=== PATIENT | male | born 1945 | race Hispanic/Latino ===

== ENCOUNTER 2017-01-15 21:43 | Emergency (ER) | payer MEDICARE ==
[2017-01-15 21:49] VITALS: BP 143/85; PULSE 82; RESP 18; TEMP 98.3; O2SAT 99
--- NOTE | 2017-01-15 23:20 | ED PDOC ---
HPI: General Adult Time Seen by Provider: 01/15/17 22:11 Chief Complaint (Nursing): Cough, Cold, Congestion Chief Complaint (Provider): Lightheadedness History Per: Patient History/Exam Limitations: no limitations Onset/Duration Of Symptoms: Hrs Additional History Per: Family () Additional Complaint(s): Sharath is a 71 y/o male who was recently discharged from the hospital on Friday after being admitted for bronchitis, and also had a colonoscopy and had a sample taken for biopsy. He is currently awaiting the results of the biopsy. Today, patient reports he was sitting and felt light headed. He has had similar episodes in the past but said this time the symptoms lasted longer, prompting his visit. His thinks it may have been caused by anxiety about his pending test results. He denies headache, chest pain, shortness of breath, or weakness, but admits to a return of green sputum after 4 days of no coughing. Patient states he had dinner but skipped lunch today. PMD: Deondre Kovacs Past Medical History Reviewed: Historical Data, Nursing Documentation, Vital Signs Vital Signs: Last Vital Signs Temp 98.3 F 01/15/17 21:45 Pulse 82 01/15/17 21:45 Resp 18 01/15/17 21:45 BP 143/85 01/15/17 21:45 Pulse Ox 99 01/16/17 01:24 - Medical History PMH: Anemia, Bronchitis, Gastritis, HTN, Pneumonia, Chronic Kidney Disease - Surgical History Surgical History: Endoscopy (Colonscopy and biopsy of mass) - Family History Family History: States: Unknown Family Hx - Home Medications Home Medications: Ambulatory Orders Medication Instructions Recorded Zolpidem [Ambien] 5 mg PO HS 12/31/16 Ferrous Bis-Glycinate Chelate 1 gm MC DAILY #20 powder 01/10/17 [Ferrous Bisglycinate Chelate] Fludrocortisone [Florinef Acetate] 0.1 mg PO DAILY #20 tab 01/10/17 Albuterol HFA [Ventolin HFA 90 2 puff IH [id number] #1 puff 01/16/17 mcg/actuation (8 g)] - Allergies Allergies/Adverse Reactions: Allergies Allergy/AdvReac Type Severity Reaction Status Date / Time No Known Allergies Allergy Verified 12/31/16 13:39 Review of Systems ROS Statement: Except As Marked, All Systems Reviewed And Found Negative Constitutional: Negative for: Weakness Cardiovascular: Negative for: Chest Pain Respiratory: Positive for: Cough, Sputum (green). Negative for: Shortness of Breath Neurological: Positive for: Other (lightheadedness). Negative for: Weakness, Headache Physical Exam - Reviewed Nursing Documentation Reviewed: Yes Vital Signs Reviewed: Yes - Physical Exam Appears: Positive for: Non-toxic, No Acute Distress Head Exam: Positive for: ATRAUMATIC, NORMAL INSPECTION, NORMOCEPHALIC Skin: Positive for: Normal Color, Warm, Dry Eye Exam: Positive for: Normal appearance, EOMI, PERRL. Negative for: Nystagmus ENT: Positive for: Normal ENT Inspection Neck: Positive for: Normal, Painless ROM, Supple Cardiovascular/Chest: Positive for: Regular Rate, Rhythm. Negative for: Murmur Respiratory: Positive for: Crackles (right basilar - similar to previous exam). Negative for: Respiratory Distress Gastrointestinal/Abdominal: Positive for: Normal Exam, Bowel Sounds, Soft. Negative for: Tenderness Back: Positive for: Normal Inspection Extremity: Positive for: Normal ROM. Negative for: Pedal Edema, Deformity Neurologic/Psych: Positive for: Alert, Oriented. Negative for: Motor/Sensory Deficits - Laboratory Results Result Diagrams: 01/16/17 00:09 01/16/17 00:09 - ECG O2 Sat by Pulse Oximetry: 99 (RA) Pulse Ox Interpretation: Normal Medical Decision Making Medical Decision Making: Time: 22:32 Initial Impression: Lightheadedness Initial Plan: --EKG --CMP --CBC --PTT --Prothrombin Time --Chest x-ray --Blood Glucose --Ortho BP --Urinalysis Scribe Attestation: Documented by Butch Bradley, acting as a scribe for Kati Laurent MD Provider Scribe Attestation: All medical record entries made by the Scribe were at my direction and personally dictated by me. I have reviewed the chart and agree that the record accurately reflects my personal performance of the history, physical exam, medical decision making, and the department course for this patient. I have also personally directed, reviewed, and agree with the discharge instructions and disposition. Disposition - Clinical Impression Clinical Impression: Dizziness, Cough - Disposition Referrals: Rob Kovacs MD [Family Provider] - Disposition: Transfer of Care Disposition Time: 00:00 Condition: STABLE Prescriptions: Albuterol HFA [Ventolin HFA 90 mcg/actuation (8 g)] 2 puff IH [id number] #1 puff Instructions: Dizziness (ED), Acute Cough (ED) Forms: [employer] ([place]) Patient Signed Over To: Remy Boggs Handoff Comments: Pending labs.
[2017-01-16 00:13] LABS: BASO # 0.1 K/uL (0.0-0.2); BASO % 0.9 % (0.0-2.0); EOS # 0.3 K/uL (0.0-0.7); EOS % 4.7 % (0.0-4.0); HEMATOCRIT 33.1 % (35.0-51.0); LYMPH # 1.1 K/uL (1.0-4.3); LYMPH % 18.2 % (20.0-40.0); MEAN CELL VOLUME 79.2 fl (80.0-94.0); MEAN CORPUSCULAR HEMOGLOBIN 24.3 pg (27.0-31.0); MEAN CORPUSCULAR HGB CONC 30.7 g/dL (33.0-37.0); MEAN PLATELET VOLUME 8.6 fl (7.2-11.7); MONO # 0.6 K/uL (0.0-0.8); MONO % 10.6 % (0.0-10.0); NEUT # 3.9 K/uL (1.8-7.0); NEUT % 65.6 % (50.0-75.0); NRBC % 0.1 % (0.0-0.0); RED CELL DISTRIBUTION WIDTH 28.9 % (11.5-14.5); WHITE BLOOD COUNT 5.9 K/uL (4.8-10.8)
[2017-01-16 00:23] LABS: CALCIUM 8.5 mg/dL (8.4-10.2); POTASSIUM 3.8 MMOL/L (3.6-5.0); TOTAL PROTEIN 5.4 G/DL (6.3-8.2)
[2017-01-16 00:24] LABS: ALB/GLOB RATIO 1.7 (1.0-2.1)
[2017-01-16] MEDS: Sodium Chloride 0.9% 1,000 ML IV STA (00:25)
--- NOTE | 2017-01-16 01:21 | ED PDOC ---
- Laboratory Results Result Diagrams: 01/16/17 00:09 01/16/17 00:09 - ECG O2 Sat by Pulse Oximetry: 99 (RA) Pulse Ox Interpretation: Normal Medical Decision Making Medical Decision Makin Signed out to me by Dr. Laurent pending bloodwork and reassessment 115AM Pt. feeling better, states symptoms have resolved. Was able to get up and walk without reproduction of symptoms. States he may have been anxious about results of colonoscopy. Will give ventolin for cough. Told to f/u w/ Dr. Kovacs tomorrow. Disposition - Clinical Impression Clinical Impression: Dizziness, Cough - POA Present On Arrival: None - Disposition Referrals: Rob Kovacs MD [Family Provider] - Disposition: Routine/Home Disposition Time: 01:15 Condition: STABLE Prescriptions: Albuterol HFA [Ventolin HFA 90 mcg/actuation (8 g)] 2 puff IH [id number] #1 puff Instructions: Dizziness (ED), Acute Cough (ED) Forms: [employer] ([place]z)
--- NOTE | 2017-01-16 11:15 | RAD ---
HISTORY: Lightheadedness COMPARISON: 01/06/2017 FINDINGS: LUNGS: No active pulmonary disease. PLEURA: No significant pleural effusion identified, no pneumothorax apparent. CARDIOVASCULAR: Cardiomegaly. No evidence of acute, significant cardiovascular disease. OSSEOUS STRUCTURES: No significant abnormalities. VISUALIZED UPPER ABDOMEN: Normal. OTHER FINDINGS: None. IMPRESSION: No active disease. No significant interval change compared to the prior examination(s). Concordant results with the preliminary interpretation rendered by the emergency department physician procedure.
--- NOTE | 2017-01-17 18:04 | CARD ---
APPROVED REPORT EKG Measurement Heart [id number] <Conclusion> Normal sinus rhythm Left axis deviation Moderate voltage criteria for LVH, may be normal variant Cannot rule out Septal infarct, age undetermined Abnormal ECG
== END 2017-01-16 02:03 | disposition home or self-care (01) ==
LOC: H.ER 21:43
DX: R05 Cough (principal); R42 Dizziness and giddiness
CPT/HCPCS: 71010; 80053; 82948; 85025; 85610; 85730; 93005; 96360; 99284; J7040

== ENCOUNTER 2017-02-25 08:07 | Inpatient (IN) | payer MEDICARE ==
[2017-02-25 08:26] VITALS: BMI 25.9
[2017-02-25] MEDS ORDERED: Lactated Ringer's 1,000 ML IV ONE ×3 (10:19→12:33)
[2017-02-25] MEDS ORDERED: Propofol 10 mg/ml Inj (20 ML) ONE (10:22)
[2017-02-25] MEDS ORDERED: Succinylcholine 200 mg/10 ml Inj IV ONE (10:23)
[2017-02-25] MEDS ORDERED: Rocuronium 10 mg/ml (5 ml) ONE ×2 (10:23→11:55)
[2017-02-25] MEDS ORDERED: ePHEDrine 50 mg/ml Inj ONE ×2 (10:23→12:12)
[2017-02-25] MEDS ORDERED: Midazolam 2 MG/2 ML VIAL ONE ×2 (10:23→13:49)
--- NOTE | 2017-02-25 10:52 | CP.SDSHP ---
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 - Previous Medical/Surgical History Cardiac: Hypertension, ASHD/CAD, Hx of CHF Pulmonary: Emphysema/COPD, Other (pneumothorax) Endocrine/Metabolic: Renal Disease (CKD) Misc: Anemia Previous Surgical History: cholecystectomy, prostate surgery, left lung resection for bleb - Allergies Allergies: Allergies No Known Allergies Allergy (Verified 02/25/17 08:25) - Physical Exam Vital Signs: Vital Signs 02/25/17 02/25/17 02/25/17 08:39 08:42 08:54 Temperature 97.6 F Pulse Rate 78 78 Respiratory 20 Rate Blood Pressure 178/100 H 154/94 H O2 Sat by Pulse 100 Oximetry Mental Status: Alert & Oriented x3 Neuro: WNL Heart: WNL Lungs: WNL GI: Other (well healed lower midline scar) - Impression Impression: Ascending colon mass Pt. Evaluated Today:Candidate for Anesthesia & Procedure: Yes - Date & Time Date: 02/25/17 Time: 10:56 Short Stay Discharge - Short Stay Discharge Admitting Diagnosis/Reason for Visit: C18.1 Disposition: HOME/ ROUTINE Referrals: Rob Kovacs MD [Primary Care Provider] -
[2017-02-25] MEDS ORDERED: metroNIDAZOLE 500mg/100ml NS IVPB ONE (11:08)
[2017-02-25] MEDS ORDERED: Chlorhexidine Gluconate 1 APPL/PKT TP ONE (11:30)
[2017-02-25] MEDS ORDERED: Neostigmine Methylsulfate 3mg/3ml Syringe IV ONE (12:01)
[2017-02-25] MEDS ORDERED: Cellulose Hemostat 2X3 Sheet TP ONE (12:54)
--- NOTE | 2017-02-25 13:37 | PCM.SURG1 ---
Surgeon's Initial Post Op Note - Surgeon's Notes Surgeon: Dr. Kapoor Prenatal Genetic Counselor: Dr. Lundy, Dr. Chen PGY-3, Dr. Spicer PGY-1 Type of Anesthesia: General Endo Anesthesia Administered By: Dr. Pérez Pre-Operative Diagnosis: Ascending colon mass Operative Findings: Ascending colon mass Post-Operative Diagnosis: Ascending colon mass Operation Performed: Laparoscopic hand assisted lysis of adhesions, open right hemicolectomy, Mejía insertion Specimen/Specimens Removed: Right colon Estimated Blood Loss: EBL {In ML}: 1,000 Blood Products Given: PRBC (1 unit) Drains Used: No Drains Post-Op Condition: Poor Date of Surgery/Procedure: 02/25/17 Time of Surgery/Procedure: 13:37
[2017-02-25] MEDS ORDERED: Albuterol HFA 90 mcg/actuation (8 g) IH SCH (13:45)
[2017-02-25] MEDS ORDERED: Lactated Ringer's 1,000 ML IV SCH ×3 (13:45→20:00)
[2017-02-25] MEDS ORDERED: Midazolam 2 MG/2 ML VIAL IVP PRN (13:50)
--- NOTE | 2017-02-25 16:27 | CP.PCM.CON ---
History of Present Illness - History of Present Illness History of Present Illness: 71 y/o male with pmx of orthostatic hypotension taking florinef, previosuly dx with iron deficiency anemia undergoes right hemicolectomy with intra-op blood loss. Patient in ICu for post op monitoring. Patient deneis any abdominal pain, deneis any chest pain. deniesa ny dizziness. Review of Systems - Constitutional Constitutional: Fatigue, Lethargy. absent: Anorexia, Fever - Cardiovascular Cardiovascular: absent: Chest Pain, Edema, Irregular Heart Rhythm, Orthopnea, Palpitations - Respiratory Respiratory: absent: Dyspnea, Hemoptysis, Dyspnea on Exertion, Wheezing, Snoring - Gastrointestinal Gastrointestinal: Abdominal Pain. absent: Cramping, Loose Stools, Temesmus - Genitourinary Genitourinary: Other (mcdaniels post op) Past Patient History - Past Medical History & Family History Past Medical History?: Yes - Past Social History Smoking Status: Never Smoked - CARDIAC Hx Cardiac Disorders: Yes (HTN) Hx Hypertension: Yes - PULMONARY Hx Respiratory Disorders: No Hx Bronchitis: Yes Hx Pneumonia: Yes - NEUROLOGICAL Hx Neurological Disorder: No - HEENT Hx HEENT Problems: No - RENAL Hx Chronic Kidney Disease: Yes Other/Comment: Hx chronic renal insufficiency. Hx CKD. Hx Renal Cyst - ENDOCRINE/METABOLIC Hx Endocrine Disorders: No - HEMATOLOGICAL/ONCOLOGICAL Hx Blood Disorders: Yes Hx Anemia: Yes Hx Blood Transfusions: Yes - INTEGUMENTARY Hx Dermatological Problems: No - MUSCULOSKELETAL/RHEUMATOLOGICAL Hx Musculoskeletal Disorders: No Hx Falls: Yes - GASTROINTESTINAL Hx Gastrointestinal Disorders: Yes Hx Gastritis: Yes Other/Comment: Hx Colonic Mass. Hx GI bleed - GENITOURINARY/GYNECOLOGICAL Hx Genitourinary Disorders: No Hx Prostate Problems: Yes - PSYCHIATRIC Hx Psychophysiologic Disorder: No Hx Substance Use: No - SURGICAL HISTORY Hx Surgeries: Yes Other/Comment: Prostatectomy - ANESTHESIA Hx Anesthesia: Yes Hx Anesthesia Reactions: No Hx Malignant Hyperthermia: No Has any member of the family had a problem w/ anesthesia?: No Meds Allergies/Adverse Reactions: Allergies Allergy/AdvReac Type Severity Reaction Status Date / Time No Known Allergies Allergy Verified 02/25/17 08:25 - Medications Medications: Current Medications Albuterol (Ventolin Hfa 90 Mcg/Actuation (8 G)) 2 puff IH RQ6 LUCIEN Fludrocortisone Acetate (Florinef) 0.1 mg PO DAILY [facility] Hydrochlorothiazide (Microzide) 12.5 mg PO DAILY [facility] Hydromorphone HCl (Dilaudid) 2 mg IVP Q4 PRN PRN Reason: Pain, moderate (4-7) Stop: 02/26/17 17:00 Hydromorphone HCl (Dilaudid) 0.5 mg IVP Q15MIN PRN PRN Reason: Pain, moderate (4-7) Last Admin: 02/25/17 14:48 Dose: 0.5 mg Cefazolin Sodium/Dextrose (Ancef Iv 1 Gm Duplex) 1 gm in 50 mls @ 50 mls/hr IVPB Q12 LUCIEN PRN Reason: Protocol Stop: 02/26/17 09:59 Metronidazole (Flagyl 500mg/100ml Ns) 100 mls @ 100 mls/hr IVPB Q8 LUCIEN PRN Reason: Protocol Stop: 02/26/17 09:59 Lactated Ringer's (Lactated Ringer's) 1,000 mls @ 75 mls/hr IV .[id number] [facility] Hydrocortisone Sodium Succinate 100 mg/ Sodium Chloride 100 mls @ 100 mls/hr IV ONCE ONE Stop: 02/25/17 17:59 Midazolam HCl (Versed Inj) 2 mg IVP ONCE PRN PRN Reason: Agitation/Restlessness Last Admin: 02/25/17 13:50 Dose: 2 mg Multivitamins/Minerals (Therapeutic-M Tab) 1 tab PO DAILY [facility] Ondansetron HCl (Zofran Inj) 4 mg IVP Q4 PRN PRN Reason: Nausea/Vomiting Zolpidem Tartrate (Ambien) 5 mg PO HS PRN PRN Reason: Insomnia Physical Exam - Constitutional Appears: Non-toxic - Head Exam Head Exam: ATRAUMATIC, NORMAL INSPECTION, NORMOCEPHALIC - Eye Exam Eye Exam: EOMI - ENT Exam ENT Exam: Mucous Membranes Moist - Cardiovascular Exam Cardiovascular Exam: REGULAR RHYTHM, +S1, +S2, +S4 - GI/Abdominal Exam GI & Abdominal Exam: Diminished Bowel Sounds, Soft. absent: Pulsatile Mass, Rebound, Rigid - Extremities Exam Extremities exam: Positive for: normal inspection. Negative for: joint swelling Results - Vital Signs Recent Vital Signs: Last Vital Signs Temp 98.7 F 02/25/17 15:55 Pulse 97 H 02/25/17 15:55 Resp 18 02/25/17 15:55 BP 132/88 02/25/17 15:55 Pulse Ox 98 02/25/17 15:55 - Labs Labs: Laboratory Results - last 24 hr 02/25/17 09:45 Blood Type O POSITIVE Antibody Screen Positive Antibody Identification Anti Fya Crossmatch See Detail BBK History Checked Patient has bt Assessment & Plan - Assessment and Plan (Free Text) Plan: 71 y/o male with outpatient treatment for orthostatic hypotension taking florinef admitted to [facility] for right hemicolectomy -Post Op: monitor bp, tele, fevers, urien output -h/o orthostatin hypotension: given NPO status give 100 mg of hydrocortisone -intra-op blood loss: as per surgeon hemostasis obtained before closing: montior serial cbc -monitor urine output keep >0.5 ml/kg/hr -Chronic systolic heart failure (EF 45%): gently hydration avoid fluiv overloaded state, monitor I/I -check lactic, cortisol, electrolytes and cbc -Patient remains hemodynamically stable; however at risk of hypotension 2nd underlyig disorder d/w nursing cc time 35 minutes - Date & Time Date: 02/25/17 Time: 16:32
[2017-02-25] MEDS ORDERED: Hydrocortisone- 100 MG in Sodium Chloride 0.9% 100 ML IV ONE (17:00)
[2017-02-25] MEDS: Lactated Ringer's 1,000 ML IV SCH (18:01)
[2017-02-25] MEDS: metroNIDAZOLE 500mg/100ml NS 100 ML IVPB SCH (18:02)
[2017-02-25 19:00] LABS: BASO # 0.1 K/uL (0.0-0.2); BASO % 0.2 % (0.0-2.0); HEMOGLOBIN 14.9 g/dL (12.0-18.0); LYMPH # 0.4 K/uL (1.0-4.3); LYMPH % 1.2 % (20.0-40.0); MEAN CELL VOLUME 84.7 fl (80.0-94.0); MEAN CORPUSCULAR HEMOGLOBIN 26.8 pg (27.0-31.0); MEAN CORPUSCULAR HGB CONC 31.6 g/dL (33.0-37.0); MEAN PLATELET VOLUME 8.9 fl (7.2-11.7); MONO # 2.1 K/uL (0.0-0.8); MONO % 6.4 % (0.0-10.0); NEUT # 29.6 K/uL (1.8-7.0); NEUT % 92.2 % (50.0-75.0); NRBC % 0.2 % (0.0-0.0); PLATELET COUNT 150 K/uL (130-400); RBC 5.57 Mil/uL (4.40-5.90); RED CELL DISTRIBUTION WIDTH 18.7 % (11.5-14.5)
[2017-02-25 19:04] LABS: WHITE BLOOD COUNT 32.2 K/uL (4.8-10.8)
[2017-02-25 19:53] LABS: ALB/GLOB RATIO 1.9 (1.0-2.1); ALBUMIN 3.3 g/dL (3.5-5.0); ALT/SGPT 44 U/L (21-72); AST/SGOT 26 U/L (17-59); B-TYPE NATRIURETIC PEPTIDE 1730 pg/ml (0-900); BLOOD UREA NITROGEN 21 mg/dl (9-20); GFR AFRICAN-AMERICAN 43; GFR NON-AFRICAN AMERICAN 35; MAGNESIUM 1.5 MG/DL (1.6-2.3)
--- NOTE | 2017-02-25 20:00 | CP.PCM.CON ---
<Genna Lee - Last Filed: 02/26/17 00:50> History of Present Illness - History of Present Illness History of Present Illness: Medicine Consult for : Inpatient care 71 yr old M POD # 0 s/p laparoscopic right hemicolectomy for ascending colon mass (moderately differentiated adenocarcinoma). PMHx includes HTN, CAD, CHF, Emphysema/COPD, CKD, TALYA and orthostatic hypotension. Patient has no concerns or complaints at this time, pain is controlled. at bedside reports surgery team discussed intraoperative blood loss had occurred and patient was administered 2 units of blood. PMD: Dr. Kovacs Specialists: Dr. Miller-cardiology PMHx: HTN, CAD, CHF, Emphysema/COPD, CKD, TALYA and orthostatic hypotension SurgHx: left lung resection of for bleb FMHx: father had DM, brother was diagnosed with colon cancer at approximately age 45 yrs old, mother healthy SocHx: denies smoking, drinking or Etoh Medications: Hydrochlorothiazide 12.5mg x 15 days, Ferrous sulfate 325mg PO BID , Zolpidem 5mg PO QHS Allergies: NKDA Review of Systems - Review of Systems All systems: reviewed and no additional remarkable complaints except (for what is mentioned in the HPI) - Constitutional Constitutional: Snoring. absent: Chills, Fever, Headache - EENT Eyes: absent: Blurred Vision Ears: absent: Ear Discharge, Tinnitus Nose/Mouth/Throat: absent: Nasal Congestion, Dysphagia - Cardiovascular Cardiovascular: absent: Chest Pain at Rest, Diaphoresis - Respiratory Respiratory: absent: Cough, Hemoptysis - Gastrointestinal Gastrointestinal: absent: Vomiting - Genitourinary Genitourinary: Other (mcdaniels ) - Musculoskeletal Musculoskeletal: absent: Joint Swelling, Myalgias, Numbness - Integumentary Integumentary: absent: Bleeding Lesions, Change in Hair - Neurological Neurological: absent: Numbness, Focal Weakness, Headaches - Endocrine Endocrine: Fatigue. absent: Palpitations - Hematologic/Lymphatic Hematologic: absent: Lymphadenopathy Past Patient History - Past Medical History & Family History Past Medical History?: Yes - Past Social History Smoking Status: Never Smoked - CARDIAC Hx Cardiac Disorders: Yes (HTN) Hx Congestive Heart Failure: Yes Hx Hypertension: Yes - PULMONARY Hx Respiratory Disorders: No Hx Bronchitis: Yes Hx Chronic Obstructive Pulmonary Disease (COPD): Yes - NEUROLOGICAL Hx Neurological Disorder: No - HEENT Hx HEENT Problems: No - RENAL Hx Chronic Kidney Disease: Yes Other/Comment: Hx chronic renal insufficiency. Hx CKD. Hx Renal Cyst - ENDOCRINE/METABOLIC Hx Endocrine Disorders: No - HEMATOLOGICAL/ONCOLOGICAL Hx Blood Disorders: Yes Hx Anemia: Yes Hx Blood Transfusions: Yes - INTEGUMENTARY Hx Dermatological Problems: No - MUSCULOSKELETAL/RHEUMATOLOGICAL Hx Falls: No - GASTROINTESTINAL Hx Gastrointestinal Disorders: Yes Hx Gastritis: Yes Other/Comment: Hx Colonic Mass. Hx GI bleed - GENITOURINARY/GYNECOLOGICAL Hx Genitourinary Disorders: No Hx Prostate Problems: Yes - PSYCHIATRIC Hx Substance Use: No - SURGICAL HISTORY Hx Surgeries: Yes Hx Cholecystectomy: Yes Other/Comment: Prostatectomy - ANESTHESIA Hx Anesthesia: Yes Hx Anesthesia Reactions: No Hx Malignant Hyperthermia: No Has any member of the family had a problem w/ anesthesia?: No Meds Allergies/Adverse Reactions: Allergies Allergy/AdvReac Type Severity Reaction Status Date / Time No Known Allergies Allergy Verified 02/25/17 08:25 - Medications Medications: Current Medications Albuterol (Ventolin Hfa 90 Mcg/Actuation (8 G)) 2 puff IH RQ6 [facility] Hydrochlorothiazide (Microzide) 12.5 mg PO DAILY [facility] Hydromorphone HCl (Dilaudid) 2 mg IVP Q4 PRN PRN Reason: Pain, moderate (4-7) Stop: 02/26/17 17:00 Hydromorphone HCl (Dilaudid) 0.5 mg IVP Q15MIN PRN PRN Reason: Pain, moderate (4-7) Last Admin: 02/25/17 14:48 Dose: 0.5 mg Cefazolin Sodium/Dextrose (Ancef Iv 1 Gm Duplex) 1 gm in 50 mls @ 50 mls/hr IVPB Q12 [facility] PRN Reason: Protocol Stop: 02/26/17 09:59 Metronidazole (Flagyl 500mg/100ml Ns) 100 mls @ 100 mls/hr IVPB Q8 [facility] PRN Reason: Protocol Stop: 02/26/17 09:59 Last Admin: 02/25/17 18:02 Dose: 100 mls/hr Lactated Ringer's (Lactated Ringer's) 1,000 mls @ 125 mls/hr IV .Q8H [facility] Last Admin: 02/25/17 18:01 Dose: 125 mls/hr Midazolam HCl (Versed Inj) 2 mg IVP ONCE PRN PRN Reason: Agitation/Restlessness Last Admin: 02/25/17 13:50 Dose: 2 mg Multivitamins/Minerals (Therapeutic-M Tab) 1 tab PO DAILY [facility] Ondansetron HCl (Zofran Inj) 4 mg IVP Q4 PRN PRN Reason: Nausea/Vomiting Pantoprazole Sodium (Protonix Inj) 40 mg IVP DAILY [facility] Zolpidem Tartrate (Ambien) 5 mg PO HS PRN PRN Reason: Insomnia Physical Exam - Constitutional Appears: No Acute Distress - Head Exam Head Exam: ATRAUMATIC, NORMOCEPHALIC - Eye Exam Eye Exam: EOMI, PERRL - ENT Exam ENT Exam: Mucous Membranes Moist - Neck Exam Neck exam: Positive for: Full Rom - Respiratory Exam Respiratory Exam: Clear to Auscultation Bilateral, NORMAL BREATHING PATTERN - Cardiovascular Exam Cardiovascular Exam: REGULAR RHYTHM, +S1, +S2 - GI/Abdominal Exam GI & Abdominal Exam: Hypoactive Bowel Sounds, Soft, Tenderness (diffuse, moderate). absent: Firm - Extremities Exam Extremities exam: Positive for: full ROM, normal inspection, pedal pulses present. Negative for: pedal edema, tenderness - Neurological Exam Neurological exam: Alert, CN II-XII Intact, Oriented x3 - Psychiatric Exam Psychiatric exam: Normal Affect, Normal Mood - Skin Skin Exam: Dry, Intact, Normal Color Results - Vital Signs Recent Vital Signs: Last Vital Signs Temp 97.5 F L 02/25/17 16:00 Pulse 93 H 02/25/17 18:00 Resp 20 02/25/17 18:00 BP 150/91 H 02/25/17 18:00 Pulse Ox 96 02/25/17 18:00 - Labs Result Diagrams: 02/25/17 18:30 02/25/17 18:30 Labs: Laboratory Results - last 24 hr 02/25/17 02/25/17 02/25/17 09:45 17:43 18:30 WBC RBC Hgb Hct MCV MCH MCHC RDW Plt Count MPV Neut % (Auto) Lymph % (Auto) Amador % (Auto) Eos % (Auto) Baso % (Auto) Neut # Lymph # Amador # Eos # Baso # Sodium Potassium Chloride Carbon Dioxide Anion Gap BUN Creatinine Est GFR ( Amer) Est GFR (Non-Af Amer) POC Glucose (mg/dL) 140 H Random Glucose Lactic Acid 2.2 H Calcium Phosphorus Magnesium Total Bilirubin AST ALT Alkaline Phosphatase NT-Pro-B Natriuret Pep Total Protein Albumin Globulin Albumin/Globulin Ratio TSH 3rd Generation Blood Type O POSITIVE Antibody Screen Positive Antibody Identification Anti Fya Crossmatch See Detail BBK History Checked Patient has bt 02/25/17 02/25/17 18:30 18:30 WBC 32.2 H D RBC 5.57 Hgb 14.9 Hct 47.2 MCV 84.7 MCH 26.8 L MCHC 31.6 L RDW 18.7 H Plt Count 150 MPV 8.9 Neut % (Auto) 92.2 H Lymph % (Auto) 1.2 L Amador % (Auto) 6.4 Eos % (Auto) 0.0 Baso % (Auto) 0.2 Neut # 29.6 H Lymph # 0.4 L Amador # 2.1 H Eos # 0.0 Baso # 0.1 Sodium 139 Potassium 4.4 Chloride 106 Carbon Dioxide 22 Anion Gap 15 BUN 21 H Creatinine 1.9 H Est GFR ( Amer) 43 Est GFR (Non-Af Amer) 35 POC Glucose (mg/dL) Random Glucose 143 H Lactic Acid Calcium 8.0 L Phosphorus 6.0 H Magnesium 1.5 L Total Bilirubin 0.9 AST 26 ALT 44 Alkaline Phosphatase 68 NT-Pro-B Natriuret Pep 1730 H Total Protein 5.0 L Albumin 3.3 L Globulin 1.8 L Albumin/Globulin Ratio 1.9 TSH 3rd Generation 1.44 Blood Type Antibody Screen Antibody Identification Crossmatch BBK History Checked Assessment & Plan - Assessment and Plan (Free Text) Assessment: 71 yr old M POD # 0 s/p laparoscopic right hemicolectomy for ascending colon mass (moderately differentiated adenocarcinoma). PMHx includes HTN, CAD, CHF, Emphysema/COPD, CKD, TALYA and orthostatic hypotension. Patient has no concerns or complaints at this time, pain is controlled. at bedside reports surgery team discussed intraoperative blood loss had occurred and patient was administered 2 units of blood. 1. s/p Right hemicolectomy for ascending colon mass -stable s/p intraoperative blood loss of approximately 1L and transfusion of 2 units leuckocyte reduced RBC's -moderately differentiated adenocarcinoma -WBC 32.2 with left shift, IV antibiotics: Cefazolin, Metronidazole -Pain management, Zofran PRN nausea -NPO, IV fluids, pantoprazole 40mg IVP QD -monitor intake and output -admitted to ICU for monitoring -H/H stable at 14.9/47.2 2. HTN -controlled -home meds held for now (last Rx filled stated: HCTZ 12.5 mg PO QD x 15 days) 3. Orthostatic hypotension -resolved -patient was not taking Florinef past date of 01/30/17 (was only give 20 tabs at discharge on 01/10/17) -discontinue Florinef 4. Borderline left ventricular function -stable, controlled -Echo 01/01/17: mildly impaired systolic function with LVEF of 45% -patients' hurl shaker is Dr. Miller 5. Emphysema/COPD -chronic, controlled -continue home med Ventolin HFA 90mcg 2 puffs INH Q6 PRN for cough/SOB 6. DVT prophylaxis -SCD's - Date & Time Date: 02/25/17 Time: 18:15 <Santo Damon - Last Filed: 02/26/17 07:07> Meds - Medications Medications: Current Medications Albuterol (Ventolin Hfa 90 Mcg/Actuation (8 G)) 2 puff IH RQ6 PRN PRN Reason: Shortness of Breath Hydrochlorothiazide (Microzide) 12.5 mg PO DAILY [facility] Hydromorphone HCl (Dilaudid) 2 mg IVP Q4 PRN PRN Reason: Pain, moderate (4-7) Stop: 02/26/17 17:00 Last Admin: 02/26/17 00:14 Dose: 2 mg Hydromorphone HCl (Dilaudid) 0.5 mg IVP Q15MIN PRN PRN Reason: Pain, moderate (4-7) Last Admin: 02/25/17 14:48 Dose: 0.5 mg Cefazolin Sodium/Dextrose (Ancef Iv 1 Gm Duplex) 1 gm in 50 mls @ 50 mls/hr IVPB Q12 [facility] PRN Reason: Protocol Stop: 02/26/17 09:59 Last Admin: 02/25/17 21:45 Dose: 50 mls/hr Metronidazole (Flagyl 500mg/100ml Ns) 100 mls @ 100 mls/hr IVPB Q8 [facility] PRN Reason: Protocol Stop: 02/26/17 09:59 Last Admin: 02/26/17 00:15 Dose: 100 mls/hr Lactated Ringer's (Lactated Ringer's) 1,000 mls @ 125 mls/hr IV .Q8H [facility] Last Admin: 02/25/17 18:01 Dose: 125 mls/hr Lactated Ringer's (Lactated Ringer's) 1,000 mls @ 75 mls/hr IV .[id number] [facility] Last Admin: 02/25/17 20:00 Dose: 75 mls/hr Lactated Ringer's (Lactated Ringer's 500ml) 500 mls @ 500 mls/hr IV .Q1H [facility] Last Admin: 02/26/17 06:02 Dose: 500 mls/hr Midazolam HCl (Versed Inj) 2 mg IVP ONCE PRN PRN Reason: Agitation/Restlessness Last Admin: 02/25/17 13:50 Dose: 2 mg Multivitamins/Minerals (Therapeutic-M Tab) 1 tab PO DAILY [facility] Ondansetron HCl (Zofran Inj) 4 mg IVP Q4 PRN PRN Reason: Nausea/Vomiting Pantoprazole Sodium (Protonix Inj) 40 mg IVP DAILY [facility] Zolpidem Tartrate (Ambien) 5 mg PO HS PRN PRN Reason: Insomnia Results - Vital Signs Recent Vital Signs: Last Vital Signs Temp 99 F 02/26/17 04:00 Pulse 89 02/26/17 06:00 Resp 19 02/26/17 06:00 BP 108/69 02/26/17 06:00 Pulse Ox 98 02/26/17 06:00 - Labs Result Diagrams: 02/26/17 04:25 02/26/17 04:25 Labs: Laboratory Results - last 24 hr 02/25/17 02/25/17 02/25/17 09:45 17:43 18:30 WBC RBC Hgb Hct MCV MCH MCHC RDW Plt Count MPV Neut % (Auto) Lymph % (Auto) Amador % (Auto) Eos % (Auto) Baso % (Auto) Neut # Lymph # Amador # Eos # Baso # Neutrophils % (Manual) Band Neutrophils % Lymphocytes % (Manual) Reactive Lymphs % Monocytes % (Manual) Toxic Granulation Platelet Estimate Hypochromasia (manual) Microcytosis (manual) Sodium Potassium Chloride Carbon Dioxide Anion Gap BUN Creatinine Est GFR ( Amer) Est GFR (Non-Af Amer) POC Glucose (mg/dL) 140 H Random Glucose Lactic Acid 2.2 H Calcium Phosphorus Magnesium Total Bilirubin AST ALT Alkaline Phosphatase Troponin I NT-Pro-B Natriuret Pep Total Protein Albumin Globulin Albumin/Globulin Ratio TSH 3rd Generation Blood Type O POSITIVE Antibody Screen Positive Antibody Identification Anti Fya Crossmatch See Detail BBK History Checked Patient has bt 02/25/17 02/25/17 02/25/17 18:30 18:30 21:14 WBC 32.2 H D RBC 5.57 Hgb 14.9 Hct 47.2 MCV 84.7 MCH 26.8 L MCHC 31.6 L RDW 18.7 H Plt Count 150 MPV 8.9 Neut % (Auto) 92.2 H Lymph % (Auto) 1.2 L Amador % (Auto) 6.4 Eos % (Auto) 0.0 Baso % (Auto) 0.2 Neut # 29.6 H Lymph # 0.4 L Amador # 2.1 H Eos # 0.0 Baso # 0.1 Neutrophils % (Manual) 85 H Band Neutrophils % 3 H Lymphocytes % (Manual) 4 L Reactive Lymphs % 1 H Monocytes % (Manual) 7 Toxic Granulation Present Platelet Estimate Normal Hypochromasia (manual) Slight Microcytosis (manual) Slight Sodium 139 Potassium 4.4 Chloride 106 Carbon Dioxide 22 Anion Gap 15 BUN 21 H Creatinine 1.9 H Est GFR ( Amer) 43 Est GFR (Non-Af Amer) 35 POC Glucose (mg/dL) 155 H Random Glucose 143 H Lactic Acid Calcium 8.0 L Phosphorus 6.0 H Magnesium 1.5 L Total Bilirubin 0.9 AST 26 ALT 44 Alkaline Phosphatase 68 Troponin I < 0.0600 NT-Pro-B Natriuret Pep 1730 H Total Protein 5.0 L Albumin 3.3 L Globulin 1.8 L Albumin/Globulin Ratio 1.9 TSH 3rd Generation 1.44 Blood Type Antibody Screen Antibody Identification Crossmatch BBK History Checked 02/26/17 02/26/17 02/26/17 04:25 04:25 05:13 WBC 27.8 H RBC 5.29 Hgb 14.1 Hct 44.6 MCV 84.5 MCH 26.6 L MCHC 31.5 L RDW 19.3 H Plt Count 166 MPV 8.7 Neut % (Auto) 87.2 H Lymph % (Auto) 3.6 L Amador % (Auto) 9.1 Eos % (Auto) 0.0 Baso % (Auto) 0.1 Neut # 24.3 H Lymph # 1.0 Amador # 2.5 H Eos # 0.0 Baso # 0.0 Neutrophils % (Manual) Band Neutrophils % Lymphocytes % (Manual) Reactive Lymphs % Monocytes % (Manual) Toxic Granulation Platelet Estimate Hypochromasia (manual) Microcytosis (manual) Sodium 138 Potassium 5.1 H Chloride 107 Carbon Dioxide 24 Anion Gap 12 BUN 28 H Creatinine 2.6 H Est GFR ( Amer) 30 Est GFR (Non-Af Amer) 25 POC Glucose (mg/dL) 172 H Random Glucose 182 H Lactic Acid Calcium 7.9 L Phosphorus Magnesium Total Bilirubin AST ALT Alkaline Phosphatase Troponin I NT-Pro-B Natriuret Pep Total Protein Albumin Globulin Albumin/Globulin Ratio TSH 3rd Generation Blood Type Antibody Screen Antibody Identification Crossmatch BBK History Checked Attending/Attestation - Attestation I have personally seen and examined this patient.: Yes I have fully participated in the care of the patient.: Yes I have reviewed all pertinent clinical information: Yes
[2017-02-25 20:14] LABS: BANDS 3 % (0-2); HYPOCHROMIC SLIGHT; LYMPHOCYTE 4 % (20-50); MICROCYTOSIS SLIGHT; MONOCYTE 7 % (0-10); NEUTROPHIL 85 % (42-75); PLATELET ESTIMATE NORMAL (NORMAL); REACTIVE LYMPHOCYTES 1 % (0-0); TOTAL CELLS COUNTED 100; TOXIC GRANULATION PRESENT
[2017-02-25] MEDS ORDERED: Albuterol HFA 90 mcg/actuation (8 g) IH PRN (21:44)
[2017-02-25] MEDS: ceFAZolin IV 1 gm in Dextrose 1 GM/50 ML BAG IVPB SCH (21:45)
[2017-02-26] MEDS: metroNIDAZOLE 500mg/100ml NS 100 ML IVPB SCH ×2 (00:15→08:43)
[2017-02-26] MEDS: Lactated Ringer's 1,000 ML IV SCH ×2 (01:06→21:50)
[2017-02-26 05:25] LABS: BASO % 0.1 % (0.0-2.0); HEMOGLOBIN 14.1 g/dL (12.0-18.0); LYMPH % 3.6 % (20.0-40.0); MEAN CELL VOLUME 84.5 fl (80.0-94.0); MEAN CORPUSCULAR HEMOGLOBIN 26.6 pg (27.0-31.0); MEAN CORPUSCULAR HGB CONC 31.5 g/dL (33.0-37.0); MEAN PLATELET VOLUME 8.7 fl (7.2-11.7); MONO # 2.5 K/uL (0.0-0.8); MONO % 9.1 % (0.0-10.0); NEUT # 24.3 K/uL (1.8-7.0); NEUT % 87.2 % (50.0-75.0); NRBC % 0.1 % (0.0-0.0); RBC 5.29 Mil/uL (4.40-5.90); RED CELL DISTRIBUTION WIDTH 19.3 % (11.5-14.5); WHITE BLOOD COUNT 27.8 K/uL (4.8-10.8)
[2017-02-26 05:28] LABS: CALCIUM 7.9 mg/dL (8.4-10.2)
[2017-02-26] MEDS ORDERED: Lactated Ringer's 500 ML IV SCH (06:00)
--- NOTE | 2017-02-26 07:27 | CP.CCUPN ---
CCU Subjective - Physician Review Events Since Last Encounter (Free Text): 02/26/17 12:48 The patient was Seen/interviewed and examined by me at the bedside during ICU round, Medical records reviewed and Management issues were discussed and formulated with the house staff. Events reviewed 71 Years old Male with no significant PMHx HTN, CAD, CHF, Emphysema/COPD, CKD, TALYA and left lung resection for bleb POD #1 S/p Laparoscopic hand assisted lysis of adhesions, open right hemicolectomy Awake, comfortable, NAD Pt AAO x3. Alert, follows some commands Denies any chest pain, SOB or Palpitations Pain controlled Afebrile, NSR on the monitor Last 24H I&O 4650/850 CCU Objective - Vital Signs / Intake & Output Vital Signs (Last 4 hours): Vital Signs Temp Pulse Resp BP Pulse Ox 02/26/17 06:00 89 19 108/69 98 02/26/17 04:00 99 F 103 H 16 107/69 97 Intake and Output (Last 8hrs): Intake & Output 02/25/17 02/26/17 02/26/17 22:59 06:59 14:59 Intake Total 500 700 Output Total 550 150 Balance -50 550 Intake: IV 450 600 Intake, Piggyback 50 100 Output: Urine 550 150 Urethral (Mejía) 400 150 - Medications Active Medications: Active Medications Generic Name Dose Route Start Last Admin Trade Name Freq PRN Reason Stop Dose Admin Albuterol 2 puff 02/25/17 21:44 Ventolin Hfa 90 Mcg/Actuation (8 G) IH RQ6 PRN Shortness of Breath Hydrochlorothiazide 12.5 mg 02/26/17 09:00 Microzide PO DAILY LUCIEN Hydromorphone HCl 2 mg 02/25/17 14:02 02/26/17 07:15 Dilaudid IVP 02/26/17 17:00 2 mg Q4 PRN Administration Pain, moderate (4-7) Hydromorphone HCl 0.5 mg 02/25/17 14:23 02/25/17 14:48 Dilaudid IVP 0.5 mg Q15MIN PRN Administration Pain, moderate (4-7) Cefazolin Sodium/Dextrose 1 gm in 50 mls @ 50 mls/hr 02/25/17 21:00 02/25/17 21:45 Ancef Iv 1 Gm Duplex IVPB 02/26/17 09:59 50 mls/hr Q12 LUCIEN Administration Protocol Metronidazole 100 mls @ 100 mls/hr 02/25/17 17:00 02/26/17 00:15 Flagyl 500mg/100ml Ns IVPB 02/26/17 09:59 100 mls/hr Q8 LUCIEN Administration Protocol Lactated Ringer's 1,000 mls @ 125 mls/hr 02/25/17 17:48 02/25/17 18:01 Lactated Ringer's IV 125 mls/hr .Q8H LUCIEN Administration Lactated Ringer's 1,000 mls @ 75 mls/hr 02/25/17 20:00 02/25/17 20:00 Lactated Ringer's IV 75 mls/hr .[id number] LUCIEN Administration Lactated Ringer's 500 mls @ 500 mls/hr 02/26/17 06:00 02/26/17 06:02 Lactated Ringer's 500ml IV 500 mls/hr .Q1H LUCIEN Administration Midazolam HCl 2 mg 02/25/17 13:50 02/25/17 13:50 Versed Inj IVP 2 mg ONCE PRN Administration Agitation/Restlessness Multivitamins/Minerals 1 tab 02/26/17 09:00 Therapeutic-M Tab PO DAILY LUCIEN Ondansetron HCl 4 mg 02/25/17 13:38 Zofran Inj IVP Q4 PRN Nausea/Vomiting Pantoprazole Sodium 40 mg 02/26/17 09:00 Protonix Inj IVP DAILY LUCIEN Zolpidem Tartrate 5 mg 02/25/17 13:41 Ambien PO HS PRN Insomnia - Patient Studies Lab Studies: Lab Studies 02/26/17 02/26/17 02/26/17 Range/Units 05:13 04:25 04:25 WBC 27.8 H (4.8-10.8) K/uL RBC 5.29 (4.40-5.90) Mil/uL Hgb 14.1 (12.0-18.0) g/dL Hct 44.6 (35.0-51.0) % MCV 84.5 (80.0-94.0) fl MCH 26.6 L (27.0-31.0) pg MCHC 31.5 L (33.0-37.0) g/dL RDW 19.3 H (11.5-14.5) % Plt Count 166 (130-400) K/uL MPV 8.7 (7.2-11.7) fl Neut % (Auto) 87.2 H (50.0-75.0) % Lymph % (Auto) 3.6 L (20.0-40.0) % [place] % (Auto) 9.1 (0.0-10.0) % Eos % (Auto) 0.0 (0.0-4.0) % Baso % (Auto) 0.1 (0.0-2.0) % Neut # 24.3 H (1.8-7.0) K/uL Lymph # 1.0 (1.0-4.3) K/uL [place] # 2.5 H (0.0-0.8) K/uL Eos # 0.0 (0.0-0.7) K/uL Baso # 0.0 (0.0-0.2) K/uL Neutrophils % (Manual) (42-75) % Band Neutrophils % (0-2) % Lymphocytes % (Manual) (20-50) % Reactive Lymphs % (0-0) % Monocytes % (Manual) (0-10) % Toxic Granulation Platelet Estimate (NORMAL) Hypochromasia (manual) Microcytosis (manual) Sodium 138 (132-148) mmol/l Potassium 5.1 H (3.6-5.0) MMOL/L Chloride 107 (98-107) mmol/L Carbon Dioxide 24 (22-30) mmol/L Anion Gap 12 (10-20) BUN 28 H (9-20) mg/dl Creatinine 2.6 H (0.8-1.5) mg/dl Est GFR ( Amer) 30 Est GFR (Non-Af Amer) 25 POC Glucose (mg/dL) 172 H (65-110) mg/dL Random Glucose 182 H (75-110) mg/dL Lactic Acid (0.7-2.1) MMOL/L Calcium 7.9 L (8.4-10.2) mg/dL Phosphorus (2.5-4.5) mg/dl Magnesium (1.6-2.3) MG/DL Total Bilirubin (0.2-1.3) mg/dl AST (17-59) U/L ALT (21-72) U/L Alkaline Phosphatase (38-126) U/L Troponin I (0.00-0.120) ng/mL NT-Pro-B Natriuret Pep (0-900) pg/ml Total Protein (6.3-8.2) G/DL Albumin (3.5-5.0) g/dL Globulin (2.2-3.9) gm/dL Albumin/Globulin Ratio (1.0-2.1) TSH 3rd Generation (0.46-4.68) mIU/ML Blood Type Antibody Screen Antibody Identification Crossmatch BBK History Checked 02/25/17 02/25/17 02/25/17 Range/Units 21:14 18:30 18:30 WBC 32.2 H D (4.8-10.8) K/uL RBC 5.57 (4.40-5.90) Mil/uL Hgb 14.9 (12.0-18.0) g/dL Hct 47.2 (35.0-51.0) % MCV 84.7 (80.0-94.0) fl MCH 26.8 L (27.0-31.0) pg MCHC 31.6 L (33.0-37.0) g/dL RDW 18.7 H (11.5-14.5) % Plt Count 150 (130-400) K/uL MPV 8.9 (7.2-11.7) fl Neut % (Auto) 92.2 H (50.0-75.0) % Lymph % (Auto) 1.2 L (20.0-40.0) % [place] % (Auto) 6.4 (0.0-10.0) % Eos % (Auto) 0.0 (0.0-4.0) % Baso % (Auto) 0.2 (0.0-2.0) % Neut # 29.6 H (1.8-7.0) K/uL Lymph # 0.4 L (1.0-4.3) K/uL [place] # 2.1 H (0.0-0.8) K/uL Eos # 0.0 (0.0-0.7) K/uL Baso # 0.1 (0.0-0.2) K/uL Neutrophils % (Manual) 85 H (42-75) % Band Neutrophils % 3 H (0-2) % Lymphocytes % (Manual) 4 L (20-50) % Reactive Lymphs % 1 H (0-0) % Monocytes % (Manual) 7 (0-10) % Toxic Granulation Present Platelet Estimate Normal (NORMAL) Hypochromasia (manual) Slight Microcytosis (manual) Slight Sodium 139 (132-148) mmol/l Potassium 4.4 (3.6-5.0) MMOL/L Chloride 106 (98-107) mmol/L Carbon Dioxide 22 (22-30) mmol/L Anion Gap 15 (10-20) BUN 21 H (9-20) mg/dl Creatinine 1.9 H (0.8-1.5) mg/dl Est GFR ( Amer) 43 Est GFR (Non-Af Amer) 35 POC Glucose (mg/dL) 155 H (65-110) mg/dL Random Glucose 143 H (75-110) mg/dL Lactic Acid (0.7-2.1) MMOL/L Calcium 8.0 L (8.4-10.2) mg/dL Phosphorus 6.0 H (2.5-4.5) mg/dl Magnesium 1.5 L (1.6-2.3) MG/DL Total Bilirubin 0.9 (0.2-1.3) mg/dl AST 26 (17-59) U/L ALT 44 (21-72) U/L Alkaline Phosphatase 68 (38-126) U/L Troponin I < 0.0600 (0.00-0.120) ng/mL NT-Pro-B Natriuret Pep 1730 H (0-900) pg/ml Total Protein 5.0 L (6.3-8.2) G/DL Albumin 3.3 L (3.5-5.0) g/dL Globulin 1.8 L (2.2-3.9) gm/dL Albumin/Globulin Ratio 1.9 (1.0-2.1) TSH 3rd Generation 1.44 (0.46-4.68) mIU/ML Blood Type Antibody Screen Antibody Identification Crossmatch BBK History Checked 02/25/17 02/25/17 02/25/17 Range/Units 18:30 17:43 09:45 WBC (4.8-10.8) K/uL RBC (4.40-5.90) Mil/uL Hgb (12.0-18.0) g/dL Hct (35.0-51.0) % MCV (80.0-94.0) fl MCH (27.0-31.0) pg MCHC (33.0-37.0) g/dL RDW (11.5-14.5) % Plt Count (130-400) K/uL MPV (7.2-11.7) fl Neut % (Auto) (50.0-75.0) % Lymph % (Auto) (20.0-40.0) % [place] % (Auto) (0.0-10.0) % Eos % (Auto) (0.0-4.0) % Baso % (Auto) (0.0-2.0) % Neut # (1.8-7.0) K/uL Lymph # (1.0-4.3) K/uL [place] # (0.0-0.8) K/uL Eos # (0.0-0.7) K/uL Baso # (0.0-0.2) K/uL Neutrophils % (Manual) (42-75) % Band Neutrophils % (0-2) % Lymphocytes % (Manual) (20-50) % Reactive Lymphs % (0-0) % Monocytes % (Manual) (0-10) % Toxic Granulation Platelet Estimate (NORMAL) Hypochromasia (manual) Microcytosis (manual) Sodium (132-148) mmol/l Potassium (3.6-5.0) MMOL/L Chloride (98-107) mmol/L Carbon Dioxide (22-30) mmol/L Anion Gap (10-20) BUN (9-20) mg/dl Creatinine (0.8-1.5) mg/dl Est GFR ( Amer) Est GFR (Non-Af Amer) POC Glucose (mg/dL) 140 H (65-110) mg/dL Random Glucose (75-110) mg/dL Lactic Acid 2.2 H (0.7-2.1) MMOL/L Calcium (8.4-10.2) mg/dL Phosphorus (2.5-4.5) mg/dl Magnesium (1.6-2.3) MG/DL Total Bilirubin (0.2-1.3) mg/dl AST (17-59) U/L ALT (21-72) U/L Alkaline Phosphatase (38-126) U/L Troponin I (0.00-0.120) ng/mL NT-Pro-B Natriuret Pep (0-900) pg/ml Total Protein (6.3-8.2) G/DL Albumin (3.5-5.0) g/dL Globulin (2.2-3.9) gm/dL Albumin/Globulin Ratio (1.0-2.1) TSH 3rd Generation (0.46-4.68) mIU/ML Blood Type O POSITIVE Antibody Screen Positive Antibody Identification Anti Fya Crossmatch See Detail BBK History Checked Patient has bt Laboratory Results - last 24 hr 02/25/17 02/25/17 02/25/17 09:45 17:43 18:30 WBC RBC Hgb Hct MCV MCH MCHC RDW Plt Count MPV Neut % (Auto) Lymph % (Auto) [place] % (Auto) Eos % (Auto) Baso % (Auto) Neut # Lymph # [place] # Eos # Baso # Neutrophils % (Manual) Band Neutrophils % Lymphocytes % (Manual) Reactive Lymphs % Monocytes % (Manual) Toxic Granulation Platelet Estimate Hypochromasia (manual) Microcytosis (manual) Sodium Potassium Chloride Carbon Dioxide Anion Gap BUN Creatinine Est GFR ( Amer) Est GFR (Non-Af Amer) POC Glucose (mg/dL) 140 H Random Glucose Lactic Acid 2.2 H Calcium Phosphorus Magnesium Total Bilirubin AST ALT Alkaline Phosphatase Troponin I NT-Pro-B Natriuret Pep Total Protein Albumin Globulin Albumin/Globulin Ratio TSH 3rd Generation Blood Type O POSITIVE Antibody Screen Positive Antibody Identification Anti Fya Crossmatch See Detail BBK History Checked Patient has bt 02/25/17 02/25/17 02/25/17 18:30 18:30 21:14 WBC 32.2 H D RBC 5.57 Hgb 14.9 Hct 47.2 MCV 84.7 MCH 26.8 L MCHC 31.6 L RDW 18.7 H Plt Count 150 MPV 8.9 Neut % (Auto) 92.2 H Lymph % (Auto) 1.2 L [place] % (Auto) 6.4 Eos % (Auto) 0.0 Baso % (Auto) 0.2 Neut # 29.6 H Lymph # 0.4 L [place] # 2.1 H Eos # 0.0 Baso # 0.1 Neutrophils % (Manual) 85 H Band Neutrophils % 3 H Lymphocytes % (Manual) 4 L Reactive Lymphs % 1 H Monocytes % (Manual) 7 Toxic Granulation Present Platelet Estimate Normal Hypochromasia (manual) Slight Microcytosis (manual) Slight Sodium 139 Potassium 4.4 Chloride 106 Carbon Dioxide 22 Anion Gap 15 BUN 21 H Creatinine 1.9 H Est GFR ( Amer) 43 Est GFR (Non-Af Amer) 35 POC Glucose (mg/dL) 155 H Random Glucose 143 H Lactic Acid Calcium 8.0 L Phosphorus 6.0 H Magnesium 1.5 L Total Bilirubin 0.9 AST 26 ALT 44 Alkaline Phosphatase 68 Troponin I < 0.0600 NT-Pro-B Natriuret Pep 1730 H Total Protein 5.0 L Albumin 3.3 L Globulin 1.8 L Albumin/Globulin Ratio 1.9 TSH 3rd Generation 1.44 Blood Type Antibody Screen Antibody Identification Crossmatch BBK History Checked 02/26/17 02/26/17 02/26/17 04:25 04:25 05:13 WBC 27.8 H RBC 5.29 Hgb 14.1 Hct 44.6 MCV 84.5 MCH 26.6 L MCHC 31.5 L RDW 19.3 H Plt Count 166 MPV 8.7 Neut % (Auto) 87.2 H Lymph % (Auto) 3.6 L [place] % (Auto) 9.1 Eos % (Auto) 0.0 Baso % (Auto) 0.1 Neut # 24.3 H Lymph # 1.0 [place] # 2.5 H Eos # 0.0 Baso # 0.0 Neutrophils % (Manual) Band Neutrophils % Lymphocytes % (Manual) Reactive Lymphs % Monocytes % (Manual) Toxic Granulation Platelet Estimate Hypochromasia (manual) Microcytosis (manual) Sodium 138 Potassium 5.1 H Chloride 107 Carbon Dioxide 24 Anion Gap 12 BUN 28 H Creatinine 2.6 H Est GFR ( Amer) 30 Est GFR (Non-Af Amer) 25 POC Glucose (mg/dL) 172 H Random Glucose 182 H Lactic Acid Calcium 7.9 L Phosphorus Magnesium Total Bilirubin AST ALT Alkaline Phosphatase Troponin I NT-Pro-B Natriuret Pep Total Protein Albumin Globulin Albumin/Globulin Ratio TSH 3rd Generation Blood Type Antibody Screen Antibody Identification Crossmatch BBK History Checked Fingerstick Blood Sugar Results: 172 Review of Systems - Cardiovascular Cardiovascular: absent: Chest Pain, Chest Pain at Rest, Chest Pain with Activity , Claudication, Diaphoresis - Respiratory Respiratory: absent: Cough, Dyspnea, Hemoptysis, Dyspnea on Exertion, Wheezing - Gastrointestinal Gastrointestinal: Abdominal Pain. absent: Nausea, Vomiting Critical Care Progress Note - Extremities/Vascular Does the Patient have a Central Venous Catheter?: No Does the Patient need a Central Venous Catheter?: No Does the Patient have a Mejía Catheter?: Yes Does the Patient need a Mejía Catheter?: Yes - Nutrition Nutrition: Nutrition Category Date Time Status NPO Diet [DIET] Diets 02/25/17 Dinner Active Assessment/Plan (1) Status post right hemicolectomy Current Visit: Yes Status: Acute (2) COPD (chronic obstructive pulmonary disease) with emphysema Current Visit: Yes Status: Acute (3) Chronic systolic heart failure Current Visit: Yes Status: Acute (4) CAD (coronary artery disease) Current Visit: Yes Status: Acute (5) CKD (chronic kidney disease) Current Visit: No Status: Chronic Priority: High (6) HTN (hypertension) Current Visit: Yes Status: Acute (7) Anemia Current Visit: No Status: Acute - Assessment and Plan (Free Text) Assessment: Continue with SICU for hemodynamic monitoring Monitor Respiratory status IV Hydration with LR @ 100 ml/hr Perioperative Antibiotics as per surgery Stress dose IV steroids Pain control with Dilauded IV Q4H PRN Clear liquid diet, Advance as tolerate Bowel regimen OOB to chair PT/OT Monitor urine output Mejía to be removed tomorrow Restart outpatient meds BD nebs Q 6H PRN PRN Ondansetron Wound care Incentive spirometry GI/DVT PPX with SCDs, Start SQ Heparin if okay with surgery.
--- NOTE | 2017-02-26 08:23 | CARD ---
APPROVED REPORT EKG Measurement Heart [id number] [place] [id number] [id number] <Conclusion> Sinus tachycardia Possible Left atrial enlargement Left axis deviation Left ventricular hypertrophy Cannot rule out Septal infarct, age undetermined ST & T wave abnormality, consider lateral ischemia Abnormal ECG
--- NOTE | 2017-02-26 08:23 | CP.PCM.PN ---
<Barbara Chen - Last Filed: 02/26/17 08:36> Subjective - Date & Time of Evaluation Date of Evaluation: 02/26/17 Time of Evaluation: 07:00 - Subjective Subjective: GENERAL SURGERY PROGRESS NOTE FOR DR. IRELAND Patient seen and examined at bedside in the ICU. He is doing well after surgery but states that he feels "loopy" after the pain medication. He denies nausea or vomiting. He has not passed flatus or had a BM after surgery. He is using the IS. Overnight, he had decreased urine output so he was bolused 500cc. After bolus, urine output increased Objective - Vital Signs/Intake and Output Vital Signs (last 24 hours): Temp Pulse Resp BP Pulse Ox 99 F 89 19 108/69 98 02/26/17 04:00 02/26/17 06:00 02/26/17 06:00 02/26/17 06:00 02/26/17 06:00 Intake and Output: 02/26/17 02/26/17 06:59 18:59 Intake Total 1050 Output Total 150 Balance 900 - Medications Medications: Current Medications Albuterol (Ventolin Hfa 90 Mcg/Actuation (8 G)) 2 puff IH RQ6 PRN PRN Reason: Shortness of Breath Hydrochlorothiazide (Microzide) 12.5 mg PO DAILY LUCIEN Hydromorphone HCl (Dilaudid) 2 mg IVP Q4 PRN PRN Reason: Pain, moderate (4-7) Stop: 02/26/17 17:00 Last Admin: 02/26/17 07:15 Dose: 2 mg Hydromorphone HCl (Dilaudid) 0.5 mg IVP Q15MIN PRN PRN Reason: Pain, moderate (4-7) Last Admin: 02/25/17 14:48 Dose: 0.5 mg Cefazolin Sodium/Dextrose (Ancef Iv 1 Gm Duplex) 1 gm in 50 mls @ 50 mls/hr IVPB Q12 LUCIEN PRN Reason: Protocol Stop: 02/26/17 09:59 Last Admin: 02/25/17 21:45 Dose: 50 mls/hr Metronidazole (Flagyl 500mg/100ml Ns) 100 mls @ 100 mls/hr IVPB Q8 LUCIEN PRN Reason: Protocol Stop: 02/26/17 09:59 Last Admin: 02/26/17 00:15 Dose: 100 mls/hr Lactated Ringer's (Lactated Ringer's) 1,000 mls @ 125 mls/hr IV .Q8H [facility] Last Admin: 02/25/17 18:01 Dose: 125 mls/hr Lactated Ringer's (Lactated Ringer's) 1,000 mls @ 75 mls/hr IV .[id number] [facility] Last Admin: 02/25/17 20:00 Dose: 75 mls/hr Lactated Ringer's (Lactated Ringer's 500ml) 500 mls @ 500 mls/hr IV .Q1H [facility] Last Admin: 02/26/17 06:02 Dose: 500 mls/hr Midazolam HCl (Versed Inj) 2 mg IVP ONCE PRN PRN Reason: Agitation/Restlessness Last Admin: 02/25/17 13:50 Dose: 2 mg Multivitamins/Minerals (Therapeutic-M Tab) 1 tab PO DAILY [facility] Ondansetron HCl (Zofran Inj) 4 mg IVP Q4 PRN PRN Reason: Nausea/Vomiting Pantoprazole Sodium (Protonix Inj) 40 mg IVP DAILY [facility] Zolpidem Tartrate (Ambien) 5 mg PO HS PRN PRN Reason: Insomnia - Labs Labs: 02/26/17 04:25 02/26/17 04:25 - Constitutional Appears: Well, Non-toxic, No Acute Distress - Head Exam Head Exam: ATRAUMATIC, NORMAL INSPECTION - Eye Exam Eye Exam: EOMI, Normal appearance - Respiratory Exam Respiratory Exam: NORMAL BREATHING PATTERN. absent: Respiratory Distress - Cardiovascular Exam Cardiovascular Exam: +S1, +S2 - GI/Abdominal Exam GI & Abdominal Exam: Soft, Tenderness (mild tenderness around incision site). absent: Distended, Firm, Guarding, Rigid, Rebound Additional comments: midline dressing dry and intact. small amount dried blood on dressing. - Neurological Exam Neurological Exam: Alert, Awake, Oriented x3 - Psychiatric Exam Psychiatric exam: Normal Affect, Normal Mood - Skin Skin Exam: Dry, Normal Color, Warm Assessment and Plan - Assessment and Plan (Free Text) Assessment: 71yo M with PMHx of HTN, CKD, gastritis, mild CHF (EF 45%) with ascending colon mass s/p open right hemicolectomy POD#1 - Afebrile, mild tachycardia overnight - WBC 27.8 - Hgb 14.1 after PRBC yesterday intraop - Cr increased to 2.6 from 1.9 yesterday - Urine output was low overnight. Bolused 500cc early this AM - Will keep Mejía for now to monitor urine output - Will hold dvt prophylaxis today, continue SCDs - Dilaudid dose decreased - Continue NPO - Will monitor for return of bowel function - Encouraged OOB to chair, ambulation, and IS use - Discussed plan with Dr. Antwon Chen PGY-3 <Vaughn Ramon - Last Filed: 02/26/17 13:30> Subjective - Subjective Subjective: Patient was seen and examined at the bedside. Agree with resident's note above. Objective - Vital Signs/Intake and Output Vital Signs (last 24 hours): Temp Pulse Resp BP Pulse Ox 99.2 F 95 H 33 H 164/95 H 95 02/26/17 12:00 02/26/17 12:00 02/26/17 12:00 02/26/17 12:00 02/26/17 12:00 Intake and Output: 02/26/17 02/26/17 06:59 18:59 Intake Total 1050 Output Total 150 Balance 900 - Medications Medications: Current Medications Albuterol (Ventolin Hfa 90 Mcg/Actuation (8 G)) 2 puff IH RQ6 PRN PRN Reason: Shortness of Breath Hydrochlorothiazide (Microzide) 12.5 mg PO DAILY [facility] Last Admin: 02/26/17 08:45 Dose: Not Given Hydromorphone HCl (Dilaudid) 1 mg IVP Q4 PRN PRN Reason: Pain, severe (8-10) Stop: 02/26/17 17:00 Last Admin: 02/26/17 12:10 Dose: 1 mg Hydromorphone HCl (Dilaudid) 0.5 mg IVP Q4 PRN PRN Reason: Pain, moderate (4-7) Lactated Ringer's (Lactated Ringer's 500ml) 500 mls @ 500 mls/hr IV .Q1H [facility] Last Admin: 02/26/17 06:02 Dose: 500 mls/hr Lactated Ringer's (Lactated Ringer's) 1,000 mls @ 115 mls/hr IV .[id number] [facility] Midazolam HCl (Versed Inj) 2 mg IVP ONCE PRN PRN Reason: Agitation/Restlessness Last Admin: 02/25/17 13:50 Dose: 2 mg Multivitamins/Minerals (Therapeutic-M Tab) 1 tab PO DAILY [facility] Last Admin: 02/26/17 08:45 Dose: Not Given Ondansetron HCl (Zofran Inj) 4 mg IVP Q4 PRN PRN Reason: Nausea/Vomiting Pantoprazole Sodium (Protonix Inj) 40 mg IVP DAILY [facility] Last Admin: 02/26/17 08:44 Dose: 40 mg Zolpidem Tartrate (Ambien) 5 mg PO HS PRN PRN Reason: Insomnia - Labs Labs: 02/26/17 04:25 02/26/17 04:25 Assessment and Plan - Assessment and Plan (Free Text) Plan: - Start clear liquid diet - IV fluids - pain control - Insentive spirometry - Continue care as per ICU and Cardiology - DVT ppx - Repeat labs in am
[2017-02-26] MEDS ORDERED: Lactated Ringer's 1,000 ML IV SCH ×2 (08:27→08:32)
[2017-02-26] MEDS: ceFAZolin IV 1 gm in Dextrose 1 GM/50 ML BAG IVPB SCH (08:44)
[2017-02-26] MEDS: Multivitamin With Minerals Tab PO SCH (08:45)
--- NOTE | 2017-02-26 08:58 | CP.PCM.PN ---
<Daina Thomas - Last Filed: 02/26/17 14:10> Subjective - Date & Time of Evaluation Date of Evaluation: 02/26/17 Time of Evaluation: 07:30 - Subjective Subjective: 71 YO M seen at bedside with Dr. Guerrero. Patient slept well overnight. Has some pain when he moves around, which has been explained to him is normal after surgery. He has been requested to ask for meds when he needs them. Denies chest pain, SOB, N/V/D, Objective - Vital Signs/Intake and Output Vital Signs (last 24 hours): Temp Pulse Resp BP Pulse Ox 98.8 F 94 H 25 H 122/73 95 02/26/17 08:00 02/26/17 08:00 02/26/17 08:00 02/26/17 08:00 02/26/17 08:00 Intake and Output: 02/26/17 02/26/17 06:59 18:59 Intake Total 1050 Output Total 150 Balance 900 - Medications Medications: Current Medications Albuterol (Ventolin Hfa 90 Mcg/Actuation (8 G)) 2 puff IH RQ6 PRN PRN Reason: Shortness of Breath Hydrochlorothiazide (Microzide) 12.5 mg PO DAILY [facility] Last Admin: 02/26/17 08:45 Dose: Not Given Hydromorphone HCl (Dilaudid) 1 mg IVP Q4 PRN PRN Reason: Pain, severe (8-10) Stop: 02/26/17 17:00 Hydromorphone HCl (Dilaudid) 0.5 mg IVP Q4 PRN PRN Reason: Pain, moderate (4-7) Cefazolin Sodium/Dextrose (Ancef Iv 1 Gm Duplex) 1 gm in 50 mls @ 50 mls/hr IVPB Q12 [facility] PRN Reason: Protocol Stop: 02/26/17 09:59 Last Admin: 02/26/17 08:44 Dose: 50 mls/hr Metronidazole (Flagyl 500mg/100ml Ns) 100 mls @ 100 mls/hr IVPB Q8 [facility] PRN Reason: Protocol Stop: 02/26/17 09:59 Last Admin: 02/26/17 08:43 Dose: 100 mls/hr Lactated Ringer's (Lactated Ringer's 500ml) 500 mls @ 500 mls/hr IV .Q1H [facility] Last Admin: 02/26/17 06:02 Dose: 500 mls/hr Lactated Ringer's (Lactated Ringer's) 1,000 mls @ 115 mls/hr IV .Q8H42M [facility] Midazolam HCl (Versed Inj) 2 mg IVP ONCE PRN PRN Reason: Agitation/Restlessness Last Admin: 02/25/17 13:50 Dose: 2 mg Multivitamins/Minerals (Therapeutic-M Tab) 1 tab PO DAILY [facility] Last Admin: 02/26/17 08:45 Dose: Not Given Ondansetron HCl (Zofran Inj) 4 mg IVP Q4 PRN PRN Reason: Nausea/Vomiting Pantoprazole Sodium (Protonix Inj) 40 mg IVP DAILY [facility] Last Admin: 02/26/17 08:44 Dose: 40 mg Zolpidem Tartrate (Ambien) 5 mg PO HS PRN PRN Reason: Insomnia - Labs Labs: 02/26/17 04:25 02/26/17 04:25 - Constitutional Appears: No Acute Distress - Head Exam Head Exam: NORMAL INSPECTION - Respiratory Exam Respiratory Exam: Clear to Ausculation Bilateral, NORMAL BREATHING PATTERN. absent: Rhonchi, Wheezes - Cardiovascular Exam Cardiovascular Exam: REGULAR RHYTHM, +S1, +S2 - GI/Abdominal Exam GI & Abdominal Exam: Soft, Normal Bowel Sounds. absent: Tenderness - Extremities Exam Extremities Exam: Normal Inspection. absent: Calf Tenderness - Neurological Exam Neurological Exam: Alert, Awake, Oriented x3 - Skin Skin Exam: Normal Color, Warm Assessment and Plan - Assessment and Plan (Free Text) Assessment: 71 yr old M POD # 1 s/p laparoscopic right hemicolectomy for ascending colon mass (moderately differentiated adenocarcinoma). PMHx includes HTN, CAD, CHF, Emphysema/COPD, CKD, TLAYA and orthostatic hypotension. Patient has no concerns or complaints at this time, pain is controlled. at bedside reports surgery team discussed intraoperative blood loss had occurred and patient was administered 2 units of blood. 1. s/p Right hemicolectomy for ascending colon mass -stable s/p intraoperative blood loss of approximately 1L and transfusion of 2 units leuckocyte reduced RBC's -moderately differentiated adenocarcinoma -WBC 32.2 with left shift, IV antibiotics: Cefazolin, Metronidazole -Pain management, Zofran PRN nausea -NPO, IV fluids, pantoprazole 40mg IVP QD -monitor intake and output -admitted to ICU for monitoring -H/H stable at 14.1/44.6 2. HTN -controlled -home meds held for now (last Rx filled stated: HCTZ 12.5 mg PO QD x 15 days) 3. Orthostatic hypotension -resolved -patient was not taking Florinef past date of 01/30/17 (was only give 20 tabs at discharge on 01/10/17) -discontinue Florinef 4. Borderline left ventricular function -stable, controlled -Echo 01/01/17: mildly impaired systolic function with LVEF of 45% -patients' bookie is Dr. Miller 5. Emphysema/COPD -chronic, controlled -continue home med Ventolin HFA 90mcg 2 puffs INH Q6 PRN for cough/SOB 6. DVT prophylaxis -SCD's - As per surgery hold DVT prophylaxis untill tomorrow <Rob Kovacs - Last Filed: 02/27/17 06:52> Objective - Vital Signs/Intake and Output Vital Signs (last 24 hours): Temp Pulse Resp BP Pulse Ox 98.5 F 103 H 22 134/86 98 02/27/17 04:00 02/27/17 06:23 02/27/17 06:23 02/27/17 06:23 02/27/17 06:23 Intake and Output: 02/26/17 02/27/17 18:59 06:59 Intake Total 1700 Output Total 300 450 Balance -300 1250 - Medications Medications: Current Medications Albuterol (Ventolin Hfa 90 Mcg/Actuation (8 G)) 2 puff IH RQ6 PRN PRN Reason: Shortness of Breath Hydrochlorothiazide (Microzide) 12.5 mg PO DAILY [facility] Last Admin: 02/26/17 08:45 Dose: Not Given Hydromorphone HCl (Dilaudid) 0.5 mg IVP Q4 PRN PRN Reason: Pain, moderate (4-7) Last Admin: 02/27/17 03:50 Dose: 0.5 mg Lactated Ringer's (Lactated Ringer's 500ml) 500 mls @ 500 mls/hr IV .Q1H [facility] Last Admin: 02/26/17 06:02 Dose: 500 mls/hr Lactated Ringer's (Lactated Ringer's) 1,000 mls @ 125 mls/hr IV .Q8H [facility] Last Admin: 02/27/17 06:44 Dose: 125 mls/hr Midazolam HCl (Versed Inj) 2 mg IVP ONCE PRN PRN Reason: Agitation/Restlessness Last Admin: 02/25/17 13:50 Dose: 2 mg Multivitamins/Minerals (Therapeutic-M Tab) 1 tab PO DAILY [facility] Last Admin: 02/26/17 08:45 Dose: Not Given Ondansetron HCl (Zofran Inj) 4 mg IVP Q4 PRN PRN Reason: Nausea/Vomiting Pantoprazole Sodium (Protonix Inj) 40 mg IVP DAILY [facility] Last Admin: 02/26/17 08:44 Dose: 40 mg Zolpidem Tartrate (Ambien) 5 mg PO HS PRN PRN Reason: Insomnia Last Admin: 02/26/17 21:50 Dose: 5 mg - Labs Labs: 02/27/17 04:40 02/27/17 04:40 Attending/Attestation - Attestation I have personally seen and examined this patient.: Yes I have fully participated in the care of the patient.: Yes I have reviewed all pertinent clinical information, including history, physical exam and plan: Yes
--- NOTE | 2017-02-26 10:04 | CP.PCM.CON ---
History of Present Illness - History of Present Illness History of Present Illness: This 71-year-old man , a hypertensive for a long time was treated for congestive cardiomyopathy for couple of years and needed to come off beta blockers and nikole inhibitors in late December when he developed orthostatic hypotension and was hospitalized with a syncopal episode. The patient subsequently needed saline infusion along with a mineralocorticoid to resolve orthostatic hypotension. He was found to have a malignancy in the ascending colon and was scheduled to undergo right hemicolectomy when the surgery was canceled because of a systolic blood pressure exceeding 200 mmHg. The patient subsequently has taken 12.5 mg of hydrochlorothiazide for almost 10 days before coming for this surgery. The patient was reevaluated prior to this surgery and was found to have a normal blood pressure before proceeding with the planned surgery. His echocardiogram in the month of January showed borderline left ventricular systolic function and the patient did not demonstrate any overt congestive cardiac failure. The patient has a history of COPD and a chronic cough. The patient is now examined in the intensive care unit postoperatively. He is alert awake and coherent. He has no nasogastric tube. ingredient handler shows sinus rhythm at 92 bpm and regular and a blood pressure of 126/74 mmHg. His jugular venous pressure was not elevated and there was no edema or his lower extremities. With an oxygen supplement a nasal cannula his pulse oximetry was 97 %. The apex was vaguely felt in the fifth space the. The first and second heart sounds were normal. There was a brief apical systolic murmur. There was no gallop rhythm and there were no rales. Abdomen was soft intestinal sounds were well heard. There was no distention guarding or rigidity. His electrocardiogram showed sinus rhythm with a pattern of left ventricular hypertrophy and Q waves in V2 suggestive off an old septal wall myocardial infarction, a pattern seen on multiple electrocardiograms taken within last year. His lab data was noted. The patient shows a mild degree of azotemia probably related to hypotension due to blood loss intraoperatively. His urine output now is quite good. (He has a Mejía catheter in place.) Impression: Status post right hemicolectomy in a patient with known hypertension. The patient that these entities hemodynamically stable and has a good urine output. I have discussed his case with the surgeon. Past Patient History - Past Medical History & Family History Past Medical History?: Yes - Past Social History Smoking Status: Never Smoked - CARDIAC Hx Cardiac Disorders: Yes (HTN) Hx Congestive Heart Failure: Yes Hx Hypertension: Yes - PULMONARY Hx Respiratory Disorders: No Hx Bronchitis: Yes Hx Chronic Obstructive Pulmonary Disease (COPD): Yes - NEUROLOGICAL Hx Neurological Disorder: No - HEENT Hx HEENT Problems: No - RENAL Hx Chronic Kidney Disease: Yes Other/Comment: Hx chronic renal insufficiency. Hx CKD. Hx Renal Cyst - ENDOCRINE/METABOLIC Hx Endocrine Disorders: No - HEMATOLOGICAL/ONCOLOGICAL Hx Blood Disorders: Yes Hx Anemia: Yes Hx Blood Transfusions: Yes - INTEGUMENTARY Hx Dermatological Problems: No - MUSCULOSKELETAL/RHEUMATOLOGICAL Hx Falls: No - GASTROINTESTINAL Hx Gastrointestinal Disorders: Yes Hx Gastritis: Yes Other/Comment: Hx Colonic Mass. Hx GI bleed - GENITOURINARY/GYNECOLOGICAL Hx Genitourinary Disorders: No Hx Prostate Problems: Yes - PSYCHIATRIC Hx Substance Use: No - SURGICAL HISTORY Hx Surgeries: Yes Hx Cholecystectomy: Yes Other/Comment: Prostatectomy - ANESTHESIA Hx Anesthesia: Yes Hx Anesthesia Reactions: No Hx Malignant Hyperthermia: No Has any member of the family had a problem w/ anesthesia?: No Meds Allergies/Adverse Reactions: Allergies Allergy/AdvReac Type Severity Reaction Status Date / Time No Known Allergies Allergy Verified 02/25/17 08:25 - Medications Medications: Current Medications Albuterol (Ventolin Hfa 90 Mcg/Actuation (8 G)) 2 puff IH RQ6 PRN PRN Reason: Shortness of Breath Hydrochlorothiazide (Microzide) 12.5 mg PO DAILY [facility] Last Admin: 02/26/17 08:45 Dose: Not Given Hydromorphone HCl (Dilaudid) 1 mg IVP Q4 PRN PRN Reason: Pain, severe (8-10) Stop: 02/26/17 17:00 Hydromorphone HCl (Dilaudid) 0.5 mg IVP Q4 PRN PRN Reason: Pain, moderate (4-7) Cefazolin Sodium/Dextrose (Ancef Iv 1 Gm Duplex) 1 gm in 50 mls @ 50 mls/hr IVPB Q12 [facility] PRN Reason: Protocol Stop: 02/26/17 09:59 Last Admin: 02/26/17 08:44 Dose: 50 mls/hr Metronidazole (Flagyl 500mg/100ml Ns) 100 mls @ 100 mls/hr IVPB Q8 [facility] PRN Reason: Protocol Stop: 02/26/17 09:59 Last Admin: 02/26/17 08:43 Dose: 100 mls/hr Lactated Ringer's (Lactated Ringer's 500ml) 500 mls @ 500 mls/hr IV .Q1H [facility] Last Admin: 02/26/17 06:02 Dose: 500 mls/hr Lactated Ringer's (Lactated Ringer's) 1,000 mls @ 115 mls/hr IV .Q8H42M [facility] Midazolam HCl (Versed Inj) 2 mg IVP ONCE PRN PRN Reason: Agitation/Restlessness Last Admin: 02/25/17 13:50 Dose: 2 mg Multivitamins/Minerals (Therapeutic-M Tab) 1 tab PO DAILY [facility] Last Admin: 02/26/17 08:45 Dose: Not Given Ondansetron HCl (Zofran Inj) 4 mg IVP Q4 PRN PRN Reason: Nausea/Vomiting Pantoprazole Sodium (Protonix Inj) 40 mg IVP DAILY [facility] Last Admin: 02/26/17 08:44 Dose: 40 mg Zolpidem Tartrate (Ambien) 5 mg PO HS PRN PRN Reason: Insomnia Results - Vital Signs Recent Vital Signs: Last Vital Signs Temp 98.8 F 02/26/17 08:00 Pulse 94 H 02/26/17 08:00 Resp 25 H 02/26/17 08:00 BP 122/73 02/26/17 08:00 Pulse Ox 95 02/26/17 08:00 - Labs Result Diagrams: 02/26/17 04:25 02/26/17 04:25 Labs: Laboratory Results - last 24 hr 02/25/17 02/25/17 02/25/17 09:45 17:43 18:30 WBC RBC Hgb Hct MCV MCH MCHC RDW Plt Count MPV Neut % (Auto) Lymph % (Auto) [place] % (Auto) Eos % (Auto) Baso % (Auto) Neut # Lymph # [place] # Eos # Baso # Neutrophils % (Manual) Band Neutrophils % Lymphocytes % (Manual) Reactive Lymphs % Monocytes % (Manual) Toxic Granulation Platelet Estimate Hypochromasia (manual) Microcytosis (manual) Sodium Potassium Chloride Carbon Dioxide Anion Gap BUN Creatinine Est GFR ( Amer) Est GFR (Non-Af Amer) POC Glucose (mg/dL) 140 H Random Glucose Lactic Acid 2.2 H Calcium Phosphorus Magnesium Total Bilirubin AST ALT Alkaline Phosphatase Troponin I NT-Pro-B Natriuret Pep Total Protein Albumin Globulin Albumin/Globulin Ratio TSH 3rd Generation Blood Type O POSITIVE Antibody Screen Positive Antibody Identification Anti Fya Crossmatch See Detail BBK History Checked Patient has bt 02/25/17 02/25/17 02/25/17 18:30 18:30 21:14 WBC 32.2 H D RBC 5.57 Hgb 14.9 Hct 47.2 MCV 84.7 MCH 26.8 L MCHC 31.6 L RDW 18.7 H Plt Count 150 MPV 8.9 Neut % (Auto) 92.2 H Lymph % (Auto) 1.2 L [place] % (Auto) 6.4 Eos % (Auto) 0.0 Baso % (Auto) 0.2 Neut # 29.6 H Lymph # 0.4 L [place] # 2.1 H Eos # 0.0 Baso # 0.1 Neutrophils % (Manual) 85 H Band Neutrophils % 3 H Lymphocytes % (Manual) 4 L Reactive Lymphs % 1 H Monocytes % (Manual) 7 Toxic Granulation Present Platelet Estimate Normal Hypochromasia (manual) Slight Microcytosis (manual) Slight Sodium 139 Potassium 4.4 Chloride 106 Carbon Dioxide 22 Anion Gap 15 BUN 21 H Creatinine 1.9 H Est GFR ( Amer) 43 Est GFR (Non-Af Amer) 35 POC Glucose (mg/dL) 155 H Random Glucose 143 H Lactic Acid Calcium 8.0 L Phosphorus 6.0 H Magnesium 1.5 L Total Bilirubin 0.9 AST 26 ALT 44 Alkaline Phosphatase 68 Troponin I < 0.0600 NT-Pro-B Natriuret Pep 1730 H Total Protein 5.0 L Albumin 3.3 L Globulin 1.8 L Albumin/Globulin Ratio 1.9 TSH 3rd Generation 1.44 Blood Type Antibody Screen Antibody Identification Crossmatch BBK History Checked 02/26/17 02/26/17 02/26/17 04:25 04:25 05:13 WBC 27.8 H RBC 5.29 Hgb 14.1 Hct 44.6 MCV 84.5 MCH 26.6 L MCHC 31.5 L RDW 19.3 H Plt Count 166 MPV 8.7 Neut % (Auto) 87.2 H Lymph % (Auto) 3.6 L [place] % (Auto) 9.1 Eos % (Auto) 0.0 Baso % (Auto) 0.1 Neut # 24.3 H Lymph # 1.0 [place] # 2.5 H Eos # 0.0 Baso # 0.0 Neutrophils % (Manual) Band Neutrophils % Lymphocytes % (Manual) Reactive Lymphs % Monocytes % (Manual) Toxic Granulation Platelet Estimate Hypochromasia (manual) Microcytosis (manual) Sodium 138 Potassium 5.1 H Chloride 107 Carbon Dioxide 24 Anion Gap 12 BUN 28 H Creatinine 2.6 H Est GFR ( Amer) 30 Est GFR (Non-Af Amer) 25 POC Glucose (mg/dL) 172 H Random Glucose 182 H Lactic Acid Calcium 7.9 L Phosphorus Magnesium Total Bilirubin AST ALT Alkaline Phosphatase Troponin I NT-Pro-B Natriuret Pep Total Protein Albumin Globulin Albumin/Globulin Ratio TSH 3rd Generation Blood Type Antibody Screen Antibody Identification Crossmatch BBK History Checked
[2017-02-26] MEDS ORDERED: HYDROmorphone 0.5 mg/0.5 ml ISec IVP STA (23:27)
[2017-02-27 05:49] LABS: BASO % 0.2 % (0.0-2.0); LYMPH % 4.5 % (20.0-40.0); MEAN CELL VOLUME 84.2 fl (80.0-94.0); MEAN CORPUSCULAR HEMOGLOBIN 26.9 pg (27.0-31.0); MEAN PLATELET VOLUME 8.7 fl (7.2-11.7); MONO # 1.8 K/uL (0.0-0.8); MONO % 8.4 % (0.0-10.0); NEUT # 18.9 K/uL (1.8-7.0); NEUT % 86.9 % (50.0-75.0); RBC 4.82 Mil/uL (4.40-5.90); RED CELL DISTRIBUTION WIDTH 19.7 % (11.5-14.5); WHITE BLOOD COUNT 21.7 K/uL (4.8-10.8)
[2017-02-27 06:08] LABS: CALCIUM 8.1 mg/dL (8.4-10.2)
[2017-02-27] MEDS: Lactated Ringer's 1,000 ML IV SCH (06:44)
--- NOTE | 2017-02-27 09:51 | CP.PCM.PN ---
Subjective - Date & Time of Evaluation Date of Evaluation: 02/27/17 Time of Evaluation: 08:50 - Subjective Subjective: Had moderate surgical pain last night with some relief with delaudid Tolerated oral liquids ( has not passed flatus) Afebrile Mild tachycardia at 100- 104 BPM, sinus BP 134/74 mm Hg No sign of vol over load Excellent urine out put ( Mejía catheter in place) Abd nondistended Intestinal sounds sluggish but present Leucocytosis resolving Creatinin 2.2 mg and GFR has improved Sat OOB and stood up yesterday Stable from cardiac point of view BMP will be monitored Objective - Vital Signs/Intake and Output Vital Signs (last 24 hours): Temp Pulse Resp BP Pulse Ox 98.6 F 112 H 22 164/100 H 92 L 02/27/17 08:00 02/27/17 08:00 02/27/17 08:00 02/27/17 08:00 02/27/17 08:00 Intake and Output: 02/27/17 02/27/17 06:59 18:59 Intake Total 1700 Output Total 450 Balance 1250 - Medications Medications: Current Medications Albuterol (Ventolin Hfa 90 Mcg/Actuation (8 G)) 2 puff IH RQ6 PRN PRN Reason: Shortness of Breath Enoxaparin Sodium (Lovenox) 40 mg SC DAILY [facility] PRN Reason: Protocol Hydrochlorothiazide (Microzide) 12.5 mg PO DAILY [facility] Last Admin: 02/26/17 08:45 Dose: Not Given Hydromorphone HCl (Dilaudid) 0.5 mg IVP Q4 PRN PRN Reason: Pain, moderate (4-7) Last Admin: 02/27/17 03:50 Dose: 0.5 mg Lactated Ringer's (Lactated Ringer's 500ml) 500 mls @ 500 mls/hr IV .Q1H [facility] Last Admin: 02/26/17 06:02 Dose: 500 mls/hr Lactated Ringer's (Lactated Ringer's) 1,000 mls @ 125 mls/hr IV .Q8H [facility] Last Admin: 02/27/17 06:44 Dose: 125 mls/hr Midazolam HCl (Versed Inj) 2 mg IVP ONCE PRN PRN Reason: Agitation/Restlessness Last Admin: 02/25/17 13:50 Dose: 2 mg Multivitamins/Minerals (Therapeutic-M Tab) 1 tab PO DAILY [facility] Last Admin: 02/26/17 08:45 Dose: Not Given Ondansetron HCl (Zofran Inj) 4 mg IVP Q4 PRN PRN Reason: Nausea/Vomiting Pantoprazole Sodium (Protonix Inj) 40 mg IVP DAILY [facility] Last Admin: 02/26/17 08:44 Dose: 40 mg Zolpidem Tartrate (Ambien) 5 mg PO HS PRN PRN Reason: Insomnia Last Admin: 02/26/17 21:50 Dose: 5 mg - Labs Labs: 02/27/17 04:40 02/27/17 04:40
[2017-02-27] MEDS: Multivitamin With Minerals Tab PO SCH (10:04)
[2017-02-27] MEDS: Enoxaparin 30 mg Syringe SC SCH (10:32)
--- NOTE | 2017-02-27 12:40 | CP.PCM.PN ---
<Bib Baxter - Last Filed: 02/27/17 12:41> Subjective - Date & Time of Evaluation Date of Evaluation: 02/27/17 Time of Evaluation: 07:00 - Subjective Subjective: General Surgery Progress Note for Dr. Kapoor This 71M was seen and examined this AM at bedside. He reports pain control regiment is better. He reports he is getting out of bed. Denies any significant abdominal pain. Denies chest pain nausea vomiting or diarrhea. Objective - Vital Signs/Intake and Output Vital Signs (last 24 hours): Temp Pulse Resp BP Pulse Ox 98.9 F 110 H 25 H 122/93 H 95 02/27/17 12:00 02/27/17 12:00 02/27/17 12:00 02/27/17 12:00 02/27/17 12:00 Intake and Output: 02/27/17 02/27/17 06:59 18:59 Intake Total 1700 Output Total 450 Balance 1250 - Medications Medications: Current Medications Albuterol (Ventolin Hfa 90 Mcg/Actuation (8 G)) 2 puff IH RQ6 PRN PRN Reason: Shortness of Breath Enoxaparin Sodium (Lovenox) 30 mg SC DAILY [facility] PRN Reason: Protocol Last Admin: 02/27/17 10:32 Dose: 30 mg Hydrochlorothiazide (Microzide) 12.5 mg PO DAILY [facility] Last Admin: 02/27/17 10:03 Dose: 12.5 mg Hydromorphone HCl (Dilaudid) 0.5 mg IVP Q4 PRN PRN Reason: Pain, moderate (4-7) Last Admin: 02/27/17 03:50 Dose: 0.5 mg Lactated Ringer's (Lactated Ringer's 500ml) 500 mls @ 500 mls/hr IV .Q1H [facility] Last Admin: 02/26/17 06:02 Dose: 500 mls/hr Lactated Ringer's (Lactated Ringer's) 1,000 mls @ 125 mls/hr IV .Q8H [facility] Last Admin: 02/27/17 06:44 Dose: 125 mls/hr Midazolam HCl (Versed Inj) 2 mg IVP ONCE PRN PRN Reason: Agitation/Restlessness Last Admin: 02/25/17 13:50 Dose: 2 mg Multivitamins/Minerals (Therapeutic-M Tab) 1 tab PO DAILY [facility] Last Admin: 02/27/17 10:04 Dose: 1 tab Ondansetron HCl (Zofran Inj) 4 mg IVP Q4 PRN PRN Reason: Nausea/Vomiting Pantoprazole Sodium (Protonix Inj) 40 mg IVP DAILY [facility] Last Admin: 02/27/17 09:50 Dose: 40 mg Zolpidem Tartrate (Ambien) 5 mg PO HS PRN PRN Reason: Insomnia Last Admin: 02/26/17 21:50 Dose: 5 mg - Labs Labs: 02/27/17 04:40 02/27/17 04:40 - Constitutional Appears: Non-toxic - Head Exam Head Exam: ATRAUMATIC, NORMOCEPHALIC - Eye Exam Eye Exam: EOMI, Normal appearance - ENT Exam ENT Exam: Mucous Membranes Moist - Respiratory Exam Respiratory Exam: NORMAL BREATHING PATTERN - Cardiovascular Exam Cardiovascular Exam: +S1, +S2 - GI/Abdominal Exam GI & Abdominal Exam: Soft. absent: Guarding, Rigid, Tenderness Additional comments: Dressing in place with sanginous strikethrough - Neurological Exam Neurological Exam: Alert, Awake - Psychiatric Exam Psychiatric exam: Normal Affect, Normal Mood - Skin Skin Exam: Dry, Intact Assessment and Plan - Assessment and Plan (Free Text) Assessment: 71yo M with PMHx of HTN, CKD, gastritis, mild CHF (EF 45%) with ascending colon mass s/p open right hemicolectomy POD#2 - Afebrile, persistent mild tachycardia - WBC trending down 27.8 -->21.7 today - Cr 1.9 --> 2.6 -->2.2 will continue to trend - Urine output.4 mg/kg/hr will continue to follow urine output - Will keep Mejía for now to monitor urine output - Continue SCDs - Clear liquid diet - Will monitor for return of bowel function - Encouraged OOB to chair, ambulation, and IS use - Discussed plan with Dr. Antwon Baxter PGY2 <Vaughn Ramon - Last Filed: 02/27/17 13:59> Subjective - Date & Time of Evaluation Time of Evaluation: 13:30 - Subjective Subjective: Patient was seen and examined at the bedside. Agree with resident's note above. Objective - Vital Signs/Intake and Output Vital Signs (last 24 hours): Temp Pulse Resp BP Pulse Ox 98.9 F 110 H 25 H 122/93 H 95 02/27/17 12:00 02/27/17 12:00 02/27/17 12:00 02/27/17 12:00 02/27/17 12:00 Intake and Output: 02/27/17 02/27/17 06:59 18:59 Intake Total 1700 Output Total 450 Balance 1250 - Medications Medications: Current Medications Albuterol (Ventolin Hfa 90 Mcg/Actuation (8 G)) 2 puff IH RQ6 PRN PRN Reason: Shortness of Breath Enoxaparin Sodium (Lovenox) 30 mg SC DAILY [facility] PRN Reason: Protocol Last Admin: 02/27/17 10:32 Dose: 30 mg Hydrochlorothiazide (Microzide) 12.5 mg PO DAILY [facility] Last Admin: 02/27/17 10:03 Dose: 12.5 mg Hydromorphone HCl (Dilaudid) 0.5 mg IVP Q4 PRN PRN Reason: Pain, moderate (4-7) Last Admin: 02/27/17 13:52 Dose: 0.5 mg Lactated Ringer's (Lactated Ringer's 500ml) 500 mls @ 500 mls/hr IV .Q1H [facility] Last Admin: 02/26/17 06:02 Dose: 500 mls/hr Lactated Ringer's (Lactated Ringer's) 1,000 mls @ 125 mls/hr IV .Q8H [facility] Last Admin: 02/27/17 06:44 Dose: 125 mls/hr Midazolam HCl (Versed Inj) 2 mg IVP ONCE PRN PRN Reason: Agitation/Restlessness Last Admin: 02/25/17 13:50 Dose: 2 mg Multivitamins/Minerals (Therapeutic-M Tab) 1 tab PO DAILY [facility] Last Admin: 02/27/17 10:04 Dose: 1 tab Ondansetron HCl (Zofran Inj) 4 mg IVP Q4 PRN PRN Reason: Nausea/Vomiting Pantoprazole Sodium (Protonix Inj) 40 mg IVP DAILY [facility] Last Admin: 02/27/17 09:50 Dose: 40 mg Zolpidem Tartrate (Ambien) 5 mg PO HS PRN PRN Reason: Insomnia Last Admin: 02/26/17 21:50 Dose: 5 mg - Labs Labs: 02/27/17 04:40 02/27/17 04:40
--- NOTE | 2017-02-27 12:52 | CP.PCM.PN ---
Subjective - Date & Time of Evaluation Date of Evaluation: 02/27/17 Time of Evaluation: 12:49 - Subjective Subjective: Patient awake alert (+)flatus, denies any nause or vomitting, no acute events overnight Objective - Vital Signs/Intake and Output Vital Signs (last 24 hours): Temp Pulse Resp BP Pulse Ox 98.9 F 110 H 25 H 122/93 H 95 02/27/17 12:00 02/27/17 12:00 02/27/17 12:00 02/27/17 12:00 02/27/17 12:00 Intake and Output: 02/27/17 02/27/17 06:59 18:59 Intake Total 1700 Output Total 450 Balance 1250 - Medications Medications: Current Medications Albuterol (Ventolin Hfa 90 Mcg/Actuation (8 G)) 2 puff IH RQ6 PRN PRN Reason: Shortness of Breath Enoxaparin Sodium (Lovenox) 30 mg SC DAILY [facility] PRN Reason: Protocol Last Admin: 02/27/17 10:32 Dose: 30 mg Hydrochlorothiazide (Microzide) 12.5 mg PO DAILY [facility] Last Admin: 02/27/17 10:03 Dose: 12.5 mg Hydromorphone HCl (Dilaudid) 0.5 mg IVP Q4 PRN PRN Reason: Pain, moderate (4-7) Last Admin: 02/27/17 03:50 Dose: 0.5 mg Lactated Ringer's (Lactated Ringer's 500ml) 500 mls @ 500 mls/hr IV .Q1H [facility] Last Admin: 02/26/17 06:02 Dose: 500 mls/hr Lactated Ringer's (Lactated Ringer's) 1,000 mls @ 125 mls/hr IV .Q8H [facility] Last Admin: 02/27/17 06:44 Dose: 125 mls/hr Midazolam HCl (Versed Inj) 2 mg IVP ONCE PRN PRN Reason: Agitation/Restlessness Last Admin: 02/25/17 13:50 Dose: 2 mg Multivitamins/Minerals (Therapeutic-M Tab) 1 tab PO DAILY [facility] Last Admin: 02/27/17 10:04 Dose: 1 tab Ondansetron HCl (Zofran Inj) 4 mg IVP Q4 PRN PRN Reason: Nausea/Vomiting Pantoprazole Sodium (Protonix Inj) 40 mg IVP DAILY [facility] Last Admin: 02/27/17 09:50 Dose: 40 mg Zolpidem Tartrate (Ambien) 5 mg PO HS PRN PRN Reason: Insomnia Last Admin: 02/26/17 21:50 Dose: 5 mg - Labs Labs: 02/27/17 04:40 02/27/17 04:40 - Constitutional Appears: Well - Eye Exam Eye Exam: Normal appearance. absent: Conjunctival injection - Respiratory Exam Respiratory Exam: Clear to Ausculation Bilateral, NORMAL BREATHING PATTERN - Cardiovascular Exam Cardiovascular Exam: Diastolic murmur, REGULAR RHYTHM, +S1, +S2 - GI/Abdominal Exam GI & Abdominal Exam: Normal Bowel Sounds - Neurological Exam Neurological Exam: Alert, Awake, Oriented x3 Assessment and Plan - Assessment and Plan (Free Text) Plan: 71 y/o male with outpatient treatment for orthostatic hypotension taking florinef admitted to [place] for right hemicolectomy -Post Op: monitor bp, tele, fevers, urien output -h/o orthostatin hypotension: given NPO status give 100 mg of hydrocortisone -intra-op blood loss: as per surgeon hemostasis obtained before closing: montior serial cbc -CKD stage II: monitor urine output keep >0.5 ml/kg/hr -Chronic systolic heart failure (EF 45%): gently hydration avoid fluiv overloaded state, monitor I/I -Patient remains hemodynamically stable. d/w nursing reqeust surgery to determine advance diet as tolerated. -surgery to determine when to start chemical DVT ppx
--- NOTE | 2017-02-27 18:21 | CP.PCM.PN ---
<Daina Thomas - Last Filed: 02/27/17 18:35> Subjective - Date & Time of Evaluation Date of Evaluation: 02/27/17 Time of Evaluation: 07:45 - Subjective Subjective: 71 YO M seen at bedside with Dr. Guerrero. Patient appears slightly anxious this morning. He didnt sleep well overnight is complaining of pain, however has not recieved any pain meds this morning, patient has been advised to request pain meds when needed. He was also noted not wearing his nasal canula. Has been advised to keep the nasal canula in place. Will Start DVT prophylaxis today as requested by surgical team - Denies chest pain, Nausea vomiting. Objective - Vital Signs/Intake and Output Vital Signs (last 24 hours): Temp Pulse Resp BP Pulse Ox 98.9 F 112 H 20 149/90 96 02/27/17 16:00 02/27/17 16:00 02/27/17 16:00 02/27/17 16:00 02/27/17 16:00 Intake and Output: 02/27/17 02/27/17 06:59 18:59 Intake Total 1700 Output Total 450 Balance 1250 - Medications Medications: Current Medications Albuterol (Ventolin Hfa 90 Mcg/Actuation (8 G)) 2 puff IH RQ6 PRN PRN Reason: Shortness of Breath Enoxaparin Sodium (Lovenox) 30 mg SC DAILY [facility] PRN Reason: Protocol Last Admin: 02/27/17 10:32 Dose: 30 mg Hydrochlorothiazide (Microzide) 12.5 mg PO DAILY [facility] Last Admin: 02/27/17 10:03 Dose: 12.5 mg Hydromorphone HCl (Dilaudid) 0.5 mg IVP Q4 PRN PRN Reason: Pain, moderate (4-7) Last Admin: 02/27/17 13:52 Dose: 0.5 mg Lactated Ringer's (Lactated Ringer's 500ml) 500 mls @ 500 mls/hr IV .Q1H [facility] Last Admin: 02/26/17 06:02 Dose: 500 mls/hr Lactated Ringer's (Lactated Ringer's) 1,000 mls @ 125 mls/hr IV .Q8H [facility] Last Admin: 02/27/17 06:44 Dose: 125 mls/hr Labetalol HCl (Trandate) 5 mg IVP Q6H PRN PRN Reason: Systolic Blood Pressure Midazolam HCl (Versed Inj) 2 mg IVP ONCE PRN PRN Reason: Agitation/Restlessness Last Admin: 02/25/17 13:50 Dose: 2 mg Multivitamins/Minerals (Therapeutic-M Tab) 1 tab PO DAILY [facility] Last Admin: 02/27/17 10:04 Dose: 1 tab Ondansetron HCl (Zofran Inj) 4 mg IVP Q4 PRN PRN Reason: Nausea/Vomiting Pantoprazole Sodium (Protonix Inj) 40 mg IVP DAILY [facility] Last Admin: 02/27/17 09:50 Dose: 40 mg Zolpidem Tartrate (Ambien) 5 mg PO HS PRN PRN Reason: Insomnia Last Admin: 02/26/17 21:50 Dose: 5 mg - Labs Labs: 02/27/17 04:40 02/27/17 04:40 - Constitutional Appears: No Acute Distress - Head Exam Head Exam: NORMAL INSPECTION - Respiratory Exam Respiratory Exam: Clear to Ausculation Bilateral, NORMAL BREATHING PATTERN. absent: Rhonchi, Wheezes - Cardiovascular Exam Cardiovascular Exam: REGULAR RHYTHM, +S1, +S2 - GI/Abdominal Exam GI & Abdominal Exam: Soft Additional comments: Dressing intact with sanginous strikethrough - Extremities Exam Extremities Exam: Normal Capillary Refill, Normal Inspection. absent: Calf Tenderness - Neurological Exam Neurological Exam: Alert, Awake, CN II-XII Intact, Oriented x3 - Skin Skin Exam: Normal Color, Warm Assessment and Plan - Assessment and Plan (Free Text) Assessment: 71 yr old M POD # 2 s/p laparoscopic right hemicolectomy for ascending colon mass (moderately differentiated adenocarcinoma). PMHx includes HTN, CAD, CHF, Emphysema/COPD, CKD, TALYA and orthostatic hypotension. Patient has no concerns or complaints at this time, pain is controlled. at bedside reports surgery team discussed intraoperative blood loss had occurred and patient was administered 2 units of blood. 1. s/p Right hemicolectomy for ascending colon mass -stable s/p intraoperative blood loss of approximately 1L and transfusion of 2 units leuckocyte reduced RBC's -moderately differentiated adenocarcinoma -WBC trending down, IV antibiotics: Cefazolin, Metronidazole -Pain management, Zofran PRN nausea -monitor intake and output -admitted to ICU for monitoring -H/H stable at 13/40.6 2. HTN -controlled -home meds held for now (last Rx filled stated: HCTZ 12.5 mg PO QD x 15 days) 3. Orthostatic hypotension -resolved -patient was not taking Florinef past date of 01/30/17 (was only give 20 tabs at discharge on 01/10/17) -discontinue Florinef 4. Borderline left ventricular function -stable, controlled -Echo 01/01/17: mildly impaired systolic function with LVEF of 45% -patients' privacy director is Dr. Miller 5. Emphysema/COPD -chronic, controlled - O2 nasal canula -continue home med Ventolin HFA 90mcg 2 puffs INH Q6 PRN for cough/SOB 6. DVT prophylaxis - Start Lovenox , DVE prophylaxis today <Rob Kovacs - Last Filed: 02/28/17 06:43> Objective - Vital Signs/Intake and Output Vital Signs (last 24 hours): Temp Pulse Resp BP Pulse Ox 98.3 F 98 H 27 H 153/91 H 93 L 02/28/17 04:00 02/28/17 04:00 02/28/17 04:00 02/28/17 04:00 02/28/17 04:00 Intake and Output: 02/27/17 02/28/17 18:59 06:59 Intake Total 1600 250 Output Total 600 1325 Balance 1000 -1075 - Medications Medications: Current Medications Albuterol (Ventolin Hfa 90 Mcg/Actuation (8 G)) 2 puff IH RQ6 PRN PRN Reason: Shortness of Breath Enoxaparin Sodium (Lovenox) 30 mg SC DAILY [facility] PRN Reason: Protocol Last Admin: 02/27/17 10:32 Dose: 30 mg Hydrochlorothiazide (Microzide) 12.5 mg PO DAILY [facility] Last Admin: 02/27/17 10:03 Dose: 12.5 mg Hydromorphone HCl (Dilaudid) 0.5 mg IVP Q4 PRN PRN Reason: Pain, moderate (4-7) Last Admin: 02/27/17 18:49 Dose: 0.5 mg Hydromorphone HCl (Dilaudid) 1 mg IM Q4 PRN PRN Reason: Pain, severe (8-10) Last Admin: 02/28/17 04:25 Dose: 1 mg Lactated Ringer's (Lactated Ringer's) 1,000 mls @ 75 mls/hr IV .[id number] [facility] Labetalol HCl (Trandate) 5 mg IVP Q6H PRN PRN Reason: Systolic Blood Pressure Last Admin: 02/28/17 03:18 Dose: 5 mg Midazolam HCl (Versed Inj) 2 mg IVP ONCE PRN PRN Reason: Agitation/Restlessness Last Admin: 02/25/17 13:50 Dose: 2 mg Multivitamins/Minerals (Therapeutic-M Tab) 1 tab PO DAILY [facility] Last Admin: 02/27/17 10:04 Dose: 1 tab Ondansetron HCl (Zofran Inj) 4 mg IVP Q4 PRN PRN Reason: Nausea/Vomiting Pantoprazole Sodium (Protonix Inj) 40 mg IVP DAILY [facility] Last Admin: 02/27/17 09:50 Dose: 40 mg Zolpidem Tartrate (Ambien) 5 mg PO HS PRN PRN Reason: Insomnia Last Admin: 02/26/17 21:50 Dose: 5 mg - Labs Labs: 02/28/17 04:40 02/28/17 04:40 Attending/Attestation - Attestation I have personally seen and examined this patient.: Yes I have fully participated in the care of the patient.: Yes I have reviewed all pertinent clinical information, including history, physical exam and plan: Yes
[2017-02-27] MEDS ORDERED: Lactated Ringer's 1,000 ML IV SCH (20:45)
[2017-02-27] MEDS: Labetalol 5mg/ml (4ml) IVP PRN (20:52)
[2017-02-28] MEDS ORDERED: Lactated Ringer's 1,000 ML IV SCH (03:18)
[2017-02-28] MEDS: Labetalol 5mg/ml (4ml) IVP PRN (03:18)
[2017-02-28 05:50] LABS: BASO % 0.2 % (0.0-2.0); EOS # 0.1 K/uL (0.0-0.7); EOS % 0.4 % (0.0-4.0); HEMOGLOBIN 11.1 g/dL (12.0-18.0); LYMPH % 7.3 % (20.0-40.0); MEAN CELL VOLUME 84.4 fl (80.0-94.0); MEAN CORPUSCULAR HEMOGLOBIN 27.2 pg (27.0-31.0); MEAN CORPUSCULAR HGB CONC 32.2 g/dL (33.0-37.0); MEAN PLATELET VOLUME 8.6 fl (7.2-11.7); MONO # 1.2 K/uL (0.0-0.8); MONO % 8.8 % (0.0-10.0); NEUT # 11.7 K/uL (1.8-7.0); NEUT % 83.3 % (50.0-75.0); RBC 4.09 Mil/uL (4.40-5.90); RED CELL DISTRIBUTION WIDTH 19.2 % (11.5-14.5)
[2017-02-28 06:15] LABS: CALCIUM 8.1 mg/dL (8.4-10.2)
--- NOTE | 2017-02-28 08:20 | CP.PCM.PN ---
Subjective - Date & Time of Evaluation Date of Evaluation: 02/28/17 Time of Evaluation: 07:00 - Subjective Subjective: GENERAL SURGERY PROGRESS NOTE FOR DR. IRELAND Patient seen and examined at bedside in the ICU. He is doing well. He denies having any abdominal pain. He denies nausea, vomiting. He is tolerating CLD. No flatus or BM since surgery. He states that he is ambulating. Overnight, he had some wheezing and was given Lasix. Objective - Vital Signs/Intake and Output Vital Signs (last 24 hours): Temp Pulse Resp BP Pulse Ox 98.3 F 92 H 15 118/73 90 L 02/28/17 04:00 02/28/17 06:00 02/28/17 06:00 02/28/17 06:00 02/28/17 06:00 Intake and Output: 02/28/17 02/28/17 06:59 18:59 Intake Total 250 Output Total 1325 Balance -1075 - Medications Medications: Current Medications Albuterol (Ventolin Hfa 90 Mcg/Actuation (8 G)) 2 puff IH RQ6 PRN PRN Reason: Shortness of Breath Enoxaparin Sodium (Lovenox) 30 mg SC DAILY [facility] PRN Reason: Protocol Last Admin: 02/27/17 10:32 Dose: 30 mg Hydrochlorothiazide (Microzide) 12.5 mg PO DAILY [facility] Last Admin: 02/27/17 10:03 Dose: 12.5 mg Hydromorphone HCl (Dilaudid) 0.5 mg IVP Q4 PRN PRN Reason: Pain, moderate (4-7) Last Admin: 02/27/17 18:49 Dose: 0.5 mg Hydromorphone HCl (Dilaudid) 1 mg IM Q4 PRN PRN Reason: Pain, severe (8-10) Last Admin: 02/28/17 04:25 Dose: 1 mg Lactated Ringer's (Lactated Ringer's) 1,000 mls @ 75 mls/hr IV .[id number] [facility] Labetalol HCl (Trandate) 5 mg IVP Q6H PRN PRN Reason: Systolic Blood Pressure Last Admin: 02/28/17 03:18 Dose: 5 mg Midazolam HCl (Versed Inj) 2 mg IVP ONCE PRN PRN Reason: Agitation/Restlessness Last Admin: 02/25/17 13:50 Dose: 2 mg Multivitamins/Minerals (Therapeutic-M Tab) 1 tab PO DAILY [facility] Last Admin: 02/27/17 10:04 Dose: 1 tab Ondansetron HCl (Zofran Inj) 4 mg IVP Q4 PRN PRN Reason: Nausea/Vomiting Pantoprazole Sodium (Protonix Inj) 40 mg IVP DAILY [facility] Last Admin: 02/27/17 09:50 Dose: 40 mg Zolpidem Tartrate (Ambien) 5 mg PO HS PRN PRN Reason: Insomnia Last Admin: 02/26/17 21:50 Dose: 5 mg - Labs Labs: 02/28/17 04:40 02/28/17 04:40 - Constitutional Appears: Non-toxic, No Acute Distress - Head Exam Head Exam: ATRAUMATIC, NORMAL INSPECTION - Eye Exam Eye Exam: EOMI, Normal appearance - Respiratory Exam Respiratory Exam: Wheezes, NORMAL BREATHING PATTERN. absent: Respiratory Distress - Cardiovascular Exam Cardiovascular Exam: +S1, +S2 - GI/Abdominal Exam GI & Abdominal Exam: Soft. absent: Distended, Firm, Guarding, Rigid, Tenderness , Rebound Additional comments: josy in place over midline incision - Exam Additional comments: Mejía in place - Neurological Exam Neurological Exam: Alert, Awake, Oriented x3 - Psychiatric Exam Psychiatric exam: Normal Affect, Normal Mood - Skin Skin Exam: Dry, Normal Color, Warm Assessment and Plan - Assessment and Plan (Free Text) Assessment: 71yo M with PMHx of HTN, CKD, gastritis, mild CHF (EF 45%) with ascending colon mass s/p open right hemicolectomy POD#3 - Afebrile, tachycardia resolved overnight - WBC trending down 21 -->14.0 today - Cr trending down to 1.7 today - Low urine output until after Lasix was given last night. Will continue to monitor with strict Is and Os - Nebulizer and Chest PT - Continue SCDs, Lovenox - Tolerating Clear liquid diet, will advance to full liquids - Will monitor for return of bowel function - Encouraged OOB to chair, ambulation, and IS use - May be transferred out of ICU to Tele - Discussed plan with Dr. Antwon Chen PGY-3
[2017-02-28] MEDS: Enoxaparin 30 mg Syringe SC SCH (09:35)
[2017-02-28] MEDS: Multivitamin With Minerals Tab PO SCH (09:36)
[2017-02-28] MEDS: Albuterol-Ipratrop 3 mg / 0.5 (3 ml) UD INH PRN ×3 (09:38→18:00)
--- NOTE | 2017-02-28 10:49 | CP.CCUPN ---
CCU Subjective - Physician Review Subjective (Free Text): 02/28/17 11:05 The patient was Seen/interviewed and examined by me at the bedside during ICU round, Medical records reviewed and Management issues were discussed and formulated with the house staff. Events reviewed 71 Years old Male with no significant PMHx HTN, CAD, CHF, Emphysema/COPD, CKD, TALYA and left lung resection for bleb POD #3 S/p Laparoscopic hand assisted lysis of adhesions, open right hemicolectomy Pt Alert, AAO x3. Mild SOB overnight, received IV Lasix, Fluids discontinued and feeling better today Awake, comfortable, NAD Denies any chest pain, SOB or Palpitations Pain controlled Tolerating PO diet Afebrile, NSR on the monitor Last 24H I&O 1850/1925 CCU Objective - Vital Signs / Intake & Output Vital Signs (Last 4 hours): Vital Signs Temp Pulse Resp BP Pulse Ox 02/28/17 09:38 96 H 02/28/17 08:00 99.0 F 88 21 144/89 92 L Intake and Output (Last 8hrs): Intake & Output 02/27/17 02/28/17 02/28/17 22:59 06:59 14:59 Intake Total 600 Output Total 350 1175 Balance 250 -1175 Intake: IV 500 Oral 100 Output: Urine 350 1175 Urethral (Mejía) 350 1175 - Physical Exam Head: Positive for: Atraumatic, Normocephalic Pupils: Positive for: PERRL Extroacular Muscles: Positive for: EOMI Conjunctiva: Positive for: Normal Ears: Positive for: Normal Mouth: Positive for: Moist Mucous Membranes Neck: Positive for: Normal Range of Motion, Trachea Midline. Negative for: Meningeal Signs, MIDLINE TENDERNESS, Paraspinal Tenderness, JVD, Lymphadenopathy , Bruit, Other Respiratory/Chest: Positive for: Clear to Auscultation, Good Air Exchange. Negative for: Respiratory Distress, Accessory Muscle Use Cardiovascular: Positive for: Regular Rate and Rhythm, Normal S1, S2, Peripheal Pulses Present. Negative for: Murmurs, Irregular Rhythm, Tachycardic, Bradycardic Abdomen: Positive for: Tenderness, Distention, Normal Bowel Sounds. Negative for: Peritoneal Signs, Rebound, Guarding Upper Extremity: Positive for: Normal Inspection, Normal ROM, Capillary Refill < 2s. Negative for: Cyanosis, Edema Lower Extremity: Positive for: Normal Inspection, CALF TENDERNESS, Capillary Refill < 2 s. Negative for: Edema Neurological: Positive for: GCS=15, CN II-XII Intact, Speech Normal, Motor Func Grossly Intact, Normal Sensory Function - Medications Active Medications: Active Medications Generic Name Dose Route Start Last Admin Trade Name Freq PRN Reason Stop Dose Admin Acetylcysteine 2 ml 02/28/17 20:00 Acetylcysteine 20% INH RBID [facility] Albuterol 2 puff 02/28/17 14:00 Ventolin Hfa 90 Mcg/Actuation (8 G) IH RQ6 [facility] Albuterol/Ipratropium 3 ml 02/28/17 08:44 02/28/17 09:38 Duoneb 3 Mg/0.5 Mg (3 Ml) Ud INH 3 ml RQ4 PRN Administration Shortness of Breath Enoxaparin Sodium 30 mg 02/27/17 09:45 02/28/17 09:35 Lovenox SC 30 mg DAILY [facility] Administration Protocol Hydrochlorothiazide 12.5 mg 02/26/17 09:00 02/28/17 09:36 Microzide PO 12.5 mg DAILY [facility] Administration Hydromorphone HCl 0.5 mg 02/26/17 08:28 02/27/17 18:49 Dilaudid IVP 0.5 mg Q4 PRN Administration Pain, moderate (4-7) Hydromorphone HCl 1 mg 02/27/17 18:31 02/28/17 09:42 Dilaudid IM 1 mg Q4 PRN Administration Pain, severe (8-10) Labetalol HCl 5 mg 02/27/17 17:27 02/28/17 03:18 Trandate IVP 5 mg Q6H PRN Administration Systolic Blood Pressure Multivitamins/Minerals 1 tab 02/26/17 09:00 02/28/17 09:36 Therapeutic-M Tab PO 1 tab DAILY [facility] Administration Ondansetron HCl 4 mg 02/25/17 13:38 Zofran Inj IVP Q4 PRN Nausea/Vomiting Pantoprazole Sodium 40 mg 02/26/17 09:00 02/28/17 09:36 Protonix Inj IVP 40 mg DAILY [facility] Administration Zolpidem Tartrate 5 mg 02/25/17 13:41 02/26/17 21:50 Ambien PO 5 mg HS PRN Administration Insomnia - Patient Studies Lab Studies: Lab Studies 02/28/17 02/28/17 02/28/17 Range/Units 05:51 04:40 04:40 WBC 14.0 H (4.8-10.8) K/uL RBC 4.09 L (4.40-5.90) Mil/uL Hgb 11.1 L (12.0-18.0) g/dL Hct 34.5 L (35.0-51.0) % MCV 84.4 (80.0-94.0) fl MCH 27.2 (27.0-31.0) pg MCHC 32.2 L (33.0-37.0) g/dL RDW 19.2 H (11.5-14.5) % Plt Count 99 L (130-400) K/uL MPV 8.6 (7.2-11.7) fl Neut % (Auto) 83.3 H (50.0-75.0) % Lymph % (Auto) 7.3 L (20.0-40.0) % [place] % (Auto) 8.8 (0.0-10.0) % Eos % (Auto) 0.4 (0.0-4.0) % Baso % (Auto) 0.2 (0.0-2.0) % Neut # 11.7 H (1.8-7.0) K/uL Lymph # 1.0 (1.0-4.3) K/uL [place] # 1.2 H (0.0-0.8) K/uL Eos # 0.1 (0.0-0.7) K/uL Baso # 0.0 (0.0-0.2) K/uL Sodium 136 (132-148) mmol/l Potassium 3.6 (3.6-5.0) MMOL/L Chloride 102 (98-107) mmol/L Carbon Dioxide 30 (22-30) mmol/L Anion Gap 8 L (10-20) BUN 32 H (9-20) mg/dl Creatinine 1.7 H (0.8-1.5) mg/dl Est GFR ( Amer) 49 Est GFR (Non-Af Amer) 40 POC Glucose (mg/dL) 107 (65-110) mg/dL Random Glucose 112 H (75-110) mg/dL Calcium 8.1 L (8.4-10.2) mg/dL 02/27/17 02/27/17 02/27/17 Range/Units 21:57 16:51 11:25 WBC (4.8-10.8) K/uL RBC (4.40-5.90) Mil/uL Hgb (12.0-18.0) g/dL Hct (35.0-51.0) % MCV (80.0-94.0) fl MCH (27.0-31.0) pg MCHC (33.0-37.0) g/dL RDW (11.5-14.5) % Plt Count (130-400) K/uL MPV (7.2-11.7) fl Neut % (Auto) (50.0-75.0) % Lymph % (Auto) (20.0-40.0) % [place] % (Auto) (0.0-10.0) % Eos % (Auto) (0.0-4.0) % Baso % (Auto) (0.0-2.0) % Neut # (1.8-7.0) K/uL Lymph # (1.0-4.3) K/uL [place] # (0.0-0.8) K/uL Eos # (0.0-0.7) K/uL Baso # (0.0-0.2) K/uL Sodium (132-148) mmol/l Potassium (3.6-5.0) MMOL/L Chloride (98-107) mmol/L Carbon Dioxide (22-30) mmol/L Anion Gap (10-20) BUN (9-20) mg/dl Creatinine (0.8-1.5) mg/dl Est GFR ( Amer) Est GFR (Non-Af Amer) POC Glucose (mg/dL) 107 114 H 160 H (65-110) mg/dL Random Glucose (75-110) mg/dL Calcium (8.4-10.2) mg/dL Laboratory Results - last 24 hr 02/27/17 02/27/17 02/27/17 11:25 16:51 21:57 WBC RBC Hgb Hct MCV MCH MCHC RDW Plt Count MPV Neut % (Auto) Lymph % (Auto) [place] % (Auto) Eos % (Auto) Baso % (Auto) Neut # Lymph # [place] # Eos # Baso # Sodium Potassium Chloride Carbon Dioxide Anion Gap BUN Creatinine Est GFR ( Amer) Est GFR (Non-Af Amer) POC Glucose (mg/dL) 160 H 114 H 107 Random Glucose Calcium 02/28/17 02/28/17 02/28/17 04:40 04:40 05:51 WBC 14.0 H RBC 4.09 L Hgb 11.1 L Hct 34.5 L MCV 84.4 MCH 27.2 MCHC 32.2 L RDW 19.2 H Plt Count 99 L MPV 8.6 Neut % (Auto) 83.3 H Lymph % (Auto) 7.3 L [place] % (Auto) 8.8 Eos % (Auto) 0.4 Baso % (Auto) 0.2 Neut # 11.7 H Lymph # 1.0 [place] # 1.2 H Eos # 0.1 Baso # 0.0 Sodium 136 Potassium 3.6 Chloride 102 Carbon Dioxide 30 Anion Gap 8 L BUN 32 H Creatinine 1.7 H Est GFR ( Amer) 49 Est GFR (Non-Af Amer) 40 POC Glucose (mg/dL) 107 Random Glucose 112 H Calcium 8.1 L Fingerstick Blood Sugar Results: 107 Critical Care Progress Note - Extremities/Vascular Does the Patient have a Central Venous Catheter?: No Does the Patient need a Central Venous Catheter?: No Does the Patient have a Mejía Catheter?: Yes Does the Patient need a Mejía Catheter?: No (will remove today) - Nutrition Nutrition: Nutrition Category Date Time Status Liquid Diet [DIET] Diets 02/26/17 Dinner Active Assessment/Plan (1) Status post right hemicolectomy Current Visit: Yes Status: Acute (2) COPD (chronic obstructive pulmonary disease) with emphysema Current Visit: Yes Status: Acute (3) Chronic systolic heart failure Current Visit: Yes Status: Acute (4) CAD (coronary artery disease) Current Visit: Yes Status: Acute (5) CKD (chronic kidney disease) Current Visit: No Status: Chronic Priority: High (6) HTN (hypertension) Current Visit: Yes Status: Acute (7) Anemia Current Visit: No Status: Acute - Assessment and Plan (Free Text) Assessment: POD #3 S/p Laparoscopic hand assisted lysis of adhesions, open right hemicolectomy Awake, comfortable, NAD Patient hemodynamically stable Clear liquid diet, Advance as tolerate Discontinue IV Hydration Restarted outpatient meds Perioperative Antibiotics as per surgery S/P stress dose IV steroids Pain control with Dilauded IV Q4H PRN BD nebs Q 6H PRN Ondansetron Bowel regimen OOB to chair PT/OT Mejía to be removed today Wound care Incentive spirometry GI/DVT PPX
[2017-02-28] MEDS ORDERED: Albuterol HFA 90 mcg/actuation (8 g) IH SCH (14:00)
--- NOTE | 2017-02-28 15:59 | CP.PCM.PN ---
<Daina Thomas - Last Filed: 02/28/17 16:16> Subjective - Date & Time of Evaluation Date of Evaluation: 02/28/17 Time of Evaluation: 07:45 - Subjective Subjective: Patient seen and examined at bedside. Appears to be doing much better then previous days . Pain is well controlled with medication. Patient is saturating well on nasal canula. Has been participating w/ PT. - Denies any chest pain, SOB, nausea or vomiting. Objective - Vital Signs/Intake and Output Vital Signs (last 24 hours): Temp Pulse Resp BP Pulse Ox 99.0 F 97 H 15 149/86 95 02/28/17 12:00 02/28/17 14:00 02/28/17 14:00 02/28/17 14:00 02/28/17 14:00 Intake and Output: 02/28/17 02/28/17 06:59 18:59 Intake Total 250 280 Output Total 1325 700 Balance -1075 -420 - Medications Medications: Current Medications Acetylcysteine (Acetylcysteine 20%) 2 ml INH RBID [facility] Albuterol (Ventolin Hfa 90 Mcg/Actuation (8 G)) 2 puff IH RQ6 [facility] Albuterol/Ipratropium (Duoneb 3 Mg/0.5 Mg (3 Ml) Ud) 3 ml INH RQ4 PRN PRN Reason: Shortness of Breath Last Admin: 02/28/17 14:09 Dose: 3 ml Enoxaparin Sodium (Lovenox) 30 mg SC DAILY [facility] PRN Reason: Protocol Last Admin: 02/28/17 09:35 Dose: 30 mg Hydrochlorothiazide (Microzide) 12.5 mg PO DAILY [facility] Last Admin: 02/28/17 09:36 Dose: 12.5 mg Hydromorphone HCl (Dilaudid) 0.5 mg IVP Q4 PRN PRN Reason: Pain, moderate (4-7) Last Admin: 02/27/17 18:49 Dose: 0.5 mg Hydromorphone HCl (Dilaudid) 1 mg IM Q4 PRN PRN Reason: Pain, severe (8-10) Last Admin: 02/28/17 09:42 Dose: 1 mg Multivitamins/Minerals (Therapeutic-M Tab) 1 tab PO DAILY [facility] Last Admin: 02/28/17 09:36 Dose: 1 tab Ondansetron HCl (Zofran Inj) 4 mg IVP Q4 PRN PRN Reason: Nausea/Vomiting Pantoprazole Sodium (Protonix Inj) 40 mg IVP DAILY [facility] Last Admin: 02/28/17 09:36 Dose: 40 mg Zolpidem Tartrate (Ambien) 5 mg PO HS PRN PRN Reason: Insomnia Last Admin: 02/26/17 21:50 Dose: 5 mg - Labs Labs: 02/28/17 04:40 02/28/17 04:40 - Constitutional Appears: No Acute Distress - Head Exam Head Exam: NORMAL INSPECTION - Respiratory Exam Respiratory Exam: Rhonchi, NORMAL BREATHING PATTERN - Cardiovascular Exam Cardiovascular Exam: REGULAR RHYTHM, +S1, +S2 - GI/Abdominal Exam GI & Abdominal Exam: Soft, Normal Bowel Sounds. absent: Tenderness - Extremities Exam Extremities Exam: absent: Calf Tenderness - Neurological Exam Neurological Exam: Alert, Awake, CN II-XII Intact, Oriented x3 Assessment and Plan - Assessment and Plan (Free Text) Assessment: 71 yr old M POD # 3 s/p laparoscopic right hemicolectomy for ascending colon mass (moderately differentiated adenocarcinoma). PMHx includes HTN, CAD, CHF, Emphysema/COPD, CKD, TALYA and orthostatic hypotension. Patient has no concerns or complaints at this time, pain is controlled. at bedside reports surgery team discussed intraoperative blood loss had occurred and patient was administered 2 units of blood. 1. s/p Right hemicolectomy for ascending colon mass -stable s/p intraoperative blood loss of approximately 1L and transfusion of 2 units leuckocyte reduced RBC's -moderately differentiated adenocarcinoma -WBC trending down, IV antibiotics: Cefazolin, Metronidazole -Pain management, Zofran PRN nausea -monitor intake and output -admitted to ICU for monitoring -H/H .5 2. HTN -controlled -home meds held for now (last Rx filled stated: HCTZ 12.5 mg PO QD x 15 days) 3. Orthostatic hypotension -resolved -patient was not taking Florinef past date of 01/30/17 (was only give 20 tabs at discharge on 01/10/17) -discontinue Florinef 4. Borderline left ventricular function -stable, controlled -Echo 01/01/17: mildly impaired systolic function with LVEF of 45% -patients' hospital cna is Dr. Miller 5. Emphysema/COPD -chronic, controlled - O2 nasal canula -continue home med Ventolin HFA 90mcg 2 puffs INH Q6 PRN for cough/SOB 6. DVT prophylaxis C/W Lovenox , DVE prophylaxis today <Santo Damon - Last Filed: 03/04/17 06:58> Objective - Vital Signs/Intake and Output Vital Signs (last 24 hours): Temp Pulse Resp BP Pulse Ox 98.7 F 85 20 142/82 99 03/03/17 23:36 03/03/17 23:36 03/03/17 23:36 03/03/17 23:36 03/03/17 23:36 - Medications Medications: Current Medications Acetaminophen (Tylenol 325mg Tab) 650 mg PO Q4 PRN PRN Reason: Fever >100.4 F Last Admin: 02/28/17 22:50 Dose: 650 mg Acetylcysteine (Acetylcysteine 20%) 2 ml INH RBID [facility] Last Admin: 03/03/17 17:44 Dose: 2 ml Albuterol/Ipratropium (Duoneb 3 Mg/0.5 Mg (3 Ml) Ud) 3 ml INH RQID [facility] Enoxaparin Sodium (Lovenox) 30 mg SC DAILY [facility] PRN Reason: Protocol Last Admin: 03/03/17 08:08 Dose: 30 mg Hydrochlorothiazide (Microzide) 12.5 mg PO DAILY [facility] Last Admin: 03/03/17 08:09 Dose: 12.5 mg Multivitamins/Minerals (Therapeutic-M Tab) 1 tab PO DAILY [facility] Last Admin: 03/03/17 08:09 Dose: 1 tab Ondansetron HCl (Zofran Inj) 4 mg IVP Q4 PRN PRN Reason: Nausea/Vomiting Oxycodone/Acetaminophen (Percocet 5/325 Mg Tab) 1 tab PO Q6 PRN PRN Reason: Pain, moderate (4-7) Stop: 03/06/17 10:32 Oxycodone/Acetaminophen (Percocet 5/325 Mg Tab) 2 tab PO Q6 PRN PRN Reason: Pain, severe (8-10) Stop: 03/06/17 10:32 Last Admin: 03/04/17 00:07 Dose: 2 tab Pantoprazole Sodium (Protonix Ec Tab) 40 mg PO DAILY [facility] Last Admin: 03/03/17 08:09 Dose: 40 mg Zolpidem Tartrate (Ambien) 5 mg PO HS PRN PRN Reason: Insomnia Last Admin: 03/02/17 23:37 Dose: 5 mg - Labs Labs: 03/04/17 05:20 03/04/17 05:20 Attending/Attestation - Attestation I have personally seen and examined this patient.: Yes I have fully participated in the care of the patient.: Yes I have reviewed all pertinent clinical information, including history, physical exam and plan: Yes
[2017-02-28] MEDS: guaiFENesin DM 200 mg-20 mg/10 ml UD PO PRN (17:45)
[2017-02-28] MEDS: Acetylcysteine 20% Inhal Soln (4ml) INH SCH (17:59)
[2017-02-28 18:57] LABS: BASO # 0.1 K/uL (0.0-0.2); BASO % 0.8 % (0.0-2.0); EOS % 0.1 % (0.0-4.0); HEMOGLOBIN 11.8 g/dL (12.0-18.0); LYMPH # 1.1 K/uL (1.0-4.3); LYMPH % 8.1 % (20.0-40.0); MEAN CELL VOLUME 83.7 fl (80.0-94.0); MEAN CORPUSCULAR HEMOGLOBIN 26.8 pg (27.0-31.0); MEAN PLATELET VOLUME 8.5 fl (7.2-11.7); MONO # 1.1 K/uL (0.0-0.8); RBC 4.4 Mil/uL (4.40-5.90); RED CELL DISTRIBUTION WIDTH 18.5 % (11.5-14.5); WHITE BLOOD COUNT 13.2 K/uL (4.8-10.8)
[2017-02-28 19:29] LABS: ALB/GLOB RATIO 1.4 (1.0-2.1); ALBUMIN 3.1 g/dL (3.5-5.0); CALCIUM 8.4 mg/dL (8.4-10.2); MAGNESIUM 1.9 MG/DL (1.6-2.3)
[2017-02-28 19:30] LABS: TROPONIN I 2.31 ng/mL (0.00-0.120)
[2017-02-28] MEDS ORDERED: Chlorhexidine Gluconate 1 APPL/PKT TP ONE (22:04)
[2017-02-28] MEDS ORDERED: Enoxaparin 100 mg Syringe SC SCH (23:30)
--- NOTE | 2017-02-28 23:40 | CP.PCM.PN ---
Subjective - Date & Time of Evaluation Date of Evaluation: 02/28/17 Time of Evaluation: 23:40 - Subjective Subjective: This patient chest pain earlier and EKG and troponin ordered. EKG: No change from EKG of 02/25/17 with Sinus Tachycardia of 110/min Left Ventricular Hypetrophy. left axis deviation Left ventricular strain in the lateral leads with Q wave in V2 Troponin: 2.31 No pain at present time. Case discussed with Dr Miller who advised on no new cardiac treatment at this time. Objective - Vital Signs/Intake and Output Vital Signs (last 24 hours): Temp Pulse Resp BP Pulse Ox 100.9 F H 108 H 17 164/94 H 95 02/28/17 22:50 02/28/17 20:00 02/28/17 21:29 02/28/17 20:00 02/28/17 20:00 Intake and Output: 02/28/17 03/01/17 18:59 06:59 Intake Total 280 Output Total 1250 Balance -970 - Medications Medications: Current Medications Acetaminophen (Tylenol 325mg Tab) 650 mg PO Q4 PRN PRN Reason: Fever >100.4 F Last Admin: 02/28/17 22:50 Dose: 650 mg Acetylcysteine (Acetylcysteine 20%) 2 ml INH RBID [facility] Last Admin: 02/28/17 17:59 Dose: 2 ml Albuterol/Ipratropium (Duoneb 3 Mg/0.5 Mg (3 Ml) Ud) 3 ml INH RQ4 PRN PRN Reason: Shortness of Breath Last Admin: 02/28/17 18:00 Dose: 3 ml Aspirin (Ecotrin) 81 mg PO DAILY [facility] Aspirin (Aspirin Chewable) 324 mg PO STAT STA Stop: 02/28/17 23:37 Clopidogrel Bisulfate (Plavix) 300 mg PO ONCE ONE Stop: 02/28/17 23:39 Enoxaparin Sodium (Lovenox) 30 mg SC DAILY [facility] PRN Reason: Protocol Last Admin: 02/28/17 09:35 Dose: 30 mg Enoxaparin Sodium (Lovenox) 100 mg SC Q12 [facility] PRN Reason: Protocol Guaifenesin/Dextromethorphan (Robitussin Dm) 10 ml PO Q6 PRN PRN Reason: Cough Stop: 03/02/17 23:59 Last Admin: 02/28/17 17:45 Dose: 10 ml Hydrochlorothiazide (Microzide) 12.5 mg PO DAILY [facility] Last Admin: 02/28/17 09:36 Dose: 12.5 mg Hydromorphone HCl (Dilaudid) 0.5 mg IVP Q4 PRN PRN Reason: Pain, moderate (4-7) Last Admin: 02/27/17 18:49 Dose: 0.5 mg Hydromorphone HCl (Dilaudid) 1 mg IM Q4 PRN PRN Reason: Pain, severe (8-10) Last Admin: 02/28/17 19:05 Dose: 1 mg Multivitamins/Minerals (Therapeutic-M Tab) 1 tab PO DAILY [facility] Last Admin: 02/28/17 09:36 Dose: 1 tab Ondansetron HCl (Zofran Inj) 4 mg IVP Q4 PRN PRN Reason: Nausea/Vomiting Pantoprazole Sodium (Protonix Inj) 40 mg IVP DAILY [facility] Last Admin: 02/28/17 09:36 Dose: 40 mg Zolpidem Tartrate (Ambien) 5 mg PO HS PRN PRN Reason: Insomnia Last Admin: 02/28/17 22:57 Dose: 5 mg - Labs Labs: 02/28/17 18:30 02/28/17 18:30
--- NOTE | 2017-03-01 07:07 | CP.PCM.PN ---
Subjective - Date & Time of Evaluation Date of Evaluation: 03/01/17 Time of Evaluation: 07:18 - Subjective Subjective: - Patient was seen and examined at bedside. - Patient had complained of chest pain overnight. EKG was done which was consistent with patients previous EKG. PMD was notified by overnight hospitalist. Pain had resolved. No futhur intervention was needed. - This morning patient denies any chest pain or difficulty breathing. States last nights chest pain most likely occured secondary to his anxiety. He has had increased anxiety since he was diagnosed with cancer. Pain is controlled with medication - Today denies chest pain, SOB, nausea or vomiting. - Spoke with cardiology: Patients chest pain most likely secondary anxiety, troponin increase most likely secondary to surgery - Will be transferred out of ICU today Objective - Vital Signs/Intake and Output Vital Signs (last 24 hours): Temp Pulse Resp BP Pulse Ox 97.5 F L 86 16 135/94 H 100 03/01/17 04:00 03/01/17 04:00 03/01/17 04:31 03/01/17 04:00 03/01/17 04:00 Intake and Output: 03/01/17 03/01/17 06:59 18:59 Intake Total 100 Output Total 1150 Balance -1050 - Medications Medications: Current Medications Acetaminophen (Tylenol 325mg Tab) 650 mg PO Q4 PRN PRN Reason: Fever >100.4 F Last Admin: 02/28/17 22:50 Dose: 650 mg Acetylcysteine (Acetylcysteine 20%) 2 ml INH RBID [facility] Last Admin: 02/28/17 17:59 Dose: 2 ml Albuterol/Ipratropium (Duoneb 3 Mg/0.5 Mg (3 Ml) Ud) 3 ml INH RQ4 PRN PRN Reason: Shortness of Breath Last Admin: 02/28/17 18:00 Dose: 3 ml Enoxaparin Sodium (Lovenox) 30 mg SC DAILY [facility] PRN Reason: Protocol Last Admin: 02/28/17 09:35 Dose: 30 mg Guaifenesin/Dextromethorphan (Robitussin Dm) 10 ml PO Q6 PRN PRN Reason: Cough Stop: 03/02/17 23:59 Last Admin: 02/28/17 17:45 Dose: 10 ml Hydrochlorothiazide (Microzide) 12.5 mg PO DAILY [facility] Last Admin: 02/28/17 09:36 Dose: 12.5 mg Hydromorphone HCl (Dilaudid) 0.5 mg IVP Q4 PRN PRN Reason: Pain, moderate (4-7) Last Admin: 02/27/17 18:49 Dose: 0.5 mg Hydromorphone HCl (Dilaudid) 1 mg IM Q4 PRN PRN Reason: Pain, severe (8-10) Last Admin: 02/28/17 19:05 Dose: 1 mg Multivitamins/Minerals (Therapeutic-M Tab) 1 tab PO DAILY [facility] Last Admin: 02/28/17 09:36 Dose: 1 tab Ondansetron HCl (Zofran Inj) 4 mg IVP Q4 PRN PRN Reason: Nausea/Vomiting Pantoprazole Sodium (Protonix Inj) 40 mg IVP DAILY [facility] Last Admin: 02/28/17 09:36 Dose: 40 mg Zolpidem Tartrate (Ambien) 5 mg PO HS PRN PRN Reason: Insomnia Last Admin: 02/28/17 22:57 Dose: 5 mg - Labs Labs: 02/28/17 18:30 02/28/17 18:30 - Constitutional Appears: No Acute Distress - Head Exam Head Exam: NORMAL INSPECTION - Respiratory Exam Respiratory Exam: Clear to Ausculation Bilateral, Rhonchi, NORMAL BREATHING PATTERN. absent: Wheezes - Cardiovascular Exam Cardiovascular Exam: REGULAR RHYTHM, +S1, +S2 - GI/Abdominal Exam GI & Abdominal Exam: Soft Additional comments: Dressing intact - Extremities Exam Extremities Exam: Normal Inspection. absent: Calf Tenderness - Neurological Exam Neurological Exam: Alert, Awake, CN II-XII Intact, Oriented x3 - Skin Skin Exam: Warm Assessment and Plan - Assessment and Plan (Free Text) Assessment: 71 yr old M POD # 5 s/p laparoscopic right hemicolectomy for ascending colon mass (moderately differentiated adenocarcinoma). PMHx includes HTN, CAD, CHF, Emphysema/COPD, CKD, TALYA and orthostatic hypotension. Patient has no concerns or complaints at this time, pain is controlled. Intraoperative blood loss had occurred and patient was administered 2 units of blood. 1. s/p Right hemicolectomy for ascending colon mass -stable s/p intraoperative blood loss of approximately 1L and transfusion of 2 units leuckocyte reduced RBC's -WBC trending down, IV antibiotics: Cefazolin, Metronidazole - Pain controlled with Dilauded, Zofran PRN nausea -H/H 11.9/36.5 - Transfer out of ICU to Med/Surg today 2. New onset of chest pain most likely secondary to Surgery - Most likely secondary to anxiety vs left ventricular strain. No pain this morning. - Overnight EKG consistent with baseline EKG - Asprin 325 given once overnight - Troponin x 2 positive overnight. (2.31 and 2.07). - Chest x ray shows small left pleural effusion this morning - Cardiology was consulted. - Awaiting third troponin 3. HTN -controlled -home meds held for now (last Rx filled stated: HCTZ 12.5 mg PO QD x 15 days) 4. Borderline left ventricular function -stable, controlled -Echo 01/01/17: impaired systolic function with LVEF of 45% - Chest x ray shows small left pleural effusion this morning - Lasix 20 mg IV x 1 given overnight -patients' field tech is Dr. Miller 5. Emphysema/COPD - On high flow oxygen -chronic, controlled - O2 nasal canula - Duo Neb Q4 6. DVT prophylaxis C/W Lovenox ,
[2017-03-01] MEDS: Acetylcysteine 20% Inhal Soln (4ml) INH SCH ×2 (07:39→19:50)
[2017-03-01] MEDS: Albuterol-Ipratrop 3 mg / 0.5 (3 ml) UD INH PRN ×2 (07:40→19:49)
--- NOTE | 2017-03-01 08:16 | CP.PCM.PN ---
<Christina Spicer - Last Filed: 03/01/17 08:18> Subjective - Date & Time of Evaluation Date of Evaluation: 03/01/17 Time of Evaluation: 06:45 - Subjective Subjective: General surgery progress note for Dr. Aniya Spicer, PGY-1 Pt S & E this AM. Per nursing- pt w/SOB yesterday late afternoon, started on Hi-flow O2. CXR neg, Labs drawn, positive trop of 2.3, now 2.07. Cardio informed, pt given ASA. Transfer order to tele cancelled. Mejía d/c'd yesterday AM. IVF d/c'd. Given Lasix, UOP 1450/24H. . Pt with fever, Tmax 100.9 overnight, given Tylenol with resolution. Pt reports continued SOB, does not feel that hi-flow is helping him. Is tolerating FLD, OOBTC. Denies N & V, F &C, chest pain, BM, flatus, ab pain. Objective - Vital Signs/Intake and Output Vital Signs (last 24 hours): Temp Pulse Resp BP Pulse Ox 97.5 F L 86 21 135/94 H 100 03/01/17 04:00 03/01/17 04:00 03/01/17 07:40 03/01/17 04:00 03/01/17 04:00 Intake and Output: 03/01/17 03/01/17 06:59 18:59 Intake Total 100 Output Total 1150 Balance -1050 - Medications Medications: Current Medications Acetaminophen (Tylenol 325mg Tab) 650 mg PO Q4 PRN PRN Reason: Fever >100.4 F Last Admin: 02/28/17 22:50 Dose: 650 mg Acetylcysteine (Acetylcysteine 20%) 2 ml INH RBID [facility] Last Admin: 03/01/17 07:39 Dose: 2 ml Albuterol/Ipratropium (Duoneb 3 Mg/0.5 Mg (3 Ml) Ud) 3 ml INH RQ4 PRN PRN Reason: Shortness of Breath Last Admin: 03/01/17 07:40 Dose: 3 ml Enoxaparin Sodium (Lovenox) 30 mg SC DAILY [facility] PRN Reason: Protocol Last Admin: 02/28/17 09:35 Dose: 30 mg Guaifenesin/Dextromethorphan (Robitussin Dm) 10 ml PO Q6 PRN PRN Reason: Cough Stop: 03/02/17 23:59 Last Admin: 02/28/17 17:45 Dose: 10 ml Hydrochlorothiazide (Microzide) 12.5 mg PO DAILY [facility] Last Admin: 02/28/17 09:36 Dose: 12.5 mg Hydromorphone HCl (Dilaudid) 0.5 mg IVP Q4 PRN PRN Reason: Pain, moderate (4-7) Last Admin: 02/27/17 18:49 Dose: 0.5 mg Hydromorphone HCl (Dilaudid) 1 mg IM Q4 PRN PRN Reason: Pain, severe (8-10) Last Admin: 02/28/17 19:05 Dose: 1 mg Multivitamins/Minerals (Therapeutic-M Tab) 1 tab PO DAILY [facility] Last Admin: 02/28/17 09:36 Dose: 1 tab Ondansetron HCl (Zofran Inj) 4 mg IVP Q4 PRN PRN Reason: Nausea/Vomiting Pantoprazole Sodium (Protonix Inj) 40 mg IVP DAILY [facility] Last Admin: 02/28/17 09:36 Dose: 40 mg Zolpidem Tartrate (Ambien) 5 mg PO HS PRN PRN Reason: Insomnia Last Admin: 02/28/17 22:57 Dose: 5 mg - Labs Labs: 02/28/17 18:30 02/28/17 18:30 - Constitutional Appears: Non-toxic, No Acute Distress - Head Exam Head Exam: ATRAUMATIC, NORMAL INSPECTION, NORMOCEPHALIC - Eye Exam Eye Exam: EOMI, Normal appearance - ENT Exam ENT Exam: Mucous Membranes Moist, Normal Exam - Neck Exam Neck Exam: Full ROM, Normal Inspection - Respiratory Exam Respiratory Exam: NORMAL BREATHING PATTERN. absent: Accessory Muscle Use, Chest Wall Tenderness, Respiratory Distress - Cardiovascular Exam Cardiovascular Exam: Tachycardia, +S1, +S2 - GI/Abdominal Exam GI & Abdominal Exam: Soft, Hypoactive Bowel Sounds. absent: Distended, Guarding , Rigid, Tenderness Additional comments: Midline incision with josy in place, no drainage or erythema noted - Extremities Exam Extremities Exam: Normal Inspection. absent: Pedal Edema - Neurological Exam Neurological Exam: Alert, Awake, CN II-XII Intact, Oriented x3 - Psychiatric Exam Psychiatric exam: Normal Affect, Normal Mood - Skin Skin Exam: Dry, Intact, Normal Color, Warm Assessment and Plan - Assessment and Plan (Free Text) Assessment: 71yo M with PMHx of HTN, CKD, gastritis, mild CHF (EF 45%) with ascending colon mass s/p open right hemicolectomy POD#4 with fever and SOB overnight Plan: Febrile overnight, Tmax 100.9 Positive trops - down trending FU CXR FU labs Cont strict I/Os Duonebs Chest PT SCDs Lovenox Cont FLD- Do not advance diet Monitor for bowel function OOBTC Ambulate Encourage IS use Further mgmt as per cardio/primary/ICU teams DW attending Dannielle, PGY-1 <Seferino Lundy - Last Filed: 03/01/17 10:08> Objective - Vital Signs/Intake and Output Vital Signs (last 24 hours): Temp Pulse Resp BP Pulse Ox 98.9 F 86 14 161/84 H 99 03/01/17 08:00 03/01/17 08:00 03/01/17 08:00 03/01/17 08:00 03/01/17 08:00 Intake and Output: 03/01/17 03/01/17 06:59 18:59 Intake Total 100 Output Total 1150 Balance -1050 - Medications Medications: Current Medications Acetaminophen (Tylenol 325mg Tab) 650 mg PO Q4 PRN PRN Reason: Fever >100.4 F Last Admin: 02/28/17 22:50 Dose: 650 mg Acetylcysteine (Acetylcysteine 20%) 2 ml INH RBID [facility] Last Admin: 03/01/17 07:39 Dose: 2 ml Albuterol/Ipratropium (Duoneb 3 Mg/0.5 Mg (3 Ml) Ud) 3 ml INH RQ4 PRN PRN Reason: Shortness of Breath Last Admin: 03/01/17 07:40 Dose: 3 ml Enoxaparin Sodium (Lovenox) 30 mg SC DAILY [facility] PRN Reason: Protocol Last Admin: 03/01/17 09:37 Dose: 30 mg Guaifenesin/Dextromethorphan (Robitussin Dm) 10 ml PO Q6 PRN PRN Reason: Cough Stop: 03/02/17 23:59 Last Admin: 02/28/17 17:45 Dose: 10 ml Hydrochlorothiazide (Microzide) 12.5 mg PO DAILY [facility] Last Admin: 03/01/17 09:37 Dose: 12.5 mg Hydromorphone HCl (Dilaudid) 0.5 mg IVP Q4 PRN PRN Reason: Pain, moderate (4-7) Last Admin: 03/01/17 09:44 Dose: 0.5 mg Hydromorphone HCl (Dilaudid) 1 mg IM Q4 PRN PRN Reason: Pain, severe (8-10) Last Admin: 02/28/17 19:05 Dose: 1 mg Multivitamins/Minerals (Therapeutic-M Tab) 1 tab PO DAILY [facility] Last Admin: 03/01/17 09:37 Dose: 1 tab Ondansetron HCl (Zofran Inj) 4 mg IVP Q4 PRN PRN Reason: Nausea/Vomiting Pantoprazole Sodium (Protonix Inj) 40 mg IVP DAILY [facility] Last Admin: 03/01/17 09:37 Dose: 40 mg Zolpidem Tartrate (Ambien) 5 mg PO HS PRN PRN Reason: Insomnia Last Admin: 02/28/17 22:57 Dose: 5 mg - Labs Labs: 02/28/17 18:30 03/01/17 07:48 Assessment and Plan - Assessment and Plan (Free Text) Plan: above, maintain diet, when stable ok to transfer from ICU
[2017-03-01 09:16] LABS: ALB/GLOB RATIO 1.3 (1.0-2.1); ALBUMIN 2.6 g/dL (3.5-5.0); CALCIUM 8.3 mg/dL (8.4-10.2)
--- NOTE | 2017-03-01 09:25 | CARD ---
APPROVED REPORT EKG Measurement Heart [id number] <Conclusion> Normal sinus rhythm Left axis deviation Voltage criteria for left ventricular hypertrophy Cannot rule out Septal infarct, age undetermined Abnormal ECG
[2017-03-01] MEDS: Multivitamin With Minerals Tab PO SCH (09:37)
[2017-03-01] MEDS: Enoxaparin 30 mg Syringe SC SCH (09:37)
--- NOTE | 2017-03-01 10:10 | CP.CCUPN ---
CCU Subjective - Physician Review Events Since Last Encounter (Free Text): 03/01/17 10:07 Alert and oriented, sitting on chair, no SOB, but a bit anxious, had chest pain this morning, EKG was done did not show any acute ischemic change, TNI has been slightly high, being followed by plant pathology teacher. BP has been stable . CCU Objective - Vital Signs / Intake & Output Vital Signs (Last 4 hours): Vital Signs Temp Pulse Resp BP Pulse Ox 03/01/17 08:00 98.9 F 86 14 161/84 H 99 03/01/17 07:40 21 Intake and Output (Last 8hrs): Intake & Output 02/28/17 03/01/17 03/01/17 22:59 06:59 14:59 Intake Total 100 Output Total 1100 600 Balance -1000 -600 Intake: Oral 100 Output: Urine 1100 600 Urethral (Mejía) 250 Urine, Voided 850 600 Other: # Voids Urine, Voided 0 - Physical Exam Narrative Physical Exam (Free Text): 03/01/17 10:09 P/E Neck: No JVD Lungs : Left basal crackles Abdomen: soft , non-tender Ext: no edema Heart: No gallop Head: Positive for: Atraumatic, Normocephalic Pupils: Positive for: PERRL Extroacular Muscles: Positive for: EOMI Conjunctiva: Positive for: Normal Ears: Positive for: Normal Mouth: Positive for: Moist Mucous Membranes Neck: Positive for: Normal Range of Motion, Trachea Midline. Negative for: Meningeal Signs, MIDLINE TENDERNESS, Paraspinal Tenderness, JVD, Lymphadenopathy , Bruit, Other Respiratory/Chest: Positive for: Clear to Auscultation, Good Air Exchange. Negative for: Respiratory Distress, Accessory Muscle Use Cardiovascular: Positive for: Regular Rate and Rhythm, Normal S1, S2, Peripheal Pulses Present. Negative for: Murmurs, Irregular Rhythm, Tachycardic, Bradycardic Abdomen: Positive for: Tenderness, Distention, Normal Bowel Sounds. Negative for: Peritoneal Signs, Rebound, Guarding Upper Extremity: Positive for: Normal Inspection, Normal ROM, Capillary Refill < 2s. Negative for: Cyanosis, Edema Lower Extremity: Positive for: Normal Inspection, CALF TENDERNESS, Capillary Refill < 2 s. Negative for: Edema Neurological: Positive for: GCS=15, CN II-XII Intact, Speech Normal, Motor Func Grossly Intact, Normal Sensory Function - Medications Active Medications: Active Medications Generic Name Dose Route Start Last Admin Trade Name Freq PRN Reason Stop Dose Admin Acetaminophen 650 mg 02/28/17 22:13 02/28/17 22:50 Tylenol 325mg Tab PO 650 mg Q4 PRN Administration Fever >100.4 F Acetylcysteine 2 ml 02/28/17 20:00 03/01/17 07:39 Acetylcysteine 20% INH 2 ml RBID [facility] Administration Albuterol/Ipratropium 3 ml 02/28/17 08:44 03/01/17 07:40 Duoneb 3 Mg/0.5 Mg (3 Ml) Ud INH 3 ml RQ4 PRN Administration Shortness of Breath Enoxaparin Sodium 30 mg 02/27/17 09:45 03/01/17 09:37 Lovenox SC 30 mg DAILY [facility] Administration Protocol Guaifenesin/Dextromethorphan 10 ml 02/28/17 16:57 02/28/17 17:45 Robitussin Dm PO 03/02/17 23:59 10 ml Q6 PRN Administration Cough Hydrochlorothiazide 12.5 mg 02/26/17 09:00 03/01/17 09:37 Microzide PO 12.5 mg DAILY [facility] Administration Hydromorphone HCl 0.5 mg 02/26/17 08:28 03/01/17 09:44 Dilaudid IVP 0.5 mg Q4 PRN Administration Pain, moderate (4-7) Hydromorphone HCl 1 mg 02/27/17 18:31 02/28/17 19:05 Dilaudid IM 1 mg Q4 PRN Administration Pain, severe (8-10) Multivitamins/Minerals 1 tab 02/26/17 09:00 03/01/17 09:37 Therapeutic-M Tab PO 1 tab DAILY [facility] Administration Ondansetron HCl 4 mg 02/25/17 13:38 Zofran Inj IVP Q4 PRN Nausea/Vomiting Pantoprazole Sodium 40 mg 02/26/17 09:00 03/01/17 09:37 Protonix Inj IVP 40 mg DAILY [facility] Administration Zolpidem Tartrate 5 mg 02/25/17 13:41 02/28/17 22:57 Ambien PO 5 mg HS PRN Administration Insomnia - Patient Studies Lab Studies: Lab Studies 03/01/17 03/01/17 02/28/17 Range/Units 07:48 05:30 21:00 WBC (4.8-10.8) K/uL RBC (4.40-5.90) Mil/uL Hgb (12.0-18.0) g/dL Hct (35.0-51.0) % MCV (80.0-94.0) fl MCH (27.0-31.0) pg MCHC (33.0-37.0) g/dL RDW (11.5-14.5) % Plt Count (130-400) K/uL MPV (7.2-11.7) fl Neut % (Auto) (50.0-75.0) % Lymph % (Auto) (20.0-40.0) % [place] % (Auto) (0.0-10.0) % Eos % (Auto) (0.0-4.0) % Baso % (Auto) (0.0-2.0) % Neut # (1.8-7.0) K/uL Lymph # (1.0-4.3) K/uL [place] # (0.0-0.8) K/uL Eos # (0.0-0.7) K/uL Baso # (0.0-0.2) K/uL Sodium 136 (132-148) mmol/l Potassium 4.5 (3.6-5.0) MMOL/L Chloride 102 (98-107) mmol/L Carbon Dioxide 28 (22-30) mmol/L Anion Gap 11 (10-20) BUN 35 H (9-20) mg/dl Creatinine 1.5 (0.8-1.5) mg/dl Est GFR ( Amer) 56 Est GFR (Non-Af Amer) 46 POC Glucose (mg/dL) 121 H (65-110) mg/dL Random Glucose 98 (75-110) mg/dL Calcium 8.3 L (8.4-10.2) mg/dL Phosphorus (2.5-4.5) mg/dl Magnesium (1.6-2.3) MG/DL Total Bilirubin 1.1 (0.2-1.3) mg/dl AST 46 (17-59) U/L ALT 22 (21-72) U/L Alkaline Phosphatase 43 (38-126) U/L Troponin I 2.0700 H* (0.00-0.120) ng/mL Total Protein 4.6 L (6.3-8.2) G/DL Albumin 2.6 L (3.5-5.0) g/dL Globulin 2.0 L (2.2-3.9) gm/dL Albumin/Globulin Ratio 1.3 (1.0-2.1) 02/28/17 02/28/17 02/28/17 Range/Units 18:30 18:30 15:48 WBC 13.2 H (4.8-10.8) K/uL RBC 4.40 (4.40-5.90) Mil/uL Hgb 11.8 L (12.0-18.0) g/dL Hct 36.9 (35.0-51.0) % MCV 83.7 (80.0-94.0) fl MCH 26.8 L (27.0-31.0) pg MCHC 32.0 L (33.0-37.0) g/dL RDW 18.5 H (11.5-14.5) % Plt Count 100 L (130-400) K/uL MPV 8.5 (7.2-11.7) fl Neut % (Auto) 83.0 H (50.0-75.0) % Lymph % (Auto) 8.1 L (20.0-40.0) % [place] % (Auto) 8.0 (0.0-10.0) % Eos % (Auto) 0.1 (0.0-4.0) % Baso % (Auto) 0.8 (0.0-2.0) % Neut # 11.0 H (1.8-7.0) K/uL Lymph # 1.1 (1.0-4.3) K/uL [place] # 1.1 H (0.0-0.8) K/uL Eos # 0.0 (0.0-0.7) K/uL Baso # 0.1 (0.0-0.2) K/uL Sodium 135 (132-148) mmol/l Potassium 3.6 (3.6-5.0) MMOL/L Chloride 100 (98-107) mmol/L Carbon Dioxide 30 (22-30) mmol/L Anion Gap 9 L (10-20) BUN 33 H (9-20) mg/dl Creatinine 1.5 (0.8-1.5) mg/dl Est GFR ( Amer) 56 Est GFR (Non-Af Amer) 46 POC Glucose (mg/dL) 122 H (65-110) mg/dL Random Glucose 121 H (75-110) mg/dL Calcium 8.4 (8.4-10.2) mg/dL Phosphorus 1.9 L (2.5-4.5) mg/dl Magnesium 1.9 (1.6-2.3) MG/DL Total Bilirubin 0.9 (0.2-1.3) mg/dl AST 25 (17-59) U/L ALT 30 (21-72) U/L Alkaline Phosphatase 45 (38-126) U/L Troponin I 2.3100 H* (0.00-0.120) ng/mL Total Protein 5.3 L (6.3-8.2) G/DL Albumin 3.1 L (3.5-5.0) g/dL Globulin 2.2 (2.2-3.9) gm/dL Albumin/Globulin Ratio 1.4 (1.0-2.1) 02/28/ Range/Units 11:22 WBC (4.8-10.8) K/uL RBC (4.40-5.90) Mil/uL Hgb (12.0-18.0) g/dL Hct (35.0-51.0) % MCV (80.0-94.0) fl MCH (27.0-31.0) pg MCHC (33.0-37.0) g/dL RDW (11.5-14.5) % Plt Count (130-400) K/uL MPV (7.2-11.7) fl Neut % (Auto) (50.0-75.0) % Lymph % (Auto) (20.0-40.0) % [place] % (Auto) (0.0-10.0) % Eos % (Auto) (0.0-4.0) % Baso % (Auto) (0.0-2.0) % Neut # (1.8-7.0) K/uL Lymph # (1.0-4.3) K/uL [place] # (0.0-0.8) K/uL Eos # (0.0-0.7) K/uL Baso # (0.0-0.2) K/uL Sodium (132-148) mmol/l Potassium (3.6-5.0) MMOL/L Chloride (98-107) mmol/L Carbon Dioxide (22-30) mmol/L Anion Gap (10-20) BUN (9-20) mg/dl Creatinine (0.8-1.5) mg/dl Est GFR ( Amer) Est GFR (Non-Af Amer) POC Glucose (mg/dL) 114 H (65-110) mg/dL Random Glucose (75-110) mg/dL Calcium (8.4-10.2) mg/dL Phosphorus (2.5-4.5) mg/dl Magnesium (1.6-2.3) MG/DL Total Bilirubin (0.2-1.3) mg/dl AST (17-59) U/L ALT (21-72) U/L Alkaline Phosphatase (38-126) U/L Troponin I (0.00-0.120) ng/mL Total Protein (6.3-8.2) G/DL Albumin (3.5-5.0) g/dL Globulin (2.2-3.9) gm/dL Albumin/Globulin Ratio (1.0-2.1) Laboratory Results - last 24 hr 02/28/17 02/28/17 02/28/17 11:22 15:48 18:30 WBC 13.2 H RBC 4.40 Hgb 11.8 L Hct 36.9 MCV 83.7 MCH 26.8 L MCHC 32.0 L RDW 18.5 H Plt Count 100 L MPV 8.5 Neut % (Auto) 83.0 H Lymph % (Auto) 8.1 L [place] % (Auto) 8.0 Eos % (Auto) 0.1 Baso % (Auto) 0.8 Neut # 11.0 H Lymph # 1.1 [place] # 1.1 H Eos # 0.0 Baso # 0.1 Sodium Potassium Chloride Carbon Dioxide Anion Gap BUN Creatinine Est GFR ( Amer) Est GFR (Non-Af Amer) POC Glucose (mg/dL) 114 H 122 H Random Glucose Calcium Phosphorus Magnesium Total Bilirubin AST ALT Alkaline Phosphatase Troponin I Total Protein Albumin Globulin Albumin/Globulin Ratio 02/28/17 02/28/17 03/01/17 18:30 21:00 05:30 WBC RBC Hgb Hct MCV MCH MCHC RDW Plt Count MPV Neut % (Auto) Lymph % (Auto) [place] % (Auto) Eos % (Auto) Baso % (Auto) Neut # Lymph # [place] # Eos # Baso # Sodium 135 Potassium 3.6 Chloride 100 Carbon Dioxide 30 Anion Gap 9 L BUN 33 H Creatinine 1.5 Est GFR ( Amer) 56 Est GFR (Non-Af Amer) 46 POC Glucose (mg/dL) 121 H Random Glucose 121 H Calcium 8.4 Phosphorus 1.9 L Magnesium 1.9 Total Bilirubin 0.9 AST 25 ALT 30 Alkaline Phosphatase 45 Troponin I 2.3100 H* 2.0700 H* Total Protein 5.3 L Albumin 3.1 L Globulin 2.2 Albumin/Globulin Ratio 1.4 03/01/17 07:48 WBC RBC Hgb Hct MCV MCH MCHC RDW Plt Count MPV Neut % (Auto) Lymph % (Auto) [place] % (Auto) Eos % (Auto) Baso % (Auto) Neut # Lymph # [place] # Eos # Baso # Sodium 136 Potassium 4.5 Chloride 102 Carbon Dioxide 28 Anion Gap 11 BUN 35 H Creatinine 1.5 Est GFR ( Amer) 56 Est GFR (Non-Af Amer) 46 POC Glucose (mg/dL) Random Glucose 98 Calcium 8.3 L Phosphorus Magnesium Total Bilirubin 1.1 AST 46 ALT 22 Alkaline Phosphatase 43 Troponin I Total Protein 4.6 L Albumin 2.6 L Globulin 2.0 L Albumin/Globulin Ratio 1.3 EKG/Cardiology Studies: Cardiology / EKG Studies 03/01/17 EKG [ELECTROCARDIOGRAM] Stat Comment: Mode Of Transportation: Reason For Exam: + troponin, chest pain at night Fingerstick Blood Sugar Results: 121 Critical Care Progress Note - Nutrition Nutrition: Nutrition Category Date Time Status Liquid Diet [DIET] Diets 02/26/17 Dinner Active Assessment/Plan - Assessment and Plan (Free Text) Assessment: Assessment: 03/01/17 1. s/p Right hemicolectomy for ascending colon mass -stable s/p intraoperative blood loss of approximately 1L and transfusion of 2 units leuckocyte reduced RBC's: Hb stable -moderately differentiated adenocarcinoma -WBC trending down, IV antibiotics: Cefazolin, Metronidazole - Pain controlled with Dilauded, Zofran PRN nausea 2. Chest pain - Had early this am, EKG did not show any acute ischemic changes - - Asprin 325 given once overnight - Troponin x 2 positive overnight. (2.31 and 2.07) - Cardiology was consulted. - Awaiting third troponin 3. HTN -controlled -home meds held for now (last Rx filled stated: HCTZ 12.5 mg PO QD x 15 days) 4. Orthostatic hypotension -resolved -patient was not taking Florinef past date of 01/30/17 (was only give 20 tabs at discharge on 01/10/17) -discontinue Florinef 5. Borderline left ventricular function -stable, controlled -Echo 01/01/17: impaired systolic function with LVEF of 45% - Lasix 20 mg IV x 1 given overnight -patients' plant pathology teacher is Dr. Miller 6. Emphysema/COPD -chronic, controlled - O2 nasal canula - Duo Neb Q4 7. DVT prophylaxis C/W Lovenox ,
[2017-03-01 10:22] LABS: HEMOGLOBIN 11.9 g/dL (12.0-18.0); MEAN CELL VOLUME 83.9 fl (80.0-94.0); MEAN CORPUSCULAR HEMOGLOBIN 27.4 pg (27.0-31.0); MEAN CORPUSCULAR HGB CONC 32.6 g/dL (33.0-37.0); RBC 4.35 Mil/uL (4.40-5.90); WHITE BLOOD COUNT 10.1 K/uL (4.8-10.8)
--- NOTE | 2017-03-01 11:16 | RAD ---
PROCEDURE: CHEST RADIOGRAPH, 1 VIEW HISTORY: SOB COMPARISON: 02/28/2017 FINDINGS: LUNGS: Linear scar/atelectasis at right base. No infiltrate. PLEURA: Probable small left pleural effusion. No right pleural effusion. No pneumothorax. CARDIOVASCULAR: Normal. OSSEOUS STRUCTURES: No significant abnormalities. VISUALIZED UPPER ABDOMEN: Normal. OTHER FINDINGS: None. IMPRESSION: Right basilar linear scar/ atelectasis and probable small left pleural effusion.
[2017-03-01] MEDS ORDERED: HYDROmorphone 0.5 mg/0.5 ml ISec IVP PRN (11:18)
--- NOTE | 2017-03-01 11:43 | CARD ---
APPROVED REPORT EKG Measurement Heart [id number] CT 140P37 [id number] <Conclusion> Sinus tachycardia Left axis deviation Voltage criteria for left ventricular hypertrophy Cannot rule out Septal infarct, age undetermined ST & T wave abnormality, consider lateral ischemia Abnormal ECG
[2017-03-01] MEDS ORDERED: Potassium Chloride 20 mEq/15 ml LIQ UD PO ONE (11:54)
--- NOTE | 2017-03-01 12:10 | RAD ---
PROCEDURE: CHEST RADIOGRAPH, 1 VIEW HISTORY: R/O fluid overload COMPARISON: 01/15/2017 FINDINGS: LUNGS: Platelike atelectasis at right base. Opacity at left base, ill-defined. Possible infiltrate. Followup advised. PLEURA: No pneumothorax or pleural fluid seen. CARDIOVASCULAR: No congestive change. OSSEOUS STRUCTURES: No significant abnormalities. VISUALIZED UPPER ABDOMEN: Normal. OTHER FINDINGS: None. IMPRESSION: Possible left basilar infiltrate. Right basilar platelike atelectasis.
--- NOTE | 2017-03-01 12:33 | CP.PCM.PN ---
Subjective - Date & Time of Evaluation Date of Evaluation: 03/01/17 Time of Evaluation: 11:00 - Subjective Subjective: pt seen for c/o chest pain he had last night described as dull aching claims it was anxiety EKG: no change from prior EKG's Troponin elevation most likely 2* to surgery Objective - Vital Signs/Intake and Output Vital Signs (last 24 hours): Temp Pulse Resp BP Pulse Ox 98.9 F 84 18 148/83 99 03/01/17 08:00 03/01/17 10:00 03/01/17 10:00 03/01/17 10:00 03/01/17 10:00 Intake and Output: 03/01/17 03/01/17 06:59 18:59 Intake Total 100 Output Total 1150 Balance -1050 - Medications Medications: Current Medications Acetaminophen (Tylenol 325mg Tab) 650 mg PO Q4 PRN PRN Reason: Fever >100.4 F Last Admin: 02/28/17 22:50 Dose: 650 mg Acetylcysteine (Acetylcysteine 20%) 2 ml INH RBID [facility] Last Admin: 03/01/17 07:39 Dose: 2 ml Albuterol/Ipratropium (Duoneb 3 Mg/0.5 Mg (3 Ml) Ud) 3 ml INH RQ4 PRN PRN Reason: Shortness of Breath Last Admin: 03/01/17 07:40 Dose: 3 ml Enoxaparin Sodium (Lovenox) 30 mg SC DAILY [facility] PRN Reason: Protocol Last Admin: 03/01/17 09:37 Dose: 30 mg Guaifenesin/Dextromethorphan (Robitussin Dm) 10 ml PO Q6 PRN PRN Reason: Cough Stop: 03/02/17 23:59 Last Admin: 02/28/17 17:45 Dose: 10 ml Hydrochlorothiazide (Microzide) 12.5 mg PO DAILY [facility] Last Admin: 03/01/17 09:37 Dose: 12.5 mg Hydromorphone HCl (Dilaudid) 0.5 mg IVP Q4 PRN PRN Reason: Pain, moderate (4-7) Last Admin: 03/01/17 09:44 Dose: 0.5 mg Hydromorphone HCl (Dilaudid) 1 mg IVP Q4 PRN PRN Reason: Pain, severe (8-10) Multivitamins/Minerals (Therapeutic-M Tab) 1 tab PO DAILY [facility] Last Admin: 03/01/17 09:37 Dose: 1 tab Ondansetron HCl (Zofran Inj) 4 mg IVP Q4 PRN PRN Reason: Nausea/Vomiting Pantoprazole Sodium (Protonix Inj) 40 mg IVP DAILY [facility] Last Admin: 03/01/17 09:37 Dose: 40 mg Zolpidem Tartrate (Ambien) 5 mg PO HS PRN PRN Reason: Insomnia Last Admin: 02/28/17 22:57 Dose: 5 mg - Labs Labs: 03/01/17 10:10 03/01/17 07:48
[2017-03-01] MEDS: guaiFENesin DM 200 mg-20 mg/10 ml UD PO PRN (23:25)
[2017-03-02] MEDS: Acetylcysteine 20% Inhal Soln (4ml) INH SCH ×2 (07:15→19:04)
[2017-03-02] MEDS: Albuterol-Ipratrop 3 mg / 0.5 (3 ml) UD INH PRN ×2 (07:16→19:04)
[2017-03-02 07:25] LABS: HEMOGLOBIN 11.6 g/dL (12.0-18.0); MEAN CELL VOLUME 84.8 fl (80.0-94.0); MEAN CORPUSCULAR HEMOGLOBIN 27.6 pg (27.0-31.0); MEAN CORPUSCULAR HGB CONC 32.6 g/dL (33.0-37.0); RBC 4.2 Mil/uL (4.40-5.90); RED CELL DISTRIBUTION WIDTH 17.6 % (11.5-14.5); WHITE BLOOD COUNT 7.3 K/uL (4.8-10.8)
[2017-03-02 07:42] LABS: ALB/GLOB RATIO 1.3 (1.0-2.1); ALBUMIN 2.8 g/dL (3.5-5.0); CALCIUM 8.3 mg/dL (8.4-10.2)
[2017-03-02] MEDS ORDERED: Potassium Chloride 20 mEq/15 ml LIQ UD PO ONE (08:26)
--- NOTE | 2017-03-02 08:31 | CP.PCM.PN ---
Subjective - Date & Time of Evaluation Date of Evaluation: 03/02/17 Time of Evaluation: 08:29 - Subjective Subjective: general Surgery Progress Note for Dr. Lundy This pt was seen and examined this AM at bedside. Pt reports that he is passing alot of gas this AM. He denies any abdominal pain or chest pain. He denies any SOB. He is requesting regular food this AM. Objective - Vital Signs/Intake and Output Vital Signs (last 24 hours): Temp Pulse Resp BP Pulse Ox 98 F 70 20 167/81 H 100 03/02/17 08:09 03/02/17 08:09 03/02/17 08:09 03/02/17 08:09 03/02/17 08:09 - Medications Medications: Current Medications Acetaminophen (Tylenol 325mg Tab) 650 mg PO Q4 PRN PRN Reason: Fever >100.4 F Last Admin: 02/28/17 22:50 Dose: 650 mg Acetylcysteine (Acetylcysteine 20%) 2 ml INH RBID [facility] Last Admin: 03/02/17 07:15 Dose: 2 ml Albuterol/Ipratropium (Duoneb 3 Mg/0.5 Mg (3 Ml) Ud) 3 ml INH RQ4 PRN PRN Reason: Shortness of Breath Last Admin: 03/02/17 07:16 Dose: 3 ml Enoxaparin Sodium (Lovenox) 30 mg SC DAILY [facility] PRN Reason: Protocol Last Admin: 03/01/17 09:37 Dose: 30 mg Guaifenesin/Dextromethorphan (Robitussin Dm) 10 ml PO Q6 PRN PRN Reason: Cough Stop: 03/02/17 23:59 Last Admin: 03/01/17 23:25 Dose: 10 ml Hydrochlorothiazide (Microzide) 12.5 mg PO DAILY [facility] Last Admin: 03/01/17 09:37 Dose: 12.5 mg Hydromorphone HCl (Dilaudid) 0.5 mg IVP Q4 PRN PRN Reason: Pain, moderate (4-7) Last Admin: 03/01/17 23:23 Dose: 0.5 mg Hydromorphone HCl (Dilaudid) 1 mg IVP Q4 PRN PRN Reason: Pain, severe (8-10) Multivitamins/Minerals (Therapeutic-M Tab) 1 tab PO DAILY [facility] Last Admin: 03/01/17 09:37 Dose: 1 tab Ondansetron HCl (Zofran Inj) 4 mg IVP Q4 PRN PRN Reason: Nausea/Vomiting Pantoprazole Sodium (Protonix Inj) 40 mg IVP DAILY [facility] Last Admin: 03/01/17 09:37 Dose: 40 mg Potassium Chloride (Potassium Chloride Oral Soln) 20 meq PO ONCE ONE Stop: 03/02/17 08:27 Zolpidem Tartrate (Ambien) 5 mg PO HS PRN PRN Reason: Insomnia Last Admin: 03/01/17 22:21 Dose: 5 mg - Labs Labs: 03/02/17 05:30 03/02/17 05:30 - Constitutional Appears: Non-toxic, No Acute Distress - Head Exam Head Exam: ATRAUMATIC, NORMOCEPHALIC - Eye Exam Eye Exam: EOMI, Normal appearance - ENT Exam ENT Exam: Mucous Membranes Moist - Respiratory Exam Respiratory Exam: NORMAL BREATHING PATTERN - Cardiovascular Exam Cardiovascular Exam: REGULAR RHYTHM, +S1, +S2 - GI/Abdominal Exam GI & Abdominal Exam: Soft. absent: Distended, Firm, Guarding, Rigid, Tenderness Additional comments: [employer] in place, incision is dry well approximated non tender none erythematous. - Neurological Exam Neurological Exam: Alert, Awake - Psychiatric Exam Psychiatric exam: Normal Affect, Normal Mood - Skin Skin Exam: Dry, Intact Assessment and Plan - Assessment and Plan (Free Text) Assessment: This is a 71yo M with PMHx of HTN, CKD, gastritis, mild CHF (EF 45%) with ascending colon mass s/p open right hemicolectomy POD#5 and doing well Plan: Afebrile, WBC normal Potassium 3.3 this AM repleted with 20meq Cr 1.7 this am (1.4-1.5 baseline) Cont strict I/Os Duonebs Chest PT SCDs Lovenox Heart Healthy Soft Diet Monitor for bowel function OOBTC Ambulate Encourage IS use Further mgmt as per cardio/primary/ICU teams FAYE Baxter PGY2
[2017-03-02] MEDS: Enoxaparin 30 mg Syringe SC SCH (09:20)
[2017-03-02] MEDS: Multivitamin With Minerals Tab PO SCH (09:22)
--- NOTE | 2017-03-02 10:56 | CP.PCM.PN ---
Subjective - Date & Time of Evaluation Date of Evaluation: 03/02/17 Time of Evaluation: 11:38 - Subjective Subjective: CC: 71 yr old M POD # 5 s/p laparoscopic right hemicolectomy for ascending colon mass (moderately differentiated adenocarcinoma) Seen and examined at bedside. Doing well, passing gas, no BM today. Tolerating po w.o difficulty. No cp, SOB, currently on High flow NC Advanced to soft diet by surgery. Objective - Vital Signs/Intake and Output Vital Signs (last 24 hours): Temp Pulse Resp BP Pulse Ox 98 F 70 20 167/81 H 100 03/02/17 08:09 03/02/17 08:09 03/02/17 08:09 03/02/17 08:09 03/02/17 08:09 - Medications Medications: Current Medications Acetaminophen (Tylenol 325mg Tab) 650 mg PO Q4 PRN PRN Reason: Fever >100.4 F Last Admin: 02/28/17 22:50 Dose: 650 mg Acetylcysteine (Acetylcysteine 20%) 2 ml INH [facility] Last Admin: 03/02/17 07:15 Dose: 2 ml Albuterol/Ipratropium (Duoneb 3 Mg/0.5 Mg (3 Ml) Ud) 3 ml INH RQ4 PRN PRN Reason: Shortness of Breath Last Admin: 03/02/17 07:16 Dose: 3 ml Enoxaparin Sodium (Lovenox) 30 mg SC DAILY [facility] PRN Reason: Protocol Last Admin: 03/02/17 09:20 Dose: 30 mg Guaifenesin/Dextromethorphan (Robitussin Dm) 10 ml PO Q6 PRN PRN Reason: Cough Stop: 03/02/17 23:59 Last Admin: 03/01/17 23:25 Dose: 10 ml Hydrochlorothiazide (Microzide) 12.5 mg PO DAILY [facility] Last Admin: 03/02/17 09:22 Dose: 12.5 mg Hydromorphone HCl (Dilaudid) 0.5 mg IVP Q4 PRN PRN Reason: Pain, moderate (4-7) Last Admin: 03/01/17 23:23 Dose: 0.5 mg Hydromorphone HCl (Dilaudid) 1 mg IVP Q4 PRN PRN Reason: Pain, severe (8-10) Multivitamins/Minerals (Therapeutic-M Tab) 1 tab PO DAILY [facility] Last Admin: 03/02/17 09:22 Dose: 1 tab Ondansetron HCl (Zofran Inj) 4 mg IVP Q4 PRN PRN Reason: Nausea/Vomiting Pantoprazole Sodium (Protonix Inj) 40 mg IVP [facility] Last Admin: 03/02/17 09:20 Dose: 40 mg Zolpidem Tartrate (Ambien) 5 mg PO HS PRN PRN Reason: Insomnia Last Admin: 03/01/17 22:21 Dose: 5 mg - Labs Labs: 03/02/17 05:30 03/02/17 05:30 - Constitutional Appears: No Acute Distress - Head Exam Head Exam: ATRAUMATIC - Eye Exam Eye Exam: EOMI Pupil Exam: PERRL - ENT Exam ENT Exam: Mucous Membranes Moist - Respiratory Exam Respiratory Exam: Clear to Ausculation Bilateral - Cardiovascular Exam Cardiovascular Exam: +S1, +S2 - GI/Abdominal Exam GI & Abdominal Exam: Soft, Tenderness, Normal Bowel Sounds Additional comments: incision c/d/i - Extremities Exam Extremities Exam: Normal Inspection. absent: Pedal Edema, Tenderness - Neurological Exam Neurological Exam: Alert, Awake, Oriented x3 - Psychiatric Exam Psychiatric exam: Normal Affect, Normal Mood - Skin Skin Exam: Dry, Normal Color, Warm Assessment and Plan - Assessment and Plan (Free Text) Plan: 71 yr old M POD # 5 s/p laparoscopic right hemicolectomy for ascending colon mass (moderately differentiated adenocarcinoma) s/p Right hemicolectomy for ascending colon mass -stable s/p intraoperative blood loss of approximately 1L and transfusion of 2 units leuckocyte reduced RBC's - advanced to soft diet -WBC trending down, IV antibiotics: Cefazolin, Metronidazole - Pain controlled with Dilauded, Zofran PRN nausea Emphysema/COPD - may DC high flow, can use regular O2 NC at 2 L if needed -chronic, controlled - O2 nasal canula - Duo Neb Q4 New onset of chest pain most likely secondary to Surgery (resolved) - Most likely secondary to anxiety vs left ventricular strain. No pain this morning. - Overnight EKG consistent with baseline EKG - Asprin 325 given once overnight - Troponin positive overnight but trending down, likely 2/2 surgery Borderline left ventricular function -stable, controlled -Echo 01/01/17: impaired systolic function with LVEF of 45% -patients' cord tire builder is Dr. Miller HTN -controlled -home meds held for now DVT prophylaxis C/W Lovenox
[2017-03-02] MEDS: guaiFENesin DM 200 mg-20 mg/10 ml UD PO PRN (23:47)
[2017-03-03 06:44] LABS: HEMOGLOBIN 11.4 g/dL (12.0-18.0); MEAN CELL VOLUME 83.4 fl (80.0-94.0); MEAN CORPUSCULAR HEMOGLOBIN 27.8 pg (27.0-31.0); MEAN CORPUSCULAR HGB CONC 33.4 g/dL (33.0-37.0); RBC 4.08 Mil/uL (4.40-5.90); RED CELL DISTRIBUTION WIDTH 17.6 % (11.5-14.5); WHITE BLOOD COUNT 8.4 K/uL (4.8-10.8)
[2017-03-03 06:53] LABS: ALB/GLOB RATIO 1.3 (1.0-2.1); ALBUMIN 2.7 g/dL (3.5-5.0); CALCIUM 8.4 mg/dL (8.4-10.2)
[2017-03-03] MEDS: Acetylcysteine 20% Inhal Soln (4ml) INH SCH ×2 (07:17→17:44)
[2017-03-03] MEDS: Albuterol-Ipratrop 3 mg / 0.5 (3 ml) UD INH PRN ×2 (07:17→13:21)
--- NOTE | 2017-03-03 07:53 | CP.PCM.PN ---
Subjective - Date & Time of Evaluation Date of Evaluation: 03/03/17 Time of Evaluation: 06:15 - Subjective Subjective: General Surgery Progress Note for Dr. Jose Miguel Spicer, PGY-1 Pt S & E at bedside Pt reports BM/flatus yesterday, tolerating regular diet. Minimal ab pain. Slight cough. Denies N & V, F & C, CP, SOB. Is OOBTC, ambulating with assistance. Objective - Vital Signs/Intake and Output Vital Signs (last 24 hours): Temp Pulse Resp BP Pulse Ox 98.3 F 80 20 131/77 99 03/03/17 00:33 03/03/17 00:33 03/03/17 00:33 03/03/17 00:33 03/03/17 00:33 - Medications Medications: Current Medications Acetaminophen (Tylenol 325mg Tab) 650 mg PO Q4 PRN PRN Reason: Fever >100.4 F Last Admin: 02/28/17 22:50 Dose: 650 mg Acetylcysteine (Acetylcysteine 20%) 2 ml INH RBID [facility] Last Admin: 03/03/17 07:17 Dose: 2 ml Albuterol/Ipratropium (Duoneb 3 Mg/0.5 Mg (3 Ml) Ud) 3 ml INH RQ4 PRN PRN Reason: Shortness of Breath Last Admin: 03/03/17 07:17 Dose: 3 ml Enoxaparin Sodium (Lovenox) 30 mg SC DAILY [facility] PRN Reason: Protocol Last Admin: 03/02/17 09:20 Dose: 30 mg Hydrochlorothiazide (Microzide) 12.5 mg PO DAILY [facility] Last Admin: 03/02/17 09:22 Dose: 12.5 mg Hydromorphone HCl (Dilaudid) 0.5 mg IVP Q4 PRN PRN Reason: Pain, moderate (4-7) Last Admin: 03/02/17 23:47 Dose: 0.5 mg Hydromorphone HCl (Dilaudid) 1 mg IVP Q4 PRN PRN Reason: Pain, severe (8-10) Multivitamins/Minerals (Therapeutic-M Tab) 1 tab PO DAILY [facility] Last Admin: 03/02/17 09:22 Dose: 1 tab Ondansetron HCl (Zofran Inj) 4 mg IVP Q4 PRN PRN Reason: Nausea/Vomiting Pantoprazole Sodium (Protonix Ec Tab) 40 mg PO DAILY [facility] Zolpidem Tartrate (Ambien) 5 mg PO HS PRN PRN Reason: Insomnia Last Admin: 03/02/17 23:37 Dose: 5 mg - Labs Labs: 03/03/17 06:30 03/03/17 06:30 - Constitutional Appears: Non-toxic, No Acute Distress - Head Exam Head Exam: ATRAUMATIC, NORMAL INSPECTION, NORMOCEPHALIC - Eye Exam Eye Exam: EOMI, Normal appearance - ENT Exam ENT Exam: Mucous Membranes Moist, Normal Exam - Neck Exam Neck Exam: Full ROM, Normal Inspection - Respiratory Exam Respiratory Exam: Clear to Ausculation Bilateral, NORMAL BREATHING PATTERN. absent: Accessory Muscle Use, Rales, Rhonchi, Wheezes, Respiratory Distress - Cardiovascular Exam Cardiovascular Exam: REGULAR RHYTHM, +S1, +S2 - GI/Abdominal Exam GI & Abdominal Exam: Soft, Tenderness (over surgical sites), Hyperactive Bowel Sounds. absent: Distended, Firm, Guarding, Rigid - Extremities Exam Extremities Exam: Normal Inspection - Neurological Exam Neurological Exam: Alert, Awake, CN II-XII Intact, Oriented x3 - Psychiatric Exam Psychiatric exam: Normal Affect, Normal Mood - Skin Skin Exam: Dry, Intact, Normal Color, Warm Additional comments: midline surgical scar with josy in place, no drainage noted, no erythema Assessment and Plan - Assessment and Plan (Free Text) Assessment: 71M with PMHx of HTN, CKD, gastritis, mild CHF (EF 45%) with ascending colon mass s/p open right hemicolectomy POD#6, doing well Plan: Afebrile over last 24H FU labs Cont strict I/Os Duonebs Chest PT Encourage flutter valve use Encourage IS use SCDs Lovenox Cont HHD soft diet Monitor bowel function OOBTC Ambulate Further mgmt as per cardio/primary teams DW attending Dannielle, PGY-1
--- NOTE | 2017-03-03 07:59 | CP.PCM.PN ---
Subjective - Date & Time of Evaluation Date of Evaluation: 03/03/17 Time of Evaluation: 07:25 - Subjective Subjective: Patient seen and examined bedside sitting on bed before starting having breakfast. Patient reports productive cough with yellow color expectoration. patient reports is not sure if productive cough started before the admission or during hospitalization. patient using O2 by NC. Reports 1BM yesterday. He denies SOB, chest pain, palpitation, fever, nausea, vomiting, abdominal pain, leg swelling. Patient using incentive spirometry Objective - Vital Signs/Intake and Output Vital Signs (last 24 hours): Temp Pulse Resp BP Pulse Ox 99.4 F 80 20 154/90 H 93 L 03/03/17 07:57 03/03/17 07:57 03/03/17 07:57 03/03/17 07:57 03/03/17 07:57 - Medications Medications: Current Medications Acetaminophen (Tylenol 325mg Tab) 650 mg PO Q4 PRN PRN Reason: Fever >100.4 F Last Admin: 02/28/17 22:50 Dose: 650 mg Acetylcysteine (Acetylcysteine 20%) 2 ml INH RBID [facility] Last Admin: 03/03/17 07:17 Dose: 2 ml Albuterol/Ipratropium (Duoneb 3 Mg/0.5 Mg (3 Ml) Ud) 3 ml INH RQ4 PRN PRN Reason: Shortness of Breath Last Admin: 03/03/17 07:17 Dose: 3 ml Enoxaparin Sodium (Lovenox) 30 mg SC DAILY [facility] PRN Reason: Protocol Last Admin: 03/02/17 09:20 Dose: 30 mg Hydrochlorothiazide (Microzide) 12.5 mg PO DAILY [facility] Last Admin: 03/02/17 09:22 Dose: 12.5 mg Hydromorphone HCl (Dilaudid) 0.5 mg IVP Q4 PRN PRN Reason: Pain, moderate (4-7) Last Admin: 03/02/17 23:47 Dose: 0.5 mg Hydromorphone HCl (Dilaudid) 1 mg IVP Q4 PRN PRN Reason: Pain, severe (8-10) Multivitamins/Minerals (Therapeutic-M Tab) 1 tab PO DAILY [facility] Last Admin: 03/02/17 09:22 Dose: 1 tab Ondansetron HCl (Zofran Inj) 4 mg IVP Q4 PRN PRN Reason: Nausea/Vomiting Pantoprazole Sodium (Protonix Ec Tab) 40 mg PO DAILY [facility] Zolpidem Tartrate (Ambien) 5 mg PO HS PRN PRN Reason: Insomnia Last Admin: 03/02/17 23:37 Dose: 5 mg - Labs Labs: 03/03/17 06:30 03/03/17 06:30 - Constitutional Appears: No Acute Distress - Head Exam Head Exam: ATRAUMATIC, NORMOCEPHALIC - Eye Exam Eye Exam: Normal appearance - ENT Exam ENT Exam: Mucous Membranes Moist - Respiratory Exam Respiratory Exam: Decreased Breath Sounds, Rales Additional comments: B/L decreased breath sounds bibasal , more left lung base, rales noted 2/3 left lung base - Cardiovascular Exam Cardiovascular Exam: REGULAR RHYTHM, +S1, +S2 - GI/Abdominal Exam GI & Abdominal Exam: Soft, Normal Bowel Sounds. absent: Tenderness Additional comments: supraumbilical surgical scar , aprox 15 cm. Johnna C,D,I - Extremities Exam Extremities Exam: Normal Inspection. absent: Pedal Edema - Neurological Exam Neurological Exam: Alert, Awake, Oriented x3 - Psychiatric Exam Psychiatric exam: Normal Mood - Skin Skin Exam: Dry Assessment and Plan - Assessment and Plan (Free Text) Plan: 71 yr old M POD # 6 s/p laparoscopic right hemicolectomy for ascending colon mass (moderately differentiated adenocarcinoma) 1) s/p Right hemicolectomy for ascending colon mass -stable s/p intraoperative blood loss of approximately 1L and transfusion of 2 units leuckocyte reduced RBC's -tolerating regular diet -WBC nl. s/p Cefazolin, Metronidazole - Pain controlled with Dilauded, Zofran PRN nausea 2) Emphysema/COPD - O2 NC at 2 L if needed -chronic, controlled - O2 nasal canula - Duo Neb Q8 [facility] 3) Chest pain -resolved.most likely secondary to Surgery - Most likely secondary to anxiety vs left ventricular strain. - Overnight EKG consistent with baseline EKG - Asprin 325 given - Troponin positive overnight but trending down, likely 2/2 surgery 4) Borderline left ventricular function -stable, controlled -Echo 01/01/17: impaired systolic function with LVEF of 45% -patients' cupola melter helper is Dr. Miller 5) HTN -controlled -home meds held for now 6) DVT prophylaxis C/W Lovenox
[2017-03-03] MEDS: Enoxaparin 30 mg Syringe SC SCH (08:08)
[2017-03-03] MEDS: Multivitamin With Minerals Tab PO SCH (08:09)
[2017-03-03] MEDS: Pantoprazole 40 mg EC Tab PO SCH (08:09)
--- NOTE | 2017-03-03 12:29 | RAD ---
HISTORY: left pleural effusion, provided history of recent hemicolectomy. COMPARISON: Chest x-ray performed 02/28/17 TECHNIQUE: Chest, one view. FINDINGS: LUNGS: Bilateral lower lobe atelectasis or infiltrates. Biapical pleural thickening. No definite pneumothorax. CARDIOVASCULAR: Cardiomegaly. OSSEOUS STRUCTURES: Degenerative changes. VISUALIZED UPPER ABDOMEN: Lucency possibly beneath the right hemidiaphragm ; free air is suspected. Correlate clinically. OTHER FINDINGS: None. IMPRESSION: Bilateral lower lobe atelectasis/ infiltrates. Biapical pleural thickening. Cardiomegaly. Lucency possibly beneath the right hemidiaphragm ; free air is suspected. Correlate clinically. Findings discussed with JOSÉ ANTONIO Vegas on 03/03/17 at 12:23 p.m.
[2017-03-03] MEDS: Oxycodone/Acetaminophen 5/325 mg Tab PO PRN (17:24)
[2017-03-03] MEDS: Albuterol-Ipratrop 3 mg / 0.5 (3 ml) UD INH SCH ×3 (17:45→19:45)
[2017-03-04] MEDS: Oxycodone/Acetaminophen 5/325 mg Tab PO PRN ×3 (00:07→22:11)
[2017-03-04 06:22] LABS: HEMOGLOBIN 11.7 g/dL (12.0-18.0); MEAN CELL VOLUME 84.1 fl (80.0-94.0); MEAN CORPUSCULAR HEMOGLOBIN 27.4 pg (27.0-31.0); MEAN CORPUSCULAR HGB CONC 32.6 g/dL (33.0-37.0); RBC 4.27 Mil/uL (4.40-5.90); RED CELL DISTRIBUTION WIDTH 17.6 % (11.5-14.5); WHITE BLOOD COUNT 11.2 K/uL (4.8-10.8)
[2017-03-04 06:46] LABS: ALB/GLOB RATIO 1.3 (1.0-2.1); ALBUMIN 2.8 g/dL (3.5-5.0); CALCIUM 8.2 mg/dL (8.4-10.2); MAGNESIUM 2.3 MG/DL (1.6-2.3)
[2017-03-04] MEDS: Acetylcysteine 20% Inhal Soln (4ml) INH SCH ×2 (07:33→19:01)
[2017-03-04] MEDS: Albuterol-Ipratrop 3 mg / 0.5 (3 ml) UD INH SCH ×4 (07:33→19:02)
--- NOTE | 2017-03-04 07:38 | CP.PCM.PN ---
<Bib Baxter - Last Filed: 03/04/17 07:38> Subjective - Date & Time of Evaluation Date of Evaluation: 03/04/17 Time of Evaluation: 07:36 - Subjective Subjective: General Surgery Progress Note for Dr. Lundy This pt was seen and examined this AM at bedside no acute events overnight. Pt is tolerating regular diet, moving bowels, denies abdominal or incisional pain. Denies chest pain or SOB. Objective - Vital Signs/Intake and Output Vital Signs (last 24 hours): Temp Pulse Resp BP Pulse Ox 98.7 F 85 20 142/82 99 03/03/17 23:36 03/03/17 23:36 03/03/17 23:36 03/03/17 23:36 03/03/17 23:36 - Medications Medications: Current Medications Acetaminophen (Tylenol 325mg Tab) 650 mg PO Q4 PRN PRN Reason: Fever >100.4 F Last Admin: 02/28/17 22:50 Dose: 650 mg Acetylcysteine (Acetylcysteine 20%) 2 ml INH RBID [facility] Last Admin: 03/03/17 17:44 Dose: 2 ml Albuterol/Ipratropium (Duoneb 3 Mg/0.5 Mg (3 Ml) Ud) 3 ml INH RQID [facility] Enoxaparin Sodium (Lovenox) 30 mg SC DAILY [facility] PRN Reason: Protocol Last Admin: 03/03/17 08:08 Dose: 30 mg Hydrochlorothiazide (Microzide) 12.5 mg PO DAILY [facility] Last Admin: 03/03/17 08:09 Dose: 12.5 mg Multivitamins/Minerals (Therapeutic-M Tab) 1 tab PO DAILY [facility] Last Admin: 03/03/17 08:09 Dose: 1 tab Ondansetron HCl (Zofran Inj) 4 mg IVP Q4 PRN PRN Reason: Nausea/Vomiting Oxycodone/Acetaminophen (Percocet 5/325 Mg Tab) 1 tab PO Q6 PRN PRN Reason: Pain, moderate (4-7) Stop: 03/06/17 10:32 Oxycodone/Acetaminophen (Percocet 5/325 Mg Tab) 2 tab PO Q6 PRN PRN Reason: Pain, severe (8-10) Stop: 03/06/17 10:32 Last Admin: 03/04/17 00:07 Dose: 2 tab Pantoprazole Sodium (Protonix Ec Tab) 40 mg PO DAILY [facility] Last Admin: 03/03/17 08:09 Dose: 40 mg Zolpidem Tartrate (Ambien) 5 mg PO HS PRN PRN Reason: Insomnia Last Admin: 03/02/17 23:37 Dose: 5 mg - Labs Labs: 03/04/17 05:20 03/04/17 05:20 - Constitutional Appears: Non-toxic, No Acute Distress - Head Exam Head Exam: ATRAUMATIC, NORMOCEPHALIC - Eye Exam Eye Exam: EOMI, Normal appearance - ENT Exam ENT Exam: Mucous Membranes Moist - Respiratory Exam Respiratory Exam: NORMAL BREATHING PATTERN - Cardiovascular Exam Cardiovascular Exam: REGULAR RHYTHM, +S1, +S2 - GI/Abdominal Exam GI & Abdominal Exam: Soft. 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 Agree with resident's note above. Objective - Vital Signs/Intake and Output Vital Signs (last 24 hours): Temp Pulse Resp BP Pulse Ox 100.3 F H 100 H 20 130/82 100 03/04/17 16:01 03/04/17 16:01 03/04/17 16:01 03/04/17 16:01 03/04/17 16:01 - Medications Medications: Current Medications Acetaminophen (Tylenol 325mg Tab) 650 mg PO Q4 PRN PRN Reason: Fever >100.4 F Last Admin: 02/28/17 22:50 Dose: 650 mg Acetylcysteine (Acetylcysteine 20%) 2 ml INH RBID [facility] Last Admin: 03/04/17 07:33 Dose: 2 ml Albuterol/Ipratropium (Duoneb 3 Mg/0.5 Mg (3 Ml) Ud) 3 ml INH RQID [facility] Last Admin: 03/04/17 15:04 Dose: 3 ml Hydrochlorothiazide (Microzide) 12.5 mg PO DAILY [facility] Last Admin: 03/04/17 08:18 Dose: 12.5 mg Piperacillin Sod/Tazobactam (Sod 2.25 gm/ Sodium Chloride) 100 mls @ 100 mls/ hr IVPB Q8 [facility] PRN Reason: Protocol Last Admin: 03/04/17 13:42 Dose: 100 mls/hr Clindamycin Phosphate (Cleocin In Normal Saline) 600 mg in 50 mls @ 50 mls/hr IVPB Q8 [facility] PRN Reason: Protocol Last Admin: 03/04/17 16:02 Dose: 50 mls/hr Multivitamins/Minerals (Therapeutic-M Tab) 1 tab PO DAILY [facility] Last Admin: 03/04/17 08:18 Dose: 1 tab Ondansetron HCl (Zofran Inj) 4 mg IVP Q4 PRN PRN Reason: Nausea/Vomiting Oxycodone/Acetaminophen (Percocet 5/325 Mg Tab) 1 tab PO Q6 PRN PRN Reason: Pain, moderate (4-7) Stop: 03/06/17 10:32 Oxycodone/Acetaminophen (Percocet 5/325 Mg Tab) 2 tab PO Q6 PRN PRN Reason: Pain, severe (8-10) Stop: 03/06/17 10:32 Last Admin: 03/04/17 08:00 Dose: 2 tab Pantoprazole Sodium (Protonix Ec Tab) 40 mg PO DAILY [facility] Last Admin: 03/04/17 08:18 Dose: 40 mg Zolpidem Tartrate (Ambien) 5 mg PO HS PRN PRN Reason: Insomnia Last Admin: 03/02/17 23:37 Dose: 5 mg - Labs Labs: 03/04/17 05:20 03/04/17 05:20
[2017-03-04] MEDS: Pantoprazole 40 mg EC Tab PO SCH (08:18)
[2017-03-04] MEDS: Multivitamin With Minerals Tab PO SCH (08:18)
[2017-03-04] MEDS: Enoxaparin 30 mg Syringe SC SCH (08:18)
--- NOTE | 2017-03-04 08:20 | CP.PCM.PN ---
<JesusCarito anderson - Last Filed: 03/04/17 15:29> Subjective - Date & Time of Evaluation Date of Evaluation: 03/04/17 Time of Evaluation: 07:20 - Subjective Subjective: Patient seen and examined bedside. Patient reports productive cough with yellow color expectoration less often than yesterday. Patient noticed speaking with difficulty due to SOB. He denies chest pain, n,v,abd pain, dysuria. Febrile in the morning. continue incentive spirometry will consult pulmonology Objective - Vital Signs/Intake and Output Vital Signs (last 24 hours): Temp Pulse Resp BP Pulse Ox 100.6 F H 76 20 169/91 H 100 03/04/17 07:50 03/04/17 07:50 03/04/17 07:50 03/04/17 07:50 03/04/17 07:50 - Medications Medications: Current Medications Acetaminophen (Tylenol 325mg Tab) 650 mg PO Q4 PRN PRN Reason: Fever >100.4 F Last Admin: 02/28/17 22:50 Dose: 650 mg Acetylcysteine (Acetylcysteine 20%) 2 ml INH RBID [facility] Last Admin: 03/03/17 17:44 Dose: 2 ml Albuterol/Ipratropium (Duoneb 3 Mg/0.5 Mg (3 Ml) Ud) 3 ml INH RQID [facility] Last Admin: 03/04/17 07:33 Dose: 3 ml Enoxaparin Sodium (Lovenox) 30 mg SC DAILY [facility] PRN Reason: Protocol Last Admin: 03/04/17 08:18 Dose: 30 mg Hydrochlorothiazide (Microzide) 12.5 mg PO DAILY [facility] Last Admin: 03/04/17 08:18 Dose: 12.5 mg Multivitamins/Minerals (Therapeutic-M Tab) 1 tab PO DAILY [facility] Last Admin: 03/04/17 08:18 Dose: 1 tab Ondansetron HCl (Zofran Inj) 4 mg IVP Q4 PRN PRN Reason: Nausea/Vomiting Oxycodone/Acetaminophen (Percocet 5/325 Mg Tab) 1 tab PO Q6 PRN PRN Reason: Pain, moderate (4-7) Stop: 03/06/17 10:32 Oxycodone/Acetaminophen (Percocet 5/325 Mg Tab) 2 tab PO Q6 PRN PRN Reason: Pain, severe (8-10) Stop: 03/06/17 10:32 Last Admin: 03/04/17 08:00 Dose: 2 tab Pantoprazole Sodium (Protonix Ec Tab) 40 mg PO DAILY [facility] Last Admin: 03/04/17 08:18 Dose: 40 mg Zolpidem Tartrate (Ambien) 5 mg PO HS PRN PRN Reason: Insomnia Last Admin: 03/02/17 23:37 Dose: 5 mg - Labs Labs: 03/04/17 05:20 03/04/17 05:20 - Constitutional Appears: Non-toxic, No Acute Distress - Head Exam Head Exam: ATRAUMATIC, NORMOCEPHALIC - Eye Exam Eye Exam: Normal appearance - Neck Exam Neck Exam: Normal Inspection - Respiratory Exam Respiratory Exam: Decreased Breath Sounds, Rales. absent: Rhonchi, Wheezes Additional comments: B/L bibasal decreased breath sounds and rales more in left lung base - Cardiovascular Exam Cardiovascular Exam: REGULAR RHYTHM, +S1, +S2 - GI/Abdominal Exam GI & Abdominal Exam: Soft, Normal Bowel Sounds. absent: Tenderness Additional comments: supraumbilical surgical wound aprox 10 cm with josy C/D/I - Extremities Exam Extremities Exam: Normal Inspection. absent: Pedal Edema - Neurological Exam Neurological Exam: Alert, Awake, Oriented x3 - Psychiatric Exam Psychiatric exam: Normal Affect, Normal Mood - Skin Skin Exam: Normal Color Assessment and Plan - Assessment and Plan (Free Text) Plan: 71 yr old M POD # 6 s/p laparoscopic right hemicolectomy for ascending colon mass (moderately differentiated adenocarcinoma) 1) s/p Right hemicolectomy for ascending colon mass -stable s/p intraoperative blood loss of approximately 1L and transfusion of 2 units leuckocyte reduced RBC's -tolerating regular diet - s/p Cefazolin, Metronidazole - Pain controlled with Dilauded, Zofran PRN nausea 2) Emphysema/COPD - O2 NC at 2 L if needed -chronic, controlled - O2 nasal canula - Duo Neb Q8 sonali 3) HAP -productive cough, fever, left lung base rales -Pulmonology consult appreciated: Zosyn/clindamycin -sputum cx, blood cx -f/u cbc 4) Borderline left ventricular function -stable, controlled -Echo 01/01/17: impaired systolic function with LVEF of 45% -patients' groover runner is Dr. Miller 5) HTN -controlled -home meds held for now 6) DVT prophylaxis C/W Lovenox <Santo Damon A - Last Filed: 03/05/17 06:49> Objective - Vital Signs/Intake and Output Vital Signs (last 24 hours): Temp Pulse Resp BP Pulse Ox 99.3 F 86 20 112/72 97 03/04/17 23:35 03/04/17 23:35 03/04/17 23:35 03/04/17 23:35 03/04/17 23:35 Intake and Output: 03/04/17 03/05/17 18:59 06:59 Intake Total 1240 20 Output Total 600 Balance 640 20 - Medications Medications: Current Medications Acetaminophen (Tylenol 325mg Tab) 650 mg PO Q4 PRN PRN Reason: Fever >100.4 F Last Admin: 03/04/17 18:22 Dose: 650 mg Acetylcysteine (Acetylcysteine 20%) 2 ml INH RBID [facility] Last Admin: 03/04/17 19:01 Dose: 2 ml Albuterol/Ipratropium (Duoneb 3 Mg/0.5 Mg (3 Ml) Ud) 3 ml INH RQID [facility] Last Admin: 03/04/17 19:02 Dose: 3 ml Hydrochlorothiazide (Microzide) 12.5 mg PO DAILY [facility] Last Admin: 03/04/17 08:18 Dose: 12.5 mg Piperacillin Sod/Tazobactam (Sod 2.25 gm/ Sodium Chloride) 100 mls @ 100 mls/ hr IVPB Q8 [facility] PRN Reason: Protocol Last Admin: 03/05/17 02:00 Dose: 100 mls/hr Clindamycin Phosphate (Cleocin In Normal Saline) 600 mg in 50 mls @ 50 mls/hr IVPB Q8 [facility] PRN Reason: Protocol Last Admin: 03/05/17 00:50 Dose: 50 mls/hr Multivitamins/Minerals (Therapeutic-M Tab) 1 tab PO DAILY [facility] Last Admin: 03/04/17 08:18 Dose: 1 tab Ondansetron HCl (Zofran Inj) 4 mg IVP Q4 PRN PRN Reason: Nausea/Vomiting Oxycodone/Acetaminophen (Percocet 5/325 Mg Tab) 1 tab PO Q6 PRN PRN Reason: Pain, moderate (4-7) Stop: 03/06/17 10:32 Last Admin: 03/05/17 06:25 Dose: 1 tab Oxycodone/Acetaminophen (Percocet 5/325 Mg Tab) 2 tab PO Q6 PRN PRN Reason: Pain, severe (8-10) Stop: 03/06/17 10:32 Last Admin: 03/04/17 22:11 Dose: 2 tab Pantoprazole Sodium (Protonix Ec Tab) 40 mg PO DAILY [facility] Last Admin: 03/04/17 08:18 Dose: 40 mg Zolpidem Tartrate (Ambien) 5 mg PO HS PRN PRN Reason: Insomnia Last Admin: 03/02/17 23:37 Dose: 5 mg - Labs Labs: 03/04/17 05:20 03/04/17 05:20 Attending/Attestation - Attestation I have personally seen and examined this patient.: Yes I have fully participated in the care of the patient.: Yes I have reviewed all pertinent clinical information, including history, physical exam and plan: Yes
[2017-03-04] MEDS ORDERED: levoFLOXacin 750 mg in D5W 150 ML BAG IVPB SCH (09:00)
[2017-03-04] MEDS ORDERED: levoFLOXacin 750 mg in D5W 750 MG/150 ML BAG IVPB SCH (09:00)
--- NOTE | 2017-03-04 09:49 | CP.PCM.CON ---
History of Present Illness - History of Present Illness History of Present Illness: This 71-year-old male is known to me from a previous hospitalization in January at which time he was being treated for pneumonia. He was found to be anemic and underwent GI workup which didn't reveal a colonic carcinoma. He returned at this time and underwent an open right hemicolectomy. He did have leukocytosis postoperatively of 32.2 and developed fever of 100.9. A chest x- ray done on 02/28 did reveal elevation of the right hemidiaphragm with air under diaphragm postoperatively and a right basal atelectasis. Also noted was a retrocardiac density with silhouette of the left hemidiaphragm suggesting pneumonia. He was given chest physical therapy as well as inhalation therapy with improvement in leukocytosis. At the present time there has been a slight increase in leukocytosis once again accompanied by temperature 100.6 degrees. The patient has been empirically placed on levofloxacin 750 mg IV once daily. At the present time the patient denies any chest discomfort although he does appear slightly breathless with conversation. He does admit to some residual cough with expectoration of a yellow colored sputum. There is no hemoptysis or chest pain. Past Patient History - Past Medical History & Family History Past Medical History?: Yes - Past Social History Smoking Status: Never Smoked Chewing Tobacco Use: No Cigar Use: No Alcohol: Social Drugs: Denies Home Situation {Lives}: With Family - CARDIAC Hx Hypertension: Yes - PULMONARY Hx Bronchitis: Yes - NEUROLOGICAL Hx Neurological Disorder: No - HEENT Hx HEENT Problems: No - RENAL Hx Chronic Kidney Disease: Yes Other/Comment: Hx chronic renal insufficiency. Hx CKD. Hx Renal Cyst - ENDOCRINE/METABOLIC Hx Endocrine Disorders: No - HEMATOLOGICAL/ONCOLOGICAL Hx Anemia: Yes Hx Blood Transfusions: Yes Hx Cancer: Yes (Recent colonoscopy with biopsy) - INTEGUMENTARY Hx Dermatological Problems: No - MUSCULOSKELETAL/RHEUMATOLOGICAL Hx Falls: Yes - GASTROINTESTINAL Hx Gastritis: Yes Other/Comment: Hx Colonic Mass. Hx GI bleed - GENITOURINARY/GYNECOLOGICAL Hx Prostate Problems: Yes - PSYCHIATRIC Hx Psychophysiologic Disorder: No Hx Substance Use: No - SURGICAL HISTORY Other/Comment: Prostatectomy - ANESTHESIA Hx Anesthesia: Yes Hx Anesthesia Reactions: No Hx Malignant Hyperthermia: No Has any member of the family had a problem w/ anesthesia?: No Meds Allergies/Adverse Reactions: Allergies Allergy/AdvReac Type Severity Reaction Status Date / Time No Known Allergies Allergy Verified 02/25/17 08:25 - Medications Medications: Current Medications Acetaminophen (Tylenol 325mg Tab) 650 mg PO Q4 PRN PRN Reason: Fever >100.4 F Last Admin: 02/28/17 22:50 Dose: 650 mg Acetylcysteine (Acetylcysteine 20%) 2 ml INH RBID [facility] Last Admin: 03/03/17 17:44 Dose: 2 ml Albuterol/Ipratropium (Duoneb 3 Mg/0.5 Mg (3 Ml) Ud) 3 ml INH RQID [facility] Last Admin: 03/04/17 07:33 Dose: 3 ml Enoxaparin Sodium (Lovenox) 30 mg SC DAILY [facility] PRN Reason: Protocol Last Admin: 03/04/17 08:18 Dose: 30 mg Hydrochlorothiazide (Microzide) 12.5 mg PO DAILY [facility] Last Admin: 03/04/17 08:18 Dose: 12.5 mg Levofloxacin/Dextrose (Levaquin 750mg) 750 mg in 150 mls @ 100 mls/hr IVPB DAILY [facility] Multivitamins/Minerals (Therapeutic-M Tab) 1 tab PO DAILY [facility] Last Admin: 03/04/17 08:18 Dose: 1 tab Ondansetron HCl (Zofran Inj) 4 mg IVP Q4 PRN PRN Reason: Nausea/Vomiting Oxycodone/Acetaminophen (Percocet 5/325 Mg Tab) 1 tab PO Q6 PRN PRN Reason: Pain, moderate (4-7) Stop: 03/06/17 10:32 Oxycodone/Acetaminophen (Percocet 5/325 Mg Tab) 2 tab PO Q6 PRN PRN Reason: Pain, severe (8-10) Stop: 03/06/17 10:32 Last Admin: 03/04/17 08:00 Dose: 2 tab Pantoprazole Sodium (Protonix Ec Tab) 40 mg PO DAILY [facility] Last Admin: 03/04/17 08:18 Dose: 40 mg Zolpidem Tartrate (Ambien) 5 mg PO HS PRN PRN Reason: Insomnia Last Admin: 03/02/17 23:37 Dose: 5 mg Physical Exam - Additional Findings Additional findings: Seated in bedside chair, appears comfortable. Well-nourished and well-developed. Voice is hoarse. Pharynx is pink and mucous membranes are dry. No exudate. Neck is supple and trachea is midline. No neck vein distention or carotid bruit. No palpable thyromegaly. No palpable lymphadenopathy. Conjunctivae are mildly pale and there is no scleral icterus. Nasal passages are patent bilaterally. Dullness to percussion of the thorax posteriorly is present at both bases. Few basal rales are present bilaterally. No bronchial breathing or egophony. No audible wheezing. Few scattered sonorous rhonchi in the bases. Heart sounds are slightly distant and the rhythm is regular. AE hose are being worn in both lower extremity. No palpable edema. No cyanosis. Results - Vital Signs Recent Vital Signs: Last Vital Signs Temp 100.6 F H 03/04/17 07:50 Pulse 76 03/04/17 07:50 Resp 20 03/04/17 07:50 BP 169/91 H 03/04/17 07:50 Pulse Ox 100 03/04/17 07:50 - Labs Result Diagrams: 03/04/17 05:20 03/04/17 05:20 Labs: Laboratory Results - last 24 hr 03/03/17 03/03/17 03/03/17 11:04 16:09 21:34 WBC RBC Hgb Hct MCV MCH MCHC RDW Plt Count Sodium Potassium Chloride Carbon Dioxide Anion Gap BUN Creatinine Est GFR ( Amer) Est GFR (Non-Af Amer) POC Glucose (mg/dL) 154 H 148 H 140 H Random Glucose Calcium Phosphorus Magnesium Total Bilirubin AST ALT Alkaline Phosphatase Total Protein Albumin Globulin Albumin/Globulin Ratio 03/04/17 03/04/17 03/04/17 05:20 05:20 05:32 WBC 11.2 H RBC 4.27 L Hgb 11.7 L Hct 35.9 MCV 84.1 MCH 27.4 MCHC 32.6 L RDW 17.6 H Plt Count 129 L Sodium 136 Potassium 3.6 Chloride 100 Carbon Dioxide 34 H Anion Gap 6 L BUN 27 H Creatinine 1.6 H Est GFR ( Amer) 52 Est GFR (Non-Af Amer) 43 POC Glucose (mg/dL) 98 Random Glucose 105 Calcium 8.2 L Phosphorus 3.7 Magnesium 2.3 Total Bilirubin 0.6 AST 23 ALT 36 Alkaline Phosphatase 63 Total Protein 4.9 L Albumin 2.8 L Globulin 2.2 Albumin/Globulin Ratio 1.3 Assessment & Plan (1) Nosocomial pneumonia Status: Acute Priority: High Comment: Levofloxacin has not yet been started. Will change to Zosyn/ clindamycin at this time, and treat for nosocomial pneumonia. Zosyn has been adjusted for chronic renal dysfunction. Follow up in a.m. with repeat CBC. Sputum for culture and sensitivity has been requested. Blood culture 2 will be requested. - Date & Time Date: 03/04/17 Time: 09:49
--- NOTE | 2017-03-04 10:06 | RAD ---
PROCEDURE: CHEST RADIOGRAPH, 1 VIEW HISTORY: PNA COMPARISON: 03/03/2017 FINDINGS: LUNGS: No definite infiltrate. PLEURA: Hazy opacity at left costophrenic angle may reflect small pleural effusion. Follow-up advised. CARDIOVASCULAR: Normal. OSSEOUS STRUCTURES: No significant abnormalities. VISUALIZED UPPER ABDOMEN: Lucency beneath right hemidiaphragm. The possibility of free intraperitoneal air must be suspected once again, as on prior chest radiograph. Recommend further radiographic evaluation. Consider computed tomography of the abdomen or left lateral decubitus abdominal radiograph. OTHER FINDINGS: None. IMPRESSION: Possible small left pleural effusion. Possible free air beneath right hemidiaphragm. Consider further evaluation with left lateral decubitus abdominal radiograph or computed tomography.
[2017-03-04] MEDS ORDERED: Sodium Chloride 3% for Inhalation 4 ML VIAL.NEB IH PRN (11:21)
[2017-03-04] MEDS ORDERED: Clindamycin 600 MG in Sodium Chloride 0.9% 100 ML IVPB SCH (11:30)
[2017-03-04] MEDS: Clindamycin 600mg/50ml NS 600 MG/50 ML BAG IVPB SCH ×2 (16:02→18:04)
[2017-03-05] MEDS: Clindamycin 600mg/50ml NS 600 MG/50 ML BAG IVPB SCH ×3 (00:50→16:34)
[2017-03-05] MEDS: Oxycodone/Acetaminophen 5/325 mg Tab PO PRN ×2 (06:25→16:40)
[2017-03-05 07:06] LABS: BASO % 0.2 % (0.0-2.0); EOS # 0.1 K/uL (0.0-0.7); EOS % 0.5 % (0.0-4.0); HEMOGLOBIN 11.4 g/dL (12.0-18.0); LYMPH # 0.9 K/uL (1.0-4.3); MEAN CELL VOLUME 83.5 fl (80.0-94.0); MEAN CORPUSCULAR HEMOGLOBIN 27.2 pg (27.0-31.0); MEAN CORPUSCULAR HGB CONC 32.6 g/dL (33.0-37.0); MEAN PLATELET VOLUME 8.5 fl (7.2-11.7); MONO # 1.4 K/uL (0.0-0.8); MONO % 9.8 % (0.0-10.0); NEUT # 12.1 K/uL (1.8-7.0); NEUT % 83.5 % (50.0-75.0); NRBC % 0.2 % (0.0-0.0); PLATELET COUNT 134 K/uL (130-400); RBC 4.18 Mil/uL (4.40-5.90); RED CELL DISTRIBUTION WIDTH 16.3 % (11.5-14.5); WHITE BLOOD COUNT 14.5 K/uL (4.8-10.8)
[2017-03-05 07:17] LABS: CALCIUM 8.2 mg/dL (8.4-10.2)
[2017-03-05] MEDS ORDERED: Potassium Chloride 20 mEq ER Tab PO ONE (07:34)
[2017-03-05] MEDS: Acetylcysteine 20% Inhal Soln (4ml) INH SCH ×2 (07:49→19:15)
[2017-03-05] MEDS: Albuterol-Ipratrop 3 mg / 0.5 (3 ml) UD INH SCH ×4 (07:49→19:15)
--- NOTE | 2017-03-05 08:15 | CP.PCM.PN ---
<JesusCraito anderson - Last Filed: 03/05/17 11:01> Subjective - Date & Time of Evaluation Date of Evaluation: 03/05/17 Time of Evaluation: 07:05 - Subjective Subjective: Patient seen and examined in the morning sitting bedside using O2 NC. Patient reports feeling well, coughing less frequent. He denies chest pain,SOB, nausea, vomiting, diarrhea. He reports mild discomfort over the josy from wound. Reports stooling and urinating normal. Objective - Vital Signs/Intake and Output Vital Signs (last 24 hours): Temp Pulse Resp BP Pulse Ox 98.8 F 91 H 20 114/78 96 03/05/17 07:42 03/05/17 07:42 03/05/17 07:42 03/05/17 07:42 03/05/17 07:42 Intake and Output: 03/05/17 03/05/17 06:59 18:59 Intake Total 20 Balance 20 - Medications Medications: Current Medications Acetaminophen (Tylenol 325mg Tab) 650 mg PO Q4 PRN PRN Reason: Fever >100.4 F Last Admin: 03/04/17 18:22 Dose: 650 mg Acetylcysteine (Acetylcysteine 20%) 2 ml INH RBID [facility] Last Admin: 03/05/17 07:49 Dose: 2 ml Albuterol/Ipratropium (Duoneb 3 Mg/0.5 Mg (3 Ml) Ud) 3 ml INH RQID [facility] Last Admin: 03/05/17 07:49 Dose: 3 ml Hydrochlorothiazide (Microzide) 12.5 mg PO DAILY [facility] Last Admin: 03/04/17 08:18 Dose: 12.5 mg Piperacillin Sod/Tazobactam (Sod 2.25 gm/ Sodium Chloride) 100 mls @ 100 mls/ hr IVPB Q8 [facility] PRN Reason: Protocol Last Admin: 03/05/17 02:00 Dose: 100 mls/hr Clindamycin Phosphate (Cleocin In Normal Saline) 600 mg in 50 mls @ 50 mls/hr IVPB Q8 [facility] PRN Reason: Protocol Last Admin: 03/05/17 00:50 Dose: 50 mls/hr Multivitamins/Minerals (Therapeutic-M Tab) 1 tab PO DAILY [facility] Last Admin: 03/04/17 08:18 Dose: 1 tab Ondansetron HCl (Zofran Inj) 4 mg IVP Q4 PRN PRN Reason: Nausea/Vomiting Oxycodone/Acetaminophen (Percocet 5/325 Mg Tab) 1 tab PO Q6 PRN PRN Reason: Pain, moderate (4-7) Stop: 03/06/17 10:32 Last Admin: 03/05/17 06:25 Dose: 1 tab Oxycodone/Acetaminophen (Percocet 5/325 Mg Tab) 2 tab PO Q6 PRN PRN Reason: Pain, severe (8-10) Stop: 03/06/17 10:32 Last Admin: 03/04/17 22:11 Dose: 2 tab Pantoprazole Sodium (Protonix Ec Tab) 40 mg PO DAILY [facility] Last Admin: 03/04/17 08:18 Dose: 40 mg Zolpidem Tartrate (Ambien) 5 mg PO HS PRN PRN Reason: Insomnia Last Admin: 03/02/17 23:37 Dose: 5 mg - Labs Labs: 03/05/17 05:20 03/05/17 05:20 - Constitutional Appears: No Acute Distress - Head Exam Head Exam: ATRAUMATIC, NORMOCEPHALIC - Eye Exam Eye Exam: Normal appearance - ENT Exam ENT Exam: Mucous Membranes Moist - Neck Exam Neck Exam: Normal Inspection - Respiratory Exam Respiratory Exam: Decreased Breath Sounds, Rales Additional comments: left diminished breath sound and scattered rales 2/3 lung base left side. scattered rales over right lung base. - Cardiovascular Exam Cardiovascular Exam: REGULAR RHYTHM, +S1, +S2 - GI/Abdominal Exam GI & Abdominal Exam: Soft, Normal Bowel Sounds. absent: Tenderness Additional comments: Supraumbilical wound aprox 15 cm with josy C/D/I - Extremities Exam Extremities Exam: Normal Inspection. 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) 1) s/p Right hemicolectomy for ascending colon mass day 7 -stable s/p intraoperative blood loss of approximately 1L and transfusion of 2 units leukocyte reduced RBC's -tolerating regular diet - s/p Cefazolin, Metronidazole - Pain controlled with Dilauded, Zofran PRN nausea 2) Emphysema/COPD - O2 NC at 2 L if needed -chronic, controlled - O2 nasal canula - Duo Neb Q8 [facility] 3) HAP -productive cough, fever, left lung base rales -Pulmonology consult appreciated: Zosyn/clindamycin day # 2 -sputum cx, blood cx -f/u cbc 4) Borderline left ventricular function -stable, controlled -Echo 01/01/17: impaired systolic function with LVEF of 45% -patients' project coordinator is Dr. Miller 5) HTN -controlled -HTZ 12.5 mg daily 6) DVT prophylaxis -SCD -lovenox dc due to thrombocytopenia 3 days ago <Rob Kovacs - Last Filed: 03/17/17 06:50> Objective - Vital Signs/Intake and Output Vital Signs (last 24 hours): Temp Pulse Resp BP Pulse Ox 98.7 F 68 20 123/74 99 03/16/17 23:33 03/16/17 23:33 03/16/17 23:33 03/16/17 23:33 03/16/17 23:33 Intake and Output: 03/16/17 03/17/17 18:59 06:59 Intake Total 100 Balance 100 - Medications Medications: Current Medications Acetaminophen (Tylenol 325mg Tab) 650 mg PO Q4 PRN PRN Reason: Fever >100.4 F Last Admin: 03/11/17 12:12 Dose: 650 mg Acetaminophen (Tylenol 325mg Tab) 650 mg PO Q6 PRN PRN Reason: Pain, Mild (1-3) Last Admin: 03/12/17 13:48 Dose: 650 mg Acetylcysteine (Acetylcysteine 20%) 2 ml INH RBID [facility] Last Admin: 03/16/17 19:16 Dose: 2 ml Albuterol Sulfate (Albuterol 0.083% Inhal Ny (2.5 Mg/3 Ml) Ud) 2.5 mg INH RQID [facility] Last Admin: 03/16/17 19:16 Dose: 2.5 mg Calcium Carbonate (Oscal) 500 mg PO DAILY PRN PRN Reason: indigestion Last Admin: 03/14/17 19:38 Dose: 500 mg Furosemide (Lasix) 40 mg PO DAILY [facility] Last Admin: 03/16/17 10:19 Dose: 40 mg Guaifenesin (Robitussin) 200 mg PO QID [facility] Last Admin: 03/16/17 22:34 Dose: Not Given Metronidazole (Flagyl 500mg/100ml Ns) 100 mls @ 100 mls/hr IVPB Q8 [facility] PRN Reason: Protocol Last Admin: 03/17/17 00:20 Dose: 100 mls/hr Ceftaroline Fosamil 400 mg/ (Sodium Chloride) 100 mls @ 100 mls/hr IVPB Q12H [facility] PRN Reason: Protocol Last Admin: 03/17/17 04:00 Dose: 100 mls/hr Lactobacillus Acidophilus (Bacid Acidophilus) 1 cap PO BID [facility] Last Admin: 03/16/17 19:26 Dose: 1 cap Multivitamins/Minerals (Therapeutic-M Tab) 1 tab PO DAILY [facility] Last Admin: 03/16/17 10:20 Dose: 1 tab Ondansetron HCl (Zofran Inj) 4 mg IVP Q4 PRN PRN Reason: Nausea/Vomiting Last Admin: 03/16/17 17:00 Dose: 4 mg Pantoprazole Sodium (Protonix Ec Tab) 40 mg PO DAILY [facility] Last Admin: 03/16/17 10:22 Dose: 40 mg Saliva Substitute (Caphosol 15 Ml) 15 ml MM Q4 PRN PRN Reason: Dry mouth Sodium Chloride (Emery Nasal [place]) 1 sprays DIAMOND Q6 [facility] Last Admin: 03/17/17 03:57 Dose: 1 spr Zolpidem Tartrate (Ambien) 5 mg PO HS PRN PRN Reason: Insomnia Last Admin: 03/16/17 22:30 Dose: 5 mg - Labs Labs: 03/17/17 06:00 03/17/17 06:00 PT 18.8 Seconds (9.8-13.1) H 03/12/17 04:15 INR 1.7 (0.9-1.2) H 03/12/17 04:15 APTT 36.2 Seconds (25.6-37.1) 03/06/17 05:20 Attending/Attestation - Attestation I have personally seen and examined this patient.: Yes I have fully participated in the care of the patient.: Yes I have reviewed all pertinent clinical information, including history, physical exam and plan: Yes
[2017-03-05] MEDS: Pantoprazole 40 mg EC Tab PO SCH (08:39)
[2017-03-05] MEDS: Multivitamin With Minerals Tab PO SCH (08:39)
--- NOTE | 2017-03-05 09:59 | CP.PCM.PN ---
Subjective - Date & Time of Evaluation Date of Evaluation: 03/05/17 Time of Evaluation: 09:59 - Subjective Subjective: Continues to have episodic temp spikes. Claims he feels slightly improved. Denies shortness of breath at rest. Able to ambulate in the room with assistance. WBC did increase to 14.5, will need followup. Remains on Zosyn/Clinda. Occasional cough without sputum expectoration. Dullness on percussion of both lung bases posteriorly. Few medium rales at the left base. Markedly decreased breath sounds at the bases posteriorly. No bronchial breath sounds or wheezes. For followup CBC in AM. Followup CXR as well tomorrow AM. Continue current medications presently. Objective - Vital Signs/Intake and Output Vital Signs (last 24 hours): Temp Pulse Resp BP Pulse Ox 98.8 F 91 H 20 114/78 96 03/05/17 07:42 03/05/17 07:42 03/05/17 07:42 03/05/17 07:42 03/05/17 07:42 Intake and Output: 03/04/17 03/05/17 23:59 11:59 Intake Total 20 Balance 20 - Medications Medications: Current Medications Acetaminophen (Tylenol 325mg Tab) 650 mg PO Q4 PRN PRN Reason: Fever >100.4 F Last Admin: 03/04/17 18:22 Dose: 650 mg Acetylcysteine (Acetylcysteine 20%) 2 ml INH RBID [facility] Last Admin: 03/05/17 07:49 Dose: 2 ml Albuterol/Ipratropium (Duoneb 3 Mg/0.5 Mg (3 Ml) Ud) 3 ml INH RQID [facility] Last Admin: 03/05/17 07:49 Dose: 3 ml Hydrochlorothiazide (Microzide) 12.5 mg PO DAILY [facility] Last Admin: 03/05/17 08:39 Dose: 12.5 mg Piperacillin Sod/Tazobactam (Sod 2.25 gm/ Sodium Chloride) 100 mls @ 100 mls/ hr IVPB Q8 [facility] PRN Reason: Protocol Last Admin: 03/05/17 08:41 Dose: 100 mls/hr Clindamycin Phosphate (Cleocin In Normal Saline) 600 mg in 50 mls @ 50 mls/hr IVPB Q8 [facility] PRN Reason: Protocol Last Admin: 03/05/17 08:34 Dose: 50 mls/hr Multivitamins/Minerals (Therapeutic-M Tab) 1 tab PO DAILY [facility] Last Admin: 03/05/17 08:39 Dose: 1 tab Ondansetron HCl (Zofran Inj) 4 mg IVP Q4 PRN PRN Reason: Nausea/Vomiting Oxycodone/Acetaminophen (Percocet 5/325 Mg Tab) 1 tab PO Q6 PRN PRN Reason: Pain, moderate (4-7) Stop: 03/06/17 10:32 Last Admin: 03/05/17 06:25 Dose: 1 tab Oxycodone/Acetaminophen (Percocet 5/325 Mg Tab) 2 tab PO Q6 PRN PRN Reason: Pain, severe (8-10) Stop: 03/06/17 10:32 Last Admin: 03/04/17 22:11 Dose: 2 tab Pantoprazole Sodium (Protonix Ec Tab) 40 mg PO DAILY [facility] Last Admin: 03/05/17 08:39 Dose: 40 mg Zolpidem Tartrate (Ambien) 5 mg PO HS PRN PRN Reason: Insomnia Last Admin: 03/02/17 23:37 Dose: 5 mg - Labs Labs: 03/05/17 05:20 03/05/17 05:20 Assessment and Plan (1) Nosocomial pneumonia Status: Acute
[2017-03-05 10:07] LABS: ANISOCYTOSIS SLIGHT; LYMPHOCYTE 7 % (20-50); MONOCYTE 10 % (0-10); NEUTROPHIL 83 % (42-75); PLATELET ESTIMATE NORMAL (NORMAL); TOTAL CELLS COUNTED 100
[2017-03-05 10:08] LABS: HYPOCHROMIC SLIGHT; OVALOCYTES SLIGHT; TOXIC GRANULATION PRESENT
[2017-03-05] MEDS ORDERED: Iohexol 240 (50 ml) PO ONE (11:15)
[2017-03-05] MEDS ORDERED: Diatriz Meglumine/Diatriz Sod 30 ML BOTTLE PO ONE (11:52)
--- NOTE | 2017-03-05 12:18 | CP.PCM.PN ---
Subjective - Date & Time of Evaluation Date of Evaluation: 03/05/17 Time of Evaluation: 10:00 - Subjective Subjective: Patient was seen and examined at the bedside. Reports flatus and having bowel movements, tolerating diet. Objective - Vital Signs/Intake and Output Vital Signs (last 24 hours): Temp Pulse Resp BP Pulse Ox 99.8 F H 91 H 20 114/78 96 03/05/17 11:40 03/05/17 07:42 03/05/17 07:42 03/05/17 07:42 03/05/17 07:42 Intake and Output: 03/05/17 03/05/17 06:59 18:59 Intake Total 20 Balance 20 - Medications Medications: Current Medications Acetaminophen (Tylenol 325mg Tab) 650 mg PO Q4 PRN PRN Reason: Fever >100.4 F Last Admin: 03/04/17 18:22 Dose: 650 mg Acetylcysteine (Acetylcysteine 20%) 2 ml INH RBID [facility] Last Admin: 03/05/17 07:49 Dose: 2 ml Albuterol/Ipratropium (Duoneb 3 Mg/0.5 Mg (3 Ml) Ud) 3 ml INH RQID [facility] Last Admin: 03/05/17 11:28 Dose: 3 ml Hydrochlorothiazide (Microzide) 12.5 mg PO DAILY [facility] Last Admin: 03/05/17 08:39 Dose: 12.5 mg Piperacillin Sod/Tazobactam (Sod 2.25 gm/ Sodium Chloride) 100 mls @ 100 mls/ hr IVPB Q8 [facility] PRN Reason: Protocol Last Admin: 03/05/17 08:41 Dose: 100 mls/hr Clindamycin Phosphate (Cleocin In Normal Saline) 600 mg in 50 mls @ 50 mls/hr IVPB Q8 [facility] PRN Reason: Protocol Last Admin: 03/05/17 08:34 Dose: 50 mls/hr Multivitamins/Minerals (Therapeutic-M Tab) 1 tab PO DAILY [facility] Last Admin: 03/05/17 08:39 Dose: 1 tab Ondansetron HCl (Zofran Inj) 4 mg IVP Q4 PRN PRN Reason: Nausea/Vomiting Oxycodone/Acetaminophen (Percocet 5/325 Mg Tab) 1 tab PO Q6 PRN PRN Reason: Pain, moderate (4-7) Stop: 03/06/17 10:32 Last Admin: 03/05/17 06:25 Dose: 1 tab Oxycodone/Acetaminophen (Percocet 5/325 Mg Tab) 2 tab PO Q6 PRN PRN Reason: Pain, severe (8-10) Stop: 03/06/17 10:32 Last Admin: 03/04/17 22:11 Dose: 2 tab Pantoprazole Sodium (Protonix Ec Tab) 40 mg PO DAILY [facility] Last Admin: 03/05/17 08:39 Dose: 40 mg Zolpidem Tartrate (Ambien) 5 mg PO HS PRN PRN Reason: Insomnia Last Admin: 03/02/17 23:37 Dose: 5 mg - Labs Labs: 03/05/17 05:20 03/05/17 05:20 - Constitutional Appears: Well, Non-toxic, No Acute Distress - Head Exam Head Exam: ATRAUMATIC, NORMAL INSPECTION, NORMOCEPHALIC - Eye Exam Eye Exam: EOMI, Normal appearance, PERRL Pupil Exam: NORMAL ACCOMODATION, PERRL - ENT Exam ENT Exam: Mucous Membranes Moist, Normal Exam - Neck Exam Neck Exam: Full ROM, Normal Inspection - Respiratory Exam Respiratory Exam: Clear to Ausculation Bilateral, NORMAL BREATHING PATTERN - Cardiovascular Exam Cardiovascular Exam: REGULAR RHYTHM, +S1, +S2 - GI/Abdominal Exam GI & Abdominal Exam: Soft, Normal Bowel Sounds Additional comments: NT, ND, BS+, no rebound, no guarding, incision clean, no erythema, no drainage, josy in place - Rectal Exam Rectal Exam: Deferred - Extremities Exam Extremities Exam: Full ROM, Normal Inspection - Back Exam Back Exam: NORMAL INSPECTION - Neurological Exam Neurological Exam: Alert, Awake, Oriented x3 - Psychiatric Exam Psychiatric exam: Normal Affect, Normal Mood - Skin Skin Exam: Dry, Intact, Normal Color, Warm Assessment and Plan - Assessment and Plan (Free Text) Assessment: 71 y.o. male s/p right hemicolectomy now with low grade fever and leukocytosis Plan: - CT scan of the abd/pelvis with po contrast only r/o abscess - Pain control - Insentive spirometry - DVT ppx - Out of bed and ambulate - Repeat labs in am
[2017-03-05] MEDS ORDERED: Diatrizoate Meglumine 120 ML SOLN PO ONE ×2 (12:38→13:09)
--- NOTE | 2017-03-05 16:43 | CT ---
PROCEDURE: CT Abdomen and Pelvis with contrast HISTORY: fever COMPARISON: 01/04/2017 CT abdomen and pelvis. 01/06/2017 abdominal ultrasound. TECHNIQUE: Contrast dose: Oral contrast only. Radiation dose: Total exam DLP = 846.23 mGy-cm. This CT exam was performed using one or more of the following dose reduction techniques: Automated exposure control, adjustment of the mA and/or kV according to patient size, and/or use of iterative reconstruction technique. FINDINGS: LOWER THORAX: Bilateral lower lobe infiltrates. Small right pleural effusion. LIVER: Multiple simple renal cysts. Free air interposed between the liver and diaphragm. GALLBLADDER AND BILE DUCTS: Status post cholecystectomy. No abnormality is seen in the gallbladder fossa. PANCREAS: Unremarkable. No gross lesion or ductal dilatation. SPLEEN: Unremarkable. ADRENALS: Unremarkable. No mass. KIDNEYS AND URETERS: Unremarkable. No hydronephrosis. No solid mass. VASCULATURE: Unremarkable. No aortic aneurysm. BOWEL: Status post right hemicolectomy. Surgical clips at the anastomosis in the right upper quadrant. Adjacent small bowel is unremarkable. APPENDIX: Status post right hemicolectomy comment the appendix is not visualized PERITONEUM: Free intraperitoneal air presumed postoperative. Anterior abdominal suture line noted. This was seen on recent chest radiograph 03/04/2017. Focal fluid collection right upper quadrant presumed to be postoperative. This measures 3.9 x 5.9 cm. This is interposed between the head of the pancreas adjacent small bowel and right lobe of the liver. Small punctate foci of air within the fluid collection. LYMPH NODES: Unremarkable. No enlarged lymph nodes. BLADDER: Air within the urinary bladder likely related to prior instrumentation. REPRODUCTIVE: Unremarkable. BONES: No acute fracture. OTHER FINDINGS: None. IMPRESSION: Postoperative findings as described above status post right hemicolectomy. This includes free air, focal fluid collection right upper quadrant, colo enteric anastomosis, low volume ascites. Atelectasis both lower lobes and small right pleural effusion.
[2017-03-06] MEDS: Clindamycin 600mg/50ml NS 600 MG/50 ML BAG IVPB SCH ×3 (00:23→18:34)
[2017-03-06] MEDS: Oxycodone/Acetaminophen 5/325 mg Tab PO PRN ×2 (02:33→14:56)
[2017-03-06 06:42] LABS: BASO % 0.2 % (0.0-2.0); EOS % 0.1 % (0.0-4.0); HEMOGLOBIN 10.5 g/dL (12.0-18.0); LYMPH # 0.7 K/uL (1.0-4.3); LYMPH % 4.8 % (20.0-40.0); MEAN CELL VOLUME 83.9 fl (80.0-94.0); MEAN CORPUSCULAR HEMOGLOBIN 26.8 pg (27.0-31.0); MEAN PLATELET VOLUME 8.7 fl (7.2-11.7); MONO # 1.2 K/uL (0.0-0.8); MONO % 8.5 % (0.0-10.0); NEUT # 12.1 K/uL (1.8-7.0); NEUT % 86.4 % (50.0-75.0); RBC 3.9 Mil/uL (4.40-5.90); RED CELL DISTRIBUTION WIDTH 17.2 % (11.5-14.5)
[2017-03-06 07:23] LABS: INR 1.5 (0.9-1.2); PARTIAL THROMBOPLASTIN TIME 36.2 Seconds (25.6-37.1); PROTHROMBIN TIME 16.3 Seconds (9.8-13.1)
[2017-03-06] MEDS: Acetylcysteine 20% Inhal Soln (4ml) INH SCH ×2 (07:42→19:06)
[2017-03-06] MEDS: Albuterol-Ipratrop 3 mg / 0.5 (3 ml) UD INH SCH ×4 (07:42→19:06)
[2017-03-06] MEDS: Pantoprazole 40 mg EC Tab PO SCH (08:43)
[2017-03-06] MEDS: Multivitamin With Minerals Tab PO SCH (08:43)
--- NOTE | 2017-03-06 09:34 | CP.PCM.PN ---
<Carito Gore - Last Filed: 03/06/17 12:48> Subjective - Date & Time of Evaluation Date of Evaluation: 03/06/17 Time of Evaluation: 07:20 - Subjective Subjective: Patient seen and examined bedside sitting on chair. patient reports feeling better and breathing with less difficulty. He denies fever today, nausea, vomiting, abd pain, diarrhea. as per nurse patient c/o RUQ abd pain last night subsided with percocet. Pt for IR today to tap fluid from abd as per CT abd findings. Objective - Vital Signs/Intake and Output Vital Signs (last 24 hours): Temp Pulse Resp BP Pulse Ox 97.9 F 79 20 137/81 95 03/06/17 07:55 03/06/17 07:55 03/06/17 07:55 03/06/17 07:55 03/06/17 07:55 Intake and Output: 03/06/17 03/06/17 06:59 18:59 Intake Total 40 Output Total 1 Balance 39 - Medications Medications: Current Medications Acetaminophen (Tylenol 325mg Tab) 650 mg PO Q4 PRN PRN Reason: Fever >100.4 F Last Admin: 03/05/17 16:30 Dose: 650 mg Acetylcysteine (Acetylcysteine 20%) 2 ml INH RBID [facility] Last Admin: 03/06/17 07:42 Dose: 2 ml Albuterol/Ipratropium (Duoneb 3 Mg/0.5 Mg (3 Ml) Ud) 3 ml INH RQID [facility] Last Admin: 03/06/17 07:42 Dose: 3 ml Hydrochlorothiazide (Microzide) 12.5 mg PO DAILY [facility] Last Admin: 03/06/17 08:43 Dose: 12.5 mg Piperacillin Sod/Tazobactam (Sod 2.25 gm/ Sodium Chloride) 100 mls @ 100 mls/ hr IVPB Q8 [facility] PRN Reason: Protocol Last Admin: 03/06/17 02:01 Dose: 100 mls/hr Clindamycin Phosphate (Cleocin In Normal Saline) 600 mg in 50 mls @ 50 mls/hr IVPB Q8 [facility] PRN Reason: Protocol Last Admin: 03/06/17 00:23 Dose: 50 mls/hr Multivitamins/Minerals (Therapeutic-M Tab) 1 tab PO DAILY [facility] Last Admin: 03/06/17 08:43 Dose: 1 tab Ondansetron HCl (Zofran Inj) 4 mg IVP Q4 PRN PRN Reason: Nausea/Vomiting Oxycodone/Acetaminophen (Percocet 5/325 Mg Tab) 1 tab PO Q6 PRN PRN Reason: Pain, moderate (4-7) Stop: 03/06/17 10:32 Last Admin: 03/06/17 02:33 Dose: 1 tab Oxycodone/Acetaminophen (Percocet 5/325 Mg Tab) 2 tab PO Q6 PRN PRN Reason: Pain, severe (8-10) Stop: 03/06/17 10:32 Last Admin: 03/04/17 22:11 Dose: 2 tab Pantoprazole Sodium (Protonix Ec Tab) 40 mg PO DAILY [facility] Last Admin: 03/06/17 08:43 Dose: 40 mg Zolpidem Tartrate (Ambien) 5 mg PO HS PRN PRN Reason: Insomnia Last Admin: 03/05/17 22:37 Dose: 5 mg - Labs Labs: 03/06/17 05:20 03/06/17 05:20 PT 16.3 Seconds (9.8-13.1) H 03/06/17 05:20 INR 1.5 (0.9-1.2) H 03/06/17 05:20 APTT 36.2 Seconds (25.6-37.1) 03/06/17 05:20 - Constitutional Appears: Non-toxic, No Acute Distress - Head Exam Head Exam: ATRAUMATIC, NORMOCEPHALIC - Eye Exam Eye Exam: Normal appearance - ENT Exam ENT Exam: Mucous Membranes Moist - Respiratory Exam Respiratory Exam: Decreased Breath Sounds, Rales. absent: Rhonchi, Wheezes Additional comments: decreased breath sound left lung base, b/l rales bibasal - Cardiovascular Exam Cardiovascular Exam: REGULAR RHYTHM, +S1, +S2 - GI/Abdominal Exam GI & Abdominal Exam: Soft, Normal Bowel Sounds. absent: Tenderness Additional comments: Supraumbilical wound aprox 15 cm with josy C/D/I - Extremities Exam Extremities Exam: Normal Inspection. absent: Pedal Edema - Back Exam Back Exam: NORMAL INSPECTION - Neurological Exam Neurological Exam: Alert, Awake, Oriented x3 - Psychiatric Exam Psychiatric exam: Normal Affect, Normal Mood - Skin Skin Exam: Intact Assessment and Plan - Assessment and Plan (Free Text) Plan: 71 yr old M POD # 8 s/p laparoscopic right hemicolectomy for ascending colon mass (moderately differentiated adenocarcinoma) 1) s/p Right hemicolectomy for ascending colon mass day 8 -stable s/p intraoperative blood loss of approximately 1L and transfusion of 2 units leukocyte reduced RBC's -tolerating regular diet - s/p Cefazolin, Metronidazole - Pain controlled with Dilauded, Zofran PRN nausea 2) Emphysema/COPD - O2 NC at 2 L if needed -chronic, controlled - O2 nasal canula - Duo Neb Q8 sonali 3) HAP -productive cough, fever, left lung base rales -Pulmonology consult appreciated: Zosyn/clindamycin day # 3 -sputum cx, blood cx -f/u cbc 4) Intrabdominal abscess -CT abd showed itrabdominal fluids around pancreas and right liver lobe aprox 3.9 x 5.9 cm -IR intervention today 5) Borderline left ventricular function -stable, controlled -Echo 01/01/17: impaired systolic function with LVEF of 45% -patients' paragliding instructor is Dr. Miller 6) HTN -controlled -HTZ 12.5 mg daily 7) DVT prophylaxis -SCD -lovenox dc due to thrombocytopenia 3 days ago -For IR intervention today <Rob Kovacs - Last Filed: 03/17/17 06:51> Objective - Vital Signs/Intake and Output Vital Signs (last 24 hours): Temp Pulse Resp BP Pulse Ox 98.7 F 68 20 123/74 99 03/16/17 23:33 03/16/17 23:33 03/16/17 23:33 03/16/17 23:33 03/16/17 23:33 Intake and Output: 03/16/17 03/17/17 18:59 06:59 Intake Total 100 Balance 100 - Medications Medications: Current Medications Acetaminophen (Tylenol 325mg Tab) 650 mg PO Q4 PRN PRN Reason: Fever >100.4 F Last Admin: 03/11/17 12:12 Dose: 650 mg Acetaminophen (Tylenol 325mg Tab) 650 mg PO Q6 PRN PRN Reason: Pain, Mild (1-3) Last Admin: 03/12/17 13:48 Dose: 650 mg Acetylcysteine (Acetylcysteine 20%) 2 ml INH RBID [facility] Last Admin: 03/16/17 19:16 Dose: 2 ml Albuterol Sulfate (Albuterol 0.083% Inhal Ny (2.5 Mg/3 Ml) Ud) 2.5 mg INH RQID [facility] Last Admin: 03/16/17 19:16 Dose: 2.5 mg Calcium Carbonate (Oscal) 500 mg PO DAILY PRN PRN Reason: indigestion Last Admin: 03/14/17 19:38 Dose: 500 mg Furosemide (Lasix) 40 mg PO DAILY [facility] Last Admin: 03/16/17 10:19 Dose: 40 mg Guaifenesin (Robitussin) 200 mg PO QID [facility] Last Admin: 03/16/17 22:34 Dose: Not Given Metronidazole (Flagyl 500mg/100ml Ns) 100 mls @ 100 mls/hr IVPB Q8 [facility] PRN Reason: Protocol Last Admin: 03/17/17 00:20 Dose: 100 mls/hr Ceftaroline Fosamil 400 mg/ (Sodium Chloride) 100 mls @ 100 mls/hr IVPB Q12H [facility] PRN Reason: Protocol Last Admin: 03/17/17 04:00 Dose: 100 mls/hr Lactobacillus Acidophilus (Bacid Acidophilus) 1 cap PO BID [facility] Last Admin: 03/16/17 19:26 Dose: 1 cap Multivitamins/Minerals (Therapeutic-M Tab) 1 tab PO DAILY [facility] Last Admin: 03/16/17 10:20 Dose: 1 tab Ondansetron HCl (Zofran Inj) 4 mg IVP Q4 PRN PRN Reason: Nausea/Vomiting Last Admin: 03/16/17 17:00 Dose: 4 mg Pantoprazole Sodium (Protonix Ec Tab) 40 mg PO DAILY [facility] Last Admin: 03/16/17 10:22 Dose: 40 mg Saliva Substitute (Caphosol 15 Ml) 15 ml MM Q4 PRN PRN Reason: Dry mouth Sodium Chloride (Dailey Nasal [place]) 1 sprays DIAMOND Q6 [facility] Last Admin: 03/17/17 03:57 Dose: 1 spr Zolpidem Tartrate (Ambien) 5 mg PO HS PRN PRN Reason: Insomnia Last Admin: 03/16/17 22:30 Dose: 5 mg - Labs Labs: 03/17/17 06:00 03/17/17 06:00 PT 18.8 Seconds (9.8-13.1) H 03/12/17 04:15 INR 1.7 (0.9-1.2) H 03/12/17 04:15 APTT 36.2 Seconds (25.6-37.1) 03/06/17 05:20 Attending/Attestation - Attestation I have personally seen and examined this patient.: Yes I have fully participated in the care of the patient.: Yes I have reviewed all pertinent clinical information, including history, physical exam and plan: Yes
--- NOTE | 2017-03-06 09:39 | CP.PCM.PN ---
Subjective - Date & Time of Evaluation Date of Evaluation: 03/06/17 Time of Evaluation: 07:30 - Subjective Subjective: General Surgery Progress Note for Dr. Jose Miguel Spicer, PGY-1 Pt S & E this AM Pt reports sleeping well overnight, no complaints. Per nursing- had fever overnight, Tmax 102. NPO overnight for possible IR intervention today. Objective - Vital Signs/Intake and Output Vital Signs (last 24 hours): Temp Pulse Resp BP Pulse Ox 97.9 F 79 20 137/81 95 03/06/17 07:55 03/06/17 07:55 03/06/17 07:55 03/06/17 07:55 03/06/17 07:55 Intake and Output: 03/06/17 03/06/17 06:59 18:59 Intake Total 40 Output Total 1 Balance 39 - Medications Medications: Current Medications Acetaminophen (Tylenol 325mg Tab) 650 mg PO Q4 PRN PRN Reason: Fever >100.4 F Last Admin: 03/05/17 16:30 Dose: 650 mg Acetylcysteine (Acetylcysteine 20%) 2 ml INH RBID [facility] Last Admin: 03/06/17 07:42 Dose: 2 ml Albuterol/Ipratropium (Duoneb 3 Mg/0.5 Mg (3 Ml) Ud) 3 ml INH RQID [facility] Last Admin: 03/06/17 07:42 Dose: 3 ml Hydrochlorothiazide (Microzide) 12.5 mg PO DAILY [facility] Last Admin: 03/06/17 08:43 Dose: 12.5 mg Piperacillin Sod/Tazobactam (Sod 2.25 gm/ Sodium Chloride) 100 mls @ 100 mls/ hr IVPB Q8 [facility] PRN Reason: Protocol Last Admin: 03/06/17 02:01 Dose: 100 mls/hr Clindamycin Phosphate (Cleocin In Normal Saline) 600 mg in 50 mls @ 50 mls/hr IVPB Q8 [facility] PRN Reason: Protocol Last Admin: 03/06/17 00:23 Dose: 50 mls/hr Multivitamins/Minerals (Therapeutic-M Tab) 1 tab PO DAILY [facility] Last Admin: 03/06/17 08:43 Dose: 1 tab Ondansetron HCl (Zofran Inj) 4 mg IVP Q4 PRN PRN Reason: Nausea/Vomiting Oxycodone/Acetaminophen (Percocet 5/325 Mg Tab) 1 tab PO Q6 PRN PRN Reason: Pain, moderate (4-7) Stop: 03/06/17 10:32 Last Admin: 03/06/17 02:33 Dose: 1 tab Oxycodone/Acetaminophen (Percocet 5/325 Mg Tab) 2 tab PO Q6 PRN PRN Reason: Pain, severe (8-10) Stop: 03/06/17 10:32 Last Admin: 03/04/17 22:11 Dose: 2 tab Pantoprazole Sodium (Protonix Ec Tab) 40 mg PO DAILY [facility] Last Admin: 03/06/17 08:43 Dose: 40 mg Zolpidem Tartrate (Ambien) 5 mg PO HS PRN PRN Reason: Insomnia Last Admin: 03/05/17 22:37 Dose: 5 mg - Labs Labs: 03/06/17 05:20 03/06/17 05:20 PT 16.3 Seconds (9.8-13.1) H 03/06/17 05:20 INR 1.5 (0.9-1.2) H 03/06/17 05:20 APTT 36.2 Seconds (25.6-37.1) 03/06/17 05:20 - Constitutional Appears: Non-toxic, No Acute Distress - Head Exam Head Exam: ATRAUMATIC, NORMAL INSPECTION, NORMOCEPHALIC - Eye Exam Eye Exam: EOMI, Normal appearance - ENT Exam ENT Exam: Mucous Membranes Moist, Normal Exam - Neck Exam Neck Exam: Full ROM, Normal Inspection - Respiratory Exam Respiratory Exam: NORMAL BREATHING PATTERN - Cardiovascular Exam Cardiovascular Exam: REGULAR RHYTHM, +S1, +S2 - GI/Abdominal Exam GI & Abdominal Exam: Firm (mild, along midline incision site), Soft. absent: Distended, Guarding, Tenderness, Rebound - Extremities Exam Extremities Exam: Normal Inspection. absent: Pedal Edema - Neurological Exam Neurological Exam: Alert, Awake, CN II-XII Intact, Oriented x3 - Psychiatric Exam Psychiatric exam: Normal Affect, Normal Mood - Skin Skin Exam: Dry, Intact (josy in place over midline incision site), Normal Color, Warm Assessment and Plan - Assessment and Plan (Free Text) Assessment: 71M with PMHx of HTN, CKD, gastritis, mild CHF (EF 45%) with ascending colon mass s/p open right hemicolectomy POD#9, path; T2 adenocarinoma with 1/20 lymph nodes positive; with fluid collection around liver/possible abscess Plan: Febrile Leukocytosis of [address] w/fluid collection around liver Started on ABx yesterday IR consulted for drainage of fluid collection NPO for possible IR intervention IVF while NPO FU IR recs/intervention today Duonebs Chest PT Encourage flutter valve use Encourage IS use SCDs Lovenox FU PT Further mgmt as per cardio/primary teams Will FAYE attending Dannielle, PGY-1
[2017-03-06] MEDS: Potassium Chloride 20 mEq ER Tab PO ONE ×2 (09:40→10:06)
[2017-03-06] MEDS ORDERED: Lactated Ringer's 1,000 ML IV SCH (09:45)
--- NOTE | 2017-03-06 10:18 | RAD ---
HISTORY: pneumonia COMPARISON: 03/04/2017 TECHNIQUE: Chest PA and lateral FINDINGS: LUNGS: Opacity at left base may represent infiltrate or atelectasis. Linear atelectasis at right base. PLEURA: Small right pleural effusion. No evidence of left pleural effusion. No pneumothorax. CARDIOVASCULAR: Normal heart size. OSSEOUS STRUCTURES: No significant abnormalities. VISUALIZED UPPER ABDOMEN: Free intraperitoneal air beneath right hemidiaphragm unchanged. This corresponds to demonstration of free intraperitoneal air on CT examination of the previous day. The patient is postoperative right hemicolectomy. OTHER FINDINGS: None. IMPRESSION: Free intraperitoneal air. Left basilar opacity. Infiltrate versus atelectasis. Small right pleural effusion.
[2017-03-06] MEDS ORDERED: ePHEDrine 50 mg/ml Inj ONE (10:19)
[2017-03-06] MEDS ORDERED: Midazolam 2 MG/2 ML VIAL ONE ×2 (11:35→11:47)
[2017-03-06] MEDS ORDERED: Lidocaine 1% Inj (20ml) ONE (11:40)
--- NOTE | 2017-03-06 12:49 | PCM.SURG1 ---
Surgeon's Initial Post Op Note - Surgeon's Notes Surgeon: Alexander Wolfe MD Scroll Machine Operator: None Type of Anesthesia: MAC Pre-Operative Diagnosis: Abdominal abscess Operative Findings: 1) large RUQ air and fluid filled collection; 8 [place] pigtail drain placed. 2) smaller deeper fluid collection adjacent to duodenum/ pancreas Post-Operative Diagnosis: same Operation Performed: CT guided abscess drainage Specimen/Specimens Removed: 150 ml clear galindo fluid. sample submitted. Estimated Blood Loss: EBL {In ML}: 0 Post-Op Condition: Fair Date of Surgery/Procedure: 03/06/17 Time of Surgery/Procedure: 12:25
--- NOTE | 2017-03-06 14:07 | CT ---
PROCEDURE: CT-GUIDED ABSCESS DRAINAGE CLINICAL HISTORY: 71-year-old male status post right hemicolectomy (POD 9) with perihepatic fluid collection is referred to Interventional Radiology for percutaneous abscess drainage. COMPARISON: CT scan of the abdomen and pelvis dated 03/05/2017. PROCEDURE: 1. Focused CT of the right upper quadrant. 2. CT-guided abscess drainage. PRE-PROCEDURE FINDINGS: 1. Large perihepatic air and fluid-filled collection. 2. Deeper fluid collection adjacent to the duodenum and pancreas. POST-PROCEDURE FINDINGS: 1. No evidence of post-procedural complication. INTERVENTIONAL RADIOLOGIST: Alexander Wolfe M.D. (the attending was present for the entire procedure) ANESTHESIA: Provided by the attending anesthesiologist. Sedation was supervised by the anesthesiology attending with the presence of independent radiology nursing monitoring. Physiological data monitoring was performed throughout the entire procedure. The patient's blood pressure, EKG and pulse oximetry were recorded. The patient tolerated the procedure and sedation without untoward reactions. The intra-procedural sedation time was 25 minutes. MEDICATIONS: Lidocaine 1% for local subcutaneous analgesia. COMPLICATIONS: None. PROCEDURE DESCRIPTION AND FINDINGS: The risks, benefits, alternatives and possible complications of the procedure were fully discussed; all questions were answered and informed consent was obtained. The patient was brought into the interventional suite and a pre-procedure 'time-out' was performed. The patient was placed on the CT table in the supine position. The fluid collection was localized under CT-guidance and a gay was made on the overlying skin. The right upper quadrant was prepped and draped in the usual sterile fashion. Maximum sterile barrier precautions were maintained throughout the entire procedure. Preliminary focused CT images of the right upper quadrant again demonstrate a large perihepatic and fluid-filled collection as well as a deeper fluid collection adjacent to the duodenum and pancreas. Following subcutaneous infiltration of lidocaine 1% for local analgesia, under CT-guidance, an 18-gauge trocar needle was advanced into the large perihepatic air and fluid-filled collection. An 0.035 guidewire was looped within the collection and optimal position was confirmed with CT imaging. After serial dilatation, an 8 [place] all purpose drainage pigtail catheter was advanced over the guidewire into the collection. Approximately 150 mL of clear galindo colored fluid was aspirated and a sample was sent to microbiology for culture and sensitivity. Post-procedure imaging demonstrated decompression of the fluid collection post pigtail catheter placement without evidence of complications. The catheter was secured to the skin utilizing a sterile adhesive bandage and left to external gravity bag drainage. The patient then began to experience shortness of breath and respiratory distress precluding attempts to percutaneously drain the deeper collection. The patient tolerated the procedure well without immediate post-procedure complications and was transferred back to the floor in stable condition. IMPRESSION: Successful CT-guided drainage of large perihepatic abscess with placement of 8 [place] all purpose drainage pigtail catheter within the collection. After placement of the catheter, the patient began to explain shortness of breath and respiratory distress precluding the attempts to percutaneously drain the deeper collection. Repeat attempt to drain the deeper collection can be made when the patient's respiratory status is better optimized.
[2017-03-07] MEDS: Clindamycin 600mg/50ml NS 600 MG/50 ML BAG IVPB SCH ×3 (00:03→16:47)
[2017-03-07] MEDS: Oxycodone/Acetaminophen 5/325 mg Tab PO PRN ×3 (03:03→18:45)
[2017-03-07 05:49] LABS: BASO # 0.1 K/uL (0.0-0.2); BASO % 0.4 % (0.0-2.0); EOS % 0.3 % (0.0-4.0); HEMOGLOBIN 10.4 g/dL (12.0-18.0); LYMPH # 0.7 K/uL (1.0-4.3); LYMPH % 5.6 % (20.0-40.0); MEAN CELL VOLUME 84.7 fl (80.0-94.0); MEAN CORPUSCULAR HEMOGLOBIN 26.8 pg (27.0-31.0); MEAN CORPUSCULAR HGB CONC 31.6 g/dL (33.0-37.0); MEAN PLATELET VOLUME 8.6 fl (7.2-11.7); MONO % 7.9 % (0.0-10.0); NEUT # 10.6 K/uL (1.8-7.0); NEUT % 85.8 % (50.0-75.0); RBC 3.89 Mil/uL (4.40-5.90); WHITE BLOOD COUNT 12.4 K/uL (4.8-10.8)
[2017-03-07 06:09] LABS: ALB/GLOB RATIO 1.2 (1.0-2.1); ALBUMIN 2.6 g/dL (3.5-5.0)
[2017-03-07] MEDS: Albuterol-Ipratrop 3 mg / 0.5 (3 ml) UD INH SCH ×4 (07:32→19:33)
[2017-03-07] MEDS: Acetylcysteine 20% Inhal Soln (4ml) INH SCH ×2 (07:32→19:33)
--- NOTE | 2017-03-07 08:14 | CP.PCM.PN ---
<Carito Gore - Last Filed: 03/07/17 13:42> Subjective - Date & Time of Evaluation Date of Evaluation: 03/07/17 Time of Evaluation: 07:15 - Subjective Subjective: Patient seen and examined bedside with Dr Damon. Patient sitting on chair before having his breakfast. Patient s/p POD # 1 for intrabdominal abscess IR drainage, drain in place, scant serous drainage in bag. Patient had pain over incision site last night controlled with medications. He denies chest pain, sob , n, v, diarrhea. tolerating liquid diet. Objective - Vital Signs/Intake and Output Vital Signs (last 24 hours): Temp Pulse Resp BP Pulse Ox 98.8 F 91 H 21 140/78 96 03/07/17 05:00 03/07/17 05:00 03/07/17 05:00 03/07/17 05:00 03/07/17 05:00 - Medications Medications: Current Medications Acetaminophen (Tylenol 325mg Tab) 650 mg PO Q4 PRN PRN Reason: Fever >100.4 F Last Admin: 03/06/17 16:58 Dose: 650 mg Acetylcysteine (Acetylcysteine 20%) 2 ml INH RBID [facility] Last Admin: 03/07/17 07:32 Dose: 2 ml Albuterol/Ipratropium (Duoneb 3 Mg/0.5 Mg (3 Ml) Ud) 3 ml INH RQID [facility] Last Admin: 03/07/17 07:32 Dose: 3 ml Hydrochlorothiazide (Microzide) 12.5 mg PO DAILY [facility] Last Admin: 03/06/17 08:43 Dose: 12.5 mg Piperacillin Sod/Tazobactam (Sod 2.25 gm/ Sodium Chloride) 100 mls @ 100 mls/ hr IVPB Q8 [facility] PRN Reason: Protocol Last Admin: 03/07/17 01:00 Dose: 100 mls/hr Clindamycin Phosphate (Cleocin In Normal Saline) 600 mg in 50 mls @ 50 mls/hr IVPB Q8 [facility] PRN Reason: Protocol Last Admin: 03/07/17 00:03 Dose: 50 mls/hr Lactated Ringer's (Lactated Ringer's) 1,000 mls @ 100 mls/hr IV .Q10H [facility] Stop: 03/07/17 09:46 Potassium Chloride 10 meq/ (Sodium Chloride) 55 mls @ 55 mls/hr IV Q1 [facility] Stop: 03/07/17 09:59 Multivitamins/Minerals (Therapeutic-M Tab) 1 tab PO DAILY [facility] Last Admin: 03/06/17 08:43 Dose: 1 tab Ondansetron HCl (Zofran Inj) 4 mg IVP Q4 PRN PRN Reason: Nausea/Vomiting Oxycodone/Acetaminophen (Percocet 5/325 Mg Tab) 1 tab PO Q4 PRN PRN Reason: Pain, moderate (4-7) Stop: 03/09/17 14:31 Oxycodone/Acetaminophen (Percocet 5/325 Mg Tab) 2 tab PO Q4 PRN PRN Reason: Pain, severe (8-10) Stop: 03/09/17 14:31 Last Admin: 03/07/17 03:03 Dose: 2 tab Pantoprazole Sodium (Protonix Ec Tab) 40 mg PO DAILY [facility] Last Admin: 03/06/17 08:43 Dose: 40 mg Potassium Chloride (K-Dur 20 Meq Er Tab) 40 meq PO ONCE ONE Stop: 03/07/17 09:01 Zolpidem Tartrate (Ambien) 5 mg PO HS PRN PRN Reason: Insomnia Last Admin: 03/06/17 23:42 Dose: 5 mg - Labs Labs: 03/07/17 05:00 03/07/17 05:00 PT 16.3 Seconds (9.8-13.1) H 03/06/17 05:20 INR 1.5 (0.9-1.2) H 03/06/17 05:20 APTT 36.2 Seconds (25.6-37.1) 03/06/17 05:20 - Constitutional Appears: No Acute Distress - Head Exam Head Exam: ATRAUMATIC, NORMOCEPHALIC - Eye Exam Eye Exam: Normal appearance - ENT Exam ENT Exam: Mucous Membranes Moist - Neck Exam Neck Exam: Normal Inspection - Respiratory Exam Respiratory Exam: Decreased Breath Sounds, Rales. absent: Rhonchi, Wheezes Additional comments: b/l bibasal diminished breath sound and scattered rales bibasal - Cardiovascular Exam Cardiovascular Exam: REGULAR RHYTHM, +S1, +S2 - GI/Abdominal Exam GI & Abdominal Exam: Soft, Normal Bowel Sounds Additional comments: Midline staple incision with no drainage or erythema, non tender. RUQ with drain in place, scant serous drainage in bag. - Extremities Exam Extremities Exam: Normal Inspection. absent: Pedal Edema - Back Exam Back Exam: NORMAL INSPECTION - Neurological Exam Neurological Exam: Alert, Awake, Oriented x3 - Psychiatric Exam Psychiatric exam: Normal Affect, Normal Mood - Skin Skin Exam: Normal Color Assessment and Plan - Assessment and Plan (Free Text) Plan: 71 yr old M POD # 9 s/p laparoscopic right hemicolectomy for ascending colon mass (moderately differentiated adenocarcinoma) 1) s/p Right hemicolectomy for ascending colon mass day 9 -stable -path result. T2 adenocarinoma with 1/20 lymph nodes positive -tolerating regular diet - s/p Cefazolin, Metronidazole - Pain controlled with Dilauded, Zofran PRN nausea 2) Emphysema/COPD - O2 NC at 2 L if needed -chronic, controlled - O2 nasal canula - Duo Neb Q8 osnali 3) HAP -productive cough, fever, left lung base rales -Pulmonology consult appreciated: Zosyn/clindamycin day # 4 -sputum cx, blood cx -f/u cbc 4) Intrabdominal abscess -CT abd showed itrabdominal fluids around pancreas and right liver lobe aprox 3.9 x 5.9 cm -IR s/p IR drainage POD#1 5) Borderline left ventricular function -stable, controlled -Echo 01/01/17: impaired systolic function with LVEF of 45% -patients' filtering machine tender helper is Dr. Miller 6) HTN -controlled -HTZ 12.5 mg daily 7) DVT prophylaxis -lovenox 40 mg sc <Santo Damon A - Last Filed: 03/10/17 06:48> Objective - Vital Signs/Intake and Output Vital Signs (last 24 hours): Temp Pulse Resp BP Pulse Ox 98.9 F 79 18 127/66 97 03/10/17 05:00 03/10/17 05:00 03/10/17 05:00 03/10/17 05:00 03/10/17 05:00 Intake and Output: 03/09/17 03/10/17 18:59 06:59 Intake Total 650 Output Total 455 Balance 195 - Medications Medications: Current Medications Acetaminophen (Tylenol 325mg Tab) 650 mg PO Q4 PRN PRN Reason: Fever >100.4 F Last Admin: 03/09/17 16:25 Dose: 650 mg Acetylcysteine (Acetylcysteine 20%) 2 ml INH RBID [facility] Last Admin: 03/09/17 20:15 Dose: 2 ml Albuterol/Ipratropium (Duoneb 3 Mg/0.5 Mg (3 Ml) Ud) 3 ml INH RQID [facility] Last Admin: 03/09/17 20:14 Dose: 3 ml Albuterol/Ipratropium (Duoneb 3 Mg/0.5 Mg (3 Ml) Ud) 3 ml INH RQ6 PRN PRN Reason: Shortness of Breath Enoxaparin Sodium (Lovenox) 40 mg SC DAILY [facility] PRN Reason: Protocol Last Admin: 03/09/17 09:23 Dose: 40 mg Guaifenesin (Robitussin) 200 mg PO QID [facility] Last Admin: 03/09/17 23:00 Dose: 200 mg Hydrochlorothiazide (Hydrodiuril) 25 mg PO DAILY [facility] Last Admin: 03/09/17 09:34 Dose: 25 mg Metronidazole (Flagyl 500mg/100ml Ns) 100 mls @ 100 mls/hr IVPB Q8 [facility] PRN Reason: Protocol Last Admin: 03/10/17 01:11 Dose: 100 mls/hr Meropenem 500 mg/ Sodium (Chloride) 100 mls @ 100 mls/hr IVPB Q8 [facility] PRN Reason: Protocol Last Admin: 03/10/17 01:12 Dose: 100 mls/hr Ceftaroline Fosamil 400 mg/ (Sodium Chloride) 100 mls @ 100 mls/hr IVPB Q12 [facility] PRN Reason: Protocol Last Admin: 03/09/17 23:03 Dose: 100 mls/hr Multivitamins/Minerals (Therapeutic-M Tab) 1 tab PO DAILY [facility] Last Admin: 03/09/17 09:24 Dose: 1 tab Ondansetron HCl (Zofran Inj) 4 mg IVP Q4 PRN PRN Reason: Nausea/Vomiting Pantoprazole Sodium (Protonix Ec Tab) 40 mg PO DAILY [facility] Last Admin: 03/09/17 09:24 Dose: 40 mg Saliva Substitute (Caphosol 15 Ml) 15 ml MM Q4 PRN PRN Reason: Dry mouth Sodium Chloride ([place] Nasal [place]) 1 sprays DIAMOND Q6 [facility] Last Admin: 03/10/17 04:12 Dose: 1 spr Zolpidem Tartrate (Ambien) 5 mg PO HS PRN PRN Reason: Insomnia Last Admin: 03/09/17 23:03 Dose: 5 mg - Labs Labs: 03/10/17 04:40 03/10/17 04:40 PT 16.3 Seconds (9.8-13.1) H 03/06/17 05:20 INR 1.5 (0.9-1.2) H 03/06/17 05:20 APTT 36.2 Seconds (25.6-37.1) 03/06/17 05:20 Attending/Attestation - Attestation I have personally seen and examined this patient.: Yes I have fully participated in the care of the patient.: Yes I have reviewed all pertinent clinical information, including history, physical exam and plan: Yes
--- NOTE | 2017-03-07 08:29 | CP.PCM.PN ---
Subjective - Date & Time of Evaluation Date of Evaluation: 03/07/17 Time of Evaluation: 07:15 - Subjective Subjective: General surgery progress note for Dr. Lc Spicer, PGY-1 Pt S & E at bedside with attending. Pt reports fevers overnight, Tmax 101.4. Denies N & V, chills, CP, SOB, ab pain. Had IR drainage of fluid collection yesterday. Now with scant serous output to bag. Objective - Vital Signs/Intake and Output Vital Signs (last 24 hours): Temp Pulse Resp BP Pulse Ox 98.8 F 91 H 21 140/78 96 03/07/17 05:00 03/07/17 05:00 03/07/17 05:00 03/07/17 05:00 03/07/17 05:00 - Medications Medications: Current Medications Acetaminophen (Tylenol 325mg Tab) 650 mg PO Q4 PRN PRN Reason: Fever >100.4 F Last Admin: 03/06/17 16:58 Dose: 650 mg Acetylcysteine (Acetylcysteine 20%) 2 ml INH RBID [facility] Last Admin: 03/07/17 07:32 Dose: 2 ml Albuterol/Ipratropium (Duoneb 3 Mg/0.5 Mg (3 Ml) Ud) 3 ml INH RQID [facility] Last Admin: 03/07/17 07:32 Dose: 3 ml Hydrochlorothiazide (Microzide) 12.5 mg PO DAILY [facility] Last Admin: 03/06/17 08:43 Dose: 12.5 mg Piperacillin Sod/Tazobactam (Sod 2.25 gm/ Sodium Chloride) 100 mls @ 100 mls/ hr IVPB Q8 [facility] PRN Reason: Protocol Last Admin: 03/07/17 01:00 Dose: 100 mls/hr Clindamycin Phosphate (Cleocin In Normal Saline) 600 mg in 50 mls @ 50 mls/hr IVPB Q8 [facility] PRN Reason: Protocol Last Admin: 03/07/17 00:03 Dose: 50 mls/hr Lactated Ringer's (Lactated Ringer's) 1,000 mls @ 100 mls/hr IV .Q10H [facility] Stop: 03/07/17 09:46 Potassium Chloride 10 meq/ (Sodium Chloride) 55 mls @ 55 mls/hr IV Q1 [facility] Stop: 03/07/17 09:59 Multivitamins/Minerals (Therapeutic-M Tab) 1 tab PO DAILY [facility] Last Admin: 03/06/17 08:43 Dose: 1 tab Ondansetron HCl (Zofran Inj) 4 mg IVP Q4 PRN PRN Reason: Nausea/Vomiting Oxycodone/Acetaminophen (Percocet 5/325 Mg Tab) 1 tab PO Q4 PRN PRN Reason: Pain, moderate (4-7) Stop: 03/09/17 14:31 Oxycodone/Acetaminophen (Percocet 5/325 Mg Tab) 2 tab PO Q4 PRN PRN Reason: Pain, severe (8-10) Stop: 03/09/17 14:31 Last Admin: 03/07/17 03:03 Dose: 2 tab Pantoprazole Sodium (Protonix Ec Tab) 40 mg PO DAILY [facility] Last Admin: 03/06/17 08:43 Dose: 40 mg Potassium Chloride (K-Dur 20 Meq Er Tab) 40 meq PO ONCE ONE Stop: 03/07/17 09:01 Zolpidem Tartrate (Ambien) 5 mg PO HS PRN PRN Reason: Insomnia Last Admin: 03/06/17 23:42 Dose: 5 mg - Labs Labs: 03/07/17 05:00 03/07/17 05:00 PT 16.3 Seconds (9.8-13.1) H 03/06/17 05:20 INR 1.5 (0.9-1.2) H 03/06/17 05:20 APTT 36.2 Seconds (25.6-37.1) 03/06/17 05:20 - Constitutional Appears: Non-toxic, No Acute Distress - Head Exam Head Exam: ATRAUMATIC, NORMAL INSPECTION, NORMOCEPHALIC - Eye Exam Eye Exam: EOMI, Normal appearance - ENT Exam ENT Exam: Mucous Membranes Moist, Normal Exam - Neck Exam Neck Exam: Full ROM, Normal Inspection - Respiratory Exam Respiratory Exam: NORMAL BREATHING PATTERN - Cardiovascular Exam Cardiovascular Exam: REGULAR RHYTHM - GI/Abdominal Exam GI & Abdominal Exam: Soft. absent: Distended, Firm, Guarding, Tenderness - Neurological Exam Neurological Exam: Alert, Awake, CN II-XII Intact, Oriented x3 - Psychiatric Exam Psychiatric exam: Normal Affect, Normal Mood - Skin Skin Exam: Dry, Intact, Normal Color, Warm Additional comments: Midline staple incision with no drainage or erythema, non tender. RUQ with drain in place, scant serous drainage in bag. 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
[2017-03-07] MEDS: Multivitamin With Minerals Tab PO SCH (08:45)
[2017-03-07] MEDS: Pantoprazole 40 mg EC Tab PO SCH (08:45)
[2017-03-07] MEDS ORDERED: Potassium Chloride 20 mEq ER Tab PO ONE (09:00)
--- NOTE | 2017-03-07 09:26 | RAD ---
PROCEDURE: CHEST RADIOGRAPH, 1 VIEW HISTORY: pleural effusion COMPARISON: Chest radiographs 03/06/2017. FINDINGS: LUNGS: Inspiratory volume is diminished with crowding of bilateral basilar bronchovascular markings. Diminished atelectasis question the left base with none definitive at the right. Air-fluid level inferior to the right hemidiaphragm is not identified currently status post subdiaphragmatic/perihepatic drainage catheter placement 03/16/[address] control[address] PLEURA: No pneumothorax or pleural fluid seen. CARDIOVASCULAR: Normal. OSSEOUS STRUCTURES: No significant abnormalities. VISUALIZED UPPER ABDOMEN: Normal. OTHER FINDINGS: None. IMPRESSION: Diminished inspiratory volume with crowded bilateral basilar bronchovascular markings. Diminished atelectasis in the left base with none appreciated the right.
--- NOTE | 2017-03-07 15:04 | CP.PCM.PN ---
Subjective - Date & Time of Evaluation Date of Evaluation: 03/07/17 Time of Evaluation: 15:02 - Subjective Subjective: Interim events reviewed. Had IR insert percutaneous drainage catheter in right sided fluid collection. Has drained about 240mls of fluid thus far in total. Has had NO temp elevation since yesterday afternoon. Leukocytosis has decreased slightly. Still has congested cough and cxr suggests bibasal atelectasis. CT A/P showed left basal consolidation (small) and right basal effusion with consolidation. Dullness on percussion at both bases, more pronounced on the right. Few medium rales in the bases posteriorly. ++sonorous rhonchi R>L. No wheezes or bronchial breath sounds. Continue present regimen. Follow up CBC tomorrow AM. If no fever and WBC continue to decrease will not change. If recurrent fever, or increase in WBC would get ID consult. Added guaifenesin 200 QID. Continue CPT and aerosol therapy. Objective - Vital Signs/Intake and Output Vital Signs (last 24 hours): Temp Pulse Resp BP Pulse Ox 97.8 F 67 20 154/90 H 97 03/07/17 08:43 03/07/17 08:43 03/07/17 08:43 03/07/17 08:43 03/07/17 08:43 - Medications Medications: Current Medications Acetaminophen (Tylenol 325mg Tab) 650 mg PO Q4 PRN PRN Reason: Fever >100.4 F Last Admin: 03/06/17 16:58 Dose: 650 mg Acetylcysteine (Acetylcysteine 20%) 2 ml INH RBID [facility] Last Admin: 03/07/17 07:32 Dose: 2 ml Albuterol/Ipratropium (Duoneb 3 Mg/0.5 Mg (3 Ml) Ud) 3 ml INH RQID [facility] Last Admin: 03/07/17 11:00 Dose: 3 ml Enoxaparin Sodium (Lovenox) 40 mg SC DAILY [facility] PRN Reason: Protocol Guaifenesin (Robitussin) 200 mg PO QID [facility] Hydrochlorothiazide (Microzide) 12.5 mg PO DAILY [facility] Last Admin: 03/07/17 08:44 Dose: 12.5 mg Piperacillin Sod/Tazobactam (Sod 2.25 gm/ Sodium Chloride) 100 mls @ 100 mls/ hr IVPB Q8 [facility] PRN Reason: Protocol Last Admin: 03/07/17 08:47 Dose: 100 mls/hr Clindamycin Phosphate (Cleocin In Normal Saline) 600 mg in 50 mls @ 50 mls/hr IVPB Q8 [facility] PRN Reason: Protocol Last Admin: 03/07/17 08:41 Dose: 50 mls/hr Multivitamins/Minerals (Therapeutic-M Tab) 1 tab PO DAILY [facility] Last Admin: 03/07/17 08:45 Dose: 1 tab Ondansetron HCl (Zofran Inj) 4 mg IVP Q4 PRN PRN Reason: Nausea/Vomiting Oxycodone/Acetaminophen (Percocet 5/325 Mg Tab) 1 tab PO Q4 PRN PRN Reason: Pain, moderate (4-7) Stop: 03/09/17 14:31 Oxycodone/Acetaminophen (Percocet 5/325 Mg Tab) 2 tab PO Q4 PRN PRN Reason: Pain, severe (8-10) Stop: 03/09/17 14:31 Last Admin: 03/07/17 13:44 Dose: 2 tab Pantoprazole Sodium (Protonix Ec Tab) 40 mg PO DAILY [facility] Last Admin: 03/07/17 08:45 Dose: 40 mg Zolpidem Tartrate (Ambien) 5 mg PO HS PRN PRN Reason: Insomnia Last Admin: 03/06/17 23:42 Dose: 5 mg - Labs Labs: 03/07/17 05:00 03/07/17 05:00 PT 16.3 Seconds (9.8-13.1) H 03/06/17 05:20 INR 1.5 (0.9-1.2) H 03/06/17 05:20 APTT 36.2 Seconds (25.6-37.1) 03/06/17 05:20 Assessment and Plan (1) Nosocomial pneumonia Status: Acute
[2017-03-07] MEDS: Enoxaparin 40 mg Syringe SC SCH (16:47)
[2017-03-07] MEDS: guaiFENesin 200 mg/10 ml Syrup UD PO SCH ×2 (16:48→21:44)
[2017-03-08] MEDS: Clindamycin 600mg/50ml NS 600 MG/50 ML BAG IVPB SCH ×2 (00:40→08:24)
[2017-03-08 07:48] LABS: HEMOGLOBIN 10.9 g/dL (12.0-18.0); MEAN CELL VOLUME 84.4 fl (80.0-94.0); MEAN CORPUSCULAR HEMOGLOBIN 25.9 pg (27.0-31.0); MEAN CORPUSCULAR HGB CONC 30.7 g/dL (33.0-37.0); RBC 4.22 Mil/uL (4.40-5.90); RED CELL DISTRIBUTION WIDTH 17.4 % (11.5-14.5); WHITE BLOOD COUNT 16.6 K/uL (4.8-10.8)
[2017-03-08] MEDS: Acetylcysteine 20% Inhal Soln (4ml) INH SCH ×2 (08:03→19:16)
[2017-03-08] MEDS: Albuterol-Ipratrop 3 mg / 0.5 (3 ml) UD INH SCH ×4 (08:03→19:17)
[2017-03-08] MEDS: Enoxaparin 40 mg Syringe SC SCH (08:25)
[2017-03-08] MEDS: guaiFENesin 200 mg/10 ml Syrup UD PO SCH ×4 (08:27→21:18)
[2017-03-08] MEDS: Multivitamin With Minerals Tab PO SCH (08:27)
[2017-03-08] MEDS: Pantoprazole 40 mg EC Tab PO SCH (08:27)
[2017-03-08] MEDS: Oxycodone/Acetaminophen 5/325 mg Tab PO PRN ×2 (08:47→17:23)
--- NOTE | 2017-03-08 08:58 | RAD ---
PROCEDURE: CHEST RADIOGRAPH, 1 VIEW HISTORY: PNA.pleural effusion COMPARISON: Yesterday FINDINGS: LUNGS: Persistent bibasilar subsegmental atelectasis and volume loss are noted. No new infiltrate is appreciated. PLEURA: Minor right pleural effusion is not excluded with some blunting of the right costophrenic angle. CARDIOVASCULAR: Stable vascular markings. Mild aneurysmal dilatation of the aorta with atherosclerotic change. OSSEOUS STRUCTURES: No significant abnormalities. VISUALIZED UPPER ABDOMEN: Normal. OTHER FINDINGS: None. IMPRESSION: Persistent bibasilar atelectasis and volume loss. Slight vascular congestion is probably unchanged. No new infiltrate.
--- NOTE | 2017-03-08 09:14 | CP.PCM.PN ---
Subjective - Date & Time of Evaluation Date of Evaluation: 03/08/17 Time of Evaluation: 07:15 - Subjective Subjective: Patient seen and examined bedside sitting on chair before having breakfast breathing using O2 nc, with SOB. Patient reports that medications given before breakfast cuts his appetite. He denies chest pain, abd pain. no overnight event. drainage wit serous discharge small amount. Objective - Vital Signs/Intake and Output Vital Signs (last 24 hours): Temp Pulse Resp BP Pulse Ox 99.1 F 89 20 165/88 H 96 03/08/17 08:04 03/08/17 08:04 03/08/17 08:04 03/08/17 08:04 03/08/17 08:04 Intake and Output: 03/08/17 03/08/17 06:59 18:59 Output Total 600 Balance -600 - Medications Medications: Current Medications Acetaminophen (Tylenol 325mg Tab) 650 mg PO Q4 PRN PRN Reason: Fever >100.4 F Last Admin: 03/06/17 16:58 Dose: 650 mg Acetylcysteine (Acetylcysteine 20%) 2 ml INH RBID [facility] Last Admin: 03/08/17 08:03 Dose: 2 ml Albuterol/Ipratropium (Duoneb 3 Mg/0.5 Mg (3 Ml) Ud) 3 ml INH RQID [facility] Last Admin: 03/08/17 08:03 Dose: 3 ml Enoxaparin Sodium (Lovenox) 40 mg SC DAILY [facility] PRN Reason: Protocol Last Admin: 03/08/17 08:25 Dose: 40 mg Guaifenesin (Robitussin) 200 mg PO QID [facility] Last Admin: 03/08/17 08:27 Dose: 200 mg Hydrochlorothiazide (Hydrodiuril) 25 mg PO DAILY [facility] Piperacillin Sod/Tazobactam (Sod 2.25 gm/ Sodium Chloride) 100 mls @ 100 mls/ hr IVPB Q8 [facility] PRN Reason: Protocol Last Admin: 03/08/17 08:25 Dose: 100 mls/hr Clindamycin Phosphate (Cleocin In Normal Saline) 600 mg in 50 mls @ 50 mls/hr IVPB Q8 [facility] PRN Reason: Protocol Last Admin: 03/08/17 08:24 Dose: 50 mls/hr Potassium Chloride 10 meq/ (Sodium Chloride) 55 mls @ 55 mls/hr IV Q1 [facility] Stop: 03/08/17 12:59 Multivitamins/Minerals (Therapeutic-M Tab) 1 tab PO DAILY [facility] Last Admin: 03/08/17 08:27 Dose: 1 tab Ondansetron HCl (Zofran Inj) 4 mg IVP Q4 PRN PRN Reason: Nausea/Vomiting Oxycodone/Acetaminophen (Percocet 5/325 Mg Tab) 1 tab PO Q4 PRN PRN Reason: Pain, moderate (4-7) Stop: 03/09/17 14:31 Last Admin: 03/08/17 08:47 Dose: 1 tab Oxycodone/Acetaminophen (Percocet 5/325 Mg Tab) 2 tab PO Q4 PRN PRN Reason: Pain, severe (8-10) Stop: 03/09/17 14:31 Last Admin: 03/07/17 13:44 Dose: 2 tab Pantoprazole Sodium (Protonix Ec Tab) 40 mg PO DAILY [facility] Last Admin: 03/08/17 08:27 Dose: 40 mg Zolpidem Tartrate (Ambien) 5 mg PO HS PRN PRN Reason: Insomnia Last Admin: 03/07/17 21:44 Dose: 5 mg - Labs Labs: 03/08/17 05:30 03/07/17 05:00 PT 16.3 Seconds (9.8-13.1) H 03/06/17 05:20 INR 1.5 (0.9-1.2) H 03/06/17 05:20 APTT 36.2 Seconds (25.6-37.1) 03/06/17 05:20 - Constitutional Appears: No Acute Distress - Head Exam Head Exam: ATRAUMATIC, NORMOCEPHALIC - Eye Exam Eye Exam: Normal appearance - ENT Exam ENT Exam: Mucous Membranes Moist - Neck Exam Neck Exam: Normal Inspection - Respiratory Exam Respiratory Exam: Decreased Breath Sounds, Rales. absent: Rhonchi, Wheezes Additional comments: bibasal decreased lung bases, rales over 2/3 left lung. - Cardiovascular Exam Cardiovascular Exam: REGULAR RHYTHM, +S1, +S2 - GI/Abdominal Exam GI & Abdominal Exam: Soft, Normal Bowel Sounds. absent: Tenderness Additional comments: Midline staple incision with no drainage or erythema, non tender. RUQ with drain in place, scant serous drainage in bag. - Extremities Exam Extremities Exam: Normal Inspection. absent: Pedal Edema - Back Exam Back Exam: NORMAL INSPECTION - Neurological Exam Neurological Exam: Alert, Awake, Oriented x3 - Psychiatric Exam Psychiatric exam: Normal Mood - Skin Skin Exam: absent: Cyanosis, Diaphoretic Assessment and Plan - Assessment and Plan (Free Text) Plan: 71 yr old M PMHx/o HTN, COPD, CAD, CKD, POD # 10 s/p laparoscopic right hemicolectomy for ascending colon mass (moderately differentiated adenocarcinoma ) 1) s/p Right hemicolectomy for ascending colon mass day 10 -stable -path result. 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 Ordered CT chest w/o contrast. V/Q scan to r/o PE -Pulmonology consult appreciated 3) HAP -productive cough, fever, left lung base rales -Pulmonology consult appreciated: Zosyn/clindamycin day # 5 -sputum cx, blood cx -patient was hypoxemic yest while PT. CT chest w/o contrast. V/Q scan to r/o PE -f/u cbc 4) Intrabdominal abscess -CT abd showed itrabdominal fluids around pancreas and right liver lobe aprox 3.9 x 5.9 cm -IR s/p IR drainage POD#2 -wbc treniding up 16.6 -ID consult suggested 5) Borderline left ventricular function -stable, controlled -Echo 01/01/17: impaired systolic function with LVEF of 45% -patients' shipper is Dr. Miller: c/w hydralazine. 6)CKD stage 3 -GFR 38 cr 1.8 7) HTN -controlled -HTZ 12.5 mg daily 8) DVT prophylaxis -lovenox 40 mg sc
[2017-03-08] MEDS ORDERED: Albuterol-Ipratrop 3 mg / 0.5 (3 ml) UD INH PRN (09:26)
--- NOTE | 2017-03-08 09:46 | CP.PCM.PN ---
Subjective - Date & Time of Evaluation Date of Evaluation: 03/08/17 Time of Evaluation: 09:42 - Subjective Subjective: Tmax 100 degrees overnight. Leukocytosis has increased to 16 this morning. Small volume of drainage from catheter, culture still pending. PCXR still showing bibasal densities. Have requested ID consultation. Likely needs change of antibiotic therapy. May need repeat CT A/P to assess effectiveness of drainage. Objective - Vital Signs/Intake and Output Vital Signs (last 24 hours): Temp Pulse Resp BP Pulse Ox 99.1 F 89 20 165/88 H 96 03/08/17 08:04 03/08/17 08:04 03/08/17 08:04 03/08/17 08:04 03/08/17 08:04 Intake and Output: 03/07/17 03/08/17 23:59 11:59 Output Total 600 Balance -600 - Medications Medications: Current Medications Acetaminophen (Tylenol 325mg Tab) 650 mg PO Q4 PRN PRN Reason: Fever >100.4 F Last Admin: 03/06/17 16:58 Dose: 650 mg Acetylcysteine (Acetylcysteine 20%) 2 ml INH RBID [facility] Last Admin: 03/08/17 08:03 Dose: 2 ml Albuterol/Ipratropium (Duoneb 3 Mg/0.5 Mg (3 Ml) Ud) 3 ml INH RQID [facility] Last Admin: 03/08/17 08:03 Dose: 3 ml Albuterol/Ipratropium (Duoneb 3 Mg/0.5 Mg (3 Ml) Ud) 3 ml INH RQ6 PRN PRN Reason: Shortness of Breath Enoxaparin Sodium (Lovenox) 40 mg SC DAILY [facility] PRN Reason: Protocol Last Admin: 03/08/17 08:25 Dose: 40 mg Guaifenesin (Robitussin) 200 mg PO QID [facility] Last Admin: 03/08/17 08:27 Dose: 200 mg Hydrochlorothiazide (Hydrodiuril) 25 mg PO DAILY [facility] Piperacillin Sod/Tazobactam (Sod 2.25 gm/ Sodium Chloride) 100 mls @ 100 mls/ hr IVPB Q8 [facility] PRN Reason: Protocol Last Admin: 03/08/17 08:25 Dose: 100 mls/hr Clindamycin Phosphate (Cleocin In Normal Saline) 600 mg in 50 mls @ 50 mls/hr IVPB Q8 [facility] PRN Reason: Protocol Last Admin: 03/08/17 08:24 Dose: 50 mls/hr Multivitamins/Minerals (Therapeutic-M Tab) 1 tab PO DAILY [facility] Last Admin: 03/08/17 08:27 Dose: 1 tab Ondansetron HCl (Zofran Inj) 4 mg IVP Q4 PRN PRN Reason: Nausea/Vomiting Oxycodone/Acetaminophen (Percocet 5/325 Mg Tab) 1 tab PO Q4 PRN PRN Reason: Pain, moderate (4-7) Stop: 03/09/17 14:31 Last Admin: 03/08/17 08:47 Dose: 1 tab Oxycodone/Acetaminophen (Percocet 5/325 Mg Tab) 2 tab PO Q4 PRN PRN Reason: Pain, severe (8-10) Stop: 03/09/17 14:31 Last Admin: 03/07/17 13:44 Dose: 2 tab Pantoprazole Sodium (Protonix Ec Tab) 40 mg PO DAILY [facility] Last Admin: 03/08/17 08:27 Dose: 40 mg Zolpidem Tartrate (Ambien) 5 mg PO HS PRN PRN Reason: Insomnia Last Admin: 03/07/17 21:44 Dose: 5 mg - Labs Labs: 03/08/17 05:30 03/07/17 05:00 PT 16.3 Seconds (9.8-13.1) H 03/06/17 05:20 INR 1.5 (0.9-1.2) H 03/06/17 05:20 APTT 36.2 Seconds (25.6-37.1) 03/06/17 05:20 Assessment and Plan (1) Nosocomial pneumonia Status: Acute
--- NOTE | 2017-03-08 10:26 | CP.PCM.PN ---
Subjective - Date & Time of Evaluation Date of Evaluation: 03/08/17 Time of Evaluation: 08:45 - Subjective Subjective: General Surgery Dr. Lundy (covering Dr. Kapoor) Pt S&E @bedside. NAEO. Pt has no complaints. wants to know when he can go home. Pt denies CP, SOB, abd pain, N/V. (+)BM/Flatus. tolerating regular diet IR drain <5cc serous drainage. Objective - Vital Signs/Intake and Output Vital Signs (last 24 hours): Temp Pulse Resp BP Pulse Ox 99.1 F 89 20 165/88 H 96 03/08/17 09:00 03/08/17 09:00 03/08/17 09:00 03/08/17 09:00 03/08/17 09:00 Intake and Output: 03/08/17 03/08/17 06:59 18:59 Output Total 600 Balance -600 - Medications Medications: Current Medications Acetaminophen (Tylenol 325mg Tab) 650 mg PO Q4 PRN PRN Reason: Fever >100.4 F Last Admin: 03/06/17 16:58 Dose: 650 mg Acetylcysteine (Acetylcysteine 20%) 2 ml INH RBID [facility] Last Admin: 03/08/17 08:03 Dose: 2 ml Albuterol/Ipratropium (Duoneb 3 Mg/0.5 Mg (3 Ml) Ud) 3 ml INH RQID [facility] Last Admin: 03/08/17 08:03 Dose: 3 ml Albuterol/Ipratropium (Duoneb 3 Mg/0.5 Mg (3 Ml) Ud) 3 ml INH RQ6 PRN PRN Reason: Shortness of Breath Enoxaparin Sodium (Lovenox) 40 mg SC DAILY [facility] PRN Reason: Protocol Last Admin: 03/08/17 08:25 Dose: 40 mg Guaifenesin (Robitussin) 200 mg PO QID [facility] Last Admin: 03/08/17 08:27 Dose: 200 mg Hydrochlorothiazide (Hydrodiuril) 25 mg PO DAILY [facility] Last Admin: 03/08/17 09:42 Dose: 25 mg Piperacillin Sod/Tazobactam (Sod 2.25 gm/ Sodium Chloride) 100 mls @ 100 mls/ hr IVPB Q8 [facility] PRN Reason: Protocol Last Admin: 03/08/17 08:25 Dose: 100 mls/hr Multivitamins/Minerals (Therapeutic-M Tab) 1 tab PO DAILY [facility] Last Admin: 03/08/17 08:27 Dose: 1 tab Ondansetron HCl (Zofran Inj) 4 mg IVP Q4 PRN PRN Reason: Nausea/Vomiting Oxycodone/Acetaminophen (Percocet 5/325 Mg Tab) 1 tab PO Q4 PRN PRN Reason: Pain, moderate (4-7) Stop: 03/09/17 14:31 Last Admin: 03/08/17 08:47 Dose: 1 tab Oxycodone/Acetaminophen (Percocet 5/325 Mg Tab) 2 tab PO Q4 PRN PRN Reason: Pain, severe (8-10) Stop: 03/09/17 14:31 Last Admin: 03/07/17 13:44 Dose: 2 tab Pantoprazole Sodium (Protonix Ec Tab) 40 mg PO DAILY [facility] Last Admin: 03/08/17 08:27 Dose: 40 mg Zolpidem Tartrate (Ambien) 5 mg PO HS PRN PRN Reason: Insomnia Last Admin: 03/07/17 21:44 Dose: 5 mg - Labs Labs: 03/08/17 05:30 03/07/17 05:00 PT 16.3 Seconds (9.8-13.1) H 03/06/17 05:20 INR 1.5 (0.9-1.2) H 03/06/17 05:20 APTT 36.2 Seconds (25.6-37.1) 03/06/17 05:20 - Constitutional Appears: Non-toxic, No Acute Distress - Head Exam Head Exam: NORMAL INSPECTION - Eye Exam Eye Exam: Normal appearance - ENT Exam ENT Exam: Mucous Membranes Moist - Respiratory Exam Respiratory Exam: NORMAL BREATHING PATTERN. absent: Accessory Muscle Use, Respiratory Distress - Cardiovascular Exam Cardiovascular Exam: absent: Bradycardia, Tachycardia - GI/Abdominal Exam GI & Abdominal Exam: Soft. 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 Kamron Peterson DO PGY2
--- NOTE | 2017-03-08 11:45 | CP.PCM.PN ---
Subjective - Date & Time of Evaluation Date of Evaluation: 03/08/16 Time of Evaluation: 11:37 - Subjective Subjective: I D NOTE PATIENT CHART REVIEWED WBC HAS INCREASED CREATININE IS INCREASED HAVE DISCONTINUED CLINDAMYCIN/ZOSYN STARTED FLAGYL/MEROPENEM(ADJUSTED DOSE) Objective - Vital Signs/Intake and Output Vital Signs (last 24 hours): Temp Pulse Resp BP Pulse Ox 99.1 F 89 20 165/88 H 96 03/08/17 09:00 03/08/17 09:00 03/08/17 09:00 03/08/17 09:00 03/08/17 09:00 Intake and Output: 03/08/17 03/08/17 06:59 18:59 Output Total 600 Balance -600 - Medications Medications: Current Medications Acetaminophen (Tylenol 325mg Tab) 650 mg PO Q4 PRN PRN Reason: Fever >100.4 F Last Admin: 03/06/17 16:58 Dose: 650 mg Acetylcysteine (Acetylcysteine 20%) 2 ml INH RBID [facility] Last Admin: 03/08/17 08:03 Dose: 2 ml Albuterol/Ipratropium (Duoneb 3 Mg/0.5 Mg (3 Ml) Ud) 3 ml INH RQID [facility] Last Admin: 03/08/17 11:17 Dose: 3 ml Albuterol/Ipratropium (Duoneb 3 Mg/0.5 Mg (3 Ml) Ud) 3 ml INH RQ6 PRN PRN Reason: Shortness of Breath Enoxaparin Sodium (Lovenox) 40 mg SC DAILY [facility] PRN Reason: Protocol Last Admin: 03/08/17 08:25 Dose: 40 mg Guaifenesin (Robitussin) 200 mg PO QID [facility] Last Admin: 03/08/17 08:27 Dose: 200 mg Hydrochlorothiazide (Hydrodiuril) 25 mg PO DAILY [facility] Last Admin: 03/08/17 09:42 Dose: 25 mg Metronidazole (Flagyl 500mg/100ml Ns) 100 mls @ 100 mls/hr IVPB Q8 [facility] PRN Reason: Protocol Meropenem 500 mg/ Sodium (Chloride) 100 mls @ 100 mls/hr IVPB Q8 [facility] PRN Reason: Protocol Multivitamins/Minerals (Therapeutic-M Tab) 1 tab PO DAILY [facility] Last Admin: 03/08/17 08:27 Dose: 1 tab Ondansetron HCl (Zofran Inj) 4 mg IVP Q4 PRN PRN Reason: Nausea/Vomiting Oxycodone/Acetaminophen (Percocet 5/325 Mg Tab) 1 tab PO Q4 PRN PRN Reason: Pain, moderate (4-7) Stop: 03/09/17 14:31 Last Admin: 03/08/17 08:47 Dose: 1 tab Oxycodone/Acetaminophen (Percocet 5/325 Mg Tab) 2 tab PO Q4 PRN PRN Reason: Pain, severe (8-10) Stop: 03/09/17 14:31 Last Admin: 03/07/17 13:44 Dose: 2 tab Pantoprazole Sodium (Protonix Ec Tab) 40 mg PO DAILY [facility] Last Admin: 03/08/17 08:27 Dose: 40 mg Zolpidem Tartrate (Ambien) 5 mg PO HS PRN PRN Reason: Insomnia Last Admin: 03/07/17 21:44 Dose: 5 mg - Labs Labs: 03/08/17 05:30 03/07/17 05:00 PT 16.3 Seconds (9.8-13.1) H 03/06/17 05:20 INR 1.5 (0.9-1.2) H 03/06/17 05:20 APTT 36.2 Seconds (25.6-37.1) 03/06/17 05:20
[2017-03-08] MEDS: metroNIDAZOLE 500mg/100ml NS 100 ML IVPB SCH ×2 (12:21→17:21)
--- NOTE | 2017-03-08 14:01 | CT ---
PROCEDURE: CT Chest without contrast HISTORY: PNA.Fleural effusion.hypoxemia COMPARISON: Chest x-ray 03/08/2017, CT scan 03/06/2017 and 03/05/2017 of the abdomen TECHNIQUE: Contiguous axial images were obtained through the chest without intravenous contrast enhancement. Sagittal and coronal reconstructions were performed. Radiation dose (DLP): 1180 mGy-cm. This CT exam was performed using one or more of the following dose reduction techniques: Automated exposure control, adjustment of the mA and/or kV according to patient size, and/or use of iterative reconstruction technique. FINDINGS: LUNGS: There is moderate eventration of the right hemidiaphragm. Small right pleural effusion and minor left effusion are seen. There is evidence of some infiltrate and atelectasis posteriorly at the right lung base just above the right hemidiaphragm with air bronchograms. Lesser degree is seen anteriorly in this region. There is also some mild subsegmental atelectasis seen posteriorly in the right middle lobe. Mild patchy interstitial change and scarring are seen elsewhere in the lungs. Possible tree-in-bud appearance is not excluded. Mild subsegmental atelectasis is also seen just above the left hemidiaphragm. MEDIASTINUM: Mild aneurysmal dilatation of the aorta is noted in the ascending aorta region. No intramural hematoma is seen. Heart is top-normal in size. Mild pericardial fluid is noted. Main pulmonary artery unremarkable. No vascular congestion. Small scattered lymph nodes are seen in the mediastinum. Visualized thoracic inlet is unremarkable. Axillary regions are unremarkable. Visualized esophagus is within normal limits. PLEURA: Small right effusion and minor left effusion. BONES: Degenerative changes are noted in the spine. No appreciable rib fractures are noted. Sternum is intact. UPPER ABDOMEN: Images of the upper abdomen reveal evidence of previously identified drainage catheter in the right upper abdomen anterior to the liver. Ascites is seen overlying the right lobe of the liver, greater anteriorly. There are some nonspecific small pockets of air seen within the fluid just beneath the right hemidiaphragm. This may be related to the tube placement and/or air from abscess. Lack of contrast limits evaluation of the fluid. Gallbladder appears to been previously removed. Small liver cyst is unchanged. Visualized stomach and adrenal glands are unremarkable. OTHER FINDINGS: None. IMPRESSION: Poor expiratory effort with eventration of the right hemidiaphragm. Just above the right hemidiaphragm there are areas of infiltrate or atelectasis with air bronchograms. Small right effusion. Chronic interstitial changes elsewhere with some mild subsegmental atelectasis seen in the right middle lobe, lingula, and also inferior left lower lobe. Status post right upper abdominal drainage catheter. Ascites is seen overlying the liver dome with some small pockets of air noted. These are not well appreciated on the plain film x-ray of the same day.
[2017-03-08] MEDS: Meropenem 500 MG in Sodium Chloride 0.9% 100 ML IVPB SCH (17:22)
--- NOTE | 2017-03-08 19:16 | CP.PCM.CON ---
History of Present Illness - History of Present Illness History of Present Illness: 71 year old male with a history of COPD, HTN, stage III colon cancer diagnosed during this admission s/p laparoscopic right hemicolectomy. He reports he is recuperating well since his surgery but does not have much of an appetite. He denies fevers and chills. He has not abnormal bleeding and bruising. Past medical hsitory: COPD, HTN Past surgical history: lung lobectomy for blebs Family history: Brother had colon cancer at 35 Social history: Denies tobacco, alcohol, and illicit drug use. Allergies: NKA Revew of systems: All remaining review of systems including HEENT, cardiovascular, respiratory, gastrointestinal, genitourinary, musculoskeletal, dermatologic, neurologic, and psychiatric are negative unless mentioned in the HPI. Past Patient History - Past Medical History & Family History Past Medical History?: Yes - Past Social History Smoking Status: Never Smoked Chewing Tobacco Use: No Cigar Use: No Alcohol: Social Drugs: Denies Home Situation {Lives}: With Family - CARDIAC Hx Hypertension: Yes - PULMONARY Hx Bronchitis: Yes - NEUROLOGICAL Hx Neurological Disorder: No - HEENT Hx HEENT Problems: No - RENAL Hx Chronic Kidney Disease: Yes Other/Comment: Hx chronic renal insufficiency. Hx CKD. Hx Renal Cyst - ENDOCRINE/METABOLIC Hx Endocrine Disorders: No - HEMATOLOGICAL/ONCOLOGICAL Hx Anemia: Yes Hx Blood Transfusions: Yes Hx Cancer: Yes (Recent colonoscopy with biopsy) - INTEGUMENTARY Hx Dermatological Problems: No - MUSCULOSKELETAL/RHEUMATOLOGICAL Hx Falls: Yes - GASTROINTESTINAL Hx Gastritis: Yes Other/Comment: Hx Colonic Mass. Hx GI bleed - GENITOURINARY/GYNECOLOGICAL Hx Prostate Problems: Yes - PSYCHIATRIC Hx Psychophysiologic Disorder: No Hx Substance Use: No - SURGICAL HISTORY Other/Comment: Prostatectomy - ANESTHESIA Hx Anesthesia: Yes Hx Anesthesia Reactions: No Hx Malignant Hyperthermia: No Has any member of the family had a problem w/ anesthesia?: No Meds Allergies/Adverse Reactions: Allergies Allergy/AdvReac Type Severity Reaction Status Date / Time No Known Allergies Allergy Verified 02/25/17 08:25 - Medications Medications: Current Medications Acetaminophen (Tylenol 325mg Tab) 650 mg PO Q4 PRN PRN Reason: Fever >100.4 F Last Admin: 03/06/17 16:58 Dose: 650 mg Acetylcysteine (Acetylcysteine 20%) 2 ml INH RBID [facility] Last Admin: 03/08/17 08:03 Dose: 2 ml Albuterol/Ipratropium (Duoneb 3 Mg/0.5 Mg (3 Ml) Ud) 3 ml INH RQID [facility] Last Admin: 03/08/17 15:42 Dose: 3 ml Albuterol/Ipratropium (Duoneb 3 Mg/0.5 Mg (3 Ml) Ud) 3 ml INH RQ6 PRN PRN Reason: Shortness of Breath Enoxaparin Sodium (Lovenox) 40 mg SC DAILY [facility] PRN Reason: Protocol Last Admin: 03/08/17 08:25 Dose: 40 mg Guaifenesin (Robitussin) 200 mg PO QID [facility] Last Admin: 03/08/17 17:24 Dose: 200 mg Hydrochlorothiazide (Hydrodiuril) 25 mg PO DAILY [facility] Last Admin: 03/08/17 09:42 Dose: 25 mg Metronidazole (Flagyl 500mg/100ml Ns) 100 mls @ 100 mls/hr IVPB Q8 [facility] PRN Reason: Protocol Last Admin: 03/08/17 17:21 Dose: 100 mls/hr Meropenem 500 mg/ Sodium (Chloride) 100 mls @ 100 mls/hr IVPB Q8 [facility] PRN Reason: Protocol Last Admin: 03/08/17 17:22 Dose: 100 mls/hr Multivitamins/Minerals (Therapeutic-M Tab) 1 tab PO DAILY [facility] Last Admin: 03/08/17 08:27 Dose: 1 tab Ondansetron HCl (Zofran Inj) 4 mg IVP Q4 PRN PRN Reason: Nausea/Vomiting Oxycodone/Acetaminophen (Percocet 5/325 Mg Tab) 1 tab PO Q4 PRN PRN Reason: Pain, moderate (4-7) Stop: 03/09/17 14:31 Last Admin: 03/08/17 17:23 Dose: 1 tab Oxycodone/Acetaminophen (Percocet 5/325 Mg Tab) 2 tab PO Q4 PRN PRN Reason: Pain, severe (8-10) Stop: 03/09/17 14:31 Last Admin: 03/07/17 13:44 Dose: 2 tab Pantoprazole Sodium (Protonix Ec Tab) 40 mg PO DAILY [facility] Last Admin: 03/08/17 08:27 Dose: 40 mg Zolpidem Tartrate (Ambien) 5 mg PO HS PRN PRN Reason: Insomnia Last Admin: 03/07/17 21:44 Dose: 5 mg Physical Exam - Head Exam Head Exam: ATRAUMATIC - Eye Exam Eye Exam: Normal appearance - ENT Exam ENT Exam: Mucous Membranes Dry - Respiratory Exam Respiratory Exam: NORMAL BREATHING PATTERN - Cardiovascular Exam Cardiovascular Exam: +S1, +S2 - GI/Abdominal Exam GI & Abdominal Exam: Normal Bowel Sounds - Neurological Exam Neurological exam: Oriented x3 - Psychiatric Exam Psychiatric exam: Normal Affect, Normal Mood - Skin Skin Exam: Warm Results - Vital Signs Recent Vital Signs: Last Vital Signs Temp 99.8 F H 03/08/17 17:00 Pulse 89 03/08/17 17:00 Resp 20 03/08/17 17:00 BP 153/88 H 03/08/17 17:00 Pulse Ox 95 03/08/17 17:00 - Labs Result Diagrams: 03/08/17 05:30 03/07/17 05:00 Labs: Laboratory Results - last 24 hr 03/07/17 03/08/17 03/08/17 21:54 05:30 06:05 WBC 16.6 H RBC 4.22 L Hgb 10.9 L Hct 35.6 MCV 84.4 MCH 25.9 L MCHC 30.7 L RDW 17.4 H Plt Count 187 POC Glucose (mg/dL) 115 H 108 Lactic Acid 03/08/17 03/08/17 03/08/17 10:42 15:45 16:39 WBC RBC Hgb Hct MCV MCH MCHC RDW Plt Count POC Glucose (mg/dL) 150 H 125 H Lactic Acid 1.1 Assessment & Plan (1) Anemia Assessment and Plan: will check ferritin, retic count, b12, folate to characterize Status: Acute (2) Leukocytosis Assessment and Plan: on antibiotics Status: Acute (3) Adenocarcinoma of colon Assessment and Plan: stage III (pT2 N1a Mx) no evidence of distant metastasis by imaging would benefit from 6 months of outpatient adjuvant chemotherapy will require portacath placement Thank you for this interesting consult. Status: Acute
[2017-03-09] MEDS: metroNIDAZOLE 500mg/100ml NS 100 ML IVPB SCH ×3 (00:05→17:23)
[2017-03-09] MEDS: Meropenem 500 MG in Sodium Chloride 0.9% 100 ML IVPB SCH ×3 (01:28→17:22)
--- NOTE | 2017-03-09 05:58 | CON ---
DATE: INFECTIOUS DISEASE CONSULT HISTORY OF PRESENT ILLNESS: The patient is a 71-year-old male, who I had seen on previous hospitalization and at which time, he was treated for pneumonia. At that time also he had a GI workup and it revealed a colonic carcinoma. He, on this admission, came in on 02/25 and had a right hemicolectomy. Postoperatively, he had severe leukocytosis and had a fever. Chest x-ray showed elevation of the right hemidiaphragm.He seemed to be improving and then today he developed increasing white count which increased to 16 and also had temperature of 101. The patient has an unusual affect and when I asked him what his problem is, he does not say anything other than that he cannot eat. He does not answer appropriately as to whether he has nausea, vomiting or chills, but he looks as if he is having difficulty breathing and appears sob ,but again the eating is his complaint. He has been receiving Zosyn and clindamycin. PHYSICAL EXAMINATION: HEENT: Essentially within normal limits, although the conjunctivae are pale. NECK: Supple. LUNGS: Decreased breath sound and he has bilateral scattered rhonchi. His chest x-ray has bibasilar densities. He has a small volume of drainage in the drainage catheter. He said when it was initially placed, he felt better. At present time, again, he has an unusual affect. ABDOMEN: Positive bowel sounds and again, he has the drainage catheter. EXTREMITIES: No CCE. LABORATORY DATA: His white count is as previously mentioned 16.6, hemoglobin 10.9, platelet count is 187, polys are close to 86%. Chemistry: Creatinine is 1.8, came in at 1.9 and it has been as high as 2.6. Cultures, there is no growth from the drainage catheter. IMPRESSION: Possible intraabdominal abscess, may need further CAT scanning. At the present time, I changed the antibiotics to meropenem in an adjusted dose of 500 mg IV piggyback q. 8 and Flagyl 500 mg IV piggyback q. 8. Thank you for this consult. We will follow. I have also discussed with Dr. Gonzalez. Erickson Robertson MD [facility] # [id number] RICHARD
[2017-03-09] MEDS: Oxycodone/Acetaminophen 5/325 mg Tab PO PRN (06:41)
[2017-03-09] MEDS: Acetylcysteine 20% Inhal Soln (4ml) INH SCH ×2 (08:10→20:15)
[2017-03-09] MEDS: Albuterol-Ipratrop 3 mg / 0.5 (3 ml) UD INH SCH ×4 (08:10→20:14)
[2017-03-09 08:16] LABS: BASO % 0.2 % (0.0-2.0); EOS % 0.1 % (0.0-4.0); HEMOGLOBIN 10.7 g/dL (12.0-18.0); LYMPH # 0.8 K/uL (1.0-4.3); LYMPH % 4.3 % (20.0-40.0); MEAN CELL VOLUME 83.1 fl (80.0-94.0); MEAN CORPUSCULAR HEMOGLOBIN 26.7 pg (27.0-31.0); MEAN CORPUSCULAR HGB CONC 32.2 g/dL (33.0-37.0); MEAN PLATELET VOLUME 8.4 fl (7.2-11.7); MONO # 1.5 K/uL (0.0-0.8); MONO % 7.6 % (0.0-10.0); NEUT # 17.1 K/uL (1.8-7.0); NEUT % 87.8 % (50.0-75.0); NRBC % 0.2 % (0.0-0.0); PLATELET COUNT 200 K/uL (130-400); RBC 3.98 Mil/uL (4.40-5.90); RED CELL DISTRIBUTION WIDTH 17.5 % (11.5-14.5); WHITE BLOOD COUNT 19.5 K/uL (4.8-10.8)
[2017-03-09 08:46] LABS: ALB/GLOB RATIO 1.1 (1.0-2.1); ALBUMIN 2.6 g/dL (3.5-5.0); CALCIUM 8.2 mg/dL (8.4-10.2)
--- NOTE | 2017-03-09 08:52 | CP.PCM.PN ---
Subjective - Date & Time of Evaluation Date of Evaluation: 03/09/17 Time of Evaluation: 08:50 - Subjective Subjective: no overnight events. CT chest completed. eating/drinking. making urine and BM. Pain controlled. Objective - Vital Signs/Intake and Output Vital Signs (last 24 hours): Temp Pulse Resp BP Pulse Ox 99.5 F 82 20 155/88 H 96 03/09/17 07:52 03/09/17 07:52 03/09/17 07:52 03/09/17 07:52 03/09/17 07:52 - Medications Medications: Current Medications Acetaminophen (Tylenol 325mg Tab) 650 mg PO Q4 PRN PRN Reason: Fever >100.4 F Last Admin: 03/06/17 16:58 Dose: 650 mg Acetylcysteine (Acetylcysteine 20%) 2 ml INH RBID [facility] Last Admin: 03/09/17 08:10 Dose: 2 ml Albuterol/Ipratropium (Duoneb 3 Mg/0.5 Mg (3 Ml) Ud) 3 ml INH RQID [facility] Last Admin: 03/09/17 08:10 Dose: 3 ml Albuterol/Ipratropium (Duoneb 3 Mg/0.5 Mg (3 Ml) Ud) 3 ml INH RQ6 PRN PRN Reason: Shortness of Breath Enoxaparin Sodium (Lovenox) 40 mg SC DAILY [facility] PRN Reason: Protocol Last Admin: 03/08/17 08:25 Dose: 40 mg Guaifenesin (Robitussin) 200 mg PO QID [facility] Last Admin: 03/08/17 21:18 Dose: 200 mg Hydrochlorothiazide (Hydrodiuril) 25 mg PO DAILY [facility] Last Admin: 03/08/17 09:42 Dose: 25 mg Metronidazole (Flagyl 500mg/100ml Ns) 100 mls @ 100 mls/hr IVPB Q8 [facility] PRN Reason: Protocol Last Admin: 03/09/17 00:05 Dose: 100 mls/hr Meropenem 500 mg/ Sodium (Chloride) 100 mls @ 100 mls/hr IVPB Q8 [facility] PRN Reason: Protocol Last Admin: 03/09/17 01:28 Dose: 100 mls/hr Multivitamins/Minerals (Therapeutic-M Tab) 1 tab PO DAILY [facility] Last Admin: 03/08/17 08:27 Dose: 1 tab Ondansetron HCl (Zofran Inj) 4 mg IVP Q4 PRN PRN Reason: Nausea/Vomiting Oxycodone/Acetaminophen (Percocet 5/325 Mg Tab) 1 tab PO Q4 PRN PRN Reason: Pain, moderate (4-7) Stop: 03/09/17 14:31 Last Admin: 03/09/17 06:41 Dose: 1 tab Oxycodone/Acetaminophen (Percocet 5/325 Mg Tab) 2 tab PO Q4 PRN PRN Reason: Pain, severe (8-10) Stop: 03/09/17 14:31 Last Admin: 03/07/17 13:44 Dose: 2 tab Pantoprazole Sodium (Protonix Ec Tab) 40 mg PO DAILY [facility] Last Admin: 03/08/17 08:27 Dose: 40 mg Zolpidem Tartrate (Ambien) 5 mg PO HS PRN PRN Reason: Insomnia Last Admin: 03/08/17 23:07 Dose: 5 mg - Labs Labs: 03/09/17 07:20 03/09/17 07:20 PT 16.3 Seconds (9.8-13.1) H 03/06/17 05:20 INR 1.5 (0.9-1.2) H 03/06/17 05:20 APTT 36.2 Seconds (25.6-37.1) 03/06/17 05:20 - Constitutional Appears: Non-toxic, No Acute Distress - Head Exam Head Exam: NORMAL INSPECTION - Eye Exam Eye Exam: Normal appearance - ENT Exam ENT Exam: Mucous Membranes Moist - Neck Exam Neck Exam: Full ROM, Normal Inspection - Respiratory Exam Respiratory Exam: Rales - Cardiovascular Exam Cardiovascular Exam: REGULAR RHYTHM - GI/Abdominal Exam GI & Abdominal Exam: Soft Additional comments: incision healing, no discharge/bleeding - Extremities Exam Extremities Exam: Normal Inspection. absent: Calf Tenderness - Back Exam Back Exam: NORMAL INSPECTION - Neurological Exam Neurological Exam: Alert, Oriented x3 - Skin Skin Exam: Dry, Warm Assessment and Plan - Assessment and Plan (Free Text) Assessment: 71 yr old M PMHx/o HTN, COPD, CAD, CKD, POD # 11 s/p laparoscopic right hemicolectomy for ascending colon mass (moderately differentiated adenocarcinoma ). D/w pt at length >30min, clinical findings/plan, dispo plan. 1) s/p Right hemicolectomy for ascending colon mass, POD # 11 -path: T2 adenocarinoma with 1/20 lymph nodes positive -Pain control: percocet prn -Hem/Onc c/s: outpt chemo, will need portcath placement 2) Emphysema/COPD - O2 NC, Duo Neb Q8 [facility] -CT chest w/o contrast -V/Q scan to r/o PE -Pulmonology consult appreciated 3) HAP -CT chest: right infiltrates, chronic change to b/l lungs -Pulmonology consult -ID c/s -stopped Zosyn/clindamycin -started Meropenem, flagyl, Day#2 -sputum cx yeast -blood cx NGTD 4) Intrabdominal abscess -CT abd: intrabdominal fluids around pancreas and right liver lobe aprox 3.9 x 5.9 cm -CT chest: ascites overlying right liver dome with small pocket of air -R abdomen drain decreasing 5) Borderline left ventricular function -Echo 01/01/17: impaired systolic function with LVEF of 45% -manager deli Dr. Miller: c/w hydralazine. 6)CKD stage 3 -GFR 38 cr 1.8 -renally dose meds, prevent ERYN by not getting contrast if possible 7) HTN -controlled -HCTZ 12.5 mg daily 8) DVT prophylaxis -lovenox 40 mg sc Dispo: [facility]
[2017-03-09] MEDS ORDERED: Potassium Chloride 20 mEq ER Tab PO ONE (08:57)
[2017-03-09] MEDS: Enoxaparin 40 mg Syringe SC SCH (09:23)
[2017-03-09] MEDS: Multivitamin With Minerals Tab PO SCH (09:24)
[2017-03-09] MEDS: Pantoprazole 40 mg EC Tab PO SCH (09:24)
[2017-03-09] MEDS: guaiFENesin 200 mg/10 ml Syrup UD PO SCH ×4 (09:24→23:00)
--- NOTE | 2017-03-09 10:12 | CP.PCM.PN ---
Subjective - Date & Time of Evaluation Date of Evaluation: 03/09/17 Time of Evaluation: 08:45 - Subjective Subjective: General surgery progress note for Dr. Jose Miguel Spicer, PGY-1 Pt S & E at bedside. Pt reports tolerating diet-does not like the food. No other complaints. Continues with cough. Denies ab pain, N & V, F & C, SOB, chest pain, other complaints. Is upset that he cannot go to rehab in TCU upstairs. Objective - Vital Signs/Intake and Output Vital Signs (last 24 hours): Temp Pulse Resp BP Pulse Ox 99.5 F 82 20 155/88 H 96 03/09/17 07:52 03/09/17 07:52 03/09/17 07:52 03/09/17 07:52 03/09/17 07:52 Intake and Output: 03/09/17 03/09/17 06:59 18:59 Intake Total 275 Output Total 10 Balance 265 - Medications Medications: Current Medications Acetaminophen (Tylenol 325mg Tab) 650 mg PO Q4 PRN PRN Reason: Fever >100.4 F Last Admin: 03/06/17 16:58 Dose: 650 mg Acetylcysteine (Acetylcysteine 20%) 2 ml INH RBID [facility] Last Admin: 03/09/17 08:10 Dose: 2 ml Albuterol/Ipratropium (Duoneb 3 Mg/0.5 Mg (3 Ml) Ud) 3 ml INH RQID [facility] Last Admin: 03/09/17 08:10 Dose: 3 ml Albuterol/Ipratropium (Duoneb 3 Mg/0.5 Mg (3 Ml) Ud) 3 ml INH RQ6 PRN PRN Reason: Shortness of Breath Enoxaparin Sodium (Lovenox) 40 mg SC DAILY [facility] PRN Reason: Protocol Last Admin: 03/09/17 09:23 Dose: 40 mg Guaifenesin (Robitussin) 200 mg PO QID [facility] Last Admin: 03/09/17 09:24 Dose: 200 mg Hydrochlorothiazide (Hydrodiuril) 25 mg PO DAILY [facility] Last Admin: 03/09/17 09:34 Dose: 25 mg Metronidazole (Flagyl 500mg/100ml Ns) 100 mls @ 100 mls/hr IVPB Q8 [facility] PRN Reason: Protocol Last Admin: 03/09/17 09:22 Dose: 100 mls/hr Meropenem 500 mg/ Sodium (Chloride) 100 mls @ 100 mls/hr IVPB Q8 [facility] PRN Reason: Protocol Last Admin: 03/09/17 09:22 Dose: 100 mls/hr Multivitamins/Minerals (Therapeutic-M Tab) 1 tab PO DAILY [facility] Last Admin: 03/09/17 09:24 Dose: 1 tab Ondansetron HCl (Zofran Inj) 4 mg IVP Q4 PRN PRN Reason: Nausea/Vomiting Oxycodone/Acetaminophen (Percocet 5/325 Mg Tab) 1 tab PO Q4 PRN PRN Reason: Pain, moderate (4-7) Stop: 03/09/17 14:31 Last Admin: 03/09/17 06:41 Dose: 1 tab Oxycodone/Acetaminophen (Percocet 5/325 Mg Tab) 2 tab PO Q4 PRN PRN Reason: Pain, severe (8-10) Stop: 03/09/17 14:31 Last Admin: 03/07/17 13:44 Dose: 2 tab Pantoprazole Sodium (Protonix Ec Tab) 40 mg PO DAILY [facility] Last Admin: 03/09/17 09:24 Dose: 40 mg Zolpidem Tartrate (Ambien) 5 mg PO HS PRN PRN Reason: Insomnia Last Admin: 03/08/17 23:07 Dose: 5 mg - Labs Labs: 03/09/17 07:20 03/09/17 07:20 PT 16.3 Seconds (9.8-13.1) H 03/06/17 05:20 INR 1.5 (0.9-1.2) H 03/06/17 05:20 APTT 36.2 Seconds (25.6-37.1) 03/06/17 05:20 - Constitutional Appears: Non-toxic, No Acute Distress - Head Exam Head Exam: ATRAUMATIC, NORMAL INSPECTION, NORMOCEPHALIC - Eye Exam Eye Exam: EOMI, Normal appearance - ENT Exam ENT Exam: Mucous Membranes Moist, Normal Exam - Neck Exam Neck Exam: Full ROM, Normal Inspection - Respiratory Exam Respiratory Exam: Rhonchi, NORMAL BREATHING PATTERN - Cardiovascular Exam Cardiovascular Exam: REGULAR RHYTHM, +S1, +S2 - GI/Abdominal Exam GI & Abdominal Exam: Soft. absent: Distended, Firm, Guarding, Tenderness Additional comments: RUQ with catheter in place, small amount of serous fluid in bag. Midline incision with josy in place, no erythema or drainage noted. non tender - Extremities Exam Extremities Exam: Normal Inspection - Neurological Exam Neurological Exam: Alert, Awake, Oriented x3 - Psychiatric Exam Psychiatric exam: Normal Affect, Normal Mood - Skin Skin Exam: Dry, Intact, Normal Color, Warm Assessment and Plan - Assessment and Plan (Free Text) Assessment: 71 M POD#12 s/p open right hemicolectomy POD#3 s/p IR drainage of intra- abdominal fluid collection path: T2 adenocarinoma with 1/20 lymph nodes positive Plan: Afebrile x 24H Monitor vitals Leukocytosis worsening Replete electrolytes PRN Duonebs Chest PT OOBTC Ambulate/PT Encourage IS use Encourage flutter valve use Cont ABx as per ID ID following Onc following- will need outpt chemo, portacath placement GI/DVT ppx Will DW attending Dannielle, PGY-1
[2017-03-09] MEDS ORDERED: Saliva Substitute(Caphosol) 15 ML SOL MM PRN (11:58)
[2017-03-09 14:30] LABS: LYMPHOCYTE 4 % (20-50); MONOCYTE 6 % (0-10); NEUTROPHIL 89 % (42-75); REACTIVE LYMPHOCYTES 1 % (0-0); TOTAL CELLS COUNTED 100
[2017-03-09 14:31] LABS: ANISOCYTOSIS SLIGHT; HYPOCHROMIC SLIGHT; PLATELET ESTIMATE NORMAL (NORMAL)
[2017-03-09 14:32] LABS: BURR CELLS SLIGHT; OVALOCYTES SLIGHT; SCHISTOCYTES SLIGHT; TEARDROP CELLS SLIGHT
[2017-03-09 14:33] LABS: LARGE PLATELETS PRESENT
--- NOTE | 2017-03-09 16:50 | CP.PCM.PCO ---
Addendum Addendum: 03/09/17 16:45 Called by nurse to evaluate patient with fever and complains. Patient evaluated at bedside c/o ""burning" diffuse in the body and feeling warm. Denies chest pain, calf pain. worsening SOB, dizziness, weakness. VS reviewed. Temp 102s, HR 90s, RR 20 and O2sat 94L. Patient to receive dose of tylenol for fever and high flow oxygen to be started as previously ordered by pulm recs. PE: Mild distress, B/L bibasilar crackles, RRR, S1S2, abd non tender, no rebound or guarding. No calf tenderness. Move all 4 ext. Case discussed with Dr Robertson(ID). Patient started on Teflaro IV and to be transferred to telemetry as per ID recs.
[2017-03-09] MEDS: Nasal Spray(Ocean spray) NAS SCH ×2 (16:58→23:00)
--- NOTE | 2017-03-09 17:56 | CP.PCM.PN ---
Subjective - Date & Time of Evaluation Date of Evaluation: 03/09/16 Time of Evaluation: 19:00 - Subjective Subjective: I D NOTE CASE REVIEWED c NURSING,FP RESIDENT, ,AND ROBERT WBC:I9,TEEMP :102.6 CULTURES ORDERED,TEFLARO ADDED ADVISED TRANSFER TO 4N Objective - Vital Signs/Intake and Output Vital Signs (last 24 hours): Temp Pulse Resp BP Pulse Ox 102.2 F H 97 H 20 166/89 H 94 L 03/09/17 17:25 03/09/17 16:15 03/09/17 16:15 03/09/17 16:15 03/09/17 16:15 Intake and Output: 03/09/17 03/09/17 06:59 18:59 Intake Total 275 Output Total 10 Balance 265 - Medications Medications: Current Medications Acetaminophen (Tylenol 325mg Tab) 650 mg PO Q4 PRN PRN Reason: Fever >100.4 F Last Admin: 03/09/17 16:25 Dose: 650 mg Acetylcysteine (Acetylcysteine 20%) 2 ml INH RBID [facility] Last Admin: 03/09/17 08:10 Dose: 2 ml Albuterol/Ipratropium (Duoneb 3 Mg/0.5 Mg (3 Ml) Ud) 3 ml INH RQID [facility] Last Admin: 03/09/17 15:53 Dose: 3 ml Albuterol/Ipratropium (Duoneb 3 Mg/0.5 Mg (3 Ml) Ud) 3 ml INH RQ6 PRN PRN Reason: Shortness of Breath Enoxaparin Sodium (Lovenox) 40 mg SC DAILY [facility] PRN Reason: Protocol Last Admin: 03/09/17 09:23 Dose: 40 mg Guaifenesin (Robitussin) 200 mg PO QID [facility] Last Admin: 03/09/17 17:25 Dose: 200 mg Hydrochlorothiazide (Hydrodiuril) 25 mg PO DAILY [facility] Last Admin: 03/09/17 09:34 Dose: 25 mg Metronidazole (Flagyl 500mg/100ml Ns) 100 mls @ 100 mls/hr IVPB Q8 [facility] PRN Reason: Protocol Last Admin: 03/09/17 17:23 Dose: 100 mls/hr Meropenem 500 mg/ Sodium (Chloride) 100 mls @ 100 mls/hr IVPB Q8 [facility] PRN Reason: Protocol Last Admin: 03/09/17 17:22 Dose: 100 mls/hr Ceftaroline Fosamil 400 mg/ (Sodium Chloride) 100 mls @ 100 mls/hr IVPB Q12 [facility] PRN Reason: Protocol Last Admin: 03/09/17 16:43 Dose: 100 mls/hr Multivitamins/Minerals (Therapeutic-M Tab) 1 tab PO DAILY [facility] Last Admin: 03/09/17 09:24 Dose: 1 tab Ondansetron HCl (Zofran Inj) 4 mg IVP Q4 PRN PRN Reason: Nausea/Vomiting Pantoprazole Sodium (Protonix Ec Tab) 40 mg PO DAILY [facility] Last Admin: 03/09/17 09:24 Dose: 40 mg Saliva Substitute (Caphosol 15 Ml) 15 ml MM Q4 PRN PRN Reason: Dry mouth Sodium Chloride ([place] Nasal [place]) 1 sprays DIAMOND Q6 [facility] Last Admin: 03/09/17 16:58 Dose: Not Given Zolpidem Tartrate (Ambien) 5 mg PO HS PRN PRN Reason: Insomnia Last Admin: 03/08/17 23:07 Dose: 5 mg - Labs Labs: 03/09/17 07:20 03/09/17 07:20 PT 16.3 Seconds (9.8-13.1) H 03/06/17 05:20 INR 1.5 (0.9-1.2) H 03/06/17 05:20 APTT 36.2 Seconds (25.6-37.1) 03/06/17 05:20
[2017-03-10 00:39] LABS: SQUAMOUS EPITHIAL < 1 /hpf (0-5); URINE BACTERIA RARE (<OCC); URINE BILIRUBIN NEGATIVE (NEGATIVE); URINE BLOOD NEGATIVE (NEGATIVE); URINE CLARITY CLEAR (Clear); URINE COLOR YELLOW (YELLOW); URINE GLUCOSE (UA) NEG (Normal); URINE HYALINE CAST 0-2 /hpf (0-2); URINE NITRATE NEGATIVE (NEGATIVE); URINE PROTEIN NEGATIVE (NEGATIVE); URINE UROBILINOGEN 0.2-1.0 mg/dL (0.2-1.0)
[2017-03-10 00:40] LABS: URINE LEUKOCYTE ESTERASE NEGATIVE Leu/uL (Negative)
[2017-03-10] MEDS: metroNIDAZOLE 500mg/100ml NS 100 ML IVPB SCH ×3 (01:11→17:10)
[2017-03-10] MEDS: Meropenem 500 MG in Sodium Chloride 0.9% 100 ML IVPB SCH ×3 (01:12→17:14)
[2017-03-10] MEDS: Nasal Spray(Ocean spray) NAS SCH ×4 (04:12→21:12)
[2017-03-10 05:53] LABS: BASO % 0.1 % (0.0-2.0); CALCIUM 8.2 mg/dL (8.4-10.2); EOS % 0.2 % (0.0-4.0); HEMOGLOBIN 10.6 g/dL (12.0-18.0); LYMPH # 0.8 K/uL (1.0-4.3); LYMPH % 4.1 % (20.0-40.0); MEAN CELL VOLUME 82.3 fl (80.0-94.0); MEAN CORPUSCULAR HEMOGLOBIN 27.1 pg (27.0-31.0); MEAN CORPUSCULAR HGB CONC 32.9 g/dL (33.0-37.0); MEAN PLATELET VOLUME 8.5 fl (7.2-11.7); MONO # 1.1 K/uL (0.0-0.8); MONO % 5.7 % (0.0-10.0); NEUT # 17.7 K/uL (1.8-7.0); NEUT % 89.9 % (50.0-75.0); RBC 3.91 Mil/uL (4.40-5.90); RED CELL DISTRIBUTION WIDTH 17.5 % (11.5-14.5); WHITE BLOOD COUNT 19.7 K/uL (4.8-10.8)
[2017-03-10] MEDS: Albuterol-Ipratrop 3 mg / 0.5 (3 ml) UD INH SCH ×4 (07:47→19:25)
[2017-03-10] MEDS: Acetylcysteine 20% Inhal Soln (4ml) INH SCH (07:47)
--- NOTE | 2017-03-10 08:24 | CP.PCM.PN ---
Subjective - Date & Time of Evaluation Date of Evaluation: 03/10/17 Time of Evaluation: 08:24 - Subjective Subjective: Interim events reviewed. Case discussed with ID. Discussed with surgical esident as well. Has had further temp elevation and ceftaroline added. CXR showing same basal densities bilaterally. On exam rhonchi and medium rales are heard in the right lower lobe. Few rhonchi in the left base. No wheezes or bronchial breath sounds. Drainage from abdomen reported as no growth. Leukocytosis up to 19.[address] planned for today. Discussed possible flexible bronchoscopy with the patient. Will follow temps and WBC and review CT. Objective - Vital Signs/Intake and Output Vital Signs (last 24 hours): Temp Pulse Resp BP Pulse Ox 98.2 F 71 18 148/88 96 03/10/17 08:17 03/10/17 08:17 03/10/17 08:17 03/10/17 08:17 03/10/17 08:17 Intake and Output: 03/09/17 03/10/17 23:59 11:59 Intake Total 650 540 Output Total 455 10 Balance 195 530 - Medications Medications: Current Medications Acetaminophen (Tylenol 325mg Tab) 650 mg PO Q4 PRN PRN Reason: Fever >100.4 F Last Admin: 03/09/17 16:25 Dose: 650 mg Acetylcysteine (Acetylcysteine 20%) 2 ml INH RBID [facility] Last Admin: 03/10/17 07:47 Dose: 2 ml Albuterol/Ipratropium (Duoneb 3 Mg/0.5 Mg (3 Ml) Ud) 3 ml INH RQID [facility] Last Admin: 03/10/17 07:47 Dose: 3 ml Albuterol/Ipratropium (Duoneb 3 Mg/0.5 Mg (3 Ml) Ud) 3 ml INH RQ6 PRN PRN Reason: Shortness of Breath Enoxaparin Sodium (Lovenox) 40 mg SC DAILY [facility] PRN Reason: Protocol Last Admin: 03/09/17 09:23 Dose: 40 mg Guaifenesin (Robitussin) 200 mg PO QID [facility] Last Admin: 03/09/17 23:00 Dose: 200 mg Hydrochlorothiazide (Hydrodiuril) 25 mg PO DAILY [facility] Last Admin: 03/09/17 09:34 Dose: 25 mg Metronidazole (Flagyl 500mg/100ml Ns) 100 mls @ 100 mls/hr IVPB Q8 [facility] PRN Reason: Protocol Last Admin: 03/10/17 01:11 Dose: 100 mls/hr Meropenem 500 mg/ Sodium (Chloride) 100 mls @ 100 mls/hr IVPB Q8 [facility] PRN Reason: Protocol Last Admin: 03/10/17 01:12 Dose: 100 mls/hr Ceftaroline Fosamil 400 mg/ (Sodium Chloride) 100 mls @ 100 mls/hr IVPB Q12 [facility] PRN Reason: Protocol Last Admin: 03/09/17 23:03 Dose: 100 mls/hr Multivitamins/Minerals (Therapeutic-M Tab) 1 tab PO DAILY [facility] Last Admin: 03/09/17 09:24 Dose: 1 tab Ondansetron HCl (Zofran Inj) 4 mg IVP Q4 PRN PRN Reason: Nausea/Vomiting Pantoprazole Sodium (Protonix Ec Tab) 40 mg PO DAILY [facility] Last Admin: 03/09/17 09:24 Dose: 40 mg Saliva Substitute (Caphosol 15 Ml) 15 ml MM Q4 PRN PRN Reason: Dry mouth Sodium Chloride ([place] Nasal [place]) 1 sprays DIAMOND Q6 [facility] Last Admin: 03/10/17 04:12 Dose: 1 spr Zolpidem Tartrate (Ambien) 5 mg PO HS PRN PRN Reason: Insomnia Last Admin: 03/09/17 23:03 Dose: 5 mg - Labs Labs: 03/10/17 04:40 03/10/17 04:40 PT 16.3 Seconds (9.8-13.1) H 03/06/17 05:20 INR 1.5 (0.9-1.2) H 03/06/17 05:20 APTT 36.2 Seconds (25.6-37.1) 03/06/17 05:20 Assessment and Plan (1) Nosocomial pneumonia Status: Acute
--- NOTE | 2017-03-10 09:05 | CP.PCM.PN ---
<Carito Gore - Last Filed: 03/10/17 10:50> Subjective - Date & Time of Evaluation Date of Evaluation: 03/10/17 Time of Evaluation: 07:15 - Subjective Subjective: Patient seen and examined bedside with Dr Damon .Patient was transferred to telemetry yesterday , has been using high flow. Today using O2 NC reports feeling better. Denies SOB, Chest pain, but noticed breathing with difficulty. Febrile yesterday 102.2. ID notified and ceftarolin added and blood cx taken. drainage with minimal serous liquid on the bag Objective - Vital Signs/Intake and Output Vital Signs (last 24 hours): Temp Pulse Resp BP Pulse Ox 98.2 F 71 18 148/88 96 03/10/17 08:17 03/10/17 08:17 03/10/17 08:17 03/10/17 08:17 03/10/17 08:17 Intake and Output: 03/10/17 03/10/17 06:59 18:59 Intake Total 540 Output Total 10 Balance 530 - Medications Medications: Current Medications Acetaminophen (Tylenol 325mg Tab) 650 mg PO Q4 PRN PRN Reason: Fever >100.4 F Last Admin: 03/09/17 16:25 Dose: 650 mg Acetylcysteine (Acetylcysteine 20%) 2 ml INH RBID [facility] Last Admin: 03/10/17 07:47 Dose: 2 ml Albuterol/Ipratropium (Duoneb 3 Mg/0.5 Mg (3 Ml) Ud) 3 ml INH RQID [facility] Last Admin: 03/10/17 07:47 Dose: 3 ml Albuterol/Ipratropium (Duoneb 3 Mg/0.5 Mg (3 Ml) Ud) 3 ml INH RQ6 PRN PRN Reason: Shortness of Breath Enoxaparin Sodium (Lovenox) 40 mg SC DAILY [facility] PRN Reason: Protocol Last Admin: 03/09/17 09:23 Dose: 40 mg Guaifenesin (Robitussin) 200 mg PO QID [facility] Last Admin: 03/09/17 23:00 Dose: 200 mg Hydrochlorothiazide (Hydrodiuril) 25 mg PO DAILY [facility] Last Admin: 03/09/17 09:34 Dose: 25 mg Metronidazole (Flagyl 500mg/100ml Ns) 100 mls @ 100 mls/hr IVPB Q8 [facility] PRN Reason: Protocol Last Admin: 03/10/17 01:11 Dose: 100 mls/hr Meropenem 500 mg/ Sodium (Chloride) 100 mls @ 100 mls/hr IVPB Q8 [facility] PRN Reason: Protocol Last Admin: 03/10/17 01:12 Dose: 100 mls/hr Ceftaroline Fosamil 400 mg/ (Sodium Chloride) 100 mls @ 100 mls/hr IVPB Q12 [facility] PRN Reason: Protocol Last Admin: 03/09/17 23:03 Dose: 100 mls/hr Multivitamins/Minerals (Therapeutic-M Tab) 1 tab PO DAILY [facility] Last Admin: 03/09/17 09:24 Dose: 1 tab Ondansetron HCl (Zofran Inj) 4 mg IVP Q4 PRN PRN Reason: Nausea/Vomiting Pantoprazole Sodium (Protonix Ec Tab) 40 mg PO DAILY [facility] Last Admin: 03/09/17 09:24 Dose: 40 mg Saliva Substitute (Caphosol 15 Ml) 15 ml MM Q4 PRN PRN Reason: Dry mouth Sodium Chloride ([place] Nasal [place]) 1 sprays DIAMOND Q6 [facility] Last Admin: 03/10/17 04:12 Dose: 1 spr Zolpidem Tartrate (Ambien) 5 mg PO HS PRN PRN Reason: Insomnia Last Admin: 03/09/17 23:03 Dose: 5 mg - Labs Labs: 03/10/17 04:40 03/10/17 04:40 PT 16.3 Seconds (9.8-13.1) H 03/06/17 05:20 INR 1.5 (0.9-1.2) H 03/06/17 05:20 APTT 36.2 Seconds (25.6-37.1) 03/06/17 05:20 - Constitutional Appears: Non-toxic, No Acute Distress - Head Exam Head Exam: ATRAUMATIC, NORMOCEPHALIC - Eye Exam Eye Exam: Normal appearance - ENT Exam ENT Exam: Mucous Membranes Moist - Respiratory Exam Respiratory Exam: Decreased Breath Sounds, Rales Additional comments: b/l diminished breath sound bibasal. rales left lung base and 2/3 left lung - Cardiovascular Exam Cardiovascular Exam: REGULAR RHYTHM, +S1, +S2 - GI/Abdominal Exam GI & Abdominal Exam: Soft, Normal Bowel Sounds. absent: Tenderness Additional comments: RUQ with catheter in place, small amount of serous fluid in bag. Midline incision with josy in place, no erythema or drainage noted. non tender - Extremities Exam Extremities Exam: Normal Inspection. absent: Pedal Edema - Neurological Exam Neurological Exam: Alert, Awake, Oriented x3 - Psychiatric Exam Psychiatric exam: Normal Affect, Normal Mood - Skin Skin Exam: absent: Cyanosis, Erythema, Mottled Assessment and Plan - Assessment and Plan (Free Text) Plan: 71 yr old M PMHx/o HTN, COPD, CAD, CKD, POD # 11 s/p laparoscopic right hemicolectomy for ascending colon mass (moderately differentiated adenocarcinoma ). D/w pt at length >30min, clinical findings/plan, dispo plan. 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 -Pain control: percocet prn -Hem/Onc c/s: outpt chemo, will need portcath placement 2) Emphysema/COPD - O2 NC, Duo Neb Q8 [facility] -CT chest w/o contrast -V/Q scan to r/o PE -Pulmonology consult appreciated 3) HAP -CT chest: right infiltrates, chronic change to b/l lungs -Pulmonology consult -ID c/s -stopped Zosyn/clindamycin -started Meropenem, flagyl, Day#3 -started ceftaroline day 2 -sputum cx yeast -blood cx NGTD 4) Intrabdominal abscess -CT abd: intrabdominal fluids around pancreas and right liver lobe aprox 3.9 x 5.9 cm -CT chest: ascites overlying right liver dome with small pocket of air -R abdomen drain decreasing -CT Abd new ordered today -ID consult appreciated 5) Borderline left ventricular function -Echo 01/01/17: impaired systolic function with LVEF of 45% -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 Miller: c/w hydralazine. 6) CHF diastolic preserve EF Echo 01/01/17: impaired systolic function with LVEF of 45% -pro-BNP 1730 02/25/17 -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 Miller: c/w hydralazine. 7)CKD stage 3 -GFR 38 cr 1.8 -renally dose meds, prevent ERYN by not getting contrast if possible 8) HTN -controlled -HCTZ 12.5 mg daily 9) DVT prophylaxis -lovenox 40 mg sc Dispo: [facility] <Santo Damon - Last Filed: 03/11/17 07:03> Objective - Vital Signs/Intake and Output Vital Signs (last 24 hours): Temp Pulse Resp BP Pulse Ox 98.4 F 67 18 154/91 H 93 L 03/11/17 05:46 03/11/17 05:46 03/11/17 05:46 03/11/17 05:46 03/11/17 05:46 Intake and Output: 03/11/17 03/11/17 06:59 18:59 Intake Total 420 Output Total 850 Balance -430 - Medications Medications: Current Medications Acetaminophen (Tylenol 325mg Tab) 650 mg PO Q4 PRN PRN Reason: Fever >100.4 F Last Admin: 03/09/17 16:25 Dose: 650 mg Acetylcysteine (Acetylcysteine 20%) 2 ml INH RBID [facility] Last Admin: 03/10/17 07:47 Dose: 2 ml Albuterol/Ipratropium (Duoneb 3 Mg/0.5 Mg (3 Ml) Ud) 3 ml INH RQID [facility] Last Admin: 03/10/17 19:25 Dose: 3 ml Albuterol/Ipratropium (Duoneb 3 Mg/0.5 Mg (3 Ml) Ud) 3 ml INH RQ6 PRN PRN Reason: Shortness of Breath Enoxaparin Sodium (Lovenox) 40 mg SC DAILY [facility] PRN Reason: Protocol Last Admin: 03/10/17 09:24 Dose: 40 mg Furosemide (Lasix) 40 mg IV DAILY [facility] Last Admin: 03/10/17 17:13 Dose: 40 mg Guaifenesin (Robitussin) 200 mg PO QID [facility] Last Admin: 03/10/17 21:12 Dose: 200 mg Metronidazole (Flagyl 500mg/100ml Ns) 100 mls @ 100 mls/hr IVPB Q8 [facility] PRN Reason: Protocol Last Admin: 03/11/17 02:04 Dose: 100 mls/hr Meropenem 500 mg/ Sodium (Chloride) 100 mls @ 100 mls/hr IVPB Q8 [facility] PRN Reason: Protocol Last Admin: 03/11/17 00:41 Dose: 100 mls/hr Ceftaroline Fosamil 400 mg/ (Sodium Chloride) 100 mls @ 100 mls/hr IVPB Q12 [facility] PRN Reason: Protocol Last Admin: 03/10/17 21:08 Dose: 100 mls/hr Multivitamins/Minerals (Therapeutic-M Tab) 1 tab PO DAILY [facility] Last Admin: 03/10/17 09:21 Dose: 1 tab Ondansetron HCl (Zofran Inj) 4 mg IVP Q4 PRN PRN Reason: Nausea/Vomiting Pantoprazole Sodium (Protonix Ec Tab) 40 mg PO DAILY [facility] Last Admin: 03/10/17 09:21 Dose: 40 mg Saliva Substitute (Caphosol 15 Ml) 15 ml MM Q4 PRN PRN Reason: Dry mouth Sodium Chloride ([place] Nasal [place]) 1 sprays DIAMOND Q6 [facility] Last Admin: 03/11/17 03:58 Dose: Not Given Zolpidem Tartrate (Ambien) 5 mg PO HS PRN PRN Reason: Insomnia Last Admin: 03/10/17 22:57 Dose: 5 mg - Labs Labs: 03/11/17 04:25 03/11/17 04:25 PT 16.3 Seconds (9.8-13.1) H 03/06/17 05:20 INR 1.5 (0.9-1.2) H 03/06/17 05:20 APTT 36.2 Seconds (25.6-37.1) 03/06/17 05:20 Attending/Attestation - Attestation I have personally seen and examined this patient.: Yes I have fully participated in the care of the patient.: Yes I have reviewed all pertinent clinical information, including history, physical exam and plan: Yes
[2017-03-10] MEDS: Multivitamin With Minerals Tab PO SCH (09:21)
[2017-03-10] MEDS: Pantoprazole 40 mg EC Tab PO SCH (09:21)
[2017-03-10] MEDS: Enoxaparin 40 mg Syringe SC SCH (09:24)
[2017-03-10] MEDS: guaiFENesin 200 mg/10 ml Syrup UD PO SCH ×4 (09:26→21:12)
--- NOTE | 2017-03-10 10:07 | CP.PCM.PN ---
<Bib Baxter - Last Filed: 03/10/17 10:07> Subjective - Date & Time of Evaluation Date of Evaluation: 03/10/17 Time of Evaluation: 10:05 - Subjective Subjective: general Surgery Progress Note for Dr. Ramon This patient was seen and evaluated at bedside this AM. No acute events overnight. he is passing gas, moving his bowels and tolerating his diet. He denies any abdominal pain or pain with urination. He reports weakness. He denies shortness of breath however is is objectively dyspneic. Objective - Vital Signs/Intake and Output Vital Signs (last 24 hours): Temp Pulse Resp BP Pulse Ox 98.2 F 71 18 148/88 96 03/10/17 08:17 03/10/17 08:17 03/10/17 08:17 03/10/17 08:17 03/10/17 08:17 Intake and Output: 03/10/17 03/10/17 06:59 18:59 Intake Total 540 Output Total 10 Balance 530 - Medications Medications: Current Medications Acetaminophen (Tylenol 325mg Tab) 650 mg PO Q4 PRN PRN Reason: Fever >100.4 F Last Admin: 03/09/17 16:25 Dose: 650 mg Acetylcysteine (Acetylcysteine 20%) 2 ml INH RBID [facility] Last Admin: 03/10/17 07:47 Dose: 2 ml Albuterol/Ipratropium (Duoneb 3 Mg/0.5 Mg (3 Ml) Ud) 3 ml INH RQID [facility] Last Admin: 03/10/17 07:47 Dose: 3 ml Albuterol/Ipratropium (Duoneb 3 Mg/0.5 Mg (3 Ml) Ud) 3 ml INH RQ6 PRN PRN Reason: Shortness of Breath Enoxaparin Sodium (Lovenox) 40 mg SC DAILY [facility] PRN Reason: Protocol Last Admin: 03/10/17 09:24 Dose: 40 mg Guaifenesin (Robitussin) 200 mg PO QID [facility] Last Admin: 03/10/17 09:26 Dose: 200 mg Hydrochlorothiazide (Hydrodiuril) 25 mg PO DAILY [facility] Last Admin: 03/09/17 09:34 Dose: 25 mg Metronidazole (Flagyl 500mg/100ml Ns) 100 mls @ 100 mls/hr IVPB Q8 [facility] PRN Reason: Protocol Last Admin: 03/10/17 09:20 Dose: 100 mls/hr Meropenem 500 mg/ Sodium (Chloride) 100 mls @ 100 mls/hr IVPB Q8 [facility] PRN Reason: Protocol Last Admin: 03/10/17 09:21 Dose: 100 mls/hr Ceftaroline Fosamil 400 mg/ (Sodium Chloride) 100 mls @ 100 mls/hr IVPB Q12 [facility] PRN Reason: Protocol Last Admin: 03/09/17 23:03 Dose: 100 mls/hr Multivitamins/Minerals (Therapeutic-M Tab) 1 tab PO DAILY [facility] Last Admin: 03/10/17 09:21 Dose: 1 tab Ondansetron HCl (Zofran Inj) 4 mg IVP Q4 PRN PRN Reason: Nausea/Vomiting Pantoprazole Sodium (Protonix Ec Tab) 40 mg PO DAILY [facility] Last Admin: 03/10/17 09:21 Dose: 40 mg Saliva Substitute (Caphosol 15 Ml) 15 ml MM Q4 PRN PRN Reason: Dry mouth Sodium Chloride ([place] Nasal [place]) 1 sprays DIAMOND Q6 [facility] Last Admin: 03/10/17 09:25 Dose: 1 spr Zolpidem Tartrate (Ambien) 5 mg PO HS PRN PRN Reason: Insomnia Last Admin: 03/09/17 23:03 Dose: 5 mg - Labs Labs: 03/10/17 04:40 03/10/17 04:40 PT 16.3 Seconds (9.8-13.1) H 03/06/17 05:20 INR 1.5 (0.9-1.2) H 03/06/17 05:20 APTT 36.2 Seconds (25.6-37.1) 03/06/17 05:20 - Constitutional Appears: Non-toxic, No Acute Distress - Head Exam Head Exam: ATRAUMATIC, NORMOCEPHALIC - Eye Exam Eye Exam: EOMI - ENT Exam ENT Exam: Mucous Membranes Moist - Respiratory Exam Respiratory Exam: Rhonchi - Cardiovascular Exam Cardiovascular Exam: +S1, +S2 - GI/Abdominal Exam GI & Abdominal Exam: Soft. 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 Tristen Baxter PGY2 <Vaughn Ramon - Last Filed: 03/10/17 10:11> Subjective - Subjective Subjective: Patient was seen and examined at the bedside. Agree with resident's note above. Objective - Vital Signs/Intake and Output Vital Signs (last 24 hours): Temp Pulse Resp BP Pulse Ox 98.2 F 71 18 148/88 96 03/10/17 08:17 03/10/17 08:17 03/10/17 08:17 03/10/17 08:17 03/10/17 08:17 Intake and Output: 03/10/17 03/10/17 06:59 18:59 Intake Total 540 Output Total 10 Balance 530 - Medications Medications: Current Medications Acetaminophen (Tylenol 325mg Tab) 650 mg PO Q4 PRN PRN Reason: Fever >100.4 F Last Admin: 03/09/17 16:25 Dose: 650 mg Acetylcysteine (Acetylcysteine 20%) 2 ml INH RBID [facility] Last Admin: 03/10/17 07:47 Dose: 2 ml Albuterol/Ipratropium (Duoneb 3 Mg/0.5 Mg (3 Ml) Ud) 3 ml INH RQID [facility] Last Admin: 03/10/17 07:47 Dose: 3 ml Albuterol/Ipratropium (Duoneb 3 Mg/0.5 Mg (3 Ml) Ud) 3 ml INH RQ6 PRN PRN Reason: Shortness of Breath Enoxaparin Sodium (Lovenox) 40 mg SC DAILY [facility] PRN Reason: Protocol Last Admin: 03/10/17 09:24 Dose: 40 mg Guaifenesin (Robitussin) 200 mg PO QID [facility] Last Admin: 03/10/17 09:26 Dose: 200 mg Hydrochlorothiazide (Hydrodiuril) 25 mg PO DAILY [facility] Last Admin: 03/09/17 09:34 Dose: 25 mg Metronidazole (Flagyl 500mg/100ml Ns) 100 mls @ 100 mls/hr IVPB Q8 [facility] PRN Reason: Protocol Last Admin: 03/10/17 09:20 Dose: 100 mls/hr Meropenem 500 mg/ Sodium (Chloride) 100 mls @ 100 mls/hr IVPB Q8 [facility] PRN Reason: Protocol Last Admin: 03/10/17 09:21 Dose: 100 mls/hr Ceftaroline Fosamil 400 mg/ (Sodium Chloride) 100 mls @ 100 mls/hr IVPB Q12 [facility] PRN Reason: Protocol Last Admin: 03/09/17 23:03 Dose: 100 mls/hr Multivitamins/Minerals (Therapeutic-M Tab) 1 tab PO DAILY [facility] Last Admin: 03/10/17 09:21 Dose: 1 tab Ondansetron HCl (Zofran Inj) 4 mg IVP Q4 PRN PRN Reason: Nausea/Vomiting Pantoprazole Sodium (Protonix Ec Tab) 40 mg PO DAILY [facility] Last Admin: 03/10/17 09:21 Dose: 40 mg Saliva Substitute (Caphosol 15 Ml) 15 ml MM Q4 PRN PRN Reason: Dry mouth Sodium Chloride ([place] Nasal [place]) 1 sprays DIAMOND Q6 [facility] Last Admin: 03/10/17 09:25 Dose: 1 spr Zolpidem Tartrate (Ambien) 5 mg PO HS PRN PRN Reason: Insomnia Last Admin: 03/09/17 23:03 Dose: 5 mg - Labs Labs: 03/10/17 04:40 03/10/17 04:40 PT 16.3 Seconds (9.8-13.1) H 03/06/17 05:20 INR 1.5 (0.9-1.2) H 03/06/17 05:20 APTT 36.2 Seconds (25.6-37.1) 03/06/17 05:20
--- NOTE | 2017-03-10 14:02 | RAD ---
PROCEDURE: CHEST RADIOGRAPH, 1 VIEW HISTORY: Compare chest radiograph in a patient with a history of pneumonia and effusion. COMPARISON: Comparison made with chest radiograph and CT scan chest both dated 03/08/2017. Unit. FINDINGS: LUNGS: Current study re- demonstrates bibasilar atelectasis and or infiltrates with small bilateral effusions. PLEURA: No pneumothorax or pleural fluid seen. CARDIOVASCULAR: Heart size is unchanged OSSEOUS STRUCTURES: No significant abnormalities. VISUALIZED UPPER ABDOMEN: Normal. OTHER FINDINGS: None. IMPRESSION: Re- demonstrated are bibasilar atelectasis and/or infiltrates with bilateral effusions.
--- NOTE | 2017-03-10 16:39 | CP.PCM.PN ---
Subjective - Date & Time of Evaluation Date of Evaluation: 03/10/17 Time of Evaluation: 16:35 - Subjective Subjective: I D NOTE TEMP IS DECREASED BUT WBC IS STILL [address] OF ABDOMEN RESULTS CONTINUE SAME ANTIBIOTICS WILL NEED PICC Objective - Vital Signs/Intake and Output Vital Signs (last 24 hours): Temp Pulse Resp BP Pulse Ox 99.6 F 81 18 135/77 92 L 03/10/17 16:18 03/10/17 16:18 03/10/17 16:18 03/10/17 16:18 03/10/17 16:18 Intake and Output: 03/10/17 03/10/17 06:59 18:59 Intake Total 540 Output Total 10 Balance 530 - Medications Medications: Current Medications Acetaminophen (Tylenol 325mg Tab) 650 mg PO Q4 PRN PRN Reason: Fever >100.4 F Last Admin: 03/09/17 16:25 Dose: 650 mg Acetylcysteine (Acetylcysteine 20%) 2 ml INH RBID [facility] Last Admin: 03/10/17 07:47 Dose: 2 ml Albuterol/Ipratropium (Duoneb 3 Mg/0.5 Mg (3 Ml) Ud) 3 ml INH RQID [facility] Last Admin: 03/10/17 16:27 Dose: Not Given Albuterol/Ipratropium (Duoneb 3 Mg/0.5 Mg (3 Ml) Ud) 3 ml INH RQ6 PRN PRN Reason: Shortness of Breath Enoxaparin Sodium (Lovenox) 40 mg SC DAILY [facility] PRN Reason: Protocol Last Admin: 03/10/17 09:24 Dose: 40 mg Furosemide (Lasix) 40 mg IV DAILY [facility] Guaifenesin (Robitussin) 200 mg PO QID [facility] Last Admin: 03/10/17 12:20 Dose: 200 mg Metronidazole (Flagyl 500mg/100ml Ns) 100 mls @ 100 mls/hr IVPB Q8 [facility] PRN Reason: Protocol Last Admin: 03/10/17 09:20 Dose: 100 mls/hr Meropenem 500 mg/ Sodium (Chloride) 100 mls @ 100 mls/hr IVPB Q8 [facility] PRN Reason: Protocol Last Admin: 03/10/17 09:21 Dose: 100 mls/hr Ceftaroline Fosamil 400 mg/ (Sodium Chloride) 100 mls @ 100 mls/hr IVPB Q12 [facility] PRN Reason: Protocol Last Admin: 03/10/17 12:21 Dose: 100 mls/hr Multivitamins/Minerals (Therapeutic-M Tab) 1 tab PO DAILY [facility] Last Admin: 03/10/17 09:21 Dose: 1 tab Ondansetron HCl (Zofran Inj) 4 mg IVP Q4 PRN PRN Reason: Nausea/Vomiting Pantoprazole Sodium (Protonix Ec Tab) 40 mg PO DAILY [facility] Last Admin: 03/10/17 09:21 Dose: 40 mg Saliva Substitute (Caphosol 15 Ml) 15 ml MM Q4 PRN PRN Reason: Dry mouth Sodium Chloride ([place] Nasal [place]) 1 sprays DIAMOND Q6 [facility] Last Admin: 03/10/17 09:25 Dose: 1 spr Zolpidem Tartrate (Ambien) 5 mg PO HS PRN PRN Reason: Insomnia Last Admin: 03/09/17 23:03 Dose: 5 mg - Labs Labs: 03/10/17 04:40 03/10/17 04:40 PT 16.3 Seconds (9.8-13.1) H 03/06/17 05:20 INR 1.5 (0.9-1.2) H 03/06/17 05:20 APTT 36.2 Seconds (25.6-37.1) 03/06/17 05:20
--- NOTE | 2017-03-10 16:44 | NM ---
COMPARISON: Chest radiograph 03/10/2017. TECHNIQUE: 40.0 mCi technetium 99-m DTPA aerosol. 5.0 mCI technetium 99-m MAA administered intravenously. FINDINGS: VENTILATION COMPONENT: Reverse mismatches are identified at left upper and lower lobes with normal for fusion identified in these locations. This may be a function of air-trapping. PERFUSION COMPONENT: Matched defects in the left pulmonary apex and also the left lower lobe. Right-sided profusion appears unremarkable. No perfusion mismatch identified. IMPRESSION: Lowprobability ventilation perfusion scan for pulmonary embolism.
--- NOTE | 2017-03-10 17:24 | CT ---
PROCEDURE: CT scan abdomen pelvis dated 03/10/2017 HISTORY: Status post right hemicolectomy, s/p intra-abdominal abscess drainage COMPARISON: Comparison made with prior CT scan abdomen pelvis 03/05/2017 TECHNIQUE: Contiguous helical/transaxial images of the abdomen and pelvis. Oral contrast was administered. No IV contrast given. Coronal and Sagittal reformats generated. Radiation dose: Total exam DLP = 1041.62 mGy-cm. This CT exam was performed using one or more of the following dose reduction techniques: Automated exposure control, adjustment of the mA and/or kV according to patient size, and/or use of iterative reconstruction technique. . FINDINGS: LOWER THORAX: Small right-sided effusion and mild right basilar atelectasis. Tiny left-sided effusion. Heart size appears mildly enlarged. . Suspect tiny pericardial effusion. LIVER: Re- demonstrated are multiple low-attenuation foci scattered throughout the hepatic parenchyma consistent with hepatic cysts. . In situ drainage catheter which extends through the right anterior lower chest wall into a a fluid collection surrounding the anterior superior margin of the liver. The overall size of the has diminished in size. Free air has also diminished. GALLBLADDER AND BILE DUCTS: Gallbladder has been resected with metallic clips again seen in the gallbladder fossa. PANCREAS: The visualized portions of the pancreas are somewhat atrophic and fatty replaced unchanged. SPLEEN: Spleen remains mildly enlarged. ADRENALS: No adrenal lesions. KIDNEYS AND URETERS: Bilateral renal cysts again noted. No evidence of nephrolithiasis or hydronephrosis. BLADDER: The urinary bladder is physiologically distended. Small amount of air is again seen present within the urinary bladder slightly decreased from prior study. Rule out infection with gas-forming organism. REPRODUCTIVE: Prostate gland appears grossly unremarkable. APPENDIX: Appendix not visualized in this patient is status post right hemicolectomy. BOWEL: Evaluation of the bowel is limited due to a lack of oral contrast material. Right hemicolectomy again noted. There are infiltration changes seen in the mesenteries of the right upper quadrant of the abdomen. Re- demonstrated is a focal collection PERITONEUM: Re- demonstrated is a elliptical shaped approximately 5.3 x 4.3 cm hypodense some fluid collection in the right upper quadrant also felt to be postoperative slightly decreased from prior exam Small fat containing inguinal hernias left larger than right LYMPH NODES: Unremarkable. No enlarged lymph nodes. VASCULATURE: No evidence of abdominal aortic aneurysm. BONES: Mild multilevel degenerative spondylosis of the lower thoracic and lumbar spine. OTHER FINDINGS: None. IMPRESSION: In situ drainage catheter with decrease size perihepatic fluid and free air. Re- demonstrated is a small circumscribed presumed proteinaceous fluid collection right upper quadrant of the abdomen slightly decreased in size is well. Surrounding mesenteric infiltration Status post right hemicolectomy. Splenomegaly. Multiple on hepatic cyst. Small right-sided effusion with mild right basilar atelectasis. Tiny left effusion. Small amount of air within the urinary bladder decreased from prior study. Findings could be due to prior instrumentation however infection with gas-forming organism not excluded Suspect tiny pericardial effusion.
[2017-03-11] MEDS: Meropenem 500 MG in Sodium Chloride 0.9% 100 ML IVPB SCH ×3 (00:41→17:13)
[2017-03-11] MEDS: metroNIDAZOLE 500mg/100ml NS 100 ML IVPB SCH ×3 (02:04→17:14)
[2017-03-11] MEDS: Nasal Spray(Ocean spray) NAS SCH ×4 (03:58→22:23)
[2017-03-11 05:34] LABS: BASO # 0.1 K/uL (0.0-0.2); BASO % 0.4 % (0.0-2.0); EOS # 0.2 K/uL (0.0-0.7); EOS % 1.2 % (0.0-4.0); HEMOGLOBIN 10.9 g/dL (12.0-18.0); LYMPH # 0.9 K/uL (1.0-4.3); LYMPH % 5.4 % (20.0-40.0); MEAN CELL VOLUME 84.1 fl (80.0-94.0); MEAN CORPUSCULAR HEMOGLOBIN 26.8 pg (27.0-31.0); MEAN CORPUSCULAR HGB CONC 31.8 g/dL (33.0-37.0); MEAN PLATELET VOLUME 8.2 fl (7.2-11.7); MONO # 1.1 K/uL (0.0-0.8); MONO % 6.8 % (0.0-10.0); NEUT # 13.8 K/uL (1.8-7.0); NEUT % 86.2 % (50.0-75.0); RBC 4.07 Mil/uL (4.40-5.90); RED CELL DISTRIBUTION WIDTH 17.5 % (11.5-14.5)
[2017-03-11 05:52] LABS: ALB/GLOB RATIO 1.1 (1.0-2.1); ALBUMIN 2.4 g/dL (3.5-5.0)
[2017-03-11] MEDS ORDERED: Potassium Chloride 20 mEq ER Tab PO ONE (06:40)
[2017-03-11] MEDS: Albuterol-Ipratrop 3 mg / 0.5 (3 ml) UD INH SCH ×4 (07:24→19:29)
[2017-03-11] MEDS: Acetylcysteine 20% Inhal Soln (4ml) INH SCH ×2 (07:25→19:29)
--- NOTE | 2017-03-11 08:12 | CP.PCM.PN ---
<Christina Spicer - Last Filed: 03/11/17 08:14> Subjective - Date & Time of Evaluation Date of Evaluation: 03/11/17 Time of Evaluation: 07:30 - Subjective Subjective: General Surgery progress note for Dr. Lc Spicer, PGY-1 Pt S & E at bedside. Pt reports poor appetite due to dislike of hospital food, feelings of depression due to lack of physical activity/hospitalization/food. No acute events overnight. No other complaints. RUQ drain with 80 cc /24H serous fluid. Objective - Vital Signs/Intake and Output Vital Signs (last 24 hours): Temp Pulse Resp BP Pulse Ox 98.4 F 67 18 154/91 H 93 L 03/11/17 05:46 03/11/17 05:46 03/11/17 05:46 03/11/17 05:46 03/11/17 05:46 Intake and Output: 03/11/17 03/11/17 06:59 18:59 Intake Total 420 Output Total 850 Balance -430 - Medications Medications: Current Medications Acetaminophen (Tylenol 325mg Tab) 650 mg PO Q4 PRN PRN Reason: Fever >100.4 F Last Admin: 03/09/17 16:25 Dose: 650 mg Acetylcysteine (Acetylcysteine 20%) 2 ml INH RBID [facility] Last Admin: 03/11/17 07:25 Dose: 2 ml Albuterol/Ipratropium (Duoneb 3 Mg/0.5 Mg (3 Ml) Ud) 3 ml INH RQID [facility] Last Admin: 03/11/17 07:24 Dose: 3 ml Albuterol/Ipratropium (Duoneb 3 Mg/0.5 Mg (3 Ml) Ud) 3 ml INH RQ6 PRN PRN Reason: Shortness of Breath Enoxaparin Sodium (Lovenox) 40 mg SC DAILY [facility] PRN Reason: Protocol Last Admin: 03/10/17 09:24 Dose: 40 mg Furosemide (Lasix) 40 mg IV DAILY [facility] Last Admin: 03/10/17 17:13 Dose: 40 mg Guaifenesin (Robitussin) 200 mg PO QID [facility] Last Admin: 03/10/17 21:12 Dose: 200 mg Metronidazole (Flagyl 500mg/100ml Ns) 100 mls @ 100 mls/hr IVPB Q8 [facility] PRN Reason: Protocol Last Admin: 03/11/17 02:04 Dose: 100 mls/hr Meropenem 500 mg/ Sodium (Chloride) 100 mls @ 100 mls/hr IVPB Q8 [facility] PRN Reason: Protocol Last Admin: 03/11/17 00:41 Dose: 100 mls/hr Ceftaroline Fosamil 400 mg/ (Sodium Chloride) 100 mls @ 100 mls/hr IVPB Q12 [facility] PRN Reason: Protocol Last Admin: 03/10/17 21:08 Dose: 100 mls/hr Multivitamins/Minerals (Therapeutic-M Tab) 1 tab PO DAILY [facility] Last Admin: 03/10/17 09:21 Dose: 1 tab Ondansetron HCl (Zofran Inj) 4 mg IVP Q4 PRN PRN Reason: Nausea/Vomiting Pantoprazole Sodium (Protonix Ec Tab) 40 mg PO DAILY [facility] Last Admin: 03/10/17 09:21 Dose: 40 mg Saliva Substitute (Caphosol 15 Ml) 15 ml MM Q4 PRN PRN Reason: Dry mouth Sodium Chloride ([place] Nasal [place]) 1 sprays DIAMOND Q6 [facility] Last Admin: 03/11/17 03:58 Dose: Not Given Zolpidem Tartrate (Ambien) 5 mg PO HS PRN PRN Reason: Insomnia Last Admin: 03/10/17 22:57 Dose: 5 mg - Labs Labs: 03/11/17 04:25 03/11/17 04:25 PT 16.3 Seconds (9.8-13.1) H 03/06/17 05:20 INR 1.5 (0.9-1.2) H 03/06/17 05:20 APTT 36.2 Seconds (25.6-37.1) 03/06/17 05:20 - Constitutional Appears: Non-toxic, No Acute Distress - Head Exam Head Exam: ATRAUMATIC, NORMAL INSPECTION, NORMOCEPHALIC - Eye Exam Eye Exam: EOMI, Normal appearance - ENT Exam ENT Exam: Mucous Membranes Moist, Normal Exam - Neck Exam Neck Exam: Full ROM, Normal Inspection - Respiratory Exam Respiratory Exam: NORMAL BREATHING PATTERN - Cardiovascular Exam Cardiovascular Exam: REGULAR RHYTHM, +S1, +S2 - GI/Abdominal Exam GI & Abdominal Exam: Soft, Normal Bowel Sounds. absent: Distended, Firm, Guarding, Rigid, Tenderness Additional comments: Johnna in place over midline incision, RUQ with catheter in place, small amount of serous fluid in bag - Extremities Exam Extremities Exam: Pedal Edema (bilateral) - Neurological Exam Neurological Exam: Alert, Awake, CN II-XII Intact, Oriented x3 - Psychiatric Exam Psychiatric exam: Depressed, Normal Affect - Skin Skin Exam: Dry, Intact, Normal Color, Warm Assessment and Plan - Assessment and Plan (Free Text) Assessment: 71 M POD#14 s/p open right hemicolectomy POD#5 s/p IR drainage of intra- abdominal fluid collection, with right sided pneumonia Plan: Afebrile over last 24H Monitor VS Leukocytosis resolving - now [address] abdomen with fluid collection- decreased size from previous Cont ABx Duonebs Chest PT OOBTC Ambulate/PT Encourage IS use Encourage flutter valve use Cont pulmonary toilet Supplements Encourage PO intake ID following Will DW attending Dannielle, PGY-1 <Vaughn Ramon - Last Filed: 03/11/17 09:49> Subjective - Date & Time of Evaluation Time of Evaluation: 09:35 - Subjective Subjective: Patient was seen and examined at the bedside. Agree with resident's note above. Objective - Vital Signs/Intake and Output Vital Signs (last 24 hours): Temp Pulse Resp BP Pulse Ox 98.1 F 87 20 156/93 H 96 03/11/17 08:18 03/11/17 08:18 03/11/17 08:18 03/11/17 09:40 03/11/17 08:18 Intake and Output: 03/11/17 03/11/17 06:59 18:59 Intake Total 420 Output Total 850 Balance -430 - Medications Medications: Current Medications Acetaminophen (Tylenol 325mg Tab) 650 mg PO Q4 PRN PRN Reason: Fever >100.4 F Last Admin: 03/09/17 16:25 Dose: 650 mg Acetylcysteine (Acetylcysteine 20%) 2 ml INH RBID [facility] Last Admin: 03/11/17 07:25 Dose: 2 ml Albuterol/Ipratropium (Duoneb 3 Mg/0.5 Mg (3 Ml) Ud) 3 ml INH RQID [facility] Last Admin: 03/11/17 07:24 Dose: 3 ml Albuterol/Ipratropium (Duoneb 3 Mg/0.5 Mg (3 Ml) Ud) 3 ml INH RQ6 PRN PRN Reason: Shortness of Breath Enoxaparin Sodium (Lovenox) 40 mg SC DAILY [facility] PRN Reason: Protocol Last Admin: 03/11/17 09:41 Dose: 40 mg Furosemide (Lasix) 40 mg IV DAILY [facility] Last Admin: 03/11/17 09:40 Dose: 40 mg Guaifenesin (Robitussin) 200 mg PO QID [facility] Last Admin: 03/10/17 21:12 Dose: 200 mg Metronidazole (Flagyl 500mg/100ml Ns) 100 mls @ 100 mls/hr IVPB Q8 [facility] PRN Reason: Protocol Last Admin: 03/11/17 09:38 Dose: 100 mls/hr Meropenem 500 mg/ Sodium (Chloride) 100 mls @ 100 mls/hr IVPB Q8 [facility] PRN Reason: Protocol Last Admin: 03/11/17 09:45 Dose: 100 mls/hr Ceftaroline Fosamil 400 mg/ (Sodium Chloride) 100 mls @ 100 mls/hr IVPB Q12 [facility] PRN Reason: Protocol Last Admin: 03/11/17 09:41 Dose: 100 mls/hr Multivitamins/Minerals (Therapeutic-M Tab) 1 tab PO DAILY [facility] Last Admin: 03/11/17 09:42 Dose: 1 tab Ondansetron HCl (Zofran Inj) 4 mg IVP Q4 PRN PRN Reason: Nausea/Vomiting Pantoprazole Sodium (Protonix Ec Tab) 40 mg PO DAILY [facility] Last Admin: 03/11/17 09:43 Dose: 40 mg Saliva Substitute (Caphosol 15 Ml) 15 ml MM Q4 PRN PRN Reason: Dry mouth Sodium Chloride ([place] Nasal [place]) 1 sprays DIAMOND Q6 [facility] Last Admin: 03/11/17 09:43 Dose: 1 spr Zolpidem Tartrate (Ambien) 5 mg PO HS PRN PRN Reason: Insomnia Last Admin: 03/10/17 22:57 Dose: 5 mg - Labs Labs: 03/11/17 04:25 03/11/17 04:25 PT 16.3 Seconds (9.8-13.1) H 03/06/17 05:20 INR 1.5 (0.9-1.2) H 03/06/17 05:20 APTT 36.2 Seconds (25.6-37.1) 03/06/17 05:20
--- NOTE | 2017-03-11 09:25 | CP.PCM.PN ---
<Carito Gore - Last Filed: 03/11/17 13:01> Subjective - Date & Time of Evaluation Date of Evaluation: 03/11/17 Time of Evaluation: 07:20 - Subjective Subjective: Patieent seen and examined bedside with Dr Guevara Patient reports feeling better, noticed breathing with less difficulty. Denies chest pain, abd pain,fever,n,v,d. Objective - Vital Signs/Intake and Output Vital Signs (last 24 hours): Temp Pulse Resp BP Pulse Ox 98.1 F 87 20 151/93 H 96 03/11/17 08:18 03/11/17 08:18 03/11/17 08:18 03/11/17 08:18 03/11/17 08:18 Intake and Output: 03/11/17 03/11/17 06:59 18:59 Intake Total 420 Output Total 850 Balance -430 - Medications Medications: Current Medications Acetaminophen (Tylenol 325mg Tab) 650 mg PO Q4 PRN PRN Reason: Fever >100.4 F Last Admin: 03/09/17 16:25 Dose: 650 mg Acetylcysteine (Acetylcysteine 20%) 2 ml INH RBID [facility] Last Admin: 03/11/17 07:25 Dose: 2 ml Albuterol/Ipratropium (Duoneb 3 Mg/0.5 Mg (3 Ml) Ud) 3 ml INH RQID [facility] Last Admin: 03/11/17 07:24 Dose: 3 ml Albuterol/Ipratropium (Duoneb 3 Mg/0.5 Mg (3 Ml) Ud) 3 ml INH RQ6 PRN PRN Reason: Shortness of Breath Enoxaparin Sodium (Lovenox) 40 mg SC DAILY [facility] PRN Reason: Protocol Last Admin: 03/10/17 09:24 Dose: 40 mg Furosemide (Lasix) 40 mg IV DAILY [facility] Last Admin: 03/10/17 17:13 Dose: 40 mg Guaifenesin (Robitussin) 200 mg PO QID [facility] Last Admin: 03/10/17 21:12 Dose: 200 mg Metronidazole (Flagyl 500mg/100ml Ns) 100 mls @ 100 mls/hr IVPB Q8 [facility] PRN Reason: Protocol Last Admin: 03/11/17 02:04 Dose: 100 mls/hr Meropenem 500 mg/ Sodium (Chloride) 100 mls @ 100 mls/hr IVPB Q8 [facility] PRN Reason: Protocol Last Admin: 03/11/17 00:41 Dose: 100 mls/hr Ceftaroline Fosamil 400 mg/ (Sodium Chloride) 100 mls @ 100 mls/hr IVPB Q12 [facility] PRN Reason: Protocol Last Admin: 03/10/17 21:08 Dose: 100 mls/hr Multivitamins/Minerals (Therapeutic-M Tab) 1 tab PO DAILY [facility] Last Admin: 03/10/17 09:21 Dose: 1 tab Ondansetron HCl (Zofran Inj) 4 mg IVP Q4 PRN PRN Reason: Nausea/Vomiting Pantoprazole Sodium (Protonix Ec Tab) 40 mg PO DAILY [facility] Last Admin: 03/10/17 09:21 Dose: 40 mg Saliva Substitute (Caphosol 15 Ml) 15 ml MM Q4 PRN PRN Reason: Dry mouth Sodium Chloride ([place] Nasal [place]) 1 sprays DIAMOND Q6 [facility] Last Admin: 03/11/17 03:58 Dose: Not Given Zolpidem Tartrate (Ambien) 5 mg PO HS PRN PRN Reason: Insomnia Last Admin: 03/10/17 22:57 Dose: 5 mg - Labs Labs: 03/11/17 04:25 03/11/17 04:25 PT 16.3 Seconds (9.8-13.1) H 03/06/17 05:20 INR 1.5 (0.9-1.2) H 03/06/17 05:20 APTT 36.2 Seconds (25.6-37.1) 03/06/17 05:20 - Constitutional Appears: No Acute Distress - Eye Exam Eye Exam: Normal appearance - ENT Exam ENT Exam: Mucous Membranes Moist - Respiratory Exam Respiratory Exam: Decreased Breath Sounds, Rales - Cardiovascular Exam Cardiovascular Exam: REGULAR RHYTHM, +S1, +S2 - GI/Abdominal Exam GI & Abdominal Exam: Soft, Normal Bowel Sounds. absent: Tenderness Additional comments: RUQ with catheter in place, small amount of serous fluid in bag. Midline incision with josy in place, no erythema or drainage noted. non tender - Neurological Exam Neurological Exam: Alert, Awake, Oriented x3 Assessment and Plan - Assessment and Plan (Free Text) Plan: 71 yr old M PMHx/o HTN, COPD, CAD, CKD, POD # 11 s/p laparoscopic right hemicolectomy for ascending colon mass (moderately differentiated adenocarcinoma ). D/w pt at length >30min, clinical findings/plan, dispo plan. 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 -Pain control: percocet prn -Hem/Onc c/s: outpt chemo, will need portcath placement 2) Emphysema/COPD - O2 NC, Duo Neb Q8 sonali -CT chest w/o contrast -V/Q scan low probabilitiy PE -Pulmonology consult appreciated 3) HAP -CT chest: right infiltrates, chronic change to b/l lungs -Pulmonology consult -ID c/s -stopped Zosyn/clindamycin -started Meropenem, flagyl, Day#4 -started ceftaroline day 3 -sputum cx yeast -blood cx NGTD 4) Intrabdominal abscess -CT abd: intrabdominal fluids around pancreas and right liver lobe aprox 3.9 x 5.9 cm -CT chest: ascites overlying right liver dome with small pocket of air -s/p draignage -CT Abd:improving -ID consult appreciated 5) Borderline left ventricular function -Echo 01/01/17: impaired systolic function with LVEF of 45% -district plant superintendent Dr. Miller: c/w hydralazine. 6) CHF diastolic preserve EF Echo 01/01/17: impaired systolic function with LVEF of 45% -pro-BNP 1730 02/25/17 -district plant superintendent consult appreciated.c/w lasix 7)CKD stage 3 -GFR 38 cr 1.8 -renally dose meds, prevent ERYN by not getting contrast if possible 8) HTN -controlled -HCTZ 12.5 mg daily 9) DVT prophylaxis -lovenox 40 mg sc Dispo: [facility] <Santo Guevara - Last Filed: 03/12/17 07:04> Objective - Vital Signs/Intake and Output Vital Signs (last 24 hours): Temp Pulse Resp BP Pulse Ox 98.9 F 78 20 144/82 97 03/12/17 05:00 03/12/17 05:00 03/12/17 05:00 03/12/17 05:00 03/12/17 05:00 Intake and Output: 03/12/17 03/12/17 06:59 18:59 Intake Total 300 Output Total 525 Balance -225 - Medications Medications: Current Medications Acetaminophen (Tylenol 325mg Tab) 650 mg PO Q4 PRN PRN Reason: Fever >100.4 F Last Admin: 03/11/17 12:12 Dose: 650 mg Acetaminophen (Tylenol 325mg Tab) 650 mg PO Q6 PRN PRN Reason: Pain, Mild (1-3) Acetylcysteine (Acetylcysteine 20%) 2 ml INH RBID [facility] Last Admin: 03/11/17 19:29 Dose: 2 ml Albuterol/Ipratropium (Duoneb 3 Mg/0.5 Mg (3 Ml) Ud) 3 ml INH RQID [facility] Last Admin: 03/11/17 19:29 Dose: 3 ml Albuterol/Ipratropium (Duoneb 3 Mg/0.5 Mg (3 Ml) Ud) 3 ml INH RQ6 PRN PRN Reason: Shortness of Breath Enoxaparin Sodium (Lovenox) 40 mg SC DAILY [facility] PRN Reason: Protocol Last Admin: 03/11/17 09:41 Dose: 40 mg Furosemide (Lasix) 40 mg IV DAILY [facility] Last Admin: 03/11/17 09:40 Dose: 40 mg Guaifenesin (Robitussin) 200 mg PO QID [facility] Last Admin: 03/11/17 22:23 Dose: 200 mg Metronidazole (Flagyl 500mg/100ml Ns) 100 mls @ 100 mls/hr IVPB Q8 [facility] PRN Reason: Protocol Last Admin: 03/12/17 00:35 Dose: 100 mls/hr Meropenem 500 mg/ Sodium (Chloride) 100 mls @ 100 mls/hr IVPB Q8 [facility] PRN Reason: Protocol Last Admin: 03/12/17 00:34 Dose: 100 mls/hr Ceftaroline Fosamil 400 mg/ (Sodium Chloride) 100 mls @ 100 mls/hr IVPB Q12 [facility] PRN Reason: Protocol Last Admin: 03/11/17 20:31 Dose: 100 mls/hr Multivitamins/Minerals (Therapeutic-M Tab) 1 tab PO DAILY [facility] Last Admin: 03/11/17 09:42 Dose: 1 tab Ondansetron HCl (Zofran Inj) 4 mg IVP Q4 PRN PRN Reason: Nausea/Vomiting Pantoprazole Sodium (Protonix Ec Tab) 40 mg PO DAILY [facility] Last Admin: 03/11/17 09:43 Dose: 40 mg Saliva Substitute (Caphosol 15 Ml) 15 ml MM Q4 PRN PRN Reason: Dry mouth Sodium Chloride ([place] Nasal [place]) 1 sprays DIAMOND Q6 [facility] Last Admin: 03/12/17 04:00 Dose: Not Given Zolpidem Tartrate (Ambien) 5 mg PO HS PRN PRN Reason: Insomnia Last Admin: 03/11/17 22:23 Dose: 5 mg - Labs Labs: 03/12/17 04:15 03/12/17 04:15 PT 18.8 Seconds (9.8-13.1) H 03/12/17 04:15 INR 1.7 (0.9-1.2) H 03/12/17 04:15 APTT 36.2 Seconds (25.6-37.1) 03/06/17 05:20 Attending/Attestation - Attestation I have personally seen and examined this patient.: Yes I have fully participated in the care of the patient.: Yes I have reviewed all pertinent clinical information, including history, physical exam and plan: Yes
[2017-03-11] MEDS: guaiFENesin 200 mg/10 ml Syrup UD PO SCH ×3 (09:31→22:23)
[2017-03-11] MEDS: Enoxaparin 40 mg Syringe SC SCH (09:41)
[2017-03-11] MEDS: Multivitamin With Minerals Tab PO SCH (09:42)
[2017-03-11] MEDS: Pantoprazole 40 mg EC Tab PO SCH (09:43)
[2017-03-11] MEDS ORDERED: Lidocaine 1% Inj (20ml) ONE (10:25)
--- NOTE | 2017-03-11 11:02 | CP.PCM.CON ---
History of Present Illness - History of Present Illness History of Present Illness: 71 y/o w/m s/p Right hemicolectomy 2* to CA Colon has since developed pneumonia moved down to Telemetry Cardiology consult called for evaluationn of possible CHF BNP: 4100 Pt c/o cough and SOB EKG: no acute changes 01/17 Echo: Conc LV Good Lv contractility EF: 45% Past Patient History - Past Medical History & Family History Past Medical History?: Yes - Past Social History Smoking Status: Never Smoked Chewing Tobacco Use: No Cigar Use: No Alcohol: Social Drugs: Denies Home Situation {Lives}: With Family - CARDIAC Hx Hypertension: Yes - PULMONARY Hx Bronchitis: Yes - NEUROLOGICAL Hx Neurological Disorder: No - HEENT Hx HEENT Problems: No - RENAL Hx Chronic Kidney Disease: Yes Other/Comment: Hx chronic renal insufficiency. Hx CKD. Hx Renal Cyst - ENDOCRINE/METABOLIC Hx Endocrine Disorders: No - HEMATOLOGICAL/ONCOLOGICAL Hx Anemia: Yes Hx Blood Transfusions: Yes Hx Cancer: Yes (Recent colonoscopy with biopsy) - INTEGUMENTARY Hx Dermatological Problems: No - MUSCULOSKELETAL/RHEUMATOLOGICAL Hx Falls: Yes - GASTROINTESTINAL Hx Gastritis: Yes Other/Comment: Hx Colonic Mass. Hx GI bleed - GENITOURINARY/GYNECOLOGICAL Hx Prostate Problems: Yes - PSYCHIATRIC Hx Psychophysiologic Disorder: No Hx Substance Use: No - SURGICAL HISTORY Other/Comment: Prostatectomy - ANESTHESIA Hx Anesthesia: Yes Hx Anesthesia Reactions: No Hx Malignant Hyperthermia: No Has any member of the family had a problem w/ anesthesia?: No Meds Allergies/Adverse Reactions: Allergies Allergy/AdvReac Type Severity Reaction Status Date / Time No Known Allergies Allergy Verified 02/25/17 08:25 - Medications Medications: Current Medications Acetaminophen (Tylenol 325mg Tab) 650 mg PO Q4 PRN PRN Reason: Fever >100.4 F Last Admin: 03/09/17 16:25 Dose: 650 mg Acetylcysteine (Acetylcysteine 20%) 2 ml INH RBID [facility] Last Admin: 03/11/17 07:25 Dose: 2 ml Albuterol/Ipratropium (Duoneb 3 Mg/0.5 Mg (3 Ml) Ud) 3 ml INH RQID [facility] Last Admin: 03/11/17 07:24 Dose: 3 ml Albuterol/Ipratropium (Duoneb 3 Mg/0.5 Mg (3 Ml) Ud) 3 ml INH RQ6 PRN PRN Reason: Shortness of Breath Enoxaparin Sodium (Lovenox) 40 mg SC DAILY [facility] PRN Reason: Protocol Last Admin: 03/11/17 09:41 Dose: 40 mg Furosemide (Lasix) 40 mg IV DAILY [facility] Last Admin: 03/11/17 09:40 Dose: 40 mg Guaifenesin (Robitussin) 200 mg PO QID [facility] Last Admin: 03/10/17 21:12 Dose: 200 mg Metronidazole (Flagyl 500mg/100ml Ns) 100 mls @ 100 mls/hr IVPB Q8 [facility] PRN Reason: Protocol Last Admin: 03/11/17 09:38 Dose: 100 mls/hr Meropenem 500 mg/ Sodium (Chloride) 100 mls @ 100 mls/hr IVPB Q8 [facility] PRN Reason: Protocol Last Admin: 03/11/17 09:45 Dose: 100 mls/hr Ceftaroline Fosamil 400 mg/ (Sodium Chloride) 100 mls @ 100 mls/hr IVPB Q12 [facility] PRN Reason: Protocol Last Admin: 03/11/17 09:41 Dose: 100 mls/hr Multivitamins/Minerals (Therapeutic-M Tab) 1 tab PO DAILY [facility] Last Admin: 03/11/17 09:42 Dose: 1 tab Ondansetron HCl (Zofran Inj) 4 mg IVP Q4 PRN PRN Reason: Nausea/Vomiting Pantoprazole Sodium (Protonix Ec Tab) 40 mg PO DAILY [facility] Last Admin: 03/11/17 09:43 Dose: 40 mg Saliva Substitute (Caphosol 15 Ml) 15 ml MM Q4 PRN PRN Reason: Dry mouth Sodium Chloride ([place] Nasal [place]) 1 sprays DIAMOND Q6 [facility] Last Admin: 03/11/17 09:43 Dose: 1 spr Zolpidem Tartrate (Ambien) 5 mg PO HS PRN PRN Reason: Insomnia Last Admin: 03/10/17 22:57 Dose: 5 mg Physical Exam - Constitutional Appears: Well - Head Exam Head Exam: ATRAUMATIC, NORMAL INSPECTION, NORMOCEPHALIC - ENT Exam ENT Exam: Mucous Membranes Moist, Normal Exam - Neck Exam Neck exam: Positive for: Normal Inspection - Respiratory Exam Respiratory Exam: Decreased Breath Sounds - Cardiovascular Exam Cardiovascular Exam: REGULAR RHYTHM Results - Vital Signs Recent Vital Signs: Last Vital Signs Temp 98.1 F 03/11/17 08:18 Pulse 87 03/11/17 08:18 Resp 20 03/11/17 08:18 BP 156/93 H 03/11/17 09:40 Pulse Ox 96 03/11/17 08:18 - Labs Result Diagrams: 03/11/17 04:25 03/11/17 04:25 Labs: Laboratory Results - last 24 hr 03/10/17 03/11/17 03/11/17 10:15 04:25 04:25 WBC 16.0 H RBC 4.07 L Hgb 10.9 L Hct 34.2 L MCV 84.1 MCH 26.8 L MCHC 31.8 L RDW 17.5 H Plt Count 218 MPV 8.2 Neut % (Auto) 86.2 H Lymph % (Auto) 5.4 L [place] % (Auto) 6.8 Eos % (Auto) 1.2 Baso % (Auto) 0.4 Neut # 13.8 H Lymph # 0.9 L [place] # 1.1 H Eos # 0.2 Baso # 0.1 Sodium 141 Potassium 3.2 L Chloride 102 Carbon Dioxide 29 Anion Gap 13 BUN 18 Creatinine 1.5 Est GFR ( Amer) 56 Est GFR (Non-Af Amer) 46 POC Glucose (mg/dL) Random Glucose 103 Calcium 8.0 L Total Bilirubin 0.4 AST 23 ALT 34 Alkaline Phosphatase 85 Total Protein 4.5 L Albumin 2.4 L Globulin 2.1 L Albumin/Globulin Ratio 1.1 Procalcitonin 0.78 H 03/11/17 05:10 WBC RBC Hgb Hct MCV MCH MCHC RDW Plt Count MPV Neut % (Auto) Lymph % (Auto) [place] % (Auto) Eos % (Auto) Baso % (Auto) Neut # Lymph # [place] # Eos # Baso # Sodium Potassium Chloride Carbon Dioxide Anion Gap BUN Creatinine Est GFR ( Amer) Est GFR (Non-Af Amer) POC Glucose (mg/dL) 104 Random Glucose Calcium Total Bilirubin AST ALT Alkaline Phosphatase Total Protein Albumin Globulin Albumin/Globulin Ratio Procalcitonin Assessment & Plan (1) Acute on chronic left systolic heart failure Assessment and Plan: Most of the Patient's SOB is 2* to pneumonia there is a small element of CHF continue with Lasix 40mg daily Status: Acute (2) Adenocarcinoma of colon Status: Acute (3) COPD (chronic obstructive pulmonary disease) with emphysema Status: Acute (4) Nosocomial pneumonia Status: Acute Priority: High (5) Status post right hemicolectomy Status: Acute
--- NOTE | 2017-03-11 11:24 | PCM.SURG1 ---
Surgeon's Initial Post Op Note - Surgeon's Notes Surgeon: Blaise Saezn MD Material Engineer: NONE Type of Anesthesia: Local Pre-Operative Diagnosis: Infection Operative Findings: US showed a patent right basilic vein. Post-Operative Diagnosis: Infection Operation Performed: Single lumen picc placment right basilic vein, 40 cm. Tip is in the SVC. Specimen/Specimens Removed: NONE Estimated Blood Loss: EBL {In ML}: 2 Drains Used: No Drains Post-Op Condition: Fair Date of Surgery/Procedure: 03/11/17 Time of Surgery/Procedure: 11:00
--- NOTE | 2017-03-11 12:00 | CP.PCM.PN ---
Subjective - Date & Time of Evaluation Date of Evaluation: 03/11/17 Time of Evaluation: 12:00 - Subjective Subjective: Seen at the bedside. Has had 24 hrs without fever. WBC has decreased slightly to 16. Cough is congested and more 'loose'. Able to expectorate during the exam with coaching. Sputum was a creamy tenacious juan expectoration. PICC line has been inserted for continued antibiotics. Able to get OOB with PT and take a few steps. On exam there are sonorous rhonchi in the lower lobes without wheezes. Few medium rales are heard in the right base. Faint bronchial breath sounds in the right base as well. Discussed possible bronchoscopy in the AM tomorrow. If he remains afebrile and leukocytosis continues to decrease FFB may not be needed. Coached on coughing technique. Started on Ensure because of poor PO intake (probably bec of flagyl-c/o bad taste). Will re-eval again in the morning. Objective - Vital Signs/Intake and Output Vital Signs (last 24 hours): Temp Pulse Resp BP Pulse Ox 98.8 F 92 H 20 123/71 97 03/11/17 11:00 03/11/17 11:00 03/11/17 11:00 03/11/17 11:00 03/11/17 11:00 Intake and Output: 03/11/17 03/11/17 11:59 23:59 Intake Total 420 Output Total 850 Balance -430 - Medications Medications: Current Medications Acetaminophen (Tylenol 325mg Tab) 650 mg PO Q4 PRN PRN Reason: Fever >100.4 F Last Admin: 03/09/17 16:25 Dose: 650 mg Acetylcysteine (Acetylcysteine 20%) 2 ml INH RBID [facility] Last Admin: 03/11/17 07:25 Dose: 2 ml Albuterol/Ipratropium (Duoneb 3 Mg/0.5 Mg (3 Ml) Ud) 3 ml INH RQID [facility] Last Admin: 03/11/17 11:11 Dose: 3 ml Albuterol/Ipratropium (Duoneb 3 Mg/0.5 Mg (3 Ml) Ud) 3 ml INH RQ6 PRN PRN Reason: Shortness of Breath Enoxaparin Sodium (Lovenox) 40 mg SC DAILY [facility] PRN Reason: Protocol Last Admin: 03/11/17 09:41 Dose: 40 mg Furosemide (Lasix) 40 mg IV DAILY [facility] Last Admin: 03/11/17 09:40 Dose: 40 mg Guaifenesin (Robitussin) 200 mg PO QID [facility] Last Admin: 03/10/17 21:12 Dose: 200 mg Metronidazole (Flagyl 500mg/100ml Ns) 100 mls @ 100 mls/hr IVPB Q8 [facility] PRN Reason: Protocol Last Admin: 03/11/17 09:38 Dose: 100 mls/hr Meropenem 500 mg/ Sodium (Chloride) 100 mls @ 100 mls/hr IVPB Q8 [facility] PRN Reason: Protocol Last Admin: 03/11/17 09:45 Dose: 100 mls/hr Ceftaroline Fosamil 400 mg/ (Sodium Chloride) 100 mls @ 100 mls/hr IVPB Q12 [facility] PRN Reason: Protocol Last Admin: 03/11/17 09:41 Dose: 100 mls/hr Multivitamins/Minerals (Therapeutic-M Tab) 1 tab PO DAILY [facility] Last Admin: 03/11/17 09:42 Dose: 1 tab Ondansetron HCl (Zofran Inj) 4 mg IVP Q4 PRN PRN Reason: Nausea/Vomiting Pantoprazole Sodium (Protonix Ec Tab) 40 mg PO DAILY [facility] Last Admin: 03/11/17 09:43 Dose: 40 mg Saliva Substitute (Caphosol 15 Ml) 15 ml MM Q4 PRN PRN Reason: Dry mouth Sodium Chloride ([place] Nasal [place]) 1 sprays DIAMOND Q6 [facility] Last Admin: 03/11/17 09:43 Dose: 1 spr Zolpidem Tartrate (Ambien) 5 mg PO HS PRN PRN Reason: Insomnia Last Admin: 03/10/17 22:57 Dose: 5 mg - Labs Labs: 03/11/17 04:25 03/11/17 04:25 PT 16.3 Seconds (9.8-13.1) H 03/06/17 05:20 INR 1.5 (0.9-1.2) H 03/06/17 05:20 APTT 36.2 Seconds (25.6-37.1) 03/06/17 05:20 Assessment and Plan (1) Nosocomial pneumonia Status: Acute
--- NOTE | 2017-03-11 13:10 | CP.PCM.PN ---
Subjective - Date & Time of Evaluation Date of Evaluation: 03/11/17 Time of Evaluation: 12:15 - Subjective Subjective: Energy slightly improved, ambulated today Objective - Vital Signs/Intake and Output Vital Signs (last 24 hours): Temp Pulse Resp BP Pulse Ox 98.8 F 92 H 20 123/71 97 03/11/17 11:00 03/11/17 11:00 03/11/17 11:00 03/11/17 11:00 03/11/17 11:00 Intake and Output: 03/11/17 03/11/17 06:59 18:59 Intake Total 420 Output Total 850 Balance -430 - Medications Medications: Current Medications Acetaminophen (Tylenol 325mg Tab) 650 mg PO Q4 PRN PRN Reason: Fever >100.4 F Last Admin: 03/11/17 12:12 Dose: 650 mg Acetylcysteine (Acetylcysteine 20%) 2 ml INH RBID [facility] Last Admin: 03/11/17 07:25 Dose: 2 ml Albuterol/Ipratropium (Duoneb 3 Mg/0.5 Mg (3 Ml) Ud) 3 ml INH RQID [facility] Last Admin: 03/11/17 11:11 Dose: 3 ml Albuterol/Ipratropium (Duoneb 3 Mg/0.5 Mg (3 Ml) Ud) 3 ml INH RQ6 PRN PRN Reason: Shortness of Breath Enoxaparin Sodium (Lovenox) 40 mg SC DAILY [facility] PRN Reason: Protocol Last Admin: 03/11/17 09:41 Dose: 40 mg Furosemide (Lasix) 40 mg IV DAILY [facility] Last Admin: 03/11/17 09:40 Dose: 40 mg Guaifenesin (Robitussin) 200 mg PO QID [facility] Last Admin: 03/10/17 21:12 Dose: 200 mg Metronidazole (Flagyl 500mg/100ml Ns) 100 mls @ 100 mls/hr IVPB Q8 [facility] PRN Reason: Protocol Last Admin: 03/11/17 09:38 Dose: 100 mls/hr Meropenem 500 mg/ Sodium (Chloride) 100 mls @ 100 mls/hr IVPB Q8 [facility] PRN Reason: Protocol Last Admin: 03/11/17 09:45 Dose: 100 mls/hr Ceftaroline Fosamil 400 mg/ (Sodium Chloride) 100 mls @ 100 mls/hr IVPB Q12 [facility] PRN Reason: Protocol Last Admin: 03/11/17 09:41 Dose: 100 mls/hr Multivitamins/Minerals (Therapeutic-M Tab) 1 tab PO DAILY [facility] Last Admin: 03/11/17 09:42 Dose: 1 tab Ondansetron HCl (Zofran Inj) 4 mg IVP Q4 PRN PRN Reason: Nausea/Vomiting Pantoprazole Sodium (Protonix Ec Tab) 40 mg PO DAILY [facility] Last Admin: 03/11/17 09:43 Dose: 40 mg Saliva Substitute (Caphosol 15 Ml) 15 ml MM Q4 PRN PRN Reason: Dry mouth Sodium Chloride ([place] Nasal [place]) 1 sprays DIAMOND Q6 [facility] Last Admin: 03/11/17 09:43 Dose: 1 spr Zolpidem Tartrate (Ambien) 5 mg PO HS PRN PRN Reason: Insomnia Last Admin: 03/10/17 22:57 Dose: 5 mg - Labs Labs: 03/11/17 04:25 03/11/17 04:25 PT 16.3 Seconds (9.8-13.1) H 03/06/17 05:20 INR 1.5 (0.9-1.2) H 03/06/17 05:20 APTT 36.2 Seconds (25.6-37.1) 03/06/17 05:20 - Head Exam Head Exam: ATRAUMATIC - Eye Exam Eye Exam: Normal appearance - ENT Exam ENT Exam: Mucous Membranes Dry - Respiratory Exam Respiratory Exam: Decreased Breath Sounds - Cardiovascular Exam Cardiovascular Exam: +S1, +S2 - GI/Abdominal Exam GI & Abdominal Exam: Normal Bowel Sounds Assessment and Plan (1) Anemia Assessment & Plan: chronic disease normal iron/b12/folate stores Status: Acute (2) Leukocytosis Assessment & Plan: on antibiotics Status: Acute (3) Adenocarcinoma of colon Assessment & Plan: stage III; s/p hemicolectomy outpatient adjuvant chemotherapy Status: Acute
[2017-03-12] MEDS: Meropenem 500 MG in Sodium Chloride 0.9% 100 ML IVPB SCH ×3 (00:34→18:44)
[2017-03-12] MEDS: metroNIDAZOLE 500mg/100ml NS 100 ML IVPB SCH ×3 (00:35→17:08)
[2017-03-12] MEDS: Nasal Spray(Ocean spray) NAS SCH ×4 (04:00→22:42)
[2017-03-12 05:49] LABS: BASO % 0.4 % (0.0-2.0); EOS # 0.2 K/uL (0.0-0.7); EOS % 1.5 % (0.0-4.0); HEMOGLOBIN 10.9 g/dL (12.0-18.0); LYMPH # 0.8 K/uL (1.0-4.3); LYMPH % 6.6 % (20.0-40.0); MEAN CELL VOLUME 83.4 fl (80.0-94.0); MEAN CORPUSCULAR HEMOGLOBIN 26.4 pg (27.0-31.0); MEAN CORPUSCULAR HGB CONC 31.6 g/dL (33.0-37.0); MONO # 0.9 K/uL (0.0-0.8); MONO % 6.8 % (0.0-10.0); NEUT # 10.8 K/uL (1.8-7.0); NEUT % 84.7 % (50.0-75.0); NRBC % 0.1 % (0.0-0.0); RBC 4.11 Mil/uL (4.40-5.90); RED CELL DISTRIBUTION WIDTH 17.7 % (11.5-14.5); WHITE BLOOD COUNT 12.8 K/uL (4.8-10.8)
[2017-03-12 06:01] LABS: BLOOD UREA NITROGEN 16 mg/dl (9-20); CALCIUM 7.7 mg/dL (8.4-10.2); GFR AFRICAN-AMERICAN > 60; GFR NON-AFRICAN AMERICAN 50
[2017-03-12] MEDS ORDERED: Potassium Chloride 20 mEq ER Tab PO ONE ×2 (06:28→06:43)
[2017-03-12 06:35] LABS: INR 1.7 (0.9-1.2); PROTHROMBIN TIME 18.8 Seconds (9.8-13.1)
[2017-03-12] MEDS ORDERED: EPINEPHrine 1 mg/ml (1:1000) Inj ONE (07:17)
[2017-03-12] MEDS ORDERED: Sodium Chloride 0.9% 0 ML IV ONE (07:17)
[2017-03-12] MEDS ORDERED: Lidocaine 2% Jelly (5 ml) TOP ONE (07:18)
[2017-03-12] MEDS ORDERED: Lidocaine 1% Inj (20ml) ONE (07:18)
--- NOTE | 2017-03-12 07:31 | CP.PCM.PN ---
<Christina Spicer - Last Filed: 03/12/17 07:53> Subjective - Date & Time of Evaluation Date of Evaluation: 03/12/17 Time of Evaluation: 07:53 - Subjective Subjective: General Surgery progress note for Dr. Ramon-Christina Spicer, PGY-1 Pt S & E at bedside. Pt reports sleeping overnight with aide of sleeping pill. Continues to feel that food is tasteless, has no appetite for it. Reports ambulation with PT yesterday. Denies N & V, F & C, other complaints. RUQ drain with 65cc/12H, serous output. Objective - Vital Signs/Intake and Output Vital Signs (last 24 hours): Temp Pulse Resp BP Pulse Ox 98.9 F 78 20 144/82 97 03/12/17 05:00 03/12/17 05:00 03/12/17 05:00 03/12/17 05:00 03/12/17 05:00 Intake and Output: 03/12/17 03/12/17 06:59 18:59 Intake Total 300 Output Total 525 Balance -225 - Medications Medications: Current Medications Acetaminophen (Tylenol 325mg Tab) 650 mg PO Q4 PRN PRN Reason: Fever >100.4 F Last Admin: 03/11/17 12:12 Dose: 650 mg Acetaminophen (Tylenol 325mg Tab) 650 mg PO Q6 PRN PRN Reason: Pain, Mild (1-3) Acetylcysteine (Acetylcysteine 20%) 2 ml INH RBID [facility] Last Admin: 03/11/17 19:29 Dose: 2 ml Albuterol/Ipratropium (Duoneb 3 Mg/0.5 Mg (3 Ml) Ud) 3 ml INH RQID [facility] Last Admin: 03/11/17 19:29 Dose: 3 ml Albuterol/Ipratropium (Duoneb 3 Mg/0.5 Mg (3 Ml) Ud) 3 ml INH RQ6 PRN PRN Reason: Shortness of Breath Enoxaparin Sodium (Lovenox) 40 mg SC DAILY [facility] PRN Reason: Protocol Last Admin: 03/11/17 09:41 Dose: 40 mg Furosemide (Lasix) 40 mg IV DAILY [facility] Last Admin: 03/11/17 09:40 Dose: 40 mg Guaifenesin (Robitussin) 200 mg PO QID [facility] Last Admin: 03/11/17 22:23 Dose: 200 mg Metronidazole (Flagyl 500mg/100ml Ns) 100 mls @ 100 mls/hr IVPB Q8 [facility] PRN Reason: Protocol Last Admin: 03/12/17 00:35 Dose: 100 mls/hr Meropenem 500 mg/ Sodium (Chloride) 100 mls @ 100 mls/hr IVPB Q8 [facility] PRN Reason: Protocol Last Admin: 03/12/17 00:34 Dose: 100 mls/hr Ceftaroline Fosamil 400 mg/ (Sodium Chloride) 100 mls @ 100 mls/hr IVPB Q12 [facility] PRN Reason: Protocol Last Admin: 03/11/17 20:31 Dose: 100 mls/hr Multivitamins/Minerals (Therapeutic-M Tab) 1 tab PO DAILY [facility] Last Admin: 03/11/17 09:42 Dose: 1 tab Ondansetron HCl (Zofran Inj) 4 mg IVP Q4 PRN PRN Reason: Nausea/Vomiting Pantoprazole Sodium (Protonix Ec Tab) 40 mg PO DAILY [facility] Last Admin: 03/11/17 09:43 Dose: 40 mg Saliva Substitute (Caphosol 15 Ml) 15 ml MM Q4 PRN PRN Reason: Dry mouth Sodium Chloride ([place] Nasal [place]) 1 sprays DIAMOND Q6 [facility] Last Admin: 03/12/17 04:00 Dose: Not Given Zolpidem Tartrate (Ambien) 5 mg PO HS PRN PRN Reason: Insomnia Last Admin: 03/11/17 22:23 Dose: 5 mg - Labs Labs: 03/12/17 04:15 03/12/17 04:15 PT 18.8 Seconds (9.8-13.1) H 03/12/17 04:15 INR 1.7 (0.9-1.2) H 03/12/17 04:15 APTT 36.2 Seconds (25.6-37.1) 03/06/17 05:20 - Constitutional Appears: Non-toxic, No Acute Distress - Head Exam Head Exam: ATRAUMATIC, NORMAL INSPECTION, NORMOCEPHALIC - Eye Exam Eye Exam: EOMI, Normal appearance - ENT Exam ENT Exam: Mucous Membranes Moist, Normal Exam - Neck Exam Neck Exam: Full ROM, Normal Inspection - Respiratory Exam Respiratory Exam: NORMAL BREATHING PATTERN - Cardiovascular Exam Cardiovascular Exam: REGULAR RHYTHM, +S1, +S2 - GI/Abdominal Exam GI & Abdominal Exam: Soft. absent: Distended, Firm, Guarding, Tenderness Additional comments: Midline incision with josy in place, no drainage noted, RUQ with drain in place, scant serous output to bag. - Extremities Exam Extremities Exam: Normal Inspection - Neurological Exam Neurological Exam: Alert, Awake, CN II-XII Intact, Oriented x3 - Psychiatric Exam Psychiatric exam: Normal Affect, Normal Mood - Skin Skin Exam: Dry, Intact, Normal Color, Warm Assessment and Plan - Assessment and Plan (Free Text) Assessment: 71 M POD#15 s/p open right hemicolectomy POD#6 s/p IR drainage of intra- abdominal fluid collection, with right sided pneumonia Plan: Afebrile over last 24H Monitor VS Leukocytosis resolving - now 12.8 from 16 Cont ABx Duonebs Chest PT OOBTC Ambulate/PT Encourage IS use Encourage flutter valve use Cont pulmonary toilet Supplements Encourage PO intake PICC line placed yesterday Cardio now following Onc following ID following Will DW attending Dannielle, PGY-1 <Vaugnh Ramon - Last Filed: 03/12/17 09:46> Subjective - Date & Time of Evaluation Time of Evaluation: 09:10 - Subjective Subjective: Patient was seen and examined at the bedside. Denies any abdominal cristina, no nausea, no vomiting, passing flatus and having normal bowel movements, tolerating regular diet but reports decreased appetite. Agree with resident's note above. Objective - Vital Signs/Intake and Output Vital Signs (last 24 hours): Temp Pulse Resp BP Pulse Ox 97.8 F 77 18 145/81 95 03/12/17 07:46 03/12/17 07:46 03/12/17 07:46 03/12/17 07:46 03/12/17 07:46 Intake and Output: 03/12/17 03/12/17 06:59 18:59 Intake Total 300 Output Total 525 Balance -225 - Medications Medications: Current Medications Acetaminophen (Tylenol 325mg Tab) 650 mg PO Q4 PRN PRN Reason: Fever >100.4 F Last Admin: 03/11/17 12:12 Dose: 650 mg Acetaminophen (Tylenol 325mg Tab) 650 mg PO Q6 PRN PRN Reason: Pain, Mild (1-3) Acetylcysteine (Acetylcysteine 20%) 2 ml INH RBID [facility] Last Admin: 03/12/17 07:55 Dose: 2 ml Albuterol/Ipratropium (Duoneb 3 Mg/0.5 Mg (3 Ml) Ud) 3 ml INH RQID [facility] Last Admin: 03/12/17 07:55 Dose: 3 ml Albuterol/Ipratropium (Duoneb 3 Mg/0.5 Mg (3 Ml) Ud) 3 ml INH RQ6 PRN PRN Reason: Shortness of Breath Enoxaparin Sodium (Lovenox) 40 mg SC DAILY [facility] PRN Reason: Protocol Last Admin: 03/11/17 09:41 Dose: 40 mg Furosemide (Lasix) 40 mg IV DAILY [facility] Last Admin: 03/11/17 09:40 Dose: 40 mg Guaifenesin (Robitussin) 200 mg PO QID [facility] Last Admin: 03/12/17 09:01 Dose: 200 mg Metronidazole (Flagyl 500mg/100ml Ns) 100 mls @ 100 mls/hr IVPB Q8 [facility] PRN Reason: Protocol Last Admin: 03/12/17 08:58 Dose: 100 mls/hr Meropenem 500 mg/ Sodium (Chloride) 100 mls @ 100 mls/hr IVPB Q8 [facility] PRN Reason: Protocol Last Admin: 03/12/17 00:34 Dose: 100 mls/hr Ceftaroline Fosamil 400 mg/ (Sodium Chloride) 100 mls @ 100 mls/hr IVPB Q12 [facility] PRN Reason: Protocol Last Admin: 03/11/17 20:31 Dose: 100 mls/hr Multivitamins/Minerals (Therapeutic-M Tab) 1 tab PO DAILY [facility] Last Admin: 03/12/17 09:02 Dose: 1 tab Ondansetron HCl (Zofran Inj) 4 mg IVP Q4 PRN PRN Reason: Nausea/Vomiting Pantoprazole Sodium (Protonix Ec Tab) 40 mg PO DAILY [facility] Last Admin: 03/12/17 09:01 Dose: 40 mg Saliva Substitute (Caphosol 15 Ml) 15 ml MM Q4 PRN PRN Reason: Dry mouth Sodium Chloride ([place] Nasal [place]) 1 sprays DIAMOND Q6 [facility] Last Admin: 03/12/17 04:00 Dose: Not Given Zolpidem Tartrate (Ambien) 5 mg PO HS PRN PRN Reason: Insomnia Last Admin: 03/11/17 22:23 Dose: 5 mg - Labs Labs: 03/12/17 04:15 03/12/17 04:15 PT 18.8 Seconds (9.8-13.1) H 03/12/17 04:15 INR 1.7 (0.9-1.2) H 03/12/17 04:15 APTT 36.2 Seconds (25.6-37.1) 03/06/17 05:20
[2017-03-12] MEDS: Albuterol-Ipratrop 3 mg / 0.5 (3 ml) UD INH SCH (07:55)
[2017-03-12] MEDS: Acetylcysteine 20% Inhal Soln (4ml) INH SCH ×2 (07:55→19:03)
--- NOTE | 2017-03-12 08:15 | CP.PCM.PN ---
<Carito Gore - Last Filed: 03/12/17 10:19> Subjective - Date & Time of Evaluation Date of Evaluation: 03/12/17 Time of Evaluation: 07:10 - Subjective Subjective: Patient seen and examined bedside. Reports feeling better, using O2 NC,. Reports he has been improving while on PT yesterday. Reports less SOB, coughing with productive cough difficult to expectorate. He denies f,n,abd pain, diarrhea. RUQ drainage small amount serous liquid.afebrile for the last 3 days. Bronchoscopy planned for today was cancelled due to improvement of WBC, afebrile and clinic improvement. Objective - Vital Signs/Intake and Output Vital Signs (last 24 hours): Temp Pulse Resp BP Pulse Ox 97.8 F 77 18 145/81 95 03/12/17 07:46 03/12/17 07:46 03/12/17 07:46 03/12/17 07:46 03/12/17 07:46 Intake and Output: 03/12/17 03/12/17 06:59 18:59 Intake Total 300 Output Total 525 Balance -225 - Medications Medications: Current Medications Acetaminophen (Tylenol 325mg Tab) 650 mg PO Q4 PRN PRN Reason: Fever >100.4 F Last Admin: 03/11/17 12:12 Dose: 650 mg Acetaminophen (Tylenol 325mg Tab) 650 mg PO Q6 PRN PRN Reason: Pain, Mild (1-3) Acetylcysteine (Acetylcysteine 20%) 2 ml INH RBID [facility] Last Admin: 03/12/17 07:55 Dose: 2 ml Albuterol/Ipratropium (Duoneb 3 Mg/0.5 Mg (3 Ml) Ud) 3 ml INH RQID [facility] Last Admin: 03/12/17 07:55 Dose: 3 ml Albuterol/Ipratropium (Duoneb 3 Mg/0.5 Mg (3 Ml) Ud) 3 ml INH RQ6 PRN PRN Reason: Shortness of Breath Enoxaparin Sodium (Lovenox) 40 mg SC DAILY [facility] PRN Reason: Protocol Last Admin: 03/11/17 09:41 Dose: 40 mg Furosemide (Lasix) 40 mg IV DAILY [facility] Last Admin: 03/11/17 09:40 Dose: 40 mg Guaifenesin (Robitussin) 200 mg PO QID [facility] Last Admin: 03/11/17 22:23 Dose: 200 mg Metronidazole (Flagyl 500mg/100ml Ns) 100 mls @ 100 mls/hr IVPB Q8 [facility] PRN Reason: Protocol Last Admin: 03/12/17 00:35 Dose: 100 mls/hr Meropenem 500 mg/ Sodium (Chloride) 100 mls @ 100 mls/hr IVPB Q8 [facility] PRN Reason: Protocol Last Admin: 03/12/17 00:34 Dose: 100 mls/hr Ceftaroline Fosamil 400 mg/ (Sodium Chloride) 100 mls @ 100 mls/hr IVPB Q12 [facility] PRN Reason: Protocol Last Admin: 03/11/17 20:31 Dose: 100 mls/hr Multivitamins/Minerals (Therapeutic-M Tab) 1 tab PO DAILY [facility] Last Admin: 03/11/17 09:42 Dose: 1 tab Ondansetron HCl (Zofran Inj) 4 mg IVP Q4 PRN PRN Reason: Nausea/Vomiting Pantoprazole Sodium (Protonix Ec Tab) 40 mg PO DAILY [facility] Last Admin: 03/11/17 09:43 Dose: 40 mg Saliva Substitute (Caphosol 15 Ml) 15 ml MM Q4 PRN PRN Reason: Dry mouth Sodium Chloride ([place] Nasal [place]) 1 sprays DIAMOND Q6 [facility] Last Admin: 03/12/17 04:00 Dose: Not Given Zolpidem Tartrate (Ambien) 5 mg PO HS PRN PRN Reason: Insomnia Last Admin: 03/11/17 22:23 Dose: 5 mg - Labs Labs: 03/12/17 04:15 03/12/17 04:15 PT 18.8 Seconds (9.8-13.1) H 03/12/17 04:15 INR 1.7 (0.9-1.2) H 03/12/17 04:15 APTT 36.2 Seconds (25.6-37.1) 03/06/17 05:20 - Constitutional Appears: No Acute Distress - Head Exam Head Exam: ATRAUMATIC, NORMOCEPHALIC - Eye Exam Eye Exam: Normal appearance - ENT Exam ENT Exam: Mucous Membranes Moist - Respiratory Exam Respiratory Exam: Decreased Breath Sounds, Rales. absent: Rhonchi, Wheezes Additional comments: b/l bibasal diminished breath sound. left side 2/3 rales - Cardiovascular Exam Cardiovascular Exam: REGULAR RHYTHM, +S1, +S2 - GI/Abdominal Exam GI & Abdominal Exam: Soft, Normal Bowel Sounds. absent: Tenderness Additional comments: RUQ with catheter in place, small amount of serous fluid in bag. Midline incision with josy in place, no erythema or drainage noted. non tender - Extremities Exam Extremities Exam: Normal Inspection. absent: Pedal Edema - Neurological Exam Neurological Exam: Alert, Awake, Oriented x3 - Psychiatric Exam Psychiatric exam: Normal Affect, Normal Mood - Skin Skin Exam: absent: Erythema, Petechiae, Rash Assessment and Plan - Assessment and Plan (Free Text) Plan: 71 yr old M PMHx/o HTN, COPD, CAD, CKD, POD # 15 s/p laparoscopic right hemicolectomy for ascending colon mass (moderately differentiated adenocarcinoma ). D/w pt at length >30min, clinical findings/plan, dispo plan. 1) s/p Right hemicolectomy for ascending colon mass, POD # 15 -path: T2 adenocarinoma with 1/20 lymph nodes positive -Pain control: percocet prn -Hem/Onc c/s: outpt chemo, will need portcath placement 2) Emphysema/COPD - O2 NC, Duo Neb Q8 sonali -CT chest w/o contrast -V/Q scan low probabilitiy PE -Pulmonology consult appreciated: no bronchoscopy 3) HAP -CT chest: right infiltrates, chronic change to b/l lungs -Pulmonology consult -ID c/s -stopped Zosyn/clindamycin -started Meropenem, flagyl, Day#5 -started ceftaroline day 4 -sputum cx yeast -blood cx NGTD 4) Intrabdominal abscess -CT abd: intrabdominal fluids around pancreas and right liver lobe aprox 3.9 x 5.9 cm -CT chest: ascites overlying right liver dome with small pocket of air -s/p IR draignage day #6 -CT Abd:improving -ID consult appreciated 5) CHF diastolic preserve EF Echo 01/01/17: impaired systolic function with LVEF of 45% -pro-BNP 1730 02/25/17 -form worker consult appreciated.c/w lasix 6)CKD stage 3 -GFR 38 cr 1.8 -renally dose meds, prevent ERYN by not getting contrast if possible 7) HTN -controlled -on lasix 8) DVT prophylaxis -lovenox 40 mg sc Dispo: CHAYO <Santo Damon - Last Filed: 03/14/17 06:59> Objective - Vital Signs/Intake and Output Vital Signs (last 24 hours): Temp Pulse Resp BP Pulse Ox 98.9 F 76 20 130/70 97 03/14/17 00:00 03/14/17 00:00 03/14/17 00:00 03/14/17 00:00 03/14/17 00:00 Intake and Output: 03/13/17 03/14/17 18:59 06:59 Intake Total 1050 0 Output Total 830 Balance 220 0 - Medications Medications: Current Medications Acetaminophen (Tylenol 325mg Tab) 650 mg PO Q4 PRN PRN Reason: Fever >100.4 F Last Admin: 03/11/17 12:12 Dose: 650 mg Acetaminophen (Tylenol 325mg Tab) 650 mg PO Q6 PRN PRN Reason: Pain, Mild (1-3) Last Admin: 03/12/17 13:48 Dose: 650 mg Acetylcysteine (Acetylcysteine 20%) 2 ml INH RBID [facility] Last Admin: 03/13/17 20:00 Dose: Not Given Albuterol Sulfate (Albuterol 0.083% Inhal [place] (2.5 Mg/3 Ml) Ud) 2.5 mg INH RQID [facility] Last Admin: 03/13/17 20:00 Dose: Not Given Furosemide (Lasix) 40 mg PO DAILY [facility] Guaifenesin (Robitussin) 200 mg PO QID [facility] Last Admin: 03/13/17 21:26 Dose: Not Given Metronidazole (Flagyl 500mg/100ml Ns) 100 mls @ 100 mls/hr IVPB Q8 [facility] PRN Reason: Protocol Last Admin: 03/14/17 00:30 Dose: 100 mls/hr Meropenem 500 mg/ Sodium (Chloride) 100 mls @ 100 mls/hr IVPB Q8 [facility] PRN Reason: Protocol Last Admin: 03/14/17 01:35 Dose: 100 mls/hr Ceftaroline Fosamil 400 mg/ (Sodium Chloride) 100 mls @ 100 mls/hr IVPB Q12 [facility] PRN Reason: Protocol Last Admin: 03/13/17 21:24 Dose: 100 mls/hr Multivitamins/Minerals (Therapeutic-M Tab) 1 tab PO DAILY [facility] Last Admin: 03/13/17 09:00 Dose: 1 tab Ondansetron HCl (Zofran Inj) 4 mg IVP Q4 PRN PRN Reason: Nausea/Vomiting Last Admin: 03/13/17 22:56 Dose: 4 mg Pantoprazole Sodium (Protonix Ec Tab) 40 mg PO DAILY [facility] Last Admin: 03/13/17 09:00 Dose: 40 mg Saliva Substitute (Caphosol 15 Ml) 15 ml MM Q4 PRN PRN Reason: Dry mouth Sodium Chloride ([place] Nasal [place]) 1 sprays DIAMOND Q6 [facility] Last Admin: 03/14/17 04:45 Dose: Not Given Zolpidem Tartrate (Ambien) 5 mg PO HS PRN PRN Reason: Insomnia Last Admin: 03/13/17 22:24 Dose: 5 mg - Labs Labs: 03/14/17 05:30 03/13/17 05:35 PT 18.8 Seconds (9.8-13.1) H 03/12/17 04:15 INR 1.7 (0.9-1.2) H 03/12/17 04:15 APTT 36.2 Seconds (25.6-37.1) 03/06/17 05:20 Attending/Attestation - Attestation I have personally seen and examined this patient.: Yes I have fully participated in the care of the patient.: Yes I have reviewed all pertinent clinical information, including history, physical exam and plan: Yes
[2017-03-12] MEDS: guaiFENesin 200 mg/10 ml Syrup UD PO SCH (09:01)
[2017-03-12] MEDS: Pantoprazole 40 mg EC Tab PO SCH (09:01)
[2017-03-12] MEDS: Multivitamin With Minerals Tab PO SCH (09:02)
--- NOTE | 2017-03-12 09:42 | CP.PCM.PN ---
Subjective - Date & Time of Evaluation Date of Evaluation: 03/12/17 Time of Evaluation: 09:35 - Subjective Subjective: Remains afebrile now for > 48 hrs and WBC is down to 12. Presently assisted OOB to the chair, appears stronger. Mood is still depressed, but with somewhat better outlook. Cough is not as productive as the day before. No CXR has been done this morning. Has been drinking Ensure since yesterday (preferred over foodstuff). Breath sounds are present bilaterally, somewhat better in the RLL. Bronchial breathing is loudly heard in the right lower lobe. Few scattered rhonchi are present bilaterally. Scattered medium rales in LL's. Bronchoscopy cancelled. Instructed on continued deep breathing and coughing. Continue use of flutter valve device for CPT. Increase physical therapy as tolerated. May transfer off telemetry back to medical floor. Repeat chest x-ray in AM tomorrow. Objective - Vital Signs/Intake and Output Vital Signs (last 24 hours): Temp Pulse Resp BP Pulse Ox 97.8 F 77 18 145/81 95 03/12/17 07:46 03/12/17 07:46 03/12/17 07:46 03/12/17 07:46 03/12/17 07:46 Intake and Output: 03/11/17 03/12/17 23:59 11:59 Intake Total 300 300 Output Total 740 525 Balance -440 -225 - Medications Medications: Current Medications Acetaminophen (Tylenol 325mg Tab) 650 mg PO Q4 PRN PRN Reason: Fever >100.4 F Last Admin: 03/11/17 12:12 Dose: 650 mg Acetaminophen (Tylenol 325mg Tab) 650 mg PO Q6 PRN PRN Reason: Pain, Mild (1-3) Acetylcysteine (Acetylcysteine 20%) 2 ml INH RBID [facility] Last Admin: 03/12/17 07:55 Dose: 2 ml Albuterol/Ipratropium (Duoneb 3 Mg/0.5 Mg (3 Ml) Ud) 3 ml INH RQID [facility] Last Admin: 03/12/17 07:55 Dose: 3 ml Albuterol/Ipratropium (Duoneb 3 Mg/0.5 Mg (3 Ml) Ud) 3 ml INH RQ6 PRN PRN Reason: Shortness of Breath Enoxaparin Sodium (Lovenox) 40 mg SC DAILY [facility] PRN Reason: Protocol Last Admin: 03/11/17 09:41 Dose: 40 mg Furosemide (Lasix) 40 mg IV DAILY [facility] Last Admin: 03/11/17 09:40 Dose: 40 mg Guaifenesin (Robitussin) 200 mg PO QID [facility] Last Admin: 03/12/17 09:01 Dose: 200 mg Metronidazole (Flagyl 500mg/100ml Ns) 100 mls @ 100 mls/hr IVPB Q8 [facility] PRN Reason: Protocol Last Admin: 03/12/17 08:58 Dose: 100 mls/hr Meropenem 500 mg/ Sodium (Chloride) 100 mls @ 100 mls/hr IVPB Q8 [facility] PRN Reason: Protocol Last Admin: 03/12/17 00:34 Dose: 100 mls/hr Ceftaroline Fosamil 400 mg/ (Sodium Chloride) 100 mls @ 100 mls/hr IVPB Q12 [facility] PRN Reason: Protocol Last Admin: 03/11/17 20:31 Dose: 100 mls/hr Multivitamins/Minerals (Therapeutic-M Tab) 1 tab PO DAILY [facility] Last Admin: 03/12/17 09:02 Dose: 1 tab Ondansetron HCl (Zofran Inj) 4 mg IVP Q4 PRN PRN Reason: Nausea/Vomiting Pantoprazole Sodium (Protonix Ec Tab) 40 mg PO DAILY [facility] Last Admin: 03/12/17 09:01 Dose: 40 mg Saliva Substitute (Caphosol 15 Ml) 15 ml MM Q4 PRN PRN Reason: Dry mouth Sodium Chloride ([place] Nasal [place]) 1 sprays DIAMOND Q6 [facility] Last Admin: 03/12/17 04:00 Dose: Not Given Zolpidem Tartrate (Ambien) 5 mg PO HS PRN PRN Reason: Insomnia Last Admin: 03/11/17 22:23 Dose: 5 mg - Labs Labs: 03/12/17 04:15 03/12/17 04:15 PT 18.8 Seconds (9.8-13.1) H 03/12/17 04:15 INR 1.7 (0.9-1.2) H 03/12/17 04:15 APTT 36.2 Seconds (25.6-37.1) 03/06/17 05:20 Assessment and Plan (1) Nosocomial pneumonia Status: Acute
[2017-03-12] MEDS ORDERED: guaiFENesin 600 mg ER Tab PO SCH ×2 (10:00→22:00)
[2017-03-12] MEDS: Albuterol 0.083% Inhal Sol (2.5 mg/3 mL) UD INH SCH ×3 (11:04→19:03)
[2017-03-12] MEDS: Enoxaparin 40 mg Syringe SC SCH (11:10)
--- NOTE | 2017-03-12 11:16 | VASCULAR ---
PROCEDURE: Date of procedure: 03/11/2016 Procedure: 1. Placement of a right arm PICC with ultrasound and fluoroscopic guidance, CPT 45520 2. PICC tip confirmation with spot radiograph and is in the superior vena cava Medications: 1 percent lidocaine Total Fluoro time: 17.7 seconds Radiation: 2.48 MGy EBL: 2 cc HISTORY: Infection requiring long-term IV antibiotics TECHNIQUE: Following informed consent and procedure time-out, the patient was placed supine on the interventional table and the right arm prepped and draped in the usual sterile fashion. Ultrasound showed a patent and compressible right basilic vein. After the skin was anesthetized with lidocaine, the basilic vein was accessed with micro micropuncture technique using ultrasound guidance. A guidewire was then advanced under fluoroscopic guidance into the superior vena cava. An image documenting ultrasound guidance for vascular access was permanently saved. The length of the single-lumen 4 [place] PICC was trimmed to 40 centimeters and advanced through a peel-away sheath. The PICC was position with tip of PICC confirm a spot radiograph the superior vena cava. The PICC was secured to the patient's skin. The PICC was flushed. A biopatch and sterile dressing was applied. IMPRESSION: Placement of a single-lumen 4 [place] PICC trimmed to 40 centimeters via right basilic vein. The tip of the PICC is confirmed with spot radiograph and is in the superior vena cava.
--- NOTE | 2017-03-12 11:31 | CP.PCM.PN ---
Subjective - Date & Time of Evaluation Date of Evaluation: 03/12/17 Time of Evaluation: 11:00 - Subjective Subjective: Breathing slightly easier ++ Productive cough will get BNP for the AM Objective - Vital Signs/Intake and Output Vital Signs (last 24 hours): Temp Pulse Resp BP Pulse Ox 97.8 F 77 18 145/81 95 03/12/17 07:46 03/12/17 07:46 03/12/17 07:46 03/12/17 10:01 03/12/17 07:46 Intake and Output: 03/12/17 03/12/17 06:59 18:59 Intake Total 300 Output Total 525 Balance -225 - Medications Medications: Current Medications Acetaminophen (Tylenol 325mg Tab) 650 mg PO Q4 PRN PRN Reason: Fever >100.4 F Last Admin: 03/11/17 12:12 Dose: 650 mg Acetaminophen (Tylenol 325mg Tab) 650 mg PO Q6 PRN PRN Reason: Pain, Mild (1-3) Acetylcysteine (Acetylcysteine 20%) 2 ml INH RBID [facility] Last Admin: 03/12/17 07:55 Dose: 2 ml Albuterol Sulfate (Albuterol 0.083% Inhal Ny (2.5 Mg/3 Ml) Ud) 2.5 mg INH RQID [facility] Last Admin: 03/12/17 11:04 Dose: 2.5 mg Enoxaparin Sodium (Lovenox) 40 mg SC DAILY [facility] PRN Reason: Protocol Last Admin: 03/12/17 11:10 Dose: 40 mg Furosemide (Lasix) 40 mg IV DAILY [facility] Last Admin: 03/12/17 10:01 Dose: 40 mg Guaifenesin (Mucinex [place]) 600 mg PO BID [facility] Metronidazole (Flagyl 500mg/100ml Ns) 100 mls @ 100 mls/hr IVPB Q8 [facility] PRN Reason: Protocol Last Admin: 03/12/17 08:58 Dose: 100 mls/hr Meropenem 500 mg/ Sodium (Chloride) 100 mls @ 100 mls/hr IVPB Q8 [facility] PRN Reason: Protocol Last Admin: 03/12/17 11:09 Dose: 100 mls/hr Ceftaroline Fosamil 400 mg/ (Sodium Chloride) 100 mls @ 100 mls/hr IVPB Q12 [facility] PRN Reason: Protocol Last Admin: 03/12/17 10:02 Dose: 100 mls/hr Multivitamins/Minerals (Therapeutic-M Tab) 1 tab PO DAILY [facility] Last Admin: 03/12/17 09:02 Dose: 1 tab Ondansetron HCl (Zofran Inj) 4 mg IVP Q4 PRN PRN Reason: Nausea/Vomiting Pantoprazole Sodium (Protonix Ec Tab) 40 mg PO DAILY [facility] Last Admin: 03/12/17 09:01 Dose: 40 mg Saliva Substitute (Caphosol 15 Ml) 15 ml MM Q4 PRN PRN Reason: Dry mouth Sodium Chloride ([place] Nasal [place]) 1 sprays DIAMOND Q6 [facility] Last Admin: 03/12/17 11:10 Dose: 1 spr Zolpidem Tartrate (Ambien) 5 mg PO HS PRN PRN Reason: Insomnia Last Admin: 03/11/17 22:23 Dose: 5 mg - Labs Labs: 03/12/17 04:15 03/12/17 04:15 PT 18.8 Seconds (9.8-13.1) H 03/12/17 04:15 INR 1.7 (0.9-1.2) H 03/12/17 04:15 APTT 36.2 Seconds (25.6-37.1) 03/06/17 05:20 Assessment and Plan (1) Acute on chronic left systolic heart failure Status: Acute (2) Adenocarcinoma of colon Status: Acute (3) COPD (chronic obstructive pulmonary disease) with emphysema Status: Acute (4) Nosocomial pneumonia Status: Acute (5) Status post right hemicolectomy Status: Acute
--- NOTE | 2017-03-12 12:44 | RAD ---
PROCEDURE: CHEST RADIOGRAPH, 1 VIEW HISTORY: PNA.CHF COMPARISON: 03/10/2017 FINDINGS: The right PICC line terminates in the SVC. LUNGS: There is low lung volume on the right related to elevated right hemidiaphragm. The left lung is well inflated. There is mild pulmonary venous congestion. There is mild right basilar airspace disease. PLEURA: Small right pleural effusion. No pneumothorax or left pleural fluid seen. CARDIOVASCULAR: Normal. OSSEOUS STRUCTURES: No significant abnormalities. VISUALIZED UPPER ABDOMEN: Normal. OTHER FINDINGS: None. IMPRESSION: Small right pleural effusion and right basilar atelectasis.
--- NOTE | 2017-03-12 22:34 | CP.PCM.PN ---
Subjective - Date & Time of Evaluation Date of Evaluation: 03/12/17 Time of Evaluation: 10:00 - Subjective Subjective: Seen sitting in a chair. Breathing better, still coughing Objective - Vital Signs/Intake and Output Vital Signs (last 24 hours): Temp Pulse Resp BP Pulse Ox 98.6 F 86 20 135/78 95 03/12/17 15:50 03/12/17 15:50 03/12/17 15:50 03/12/17 15:50 03/12/17 15:50 - Medications Medications: Current Medications Acetaminophen (Tylenol 325mg Tab) 650 mg PO Q4 PRN PRN Reason: Fever >100.4 F Last Admin: 03/11/17 12:12 Dose: 650 mg Acetaminophen (Tylenol 325mg Tab) 650 mg PO Q6 PRN PRN Reason: Pain, Mild (1-3) Last Admin: 03/12/17 13:48 Dose: 650 mg Acetylcysteine (Acetylcysteine 20%) 2 ml INH RBID [facility] Last Admin: 03/12/17 19:03 Dose: 2 ml Albuterol Sulfate (Albuterol 0.083% Inhal Ny (2.5 Mg/3 Ml) Ud) 2.5 mg INH RQID [facility] Last Admin: 03/12/17 19:03 Dose: 2.5 mg Enoxaparin Sodium (Lovenox) 40 mg SC DAILY [facility] PRN Reason: Protocol Last Admin: 03/12/17 11:10 Dose: 40 mg Furosemide (Lasix) 40 mg IV DAILY [facility] Last Admin: 03/12/17 10:01 Dose: 40 mg Guaifenesin (Mucinex [place]) 600 mg PO BID@1000,2200 [facility] Metronidazole (Flagyl 500mg/100ml Ns) 100 mls @ 100 mls/hr IVPB Q8 [facility] PRN Reason: Protocol Last Admin: 03/12/17 17:08 Dose: 100 mls/hr Meropenem 500 mg/ Sodium (Chloride) 100 mls @ 100 mls/hr IVPB Q8 [facility] PRN Reason: Protocol Last Admin: 03/12/17 18:44 Dose: 100 mls/hr Ceftaroline Fosamil 400 mg/ (Sodium Chloride) 100 mls @ 100 mls/hr IVPB Q12 [facility] PRN Reason: Protocol Last Admin: 03/12/17 20:12 Dose: 100 mls/hr Multivitamins/Minerals (Therapeutic-M Tab) 1 tab PO DAILY [facility] Last Admin: 03/12/17 09:02 Dose: 1 tab Ondansetron HCl (Zofran Inj) 4 mg IVP Q4 PRN PRN Reason: Nausea/Vomiting Pantoprazole Sodium (Protonix Ec Tab) 40 mg PO DAILY [facility] Last Admin: 03/12/17 09:01 Dose: 40 mg Saliva Substitute (Caphosol 15 Ml) 15 ml MM Q4 PRN PRN Reason: Dry mouth Sodium Chloride ([place] Nasal [place]) 1 sprays DIAMOND Q6 [facility] Last Admin: 03/12/17 17:09 Dose: 1 spr Zolpidem Tartrate (Ambien) 5 mg PO HS PRN PRN Reason: Insomnia Last Admin: 03/11/17 22:23 Dose: 5 mg - Labs Labs: 03/12/17 04:15 03/12/17 04:15 PT 18.8 Seconds (9.8-13.1) H 03/12/17 04:15 INR 1.7 (0.9-1.2) H 03/12/17 04:15 APTT 36.2 Seconds (25.6-37.1) 03/06/17 05:20 - Head Exam Head Exam: ATRAUMATIC - Eye Exam Eye Exam: Normal appearance - ENT Exam ENT Exam: Mucous Membranes Dry - Respiratory Exam Respiratory Exam: NORMAL BREATHING PATTERN - Cardiovascular Exam Cardiovascular Exam: +S1, +S2 - GI/Abdominal Exam GI & Abdominal Exam: Normal Bowel Sounds - Extremities Exam Extremities Exam: Normal Inspection Assessment and Plan (1) Anemia Assessment & Plan: chronic disease Status: Acute (2) Leukocytosis Assessment & Plan: improving on antibiotics Status: Acute (3) Adenocarcinoma of colon Assessment & Plan: stage III outpatient chemotherapy Status: Acute
[2017-03-13] MEDS: Meropenem 500 MG in Sodium Chloride 0.9% 100 ML IVPB SCH ×3 (00:32→16:18)
[2017-03-13] MEDS: metroNIDAZOLE 500mg/100ml NS 100 ML IVPB SCH ×3 (00:32→16:17)
[2017-03-13] MEDS: Nasal Spray(Ocean spray) NAS SCH ×4 (04:49→21:25)
[2017-03-13 06:24] LABS: HEMOGLOBIN 10.7 g/dL (12.0-18.0); MEAN CELL VOLUME 82.3 fl (80.0-94.0); MEAN CORPUSCULAR HEMOGLOBIN 26.6 pg (27.0-31.0); MEAN CORPUSCULAR HGB CONC 32.3 g/dL (33.0-37.0); RBC 4.04 Mil/uL (4.40-5.90); RED CELL DISTRIBUTION WIDTH 17.7 % (11.5-14.5); WHITE BLOOD COUNT 12.2 K/uL (4.8-10.8)
[2017-03-13 06:46] LABS: ALBUMIN 2.3 g/dL (3.5-5.0); ALT/SGPT 30 U/L (21-72); AST/SGOT 23 U/L (17-59); BLOOD UREA NITROGEN 14 mg/dl (9-20); CALCIUM 7.8 mg/dL (8.4-10.2); GFR AFRICAN-AMERICAN > 60; GFR NON-AFRICAN AMERICAN 50
[2017-03-13 06:47] LABS: ALB/GLOB RATIO 1.1 (1.0-2.1)
[2017-03-13 06:48] LABS: B-TYPE NATRIURETIC PEPTIDE 2400 pg/ml (0-900)
[2017-03-13] MEDS: Acetylcysteine 20% Inhal Soln (4ml) INH SCH ×2 (08:04→20:00)
[2017-03-13] MEDS: Albuterol 0.083% Inhal Sol (2.5 mg/3 mL) UD INH SCH ×4 (08:15→20:00)
[2017-03-13] MEDS: Multivitamin With Minerals Tab PO SCH (09:00)
[2017-03-13] MEDS: Enoxaparin 40 mg Syringe SC SCH (09:00)
[2017-03-13] MEDS: Pantoprazole 40 mg EC Tab PO SCH (09:00)
--- NOTE | 2017-03-13 09:46 | CP.PCM.PN ---
Subjective - Date & Time of Evaluation Date of Evaluation: 03/13/17 Time of Evaluation: 09:00 - Subjective Subjective: Patient was seen and examined at the bedside. Passing flatus and having normal bowel movements, tolerating regular diet. Objective - Vital Signs/Intake and Output Vital Signs (last 24 hours): Temp Pulse Resp BP Pulse Ox 98.2 F 84 20 144/83 96 03/13/17 08:24 03/13/17 08:24 03/13/17 08:24 03/13/17 09:01 03/13/17 08:24 - Medications Medications: Current Medications Acetaminophen (Tylenol 325mg Tab) 650 mg PO Q4 PRN PRN Reason: Fever >100.4 F Last Admin: 03/11/17 12:12 Dose: 650 mg Acetaminophen (Tylenol 325mg Tab) 650 mg PO Q6 PRN PRN Reason: Pain, Mild (1-3) Last Admin: 03/12/17 13:48 Dose: 650 mg Acetylcysteine (Acetylcysteine 20%) 2 ml INH RBID [facility] Last Admin: 03/13/17 08:04 Dose: 2 ml Albuterol Sulfate (Albuterol 0.083% Inhal Ny (2.5 Mg/3 Ml) Ud) 2.5 mg INH RQID [facility] Last Admin: 03/12/17 19:03 Dose: 2.5 mg Furosemide (Lasix) 40 mg IV DAILY [facility] Last Admin: 03/13/17 09:01 Dose: 40 mg Guaifenesin (Robitussin) 100 mg PO QID [facility] Metronidazole (Flagyl 500mg/100ml Ns) 100 mls @ 100 mls/hr IVPB Q8 [facility] PRN Reason: Protocol Last Admin: 03/13/17 08:59 Dose: 100 mls/hr Meropenem 500 mg/ Sodium (Chloride) 100 mls @ 100 mls/hr IVPB Q8 [facility] PRN Reason: Protocol Last Admin: 03/13/17 08:59 Dose: 100 mls/hr Ceftaroline Fosamil 400 mg/ (Sodium Chloride) 100 mls @ 100 mls/hr IVPB Q12 [facility] PRN Reason: Protocol Last Admin: 03/12/17 20:12 Dose: 100 mls/hr Multivitamins/Minerals (Therapeutic-M Tab) 1 tab PO DAILY [facility] Last Admin: 03/13/17 09:00 Dose: 1 tab Ondansetron HCl (Zofran Inj) 4 mg IVP Q4 PRN PRN Reason: Nausea/Vomiting Last Admin: 03/12/17 22:56 Dose: 4 mg Pantoprazole Sodium (Protonix Ec Tab) 40 mg PO DAILY [facility] Last Admin: 03/13/17 09:00 Dose: 40 mg Saliva Substitute (Caphosol 15 Ml) 15 ml MM Q4 PRN PRN Reason: Dry mouth Sodium Chloride ([place] Nasal [place]) 1 sprays DIAMOND Q6 [facility] Last Admin: 03/13/17 09:00 Dose: 1 spr Zolpidem Tartrate (Ambien) 5 mg PO HS PRN PRN Reason: Insomnia Last Admin: 03/12/17 22:42 Dose: 5 mg - Labs Labs: 03/13/17 05:35 03/13/17 05:35 PT 18.8 Seconds (9.8-13.1) H 03/12/17 04:15 INR 1.7 (0.9-1.2) H 03/12/17 04:15 APTT 36.2 Seconds (25.6-37.1) 03/06/17 05:20 - Constitutional Appears: Well, Non-toxic, No Acute Distress - Head Exam Head Exam: ATRAUMATIC, NORMAL INSPECTION, NORMOCEPHALIC - Eye Exam Eye Exam: EOMI, Normal appearance, PERRL Pupil Exam: NORMAL ACCOMODATION, PERRL - ENT Exam ENT Exam: Mucous Membranes Moist, Normal Exam - Neck Exam Neck Exam: Full ROM, Normal Inspection - Respiratory Exam Additional comments: Rhonchi at the right base - Cardiovascular Exam Cardiovascular Exam: REGULAR RHYTHM, +S1, +S2 - GI/Abdominal Exam GI & Abdominal Exam: Soft, Normal Bowel Sounds Additional comments: NT, ND, no rebound, no guarding, Drain in place with serous fluid, incision clean, no erythema, no drainage, josy in place - Rectal Exam Rectal Exam: Deferred - Extremities Exam Extremities Exam: Full ROM, Normal Inspection - Neurological Exam Neurological Exam: Alert, Awake, Oriented x3 - Psychiatric Exam Psychiatric exam: Normal Affect, Normal Mood - Skin Skin Exam: Dry, Intact, Normal Color, Warm Assessment and Plan - Assessment and Plan (Free Text) Assessment: 71 y.o.male s/p right hemicolectomy now with pneumonia Plan: - Continue diet - Pain control - Antibiotics as per ID - Repeat labs in am - Physical therapy - Insentive spirometry - Out of bed
--- NOTE | 2017-03-13 10:09 | CP.PCM.PN ---
Subjective - Date & Time of Evaluation Date of Evaluation: 03/13/17 Time of Evaluation: 09:00 - Subjective Subjective: Less SOB ++ cough BNP: 2400 coming down Objective - Vital Signs/Intake and Output Vital Signs (last 24 hours): Temp Pulse Resp BP Pulse Ox 98.2 F 84 20 144/83 96 03/13/17 08:24 03/13/17 08:24 03/13/17 08:24 03/13/17 09:01 03/13/17 08:24 - Medications Medications: Current Medications Acetaminophen (Tylenol 325mg Tab) 650 mg PO Q4 PRN PRN Reason: Fever >100.4 F Last Admin: 03/11/17 12:12 Dose: 650 mg Acetaminophen (Tylenol 325mg Tab) 650 mg PO Q6 PRN PRN Reason: Pain, Mild (1-3) Last Admin: 03/12/17 13:48 Dose: 650 mg Acetylcysteine (Acetylcysteine 20%) 2 ml INH RBID [facility] Last Admin: 03/13/17 08:04 Dose: 2 ml Albuterol Sulfate (Albuterol 0.083% Inhal Ny (2.5 Mg/3 Ml) Ud) 2.5 mg INH RQID [facility] Last Admin: 03/12/17 19:03 Dose: 2.5 mg Furosemide (Lasix) 40 mg IV DAILY [facility] Last Admin: 03/13/17 09:01 Dose: 40 mg Guaifenesin (Robitussin) 100 mg PO QID [facility] Metronidazole (Flagyl 500mg/100ml Ns) 100 mls @ 100 mls/hr IVPB Q8 [facility] PRN Reason: Protocol Last Admin: 03/13/17 08:59 Dose: 100 mls/hr Meropenem 500 mg/ Sodium (Chloride) 100 mls @ 100 mls/hr IVPB Q8 [facility] PRN Reason: Protocol Last Admin: 03/13/17 08:59 Dose: 100 mls/hr Ceftaroline Fosamil 400 mg/ (Sodium Chloride) 100 mls @ 100 mls/hr IVPB Q12 [facility] PRN Reason: Protocol Last Admin: 03/12/17 20:12 Dose: 100 mls/hr Multivitamins/Minerals (Therapeutic-M Tab) 1 tab PO DAILY [facility] Last Admin: 03/13/17 09:00 Dose: 1 tab Ondansetron HCl (Zofran Inj) 4 mg IVP Q4 PRN PRN Reason: Nausea/Vomiting Last Admin: 03/12/17 22:56 Dose: 4 mg Pantoprazole Sodium (Protonix Ec Tab) 40 mg PO DAILY [facility] Last Admin: 03/13/17 09:00 Dose: 40 mg Saliva Substitute (Caphosol 15 Ml) 15 ml MM Q4 PRN PRN Reason: Dry mouth Sodium Chloride ([place] Nasal [place]) 1 sprays DIAMOND Q6 [facility] Last Admin: 03/13/17 09:00 Dose: 1 spr Zolpidem Tartrate (Ambien) 5 mg PO HS PRN PRN Reason: Insomnia Last Admin: 03/12/17 22:42 Dose: 5 mg - Labs Labs: 03/13/17 05:35 03/13/17 05:35 PT 18.8 Seconds (9.8-13.1) H 03/12/17 04:15 INR 1.7 (0.9-1.2) H 03/12/17 04:15 APTT 36.2 Seconds (25.6-37.1) 03/06/17 05:20 Assessment and Plan (1) Acute on chronic left systolic heart failure Status: Acute (2) Adenocarcinoma of colon Status: Acute (3) COPD (chronic obstructive pulmonary disease) with emphysema Status: Acute (4) Nosocomial pneumonia Status: Acute (5) Status post right hemicolectomy Status: Acute
--- NOTE | 2017-03-13 10:16 | CP.PCM.PN ---
<Carito Gore - Last Filed: 03/13/17 14:44> Subjective - Date & Time of Evaluation Date of Evaluation: 03/13/17 Time of Evaluation: 07:10 - Subjective Subjective: Patient seen and examined bedside. pt was transferred yesterday to med-surg. patient reports 1 vomiting yesterday that subsided with Zofran. Reports that SOB is improving. He denies chest pain, abd pain, n, v, diarrhea. Objective - Vital Signs/Intake and Output Vital Signs (last 24 hours): Temp Pulse Resp BP Pulse Ox 98.2 F 84 20 144/83 96 03/13/17 08:24 03/13/17 08:24 03/13/17 08:24 03/13/17 09:01 03/13/17 08:24 - Medications Medications: Current Medications Acetaminophen (Tylenol 325mg Tab) 650 mg PO Q4 PRN PRN Reason: Fever >100.4 F Last Admin: 03/11/17 12:12 Dose: 650 mg Acetaminophen (Tylenol 325mg Tab) 650 mg PO Q6 PRN PRN Reason: Pain, Mild (1-3) Last Admin: 03/12/17 13:48 Dose: 650 mg Acetylcysteine (Acetylcysteine 20%) 2 ml INH RBID [facility] Last Admin: 03/13/17 08:04 Dose: 2 ml Albuterol Sulfate (Albuterol 0.083% Inhal Ny (2.5 Mg/3 Ml) Ud) 2.5 mg INH RQID [facility] Last Admin: 03/12/17 19:03 Dose: 2.5 mg Furosemide (Lasix) 40 mg IV DAILY [facility] Last Admin: 03/13/17 09:01 Dose: 40 mg Guaifenesin (Robitussin) 100 mg PO QID [facility] Metronidazole (Flagyl 500mg/100ml Ns) 100 mls @ 100 mls/hr IVPB Q8 [facility] PRN Reason: Protocol Last Admin: 03/13/17 08:59 Dose: 100 mls/hr Meropenem 500 mg/ Sodium (Chloride) 100 mls @ 100 mls/hr IVPB Q8 [facility] PRN Reason: Protocol Last Admin: 03/13/17 08:59 Dose: 100 mls/hr Ceftaroline Fosamil 400 mg/ (Sodium Chloride) 100 mls @ 100 mls/hr IVPB Q12 [facility] PRN Reason: Protocol Last Admin: 03/12/17 20:12 Dose: 100 mls/hr Multivitamins/Minerals (Therapeutic-M Tab) 1 tab PO DAILY [facility] Last Admin: 03/13/17 09:00 Dose: 1 tab Ondansetron HCl (Zofran Inj) 4 mg IVP Q4 PRN PRN Reason: Nausea/Vomiting Last Admin: 03/12/17 22:56 Dose: 4 mg Pantoprazole Sodium (Protonix Ec Tab) 40 mg PO DAILY [facility] Last Admin: 03/13/17 09:00 Dose: 40 mg Saliva Substitute (Caphosol 15 Ml) 15 ml MM Q4 PRN PRN Reason: Dry mouth Sodium Chloride ([place] Nasal [place]) 1 sprays DIAMOND Q6 [facility] Last Admin: 03/13/17 09:00 Dose: 1 spr Zolpidem Tartrate (Ambien) 5 mg PO HS PRN PRN Reason: Insomnia Last Admin: 03/12/17 22:42 Dose: 5 mg - Labs Labs: 03/13/17 05:35 03/13/17 05:35 PT 18.8 Seconds (9.8-13.1) H 03/12/17 04:15 INR 1.7 (0.9-1.2) H 03/12/17 04:15 APTT 36.2 Seconds (25.6-37.1) 03/06/17 05:20 - Constitutional Appears: No Acute Distress - Head Exam Head Exam: ATRAUMATIC, NORMOCEPHALIC - Eye Exam Eye Exam: Normal appearance - ENT Exam ENT Exam: Mucous Membranes Moist - Respiratory Exam Respiratory Exam: Decreased Breath Sounds. absent: Rales, Rhonchi, Wheezes Additional comments: right side diminished breath sound - Cardiovascular Exam Cardiovascular Exam: REGULAR RHYTHM, +S1, +S2 - GI/Abdominal Exam GI & Abdominal Exam: Soft, Normal Bowel Sounds. absent: Tenderness Additional comments: RUQ with catheter in place, small amount of serous fluid in bag. Midline incision with josy in place, no erythema or drainage noted. non tender - Extremities Exam Extremities Exam: Normal Inspection. absent: Calf Tenderness - Back Exam Back Exam: NORMAL INSPECTION - Neurological Exam Neurological Exam: Alert, Awake, Oriented x3 - Psychiatric Exam Psychiatric exam: Normal Affect, Normal Mood - Skin Skin Exam: absent: Erythema, Rash Assessment and Plan - Assessment and Plan (Free Text) Plan: 71 yr old M PMHx/o HTN, COPD, CAD, CKD, POD # 16 s/p laparoscopic right hemicolectomy for ascending colon mass (moderately differentiated adenocarcinoma ). D/w pt at length >30min, clinical findings/plan, dispo plan. 1) s/p Right hemicolectomy for ascending colon mass, POD # 16 -path: T2 adenocarinoma with 1/20 lymph nodes positive -Pain control: percocet prn -Hem/Onc c/s: outpt chemo, will need portcath placement 2) Emphysema/COPD - O2 NC, Duo Neb Q8 sonali -CT chest w/o contrast -V/Q scan low probabilitiy PE -Pulmonology consult appreciated: no bronchoscopy 3) HAP -CT chest: right infiltrates, chronic change to b/l lungs -Pulmonology consult -ID c/s -stopped Zosyn/clindamycin -started Meropenem, flagyl, Day#6 -started ceftaroline day 5 -sputum cx yeast -blood cx NGTD 4) Intrabdominal abscess -CT abd: intrabdominal fluids around pancreas and right liver lobe aprox 3.9 x 5.9 cm -CT chest: ascites overlying right liver dome with small pocket of air -s/p IR draignage day #7 -CT Abd:improving -ID consult appreciated 5) Diastolic CHF exacerbation Echo 01/01/17: impaired systolic function with LVEF of 45% -pro-BNP trending down 4100- 2400 -doctor of pharmacy consult appreciated.c/w lasix 6)CKD stage 3 -GFR 38 cr 1.8 -renally dose meds, prevent ERYN by not getting contrast if possible 7) HTN -controlled -on lasix 8) DVT prophylaxis -lovenox 40 mg sc Dispo: CHAY[facility] <Santo Damon - Last Filed: 03/14/17 07:01> Objective - Vital Signs/Intake and Output Vital Signs (last 24 hours): Temp Pulse Resp BP Pulse Ox 98.9 F 76 20 130/70 97 03/14/17 00:00 03/14/17 00:00 18 00:00 03/14/17 00:00 03/14/17 00:00 Intake and Output: 03/14/17 03/14/17 06:59 18:59 Intake Total 0 Balance 0 - Medications Medications: Current Medications Acetaminophen (Tylenol 325mg Tab) 650 mg PO Q4 PRN PRN Reason: Fever >100.4 F Last Admin: 03/11/17 12:12 Dose: 650 mg Acetaminophen (Tylenol 325mg Tab) 650 mg PO Q6 PRN PRN Reason: Pain, Mild (1-3) Last Admin: 03/12/17 13:48 Dose: 650 mg Acetylcysteine (Acetylcysteine 20%) 2 ml INH RBID [facility] Last Admin: 03/13/17 20:00 Dose: Not Given Albuterol Sulfate (Albuterol 0.083% Inhal Ny (2.5 Mg/3 Ml) Ud) 2.5 mg INH RQID [facility] Last Admin: 03/13/17 20:00 Dose: Not Given Furosemide (Lasix) 40 mg PO DAILY [facility] Guaifenesin (Robitussin) 200 mg PO QID [facility] Last Admin: 03/13/17 21:26 Dose: Not Given Metronidazole (Flagyl 500mg/100ml Ns) 100 mls @ 100 mls/hr IVPB Q8 [facility] PRN Reason: Protocol Last Admin: 03/14/17 00:30 Dose: 100 mls/hr Meropenem 500 mg/ Sodium (Chloride) 100 mls @ 100 mls/hr IVPB Q8 [facility] PRN Reason: Protocol Last Admin: 03/14/17 01:35 Dose: 100 mls/hr Ceftaroline Fosamil 400 mg/ (Sodium Chloride) 100 mls @ 100 mls/hr IVPB Q12 [facility] PRN Reason: Protocol Last Admin: 03/13/17 21:24 Dose: 100 mls/hr Multivitamins/Minerals (Therapeutic-M Tab) 1 tab PO DAILY [facility] Last Admin: 03/13/17 09:00 Dose: 1 tab Ondansetron HCl (Zofran Inj) 4 mg IVP Q4 PRN PRN Reason: Nausea/Vomiting Last Admin: 03/13/17 22:56 Dose: 4 mg Pantoprazole Sodium (Protonix Ec Tab) 40 mg PO DAILY [facility] Last Admin: 03/13/17 09:00 Dose: 40 mg Saliva Substitute (Caphosol 15 Ml) 15 ml MM Q4 PRN PRN Reason: Dry mouth Sodium Chloride ([place] Nasal [place]) 1 sprays IDAMOND Q6 [facility] Last Admin: 03/14/17 04:45 Dose: Not Given Zolpidem Tartrate (Ambien) 5 mg PO HS PRN PRN Reason: Insomnia Last Admin: 03/13/17 22:24 Dose: 5 mg - Labs Labs: 03/14/17 05:30 03/14/17 05:30 PT 18.8 Seconds (9.8-13.1) H 03/12/17 04:15 INR 1.7 (0.9-1.2) H 03/12/17 04:15 APTT 36.2 Seconds (25.6-37.1) 03/06/17 05:20 Attending/Attestation - Attestation I have personally seen and examined this patient.: Yes I have fully participated in the care of the patient.: Yes I have reviewed all pertinent clinical information, including history, physical exam and plan: Yes
--- NOTE | 2017-03-13 10:16 | RAD ---
PROCEDURE: CHEST RADIOGRAPH, 1 VIEW HISTORY: PNA.CHF COMPARISON: Chest radiograph dated 03/12/2017. FINDINGS: LUNGS: Right basilar atelectasis. PLEURA: Stable elevation of the right hemidiaphragm. Small right pleural effusion. CARDIOVASCULAR: Atherosclerotic aortic calcifications. Cardiomediastinal silhouette unchanged. OSSEOUS STRUCTURES: Unchanged. VISUALIZED UPPER ABDOMEN: Normal. OTHER FINDINGS: Right upper extremity PICC, unchanged. IMPRESSION: Small right pleural effusion.
[2017-03-13] MEDS: guaiFENesin 100 mg/5 ml Syrup UD PO SCH ×2 (10:38→16:19)
--- NOTE | 2017-03-13 14:00 | CP.PCM.PN ---
Subjective - Date & Time of Evaluation Date of Evaluation: 03/13/17 Time of Evaluation: 13:52 - Subjective Subjective: Sleepy today. Slept poorly last night. Remains afebrile, VS stable. WBC down to 12.2 this morning. Chest x-ray looks about the same. Feels a little stronger. Had physical therapy today. Still has a congested cough when coached. Breath sounds in both lower lobes are decreased. Still has rhonchi audible when coached to breathe deeply. No bronchial breath sounds or wheezing. Occasional medium rales in right base. Bowel sounds are heard posteriorly in the region of the RLL suggesting hemidiaphragm is still elevated. Overall appears to be progressing slowly. Will ask for PA/Lateral CXR in department in the morning. Continue aerosol therapies and encourage more OOB activity. 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 Guaifenesin in liquid form 200MG QID (vomited last night after Mucinex). Ensure supplements TID. Objective - Vital Signs/Intake and Output Vital Signs (last 24 hours): Temp Pulse Resp BP Pulse Ox 98.2 F 84 20 144/83 96 03/13/17 08:24 03/13/17 08:24 03/13/17 08:24 03/13/17 09:01 03/13/17 08:24 - Medications Medications: Current Medications Acetaminophen (Tylenol 325mg Tab) 650 mg PO Q4 PRN PRN Reason: Fever >100.4 F Last Admin: 03/11/17 12:12 Dose: 650 mg Acetaminophen (Tylenol 325mg Tab) 650 mg PO Q6 PRN PRN Reason: Pain, Mild (1-3) Last Admin: 03/12/17 13:48 Dose: 650 mg Acetylcysteine (Acetylcysteine 20%) 2 ml INH RBID [facility] Albuterol Sulfate (Albuterol 0.083% Inhal Ny (2.5 Mg/3 Ml) Ud) 2.5 mg INH RQID [facility] Last Admin: 03/13/17 11:28 Dose: 2.5 mg Furosemide (Lasix) 40 mg PO DAILY [facility] Guaifenesin (Robitussin) 200 mg PO QID [facility] Metronidazole (Flagyl 500mg/100ml Ns) 100 mls @ 100 mls/hr IVPB Q8 [facility] PRN Reason: Protocol Last Admin: 03/13/17 08:59 Dose: 100 mls/hr Meropenem 500 mg/ Sodium (Chloride) 100 mls @ 100 mls/hr IVPB Q8 [facility] PRN Reason: Protocol Last Admin: 03/13/17 08:59 Dose: 100 mls/hr Ceftaroline Fosamil 400 mg/ (Sodium Chloride) 100 mls @ 100 mls/hr IVPB Q12 [facility] PRN Reason: Protocol Last Admin: 03/13/17 10:38 Dose: 100 mls/hr Multivitamins/Minerals (Therapeutic-M Tab) 1 tab PO DAILY [facility] Last Admin: 03/13/17 09:00 Dose: 1 tab Ondansetron HCl (Zofran Inj) 4 mg IVP Q4 PRN PRN Reason: Nausea/Vomiting Last Admin: 03/12/17 22:56 Dose: 4 mg Pantoprazole Sodium (Protonix Ec Tab) 40 mg PO DAILY [facility] Last Admin: 03/13/17 09:00 Dose: 40 mg Saliva Substitute (Caphosol 15 Ml) 15 ml MM Q4 PRN PRN Reason: Dry mouth Sodium Chloride ([place] Nasal [place]) 1 sprays DIAMOND Q6 [facility] Last Admin: 03/13/17 09:00 Dose: 1 spr Zolpidem Tartrate (Ambien) 5 mg PO HS PRN PRN Reason: Insomnia Last Admin: 03/12/17 22:42 Dose: 5 mg - Labs Labs: 03/13/17 05:35 03/13/17 05:35 PT 18.8 Seconds (9.8-13.1) H 03/12/17 04:15 INR 1.7 (0.9-1.2) H 03/12/17 04:15 APTT 36.2 Seconds (25.6-37.1) 03/06/17 05:20 Assessment and Plan (1) Nosocomial pneumonia Status: Acute
[2017-03-13] MEDS: guaiFENesin 200 mg/10 ml Syrup UD PO SCH ×2 (16:19→21:26)
--- NOTE | 2017-03-13 16:31 | CP.PCM.PN ---
Subjective - Date & Time of Evaluation Date of Evaluation: 03/13/17 Time of Evaluation: 12:00 - Subjective Subjective: Not sleeping well at night Objective - Vital Signs/Intake and Output Vital Signs (last 24 hours): Temp Pulse Resp BP Pulse Ox 99.1 F 86 20 137/74 99 03/13/17 16:14 03/13/17 16:14 03/13/17 16:14 03/13/17 16:14 03/13/17 16:14 - Medications Medications: Current Medications Acetaminophen (Tylenol 325mg Tab) 650 mg PO Q4 PRN PRN Reason: Fever >100.4 F Last Admin: 03/11/17 12:12 Dose: 650 mg Acetaminophen (Tylenol 325mg Tab) 650 mg PO Q6 PRN PRN Reason: Pain, Mild (1-3) Last Admin: 03/12/17 13:48 Dose: 650 mg Acetylcysteine (Acetylcysteine 20%) 2 ml INH RBID [facility] Albuterol Sulfate (Albuterol 0.083% Inhal Ny (2.5 Mg/3 Ml) Ud) 2.5 mg INH RQID [facility] Last Admin: 03/13/17 15:38 Dose: 2.5 mg Furosemide (Lasix) 40 mg PO DAILY [facility] Guaifenesin (Robitussin) 200 mg PO QID [facility] Last Admin: 03/13/17 16:19 Dose: 200 mg Metronidazole (Flagyl 500mg/100ml Ns) 100 mls @ 100 mls/hr IVPB Q8 [facility] PRN Reason: Protocol Last Admin: 03/13/17 16:17 Dose: 100 mls/hr Meropenem 500 mg/ Sodium (Chloride) 100 mls @ 100 mls/hr IVPB Q8 [facility] PRN Reason: Protocol Last Admin: 03/13/17 16:18 Dose: 100 mls/hr Ceftaroline Fosamil 400 mg/ (Sodium Chloride) 100 mls @ 100 mls/hr IVPB Q12 [facility] PRN Reason: Protocol Last Admin: 03/13/17 10:38 Dose: 100 mls/hr Multivitamins/Minerals (Therapeutic-M Tab) 1 tab PO DAILY [facility] Last Admin: 03/13/17 09:00 Dose: 1 tab Ondansetron HCl (Zofran Inj) 4 mg IVP Q4 PRN PRN Reason: Nausea/Vomiting Last Admin: 03/12/17 22:56 Dose: 4 mg Pantoprazole Sodium (Protonix Ec Tab) 40 mg PO DAILY [facility] Last Admin: 03/13/17 09:00 Dose: 40 mg Saliva Substitute (Caphosol 15 Ml) 15 ml MM Q4 PRN PRN Reason: Dry mouth Sodium Chloride ([place] Nasal [place]ason) 1 sprays DIAMOND Q6 LUCIEN Last Admin: 03/13/17 16:18 Dose: 1 spr Zolpidem Tartrate (Ambien) 5 mg PO HS PRN PRN Reason: Insomnia Last Admin: 03/12/17 22:42 Dose: 5 mg - Labs Labs: 03/13/17 05:35 03/13/17 05:35 PT 18.8 Seconds (9.8-13.1) H 03/12/17 04:15 INR 1.7 (0.9-1.2) H 03/12/17 04:15 APTT 36.2 Seconds (25.6-37.1) 03/06/17 05:20 - Head Exam Head Exam: ATRAUMATIC - Eye Exam Eye Exam: Normal appearance - ENT Exam ENT Exam: Mucous Membranes Dry - Respiratory Exam Respiratory Exam: NORMAL BREATHING PATTERN - Cardiovascular Exam Cardiovascular Exam: +S1, +S2 - GI/Abdominal Exam GI & Abdominal Exam: Normal Bowel Sounds Assessment and Plan (1) Anemia Assessment & Plan: chronic disease Status: Acute (2) Leukocytosis Assessment & Plan: improving with antibiotics Status: Acute (3) Adenocarcinoma of colon Assessment & Plan: stage III outpatient adjuvant chemotherapy Status: Acute
[2017-03-14] MEDS: metroNIDAZOLE 500mg/100ml NS 100 ML IVPB SCH ×3 (00:30→16:19)
[2017-03-14] MEDS: Meropenem 500 MG in Sodium Chloride 0.9% 100 ML IVPB SCH ×3 (01:35→16:20)
[2017-03-14] MEDS: Nasal Spray(Ocean spray) NAS SCH ×4 (04:45→21:46)
[2017-03-14 06:23] LABS: BASO # 0.1 K/uL (0.0-0.2); BASO % 0.4 % (0.0-2.0); EOS # 0.1 K/uL (0.0-0.7); EOS % 0.7 % (0.0-4.0); HEMOGLOBIN 10.6 g/dL (12.0-18.0); LYMPH # 0.9 K/uL (1.0-4.3); LYMPH % 6.9 % (20.0-40.0); MEAN CELL VOLUME 83.7 fl (80.0-94.0); MEAN CORPUSCULAR HEMOGLOBIN 26.5 pg (27.0-31.0); MEAN CORPUSCULAR HGB CONC 31.6 g/dL (33.0-37.0); MEAN PLATELET VOLUME 8.1 fl (7.2-11.7); MONO # 0.9 K/uL (0.0-0.8); MONO % 7.3 % (0.0-10.0); NEUT # 10.9 K/uL (1.8-7.0); NEUT % 84.7 % (50.0-75.0); PLATELET COUNT 213 K/uL (130-400); RBC 4.02 Mil/uL (4.40-5.90); RED CELL DISTRIBUTION WIDTH 17.9 % (11.5-14.5); WHITE BLOOD COUNT 12.9 K/uL (4.8-10.8)
[2017-03-14 06:59] LABS: ALBUMIN 2.3 g/dL (3.5-5.0); CALCIUM 7.9 mg/dL (8.4-10.2)
[2017-03-14 07:12] LABS: ALB/GLOB RATIO 1.2 (1.0-2.1)
--- NOTE | 2017-03-14 07:38 | CP.PCM.PN ---
<Christina Spicer - Last Filed: 03/14/17 07:36> Subjective - Date & Time of Evaluation Date of Evaluation: 03/14/17 Time of Evaluation: 07:00 - Subjective Subjective: General Surgery progress note for Dr. Ramon-Christina Spicer, PGY-1 Pt S & E at bedside. Pt w/emesis after Mucinex administration last night, no other complaints. RUQ drain with scant serous output- 30cc/12H Objective - Vital Signs/Intake and Output Vital Signs (last 24 hours): Temp Pulse Resp BP Pulse Ox 98.9 F 76 20 130/70 97 03/14/17 00:00 03/14/17 00:00 03/14/17 00:00 03/14/17 00:00 03/14/17 00:00 Intake and Output: 03/14/17 03/14/17 06:59 18:59 Intake Total 0 Balance 0 - Medications Medications: Current Medications Acetaminophen (Tylenol 325mg Tab) 650 mg PO Q4 PRN PRN Reason: Fever >100.4 F Last Admin: 03/11/17 12:12 Dose: 650 mg Acetaminophen (Tylenol 325mg Tab) 650 mg PO Q6 PRN PRN Reason: Pain, Mild (1-3) Last Admin: 03/12/17 13:48 Dose: 650 mg Acetylcysteine (Acetylcysteine 20%) 2 ml INH RBID [facility] Last Admin: 03/13/17 20:00 Dose: Not Given Albuterol Sulfate (Albuterol 0.083% Inhal Ny (2.5 Mg/3 Ml) Ud) 2.5 mg INH RQID [facility] Last Admin: 03/13/17 20:00 Dose: Not Given Furosemide (Lasix) 40 mg PO DAILY [facility] Guaifenesin (Robitussin) 200 mg PO QID [facility] Last Admin: 03/13/17 21:26 Dose: Not Given Metronidazole (Flagyl 500mg/100ml Ns) 100 mls @ 100 mls/hr IVPB Q8 [facility] PRN Reason: Protocol Last Admin: 03/14/17 00:30 Dose: 100 mls/hr Meropenem 500 mg/ Sodium (Chloride) 100 mls @ 100 mls/hr IVPB Q8 [facility] PRN Reason: Protocol Last Admin: 03/14/17 01:35 Dose: 100 mls/hr Ceftaroline Fosamil 400 mg/ (Sodium Chloride) 100 mls @ 100 mls/hr IVPB Q12 [facility] PRN Reason: Protocol Last Admin: 03/13/17 21:24 Dose: 100 mls/hr Multivitamins/Minerals (Therapeutic-M Tab) 1 tab PO DAILY [facility] Last Admin: 03/13/17 09:00 Dose: 1 tab Ondansetron HCl (Zofran Inj) 4 mg IVP Q4 PRN PRN Reason: Nausea/Vomiting Last Admin: 03/13/17 22:56 Dose: 4 mg Pantoprazole Sodium (Protonix Ec Tab) 40 mg PO DAILY [facility] Last Admin: 03/13/17 09:00 Dose: 40 mg Saliva Substitute (Caphosol 15 Ml) 15 ml MM Q4 PRN PRN Reason: Dry mouth Sodium Chloride ([place] Nasal [place]) 1 sprays DIAMOND Q6 [facility] Last Admin: 03/14/17 04:45 Dose: Not Given Zolpidem Tartrate (Ambien) 5 mg PO HS PRN PRN Reason: Insomnia Last Admin: 03/13/17 22:24 Dose: 5 mg - Labs Labs: 03/14/17 05:30 03/14/17 05:30 PT 18.8 Seconds (9.8-13.1) H 03/12/17 04:15 INR 1.7 (0.9-1.2) H 03/12/17 04:15 APTT 36.2 Seconds (25.6-37.1) 03/06/17 05:20 - Constitutional Appears: Non-toxic, No Acute Distress - Head Exam Head Exam: ATRAUMATIC, NORMAL INSPECTION, NORMOCEPHALIC - Eye Exam Eye Exam: EOMI, Normal appearance - ENT Exam ENT Exam: Mucous Membranes Moist, Normal Exam - Neck Exam Neck Exam: Full ROM, Normal Inspection - Respiratory Exam Respiratory Exam: NORMAL BREATHING PATTERN - Cardiovascular Exam Cardiovascular Exam: REGULAR RHYTHM, +S1, +S2 - GI/Abdominal Exam GI & Abdominal Exam: Soft. absent: Distended, Firm, Guarding, Tenderness Additional comments: Midline incision with josy in place, no erythema or drainage; RUQ with drain in place, scant serous output - Extremities Exam Extremities Exam: Normal Inspection - Neurological Exam Neurological Exam: Alert, Awake, Oriented x3 - Psychiatric Exam Psychiatric exam: Normal Affect, Normal Mood - Skin Skin Exam: Dry, Intact, Normal Color, Warm Assessment and Plan - Assessment and Plan (Free Text) Assessment: 71 M POD#17 s/p open right hemicolectomy POD#8 s/p IR drainage of intra- abdominal fluid collection, with right sided pneumonia Plan: Afebrile over last 24H Monitor VS Leukocytosis slightly increased - now 12.9 from 12.2 Cont ABx Duonebs Chest PT OOBTC Ambulate/PT Encourage IS use Encourage flutter valve use Cont pulmonary toilet Supplements Encourage PO intake Cardio following Onc following ID following Will need rehab due to deconditioning when ready Will DW attending Dannielle, PGY-1 <Vaughn Ramon - Last Filed: 03/14/17 11:22> Subjective - Date & Time of Evaluation Time of Evaluation: 11:00 - Subjective Subjective: Patient was seen and examined at the bedside. Agree with resident's note above. Objective - Vital Signs/Intake and Output Vital Signs (last 24 hours): Temp Pulse Resp BP Pulse Ox 98.5 F 86 20 157/82 H 95 03/14/17 08:14 03/14/17 08:14 03/14/17 08:14 03/14/17 08:35 03/14/17 08:14 Intake and Output: 03/14/17 03/14/17 06:59 18:59 Intake Total 0 Balance 0 - Medications Medications: Current Medications Acetaminophen (Tylenol 325mg Tab) 650 mg PO Q4 PRN PRN Reason: Fever >100.4 F Last Admin: 03/11/17 12:12 Dose: 650 mg Acetaminophen (Tylenol 325mg Tab) 650 mg PO Q6 PRN PRN Reason: Pain, Mild (1-3) Last Admin: 03/12/17 13:48 Dose: 650 mg Acetylcysteine (Acetylcysteine 20%) 2 ml INH RBID [facility] Last Admin: 03/14/17 07:54 Dose: 2 ml Albuterol Sulfate (Albuterol 0.083% Inhal Ny (2.5 Mg/3 Ml) Ud) 2.5 mg INH RQID [facility] Last Admin: 03/14/17 07:54 Dose: 2.5 mg Furosemide (Lasix) 40 mg PO DAILY [facility] Last Admin: 03/14/17 08:35 Dose: 40 mg Guaifenesin (Robitussin) 200 mg PO QID [facility] Last Admin: 03/14/17 08:35 Dose: 200 mg Metronidazole (Flagyl 500mg/100ml Ns) 100 mls @ 100 mls/hr IVPB Q8 [facility] PRN Reason: Protocol Last Admin: 03/14/17 08:33 Dose: 100 mls/hr Meropenem 500 mg/ Sodium (Chloride) 100 mls @ 100 mls/hr IVPB Q8 [facility] PRN Reason: Protocol Last Admin: 03/14/17 08:34 Dose: 100 mls/hr Ceftaroline Fosamil 400 mg/ (Sodium Chloride) 100 mls @ 100 mls/hr IVPB Q12 [facility] PRN Reason: Protocol Last Admin: 03/14/17 08:34 Dose: 100 mls/hr Multivitamins/Minerals (Therapeutic-M Tab) 1 tab PO DAILY [facility] Last Admin: 03/14/17 08:35 Dose: 1 tab Ondansetron HCl (Zofran Inj) 4 mg IVP Q4 PRN PRN Reason: Nausea/Vomiting Last Admin: 03/13/17 22:56 Dose: 4 mg Pantoprazole Sodium (Protonix Ec Tab) 40 mg PO DAILY [facility] Last Admin: 03/14/17 08:35 Dose: 40 mg Saliva Substitute (Caphosol 15 Ml) 15 ml MM Q4 PRN PRN Reason: Dry mouth Sodium Chloride ([place] Nasal [place]) 1 sprays DIAMOND Q6 [facility] Last Admin: 03/14/17 10:16 Dose: 1 spr Zolpidem Tartrate (Ambien) 5 mg PO HS PRN PRN Reason: Insomnia Last Admin: 03/13/17 22:24 Dose: 5 mg - Labs Labs: 03/14/17 05:30 03/14/17 05:30 PT 18.8 Seconds (9.8-13.1) H 03/12/17 04:15 INR 1.7 (0.9-1.2) H 03/12/17 04:15 APTT 36.2 Seconds (25.6-37.1) 03/06/17 05:20 Assessment and Plan - Assessment and Plan (Free Text) Plan: - Removed Pigtail drain
[2017-03-14] MEDS: Albuterol 0.083% Inhal Sol (2.5 mg/3 mL) UD INH SCH ×4 (07:54→19:34)
[2017-03-14] MEDS: Acetylcysteine 20% Inhal Soln (4ml) INH SCH ×2 (07:54→19:33)
[2017-03-14] MEDS: Pantoprazole 40 mg EC Tab PO SCH (08:35)
[2017-03-14] MEDS: guaiFENesin 200 mg/10 ml Syrup UD PO SCH ×4 (08:35→21:46)
[2017-03-14] MEDS: Multivitamin With Minerals Tab PO SCH (08:35)
--- NOTE | 2017-03-14 08:46 | CP.PCM.PN ---
<Carito Gore - Last Filed: 03/14/17 14:30> Subjective - Date & Time of Evaluation Date of Evaluation: 03/14/17 Time of Evaluation: 07:15 - Subjective Subjective: Patient seen and examined bedside, using O2 NC. Patient reports productive cough occs difficulty to expectorate. reports lack of taste for the food. Overnight 1 non bloddy emesis controlled with zofran. He denies fever, chest pain, palpitation, abd pain. diarrhea. Reports he has been improving with physical therapy Pt medically cleared to continue with physical therapy in TCU Objective - Vital Signs/Intake and Output Vital Signs (last 24 hours): Temp Pulse Resp BP Pulse Ox 98.5 F 86 20 157/82 H 95 03/14/17 08:14 03/14/17 08:14 03/14/17 08:14 03/14/17 08:35 03/14/17 08:14 Intake and Output: 03/14/17 03/14/17 06:59 18:59 Intake Total 0 Balance 0 - Medications Medications: Current Medications Acetaminophen (Tylenol 325mg Tab) 650 mg PO Q4 PRN PRN Reason: Fever >100.4 F Last Admin: 03/11/17 12:12 Dose: 650 mg Acetaminophen (Tylenol 325mg Tab) 650 mg PO Q6 PRN PRN Reason: Pain, Mild (1-3) Last Admin: 03/12/17 13:48 Dose: 650 mg Acetylcysteine (Acetylcysteine 20%) 2 ml INH RBID [facility] Last Admin: 03/14/17 07:54 Dose: 2 ml Albuterol Sulfate (Albuterol 0.083% Inhal Ny (2.5 Mg/3 Ml) Ud) 2.5 mg INH RQID [facility] Last Admin: 03/14/17 07:54 Dose: 2.5 mg Furosemide (Lasix) 40 mg PO DAILY [facility] Last Admin: 03/14/17 08:35 Dose: 40 mg Guaifenesin (Robitussin) 200 mg PO QID [facility] Last Admin: 03/14/17 08:35 Dose: 200 mg Metronidazole (Flagyl 500mg/100ml Ns) 100 mls @ 100 mls/hr IVPB Q8 [facility] PRN Reason: Protocol Last Admin: 03/14/17 08:33 Dose: 100 mls/hr Meropenem 500 mg/ Sodium (Chloride) 100 mls @ 100 mls/hr IVPB Q8 [facility] PRN Reason: Protocol Last Admin: 03/14/17 08:34 Dose: 100 mls/hr Ceftaroline Fosamil 400 mg/ (Sodium Chloride) 100 mls @ 100 mls/hr IVPB Q12 [facility] PRN Reason: Protocol Last Admin: 03/14/17 08:34 Dose: 100 mls/hr Multivitamins/Minerals (Therapeutic-M Tab) 1 tab PO DAILY [facility] Last Admin: 03/14/17 08:35 Dose: 1 tab Ondansetron HCl (Zofran Inj) 4 mg IVP Q4 PRN PRN Reason: Nausea/Vomiting Last Admin: 03/13/17 22:56 Dose: 4 mg Pantoprazole Sodium (Protonix Ec Tab) 40 mg PO DAILY [facility] Last Admin: 03/14/17 08:35 Dose: 40 mg Saliva Substitute (Caphosol 15 Ml) 15 ml MM Q4 PRN PRN Reason: Dry mouth Sodium Chloride ([place] Nasal [place]) 1 sprays DIAMOND Q6 [facility] Last Admin: 03/14/17 04:45 Dose: Not Given Zolpidem Tartrate (Ambien) 5 mg PO HS PRN PRN Reason: Insomnia Last Admin: 03/13/17 22:24 Dose: 5 mg - Labs Labs: 03/14/17 05:30 03/14/17 05:30 PT 18.8 Seconds (9.8-13.1) H 03/12/17 04:15 INR 1.7 (0.9-1.2) H 03/12/17 04:15 APTT 36.2 Seconds (25.6-37.1) 03/06/17 05:20 - Constitutional Appears: Non-toxic, No Acute Distress - Head Exam Head Exam: ATRAUMATIC, NORMOCEPHALIC - Eye Exam Eye Exam: Normal appearance - ENT Exam ENT Exam: Mucous Membranes Moist - Respiratory Exam Respiratory Exam: Decreased Breath Sounds, Rales Additional comments: b/l bibasal , rales 2/3 left lung base - Cardiovascular Exam Cardiovascular Exam: REGULAR RHYTHM, +S1, +S2 - GI/Abdominal Exam GI & Abdominal Exam: Soft, Normal Bowel Sounds. absent: Tenderness Additional comments: RUQ with catheter in place, small amount of serous fluid in bag. Midline incision with josy in place, no erythema or drainage noted. non tender - Extremities Exam Extremities Exam: Normal Inspection. absent: Pedal Edema - Back Exam Back Exam: NORMAL INSPECTION - Neurological Exam Neurological Exam: Alert, Awake, Oriented x3 - Psychiatric Exam Psychiatric exam: Normal Mood - Skin Skin Exam: absent: Diaphoretic, Petechiae Assessment and Plan - Assessment and Plan (Free Text) Plan: 71 yr old M PMHx/o HTN, COPD, CAD, CKD, POD # 17 s/p laparoscopic right hemicolectomy for ascending colon mass (moderately differentiated adenocarcinoma ). 1) s/p Right hemicolectomy for ascending colon mass, POD # 17 -path: T2 adenocarinoma with 1/20 lymph nodes positive -Pain control: percocet prn -Hem/Onc c/s: outpt chemo, will need portcath placement 2) Emphysema/COPD - O2 NC, Duo Neb Q8 sonali -CT chest w/o contrast -V/Q scan low probabilitiy PE -Pulmonology consult appreciated: no bronchoscopy 3) HAP -CT chest: right infiltrates, chronic change to b/l lungs -Pulmonology consult -ID c/s -stopped Zosyn/clindamycin -Meropenem, flagyl, Day#7 -ceftaroline day 6 -sputum cx yeast -ID consult appreciated -blood cx NGTD 4) Intrabdominal abscess -CT abd: intrabdominal fluids around pancreas and right liver lobe aprox 3.9 x 5.9 cm -CT chest: ascites overlying right liver dome with small pocket of air -s/p IR draignage day #8 -CT Abd:improving -ID consult appreciated 5) Diastolic CHF exacerbation Echo 01/01/17: impaired systolic function with LVEF of 45% -pro-BNP trending down 4100- 2400 -swinging cut off saw operator consult appreciated.c/w lasix 6)CKD stage 3 -GFR 38 cr 1.8 -renally dose meds, prevent ERYN by not getting contrast if possible 7) HTN -controlled -on lasix 8) DVT prophylaxis -lovenox 40 mg sc Dispo: Patient medically cleared to go TCU to c/w PT <Santo Damon - Last Filed: 03/17/17 06:51> Objective - Vital Signs/Intake and Output Vital Signs (last 24 hours): Temp Pulse Resp BP Pulse Ox 98.7 F 68 20 123/74 99 03/16/17 23:33 03/16/17 23:33 03/16/17 23:33 03/16/17 23:33 03/16/17 23:33 Intake and Output: 03/16/17 03/17/17 18:59 06:59 Intake Total 100 Balance 100 - Medications Medications: Current Medications Acetaminophen (Tylenol 325mg Tab) 650 mg PO Q4 PRN PRN Reason: Fever >100.4 F Last Admin: 03/11/17 12:12 Dose: 650 mg Acetaminophen (Tylenol 325mg Tab) 650 mg PO Q6 PRN PRN Reason: Pain, Mild (1-3) Last Admin: 03/12/17 13:48 Dose: 650 mg Acetylcysteine (Acetylcysteine 20%) 2 ml INH RBID [facility] Last Admin: 03/16/17 19:16 Dose: 2 ml Albuterol Sulfate (Albuterol 0.083% Inhal Ny (2.5 Mg/3 Ml) Ud) 2.5 mg INH RQID [facility] Last Admin: 03/16/17 19:16 Dose: 2.5 mg Calcium Carbonate (Oscal) 500 mg PO DAILY PRN PRN Reason: indigestion Last Admin: 03/14/17 19:38 Dose: 500 mg Furosemide (Lasix) 40 mg PO DAILY [facility] Last Admin: 03/16/17 10:19 Dose: 40 mg Guaifenesin (Robitussin) 200 mg PO QID [facility] Last Admin: 03/16/17 22:34 Dose: Not Given Metronidazole (Flagyl 500mg/100ml Ns) 100 mls @ 100 mls/hr IVPB Q8 [facility] PRN Reason: Protocol Last Admin: 03/17/17 00:20 Dose: 100 mls/hr Ceftaroline Fosamil 400 mg/ (Sodium Chloride) 100 mls @ 100 mls/hr IVPB Q12H [facility] PRN Reason: Protocol Last Admin: 03/17/17 04:00 Dose: 100 mls/hr Lactobacillus Acidophilus (Bacid Acidophilus) 1 cap PO BID [facility] Last Admin: 03/16/17 19:26 Dose: 1 cap Multivitamins/Minerals (Therapeutic-M Tab) 1 tab PO DAILY [facility] Last Admin: 03/16/17 10:20 Dose: 1 tab Ondansetron HCl (Zofran Inj) 4 mg IVP Q4 PRN PRN Reason: Nausea/Vomiting Last Admin: 03/16/17 17:00 Dose: 4 mg Pantoprazole Sodium (Protonix Ec Tab) 40 mg PO DAILY [facility] Last Admin: 03/16/17 10:22 Dose: 40 mg Saliva Substitute (Caphosol 15 Ml) 15 ml MM Q4 PRN PRN Reason: Dry mouth Sodium Chloride ([place] Nasal [place]) 1 sprays DIAMOND Q6 [facility] Last Admin: 03/17/17 03:57 Dose: 1 spr Zolpidem Tartrate (Ambien) 5 mg PO HS PRN PRN Reason: Insomnia Last Admin: 03/16/17 22:30 Dose: 5 mg - Labs Labs: 03/17/17 06:00 03/17/17 06:00 PT 18.8 Seconds (9.8-13.1) H 03/12/17 04:15 INR 1.7 (0.9-1.2) H 03/12/17 04:15 APTT 36.2 Seconds (25.6-37.1) 03/06/17 05:20 Attending/Attestation - Attestation I have personally seen and examined this patient.: Yes I have fully participated in the care of the patient.: Yes I have reviewed all pertinent clinical information, including history, physical exam and plan: Yes
[2017-03-14 09:30] LABS: LYMPHOCYTE 5 % (20-50); MONOCYTE 5 % (0-10); NEUTROPHIL 89 % (42-75); PLATELET ESTIMATE NORMAL (NORMAL); REACTIVE LYMPHOCYTES 1 % (0-0); TOTAL CELLS COUNTED 100
[2017-03-14 09:31] LABS: ANISOCYTOSIS SLIGHT; HYPOCHROMIC SLIGHT; LARGE PLATELETS PRESENT; OVALOCYTES SLIGHT; POIKILOCYTOSIS SLIGHT; TEARDROP CELLS SLIGHT
--- NOTE | 2017-03-14 12:31 | RAD ---
HISTORY: pneumonia COMPARISON: Portable chest 03/13/2017. TECHNIQUE: Chest PA and lateral FINDINGS: Right PICC insertion unchanged in position. Postop changes are recognized in the upper abdomen in the interval including right upper quadrant drainage catheter and right parasagittal skin josy. LUNGS: No definite interval infiltrate bilaterally. Improved aeration noted at the left base. Linear atelectasis is appreciated at the medial left base. PLEURA: Minimal right pleural effusion is again evident with none at the left. CARDIOVASCULAR: Cardiomegaly appears stable. Unremarkable pulmonary vasculature. OSSEOUS STRUCTURES: No significant abnormalities. VISUALIZED UPPER ABDOMEN: As above. OTHER FINDINGS: None. IMPRESSION: Improved aeration is seen the left base with limited linear atelectasis identified in the medial left base. Trace right pleural effusions identified. No pneumothorax bilaterally. Stable cardiomegaly.
[2017-03-15] MEDS: Meropenem 500 MG in Sodium Chloride 0.9% 100 ML IVPB SCH ×2 (00:27→09:39)
[2017-03-15] MEDS: metroNIDAZOLE 500mg/100ml NS 100 ML IVPB SCH ×3 (01:39→16:57)
[2017-03-15] MEDS: Nasal Spray(Ocean spray) NAS SCH ×4 (04:26→21:23)
[2017-03-15] MEDS: Albuterol 0.083% Inhal Sol (2.5 mg/3 mL) UD INH SCH ×4 (07:40→19:03)
[2017-03-15] MEDS: Acetylcysteine 20% Inhal Soln (4ml) INH SCH ×2 (07:40→19:03)
[2017-03-15 08:21] LABS: BASO % 0.4 % (0.0-2.0); EOS # 0.1 K/uL (0.0-0.7); EOS % 0.8 % (0.0-4.0); HEMOGLOBIN 10.5 g/dL (12.0-18.0); LYMPH # 0.9 K/uL (1.0-4.3); LYMPH % 7.1 % (20.0-40.0); MEAN CELL VOLUME 83.3 fl (80.0-94.0); MEAN CORPUSCULAR HEMOGLOBIN 26.5 pg (27.0-31.0); MEAN CORPUSCULAR HGB CONC 31.8 g/dL (33.0-37.0); MEAN PLATELET VOLUME 8.2 fl (7.2-11.7); MONO # 0.9 K/uL (0.0-0.8); MONO % 6.9 % (0.0-10.0); NEUT # 10.5 K/uL (1.8-7.0); NEUT % 84.8 % (50.0-75.0); RBC 3.96 Mil/uL (4.40-5.90); RED CELL DISTRIBUTION WIDTH 16.6 % (11.5-14.5); WHITE BLOOD COUNT 12.4 K/uL (4.8-10.8)
[2017-03-15 08:38] LABS: ALBUMIN 2.3 g/dL (3.5-5.0)
[2017-03-15 08:39] LABS: ALB/GLOB RATIO 1.1 (1.0-2.1)
--- NOTE | 2017-03-15 09:14 | CP.PCM.PN ---
Subjective - Date & Time of Evaluation Date of Evaluation: 03/15/17 Time of Evaluation: 08:15 - Subjective Subjective: Patient seen and examined bedside when having breakfast. reports that podiatrist assistant came yesterday and did change of diet. Reports he has better taste for food and the lack of taste was related to medications. patient breathing w/ o difficulty, using O2 NC. Denies chest pain, abd pain, n,v,fever. RUQ drainage removed yesterday. Patient clinically stable for discharge to TCU. Walking test ordered today Objective - Vital Signs/Intake and Output Vital Signs (last 24 hours): Temp Pulse Resp BP Pulse Ox 98.4 F 74 20 145/81 98 03/15/17 08:18 03/15/17 08:18 03/15/17 08:18 03/15/17 08:18 03/15/17 08:18 Intake and Output: 03/15/17 03/15/17 06:59 18:59 Intake Total 400 Balance 400 - Medications Medications: Current Medications Acetaminophen (Tylenol 325mg Tab) 650 mg PO Q4 PRN PRN Reason: Fever >100.4 F Last Admin: 03/11/17 12:12 Dose: 650 mg Acetaminophen (Tylenol 325mg Tab) 650 mg PO Q6 PRN PRN Reason: Pain, Mild (1-3) Last Admin: 03/12/17 13:48 Dose: 650 mg Acetylcysteine (Acetylcysteine 20%) 2 ml INH RBID [facility] Last Admin: 03/15/17 07:40 Dose: 2 ml Albuterol Sulfate (Albuterol 0.083% Inhal Ny (2.5 Mg/3 Ml) Ud) 2.5 mg INH RQID [facility] Last Admin: 03/15/17 07:40 Dose: 2.5 mg Calcium Carbonate (Oscal) 500 mg PO DAILY PRN PRN Reason: indigestion Last Admin: 03/14/17 19:38 Dose: 500 mg Furosemide (Lasix) 40 mg PO DAILY [facility] Last Admin: 03/14/17 08:35 Dose: 40 mg Guaifenesin (Robitussin) 200 mg PO QID [facility] Last Admin: 03/14/17 21:46 Dose: 200 mg Metronidazole (Flagyl 500mg/100ml Ns) 100 mls @ 100 mls/hr IVPB Q8 [facility] PRN Reason: Protocol Last Admin: 03/15/17 01:39 Dose: 100 mls/hr Meropenem 500 mg/ Sodium (Chloride) 100 mls @ 100 mls/hr IVPB Q8 [facility] PRN Reason: Protocol Last Admin: 03/15/17 00:27 Dose: 100 mls/hr Multivitamins/Minerals (Therapeutic-M Tab) 1 tab PO DAILY [facility] Last Admin: 03/14/17 08:35 Dose: 1 tab Ondansetron HCl (Zofran Inj) 4 mg IVP Q4 PRN PRN Reason: Nausea/Vomiting Last Admin: 03/13/17 22:56 Dose: 4 mg Pantoprazole Sodium (Protonix Ec Tab) 40 mg PO DAILY [facility] Last Admin: 03/14/17 08:35 Dose: 40 mg Saliva Substitute (Caphosol 15 Ml) 15 ml MM Q4 PRN PRN Reason: Dry mouth Sodium Chloride ([place] Nasal [place]) 1 sprays DIAMOND Q6 [facility] Last Admin: 03/15/17 04:26 Dose: 1 spr Zolpidem Tartrate (Ambien) 5 mg PO HS PRN PRN Reason: Insomnia Last Admin: 03/14/17 22:50 Dose: 5 mg - Labs Labs: 03/15/17 08:03 03/15/17 04:00 PT 18.8 Seconds (9.8-13.1) H 03/12/17 04:15 INR 1.7 (0.9-1.2) H 03/12/17 04:15 APTT 36.2 Seconds (25.6-37.1) 03/06/17 05:20 - Constitutional Appears: Non-toxic, No Acute Distress - Head Exam Head Exam: ATRAUMATIC, NORMOCEPHALIC - Eye Exam Eye Exam: Normal appearance - ENT Exam ENT Exam: Mucous Membranes Moist - Neck Exam Neck Exam: Normal Inspection - Respiratory Exam Respiratory Exam: Decreased Breath Sounds. absent: Rhonchi, Wheezes Additional comments: bibasal, scattered dry rales left lung base - Cardiovascular Exam Cardiovascular Exam: REGULAR RHYTHM, +S1, +S2 - GI/Abdominal Exam GI & Abdominal Exam: Soft, Normal Bowel Sounds. absent: Tenderness Additional comments: Midline incision with josy in place, no erythema or drainage noted. non tender - Extremities Exam Extremities Exam: Normal Inspection. absent: Pedal Edema - Neurological Exam Neurological Exam: Alert, Awake, Oriented x3 - Psychiatric Exam Psychiatric exam: Normal Affect, Normal Mood - Skin Skin Exam: absent: Petechiae Assessment and Plan - Assessment and Plan (Free Text) Plan: 71 yr old M PMHx/o HTN, COPD, CAD, CKD, POD # 18 s/p laparoscopic right hemicolectomy for ascending colon mass (moderately differentiated adenocarcinoma ). 1) s/p Right hemicolectomy for ascending colon mass, POD # 18 -path: T2 adenocarinoma with 1/20 lymph nodes positive -Pain control: percocet prn -Hem/Onc c/s: outpt chemo, will need portcath placement 2) Emphysema/COPD - O2 NC, Duo Neb Q8 sonali -CT chest w/o contrast -V/Q scan low probabilitiy PE -Pulmonology consult appreciated: no bronchoscopy 3) HAP -CT chest: right infiltrates, chronic change to b/l lungs -Pulmonology consult -ID c/s -stopped Zosyn/clindamycin -Meropenem, flagyl, Day#8 -ceftaroline day 7 -sputum cx yeast -ID consult appreciated -blood cx NGTD 4) Intrabdominal abscess -CT abd: intrabdominal fluids around pancreas and right liver lobe aprox 3.9 x 5.9 cm -CT chest: ascites overlying right liver dome with small pocket of air -s/p IR draignage.removed yesterday. -CT Abd:improving -ID consult appreciated 5) Diastolic CHF exacerbation Echo 01/01/17: impaired systolic function with LVEF of 45% -pro-BNP trending down 4100- 2400 -grain processor consult appreciated.c/w lasix 6)CKD stage 3 -GFR 38 cr 1.8 -renally dose meds, prevent ERYN by not getting contrast if possible 7) HTN -controlled -on lasix 8) DVT prophylaxis -lovenox 40 mg sc Dispo: Patient medically cleared to go TCU to c/w PT. pending TCU approval and DC by surgery team
[2017-03-15] MEDS: Multivitamin With Minerals Tab PO SCH (09:40)
[2017-03-15] MEDS: Pantoprazole 40 mg EC Tab PO SCH (09:40)
[2017-03-15] MEDS: guaiFENesin 200 mg/10 ml Syrup UD PO SCH ×4 (09:42→21:38)
--- NOTE | 2017-03-15 13:50 | CP.PCM.PN ---
Subjective - Date & Time of Evaluation Date of Evaluation: 03/15/17 Time of Evaluation: 13:30 - Subjective Subjective: Patient was seen and examined at the bedside. Passing flatus, having bowel movements, tolerating regular diet, no abdominal pain. Objective - Vital Signs/Intake and Output Vital Signs (last 24 hours): Temp Pulse Resp BP Pulse Ox 98.4 F 74 20 145/81 98 03/15/17 08:18 03/15/17 08:18 03/15/17 08:18 03/15/17 09:38 03/15/17 08:18 Intake and Output: 03/15/17 03/15/17 06:59 18:59 Intake Total 400 Balance 400 - Medications Medications: Current Medications Acetaminophen (Tylenol 325mg Tab) 650 mg PO Q4 PRN PRN Reason: Fever >100.4 F Last Admin: 03/11/17 12:12 Dose: 650 mg Acetaminophen (Tylenol 325mg Tab) 650 mg PO Q6 PRN PRN Reason: Pain, Mild (1-3) Last Admin: 03/12/17 13:48 Dose: 650 mg Acetylcysteine (Acetylcysteine 20%) 2 ml INH RBID [facility] Last Admin: 03/15/17 07:40 Dose: 2 ml Albuterol Sulfate (Albuterol 0.083% Inhal Ny (2.5 Mg/3 Ml) Ud) 2.5 mg INH RQID [facility] Last Admin: 03/15/17 11:34 Dose: 2.5 mg Calcium Carbonate (Oscal) 500 mg PO DAILY PRN PRN Reason: indigestion Last Admin: 03/14/17 19:38 Dose: 500 mg Furosemide (Lasix) 40 mg PO DAILY [facility] Last Admin: 03/15/17 09:38 Dose: 40 mg Guaifenesin (Robitussin) 200 mg PO QID [facility] Last Admin: 03/15/17 09:42 Dose: 200 mg Metronidazole (Flagyl 500mg/100ml Ns) 100 mls @ 100 mls/hr IVPB Q8 [facility] PRN Reason: Protocol Last Admin: 03/15/17 09:38 Dose: 100 mls/hr Meropenem 500 mg/ Sodium (Chloride) 100 mls @ 100 mls/hr IVPB Q8 [facility] PRN Reason: Protocol Last Admin: 03/15/17 09:39 Dose: 100 mls/hr Multivitamins/Minerals (Therapeutic-M Tab) 1 tab PO DAILY [facility] Last Admin: 03/15/17 09:40 Dose: 1 tab Ondansetron HCl (Zofran Inj) 4 mg IVP Q4 PRN PRN Reason: Nausea/Vomiting Last Admin: 03/13/17 22:56 Dose: 4 mg Pantoprazole Sodium (Protonix Ec Tab) 40 mg PO DAILY [facility] Last Admin: 03/15/17 09:40 Dose: 40 mg Saliva Substitute (Caphosol 15 Ml) 15 ml MM Q4 PRN PRN Reason: Dry mouth Sodium Chloride ([place] Nasal [place]) 1 sprays DIAMOND Q6 [facility] Last Admin: 03/15/17 09:40 Dose: 1 spr Zolpidem Tartrate (Ambien) 5 mg PO HS PRN PRN Reason: Insomnia Last Admin: 03/14/17 22:50 Dose: 5 mg - Labs Labs: 03/15/17 08:03 03/15/17 04:00 PT 18.8 Seconds (9.8-13.1) H 03/12/17 04:15 INR 1.7 (0.9-1.2) H 03/12/17 04:15 APTT 36.2 Seconds (25.6-37.1) 03/06/17 05:20 - Constitutional Appears: Well, Non-toxic, No Acute Distress - Head Exam Head Exam: ATRAUMATIC, NORMAL INSPECTION, NORMOCEPHALIC - ENT Exam ENT Exam: Mucous Membranes Moist, Normal Exam - Neck Exam Neck Exam: Full ROM, Normal Inspection - Respiratory Exam Respiratory Exam: Rhonchi - Cardiovascular Exam Cardiovascular Exam: REGULAR RHYTHM, +S1, +S2 - GI/Abdominal Exam GI & Abdominal Exam: Soft, Normal Bowel Sounds Additional comments: NT, ND, no rebound, no guarding, incision clean, no erythema, no drainage, josy in place - Rectal Exam Rectal Exam: Deferred - Extremities Exam Extremities Exam: Full ROM, Normal Inspection - Neurological Exam Neurological Exam: Alert, Awake, Oriented x3 - Psychiatric Exam Psychiatric exam: Normal Affect, Normal Mood - Skin Skin Exam: Dry, Intact, Normal Color, Warm Assessment and Plan - Assessment and Plan (Free Text) Assessment: 71 y.o. male s/p right hemicolectomy now with pneumonia Plan: - Continue diet - Continue antibiotics as per ID - Insentive spirometry - Removed josy - Repeat labs in am - DVT ppx - Discharged planning
[2017-03-15] MEDS ORDERED: Alum-Mag Hydrox-Simethicone Susp (30 mL) PO ONE (20:59)
--- NOTE | 2017-03-15 23:20 | CP.PCM.PN ---
Subjective - Date & Time of Evaluation Date of Evaluation: 03/14/17 Time of Evaluation: 11:10 - Subjective Subjective: Feeling better Objective - Vital Signs/Intake and Output Vital Signs (last 24 hours): Temp Pulse Resp BP Pulse Ox 97.8 F 81 20 126/60 98 03/15/17 15:40 03/15/17 15:40 03/15/17 15:40 03/15/17 15:40 03/15/17 15:40 - Medications Medications: Current Medications Acetaminophen (Tylenol 325mg Tab) 650 mg PO Q4 PRN PRN Reason: Fever >100.4 F Last Admin: 03/11/17 12:12 Dose: 650 mg Acetaminophen (Tylenol 325mg Tab) 650 mg PO Q6 PRN PRN Reason: Pain, Mild (1-3) Last Admin: 03/12/17 13:48 Dose: 650 mg Acetylcysteine (Acetylcysteine 20%) 2 ml INH RBID [facility] Last Admin: 03/15/17 19:03 Dose: 2 ml Albuterol Sulfate (Albuterol 0.083% Inhal Ny (2.5 Mg/3 Ml) Ud) 2.5 mg INH RQID [facility] Last Admin: 03/15/17 19:03 Dose: 2.5 mg Calcium Carbonate (Oscal) 500 mg PO DAILY PRN PRN Reason: indigestion Last Admin: 03/14/17 19:38 Dose: 500 mg Furosemide (Lasix) 40 mg PO DAILY [facility] Last Admin: 03/15/17 09:38 Dose: 40 mg Guaifenesin (Robitussin) 200 mg PO QID [facility] Last Admin: 03/15/17 21:38 Dose: Not Given Metronidazole (Flagyl 500mg/100ml Ns) 100 mls @ 100 mls/hr IVPB Q8 [facility] PRN Reason: Protocol Last Admin: 03/15/17 16:57 Dose: 100 mls/hr Ceftaroline Fosamil 400 mg/ (Sodium Chloride) 100 mls @ 100 mls/hr IVPB Q12H [facility] PRN Reason: Protocol Last Admin: 03/15/17 16:42 Dose: 100 mls/hr Multivitamins/Minerals (Therapeutic-M Tab) 1 tab PO DAILY [facility] Last Admin: 03/15/17 09:40 Dose: 1 tab Ondansetron HCl (Zofran Inj) 4 mg IVP Q4 PRN PRN Reason: Nausea/Vomiting Last Admin: 03/15/17 17:07 Dose: 4 mg Pantoprazole Sodium (Protonix Ec Tab) 40 mg PO DAILY [facility] Last Admin: 03/15/17 09:40 Dose: 40 mg Saliva Substitute (Caphosol 15 Ml) 15 ml MM Q4 PRN PRN Reason: Dry mouth Sodium Chloride ([place] Nasal [place]) 1 sprays DIAMOND Q6 [facility] Last Admin: 03/15/17 21:23 Dose: 1 spr Zolpidem Tartrate (Ambien) 5 mg PO HS PRN PRN Reason: Insomnia Last Admin: 03/15/17 22:30 Dose: 5 mg - Labs Labs: 03/15/17 08:03 03/15/17 04:00 PT 18.8 Seconds (9.8-13.1) H 03/12/17 04:15 INR 1.7 (0.9-1.2) H 03/12/17 04:15 APTT 36.2 Seconds (25.6-37.1) 03/06/17 05:20 - Head Exam Head Exam: ATRAUMATIC - Eye Exam Eye Exam: Normal appearance - ENT Exam ENT Exam: Mucous Membranes Dry - Respiratory Exam Respiratory Exam: NORMAL BREATHING PATTERN - Cardiovascular Exam Cardiovascular Exam: +S1, +S2 - GI/Abdominal Exam GI & Abdominal Exam: Normal Bowel Sounds Assessment and Plan (1) Anemia Assessment & Plan: chronic disease H/H stable Status: Acute (2) Leukocytosis Assessment & Plan: on antibiotics Status: Acute (3) Adenocarcinoma of colon Assessment & Plan: stage III outpatient chemotherapy Status: Acute
--- NOTE | 2017-03-15 23:21 | CP.PCM.PN ---
Subjective - Date & Time of Evaluation Date of Evaluation: 03/15/17 Time of Evaluation: 16:00 - Subjective Subjective: Feeling better, trying to eat more Objective - Vital Signs/Intake and Output Vital Signs (last 24 hours): Temp Pulse Resp BP Pulse Ox 97.8 F 81 20 126/60 98 03/15/17 15:40 03/15/17 15:40 03/15/17 15:40 03/15/17 15:40 03/15/17 15:40 - Medications Medications: Current Medications Acetaminophen (Tylenol 325mg Tab) 650 mg PO Q4 PRN PRN Reason: Fever >100.4 F Last Admin: 03/11/17 12:12 Dose: 650 mg Acetaminophen (Tylenol 325mg Tab) 650 mg PO Q6 PRN PRN Reason: Pain, Mild (1-3) Last Admin: 03/12/17 13:48 Dose: 650 mg Acetylcysteine (Acetylcysteine 20%) 2 ml INH RBID [facility] Last Admin: 03/15/17 19:03 Dose: 2 ml Albuterol Sulfate (Albuterol 0.083% Inhal Ny (2.5 Mg/3 Ml) Ud) 2.5 mg INH RQID [facility] Last Admin: 03/15/17 19:03 Dose: 2.5 mg Calcium Carbonate (Oscal) 500 mg PO DAILY PRN PRN Reason: indigestion Last Admin: 03/14/17 19:38 Dose: 500 mg Furosemide (Lasix) 40 mg PO DAILY [facility] Last Admin: 03/15/17 09:38 Dose: 40 mg Guaifenesin (Robitussin) 200 mg PO QID [facility] Last Admin: 03/15/17 21:38 Dose: Not Given Metronidazole (Flagyl 500mg/100ml Ns) 100 mls @ 100 mls/hr IVPB Q8 [facility] PRN Reason: Protocol Last Admin: 03/15/17 16:57 Dose: 100 mls/hr Ceftaroline Fosamil 400 mg/ (Sodium Chloride) 100 mls @ 100 mls/hr IVPB Q12H [facility] PRN Reason: Protocol Last Admin: 03/15/17 16:42 Dose: 100 mls/hr Multivitamins/Minerals (Therapeutic-M Tab) 1 tab PO DAILY [facility] Last Admin: 03/15/17 09:40 Dose: 1 tab Ondansetron HCl (Zofran Inj) 4 mg IVP Q4 PRN PRN Reason: Nausea/Vomiting Last Admin: 03/15/17 17:07 Dose: 4 mg Pantoprazole Sodium (Protonix Ec Tab) 40 mg PO DAILY [facility] Last Admin: 03/15/17 09:40 Dose: 40 mg Saliva Substitute (Caphosol 15 Ml) 15 ml MM Q4 PRN PRN Reason: Dry mouth Sodium Chloride ([place] Nasal [place]) 1 sprays DIAMOND Q6 [facility] Last Admin: 03/15/17 21:23 Dose: 1 spr Zolpidem Tartrate (Ambien) 5 mg PO HS PRN PRN Reason: Insomnia Last Admin: 03/15/17 22:30 Dose: 5 mg - Labs Labs: 03/15/17 08:03 03/15/17 04:00 PT 18.8 Seconds (9.8-13.1) H 03/12/17 04:15 INR 1.7 (0.9-1.2) H 03/12/17 04:15 APTT 36.2 Seconds (25.6-37.1) 03/06/17 05:20 - Head Exam Head Exam: ATRAUMATIC - Eye Exam Eye Exam: Normal appearance - ENT Exam ENT Exam: Mucous Membranes Dry - Respiratory Exam Respiratory Exam: Decreased Breath Sounds - Cardiovascular Exam Cardiovascular Exam: +S1, +S2 - GI/Abdominal Exam GI & Abdominal Exam: Normal Bowel Sounds Assessment and Plan (1) Anemia Assessment & Plan: chronic disease H/H stable Status: Acute (2) Leukocytosis Assessment & Plan: compelted antibiotcs Status: Acute (3) Adenocarcinoma of colon Assessment & Plan: stage III outpatient adjuvant chemotherapy Status: Acute
[2017-03-16] MEDS: metroNIDAZOLE 500mg/100ml NS 100 ML IVPB SCH ×3 (01:09→18:40)
[2017-03-16] MEDS: Nasal Spray(Ocean spray) NAS SCH ×4 (04:05→22:30)
[2017-03-16] MEDS: Acetylcysteine 20% Inhal Soln (4ml) INH SCH ×2 (07:18→19:16)
[2017-03-16] MEDS: Albuterol 0.083% Inhal Sol (2.5 mg/3 mL) UD INH SCH ×4 (07:18→19:16)
--- NOTE | 2017-03-16 07:25 | CP.PCM.PN ---
<Dominik Laguerrey - Last Filed: 03/16/17 07:24> Objective - Vital Signs/Intake and Output Vital Signs (last 24 hours): Temp Pulse Resp BP Pulse Ox 98.1 F 81 17 138/82 98 03/15/17 22:15 03/15/17 22:15 03/15/17 22:15 03/15/17 22:15 03/15/17 22:15 Intake and Output: 03/16/17 03/16/17 06:59 18:59 Intake Total 400 Output Total 451 Balance -51 - Medications Medications: Current Medications Acetaminophen (Tylenol 325mg Tab) 650 mg PO Q4 PRN PRN Reason: Fever >100.4 F Last Admin: 03/11/17 12:12 Dose: 650 mg Acetaminophen (Tylenol 325mg Tab) 650 mg PO Q6 PRN PRN Reason: Pain, Mild (1-3) Last Admin: 03/12/17 13:48 Dose: 650 mg Acetylcysteine (Acetylcysteine 20%) 2 ml INH RBID [facility] Last Admin: 03/16/17 07:18 Dose: 2 ml Albuterol Sulfate (Albuterol 0.083% Inhal Ny (2.5 Mg/3 Ml) Ud) 2.5 mg INH RQID [facility] Last Admin: 03/16/17 07:18 Dose: 2.5 mg Calcium Carbonate (Oscal) 500 mg PO DAILY PRN PRN Reason: indigestion Last Admin: 03/14/17 19:38 Dose: 500 mg Furosemide (Lasix) 40 mg PO DAILY [facility] Last Admin: 03/15/17 09:38 Dose: 40 mg Guaifenesin (Robitussin) 200 mg PO QID [facility] Last Admin: 03/15/17 21:38 Dose: Not Given Metronidazole (Flagyl 500mg/100ml Ns) 100 mls @ 100 mls/hr IVPB Q8 [facility] PRN Reason: Protocol Last Admin: 03/16/17 01:09 Dose: 100 mls/hr Ceftaroline Fosamil 400 mg/ (Sodium Chloride) 100 mls @ 100 mls/hr IVPB Q12H [facility] PRN Reason: Protocol Last Admin: 03/16/17 05:01 Dose: 100 mls/hr Multivitamins/Minerals (Therapeutic-M Tab) 1 tab PO DAILY [facility] Last Admin: 03/15/17 09:40 Dose: 1 tab Ondansetron HCl (Zofran Inj) 4 mg IVP Q4 PRN PRN Reason: Nausea/Vomiting Last Admin: 03/15/17 17:07 Dose: 4 mg Pantoprazole Sodium (Protonix Ec Tab) 40 mg PO DAILY [facility] Last Admin: 03/15/17 09:40 Dose: 40 mg Saliva Substitute (Caphosol 15 Ml) 15 ml MM Q4 PRN PRN Reason: Dry mouth Sodium Chloride ([place] Nasal [place]) 1 sprays DIAMOND Q6 [facility] Last Admin: 03/16/17 04:05 Dose: 1 spr Zolpidem Tartrate (Ambien) 5 mg PO HS PRN PRN Reason: Insomnia Last Admin: 03/15/17 22:30 Dose: 5 mg - Labs Labs: 03/15/17 08:03 03/15/17 04:00 PT 18.8 Seconds (9.8-13.1) H 03/12/17 04:15 INR 1.7 (0.9-1.2) H 03/12/17 04:15 APTT 36.2 Seconds (25.6-37.1) 03/06/17 05:20 <Vaughn Ramon - Last Filed: 03/16/17 12:48> Subjective - Date & Time of Evaluation Date of Evaluation: 03/16/17 Time of Evaluation: 12:10 - Subjective Subjective: Patient was seen and examined at the bedside. Denies abdominal pain, tolerating diet, passing flatus and having bowel movements. Objective - Vital Signs/Intake and Output Vital Signs (last 24 hours): Temp Pulse Resp BP Pulse Ox 98.7 F 74 20 146/79 98 03/16/17 07:38 03/16/17 07:38 03/16/17 07:38 03/16/17 10:19 03/16/17 07:38 Intake and Output: 03/16/17 03/16/17 06:59 18:59 Intake Total 400 Output Total 451 Balance -51 - Medications Medications: Current Medications Acetaminophen (Tylenol 325mg Tab) 650 mg PO Q4 PRN PRN Reason: Fever >100.4 F Last Admin: 03/11/17 12:12 Dose: 650 mg Acetaminophen (Tylenol 325mg Tab) 650 mg PO Q6 PRN PRN Reason: Pain, Mild (1-3) Last Admin: 03/12/17 13:48 Dose: 650 mg Acetylcysteine (Acetylcysteine 20%) 2 ml INH RBID [facility] Last Admin: 03/16/17 07:18 Dose: 2 ml Albuterol Sulfate (Albuterol 0.083% Inhal Ny (2.5 Mg/3 Ml) Ud) 2.5 mg INH RQID [facility] Last Admin: 03/16/17 11:11 Dose: 2.5 mg Calcium Carbonate (Oscal) 500 mg PO DAILY PRN PRN Reason: indigestion Last Admin: 03/14/17 19:38 Dose: 500 mg Furosemide (Lasix) 40 mg PO DAILY [facility] Last Admin: 03/16/17 10:19 Dose: 40 mg Guaifenesin (Robitussin) 200 mg PO QID [facility] Last Admin: 03/16/17 10:22 Dose: 200 mg Metronidazole (Flagyl 500mg/100ml Ns) 100 mls @ 100 mls/hr IVPB Q8 [facility] PRN Reason: Protocol Last Admin: 03/16/17 10:18 Dose: 100 mls/hr Ceftaroline Fosamil 400 mg/ (Sodium Chloride) 100 mls @ 100 mls/hr IVPB Q12H [facility] PRN Reason: Protocol Last Admin: 03/16/17 05:01 Dose: 100 mls/hr Multivitamins/Minerals (Therapeutic-M Tab) 1 tab PO DAILY [facility] Last Admin: 03/16/17 10:20 Dose: 1 tab Ondansetron HCl (Zofran Inj) 4 mg IVP Q4 PRN PRN Reason: Nausea/Vomiting Last Admin: 03/15/17 17:07 Dose: 4 mg Pantoprazole Sodium (Protonix Ec Tab) 40 mg PO DAILY [facility] Last Admin: 03/16/17 10:22 Dose: 40 mg Saliva Substitute (Caphosol 15 Ml) 15 ml MM Q4 PRN PRN Reason: Dry mouth Sodium Chloride ([place] Nasal [place]) 1 sprays DIAMOND Q6 [facility] Last Admin: 03/16/17 10:19 Dose: 1 spr Zolpidem Tartrate (Ambien) 5 mg PO HS PRN PRN Reason: Insomnia Last Admin: 03/15/17 22:30 Dose: 5 mg - Labs Labs: 03/16/17 06:30 03/16/17 06:30 PT 18.8 Seconds (9.8-13.1) H 03/12/17 04:15 INR 1.7 (0.9-1.2) H 03/12/17 04:15 APTT 36.2 Seconds (25.6-37.1) 03/06/17 05:20 - Constitutional Appears: Well, Non-toxic, No Acute Distress - Head Exam Head Exam: ATRAUMATIC, NORMAL INSPECTION, NORMOCEPHALIC - Eye Exam Eye Exam: EOMI, Normal appearance, PERRL Pupil Exam: NORMAL ACCOMODATION, PERRL - ENT Exam ENT Exam: Mucous Membranes Moist, Normal Exam - Neck Exam Neck Exam: Full ROM, Normal Inspection - Respiratory Exam Respiratory Exam: Rhonchi, NORMAL BREATHING PATTERN - Cardiovascular Exam Cardiovascular Exam: REGULAR RHYTHM, +S1, +S2 - GI/Abdominal Exam GI & Abdominal Exam: Soft, Normal Bowel Sounds Additional comments: mild darren-incisional tenderness, ND, BS+, no rebound, no guarding, incision clean, no erythema, no drainage - Rectal Exam Rectal Exam: Deferred - Extremities Exam Extremities Exam: Full ROM, Normal Inspection - Neurological Exam Neurological Exam: Alert, Awake, Oriented x3 - Psychiatric Exam Psychiatric exam: Normal Affect, Normal Mood - Skin Skin Exam: Dry, Intact, Normal Color, Warm Assessment and Plan - Assessment and Plan (Free Text) Assessment: 71 y.o. male s/p right hemicolectomy now with pneumonia Plan: - Continue diet - pain control - Continue antibiotics as per ID - Out of bed - DVT ppx - Repeat labs in am - Discharge planning
[2017-03-16 07:42] LABS: BASO % 0.3 % (0.0-2.0); EOS # 0.1 K/uL (0.0-0.7); EOS % 0.6 % (0.0-4.0); HEMOGLOBIN 10.4 g/dL (12.0-18.0); LYMPH % 8.1 % (20.0-40.0); MEAN CELL VOLUME 83.1 fl (80.0-94.0); MEAN CORPUSCULAR HEMOGLOBIN 26.8 pg (27.0-31.0); MEAN CORPUSCULAR HGB CONC 32.2 g/dL (33.0-37.0); MONO # 0.8 K/uL (0.0-0.8); MONO % 6.5 % (0.0-10.0); NEUT # 10.5 K/uL (1.8-7.0); NEUT % 84.5 % (50.0-75.0); NRBC % 0.1 % (0.0-0.0); RBC 3.88 Mil/uL (4.40-5.90); RED CELL DISTRIBUTION WIDTH 17.5 % (11.5-14.5); WHITE BLOOD COUNT 12.4 K/uL (4.8-10.8)
[2017-03-16 08:00] LABS: ALB/GLOB RATIO 1.1 (1.0-2.1); ALBUMIN 2.3 g/dL (3.5-5.0)
[2017-03-16] MEDS: Multivitamin With Minerals Tab PO SCH (10:20)
[2017-03-16] MEDS: Pantoprazole 40 mg EC Tab PO SCH (10:22)
[2017-03-16] MEDS: guaiFENesin 200 mg/10 ml Syrup UD PO SCH ×4 (10:22→22:34)
--- NOTE | 2017-03-16 13:37 | CP.PCM.PN ---
Subjective - Date & Time of Evaluation Date of Evaluation: 03/16/17 Time of Evaluation: 13:31 - Subjective Subjective: no overnight events. tolerating PO, making urine and BM. Denies n/v, CP, SOB. abd josy removed yesterday. sitting up in chair. Objective - Vital Signs/Intake and Output Vital Signs (last 24 hours): Temp Pulse Resp BP Pulse Ox 98.7 F 74 20 146/79 98 03/16/17 07:38 03/16/17 07:38 03/16/17 07:38 03/16/17 10:19 03/16/17 07:38 Intake and Output: 03/16/17 03/16/17 06:59 18:59 Intake Total 400 Output Total 451 Balance -51 - Medications Medications: Current Medications Acetaminophen (Tylenol 325mg Tab) 650 mg PO Q4 PRN PRN Reason: Fever >100.4 F Last Admin: 03/11/17 12:12 Dose: 650 mg Acetaminophen (Tylenol 325mg Tab) 650 mg PO Q6 PRN PRN Reason: Pain, Mild (1-3) Last Admin: 03/12/17 13:48 Dose: 650 mg Acetylcysteine (Acetylcysteine 20%) 2 ml INH RBID [facility] Last Admin: 03/16/17 07:18 Dose: 2 ml Albuterol Sulfate (Albuterol 0.083% Inhal Ny (2.5 Mg/3 Ml) Ud) 2.5 mg INH RQID [facility] Last Admin: 03/16/17 11:11 Dose: 2.5 mg Calcium Carbonate (Oscal) 500 mg PO DAILY PRN PRN Reason: indigestion Last Admin: 03/14/17 19:38 Dose: 500 mg Furosemide (Lasix) 40 mg PO DAILY [facility] Last Admin: 03/16/17 10:19 Dose: 40 mg Guaifenesin (Robitussin) 200 mg PO QID [facility] Last Admin: 03/16/17 10:22 Dose: 200 mg Metronidazole (Flagyl 500mg/100ml Ns) 100 mls @ 100 mls/hr IVPB Q8 [facility] PRN Reason: Protocol Last Admin: 03/16/17 10:18 Dose: 100 mls/hr Ceftaroline Fosamil 400 mg/ (Sodium Chloride) 100 mls @ 100 mls/hr IVPB Q12H [facility] PRN Reason: Protocol Last Admin: 03/16/17 05:01 Dose: 100 mls/hr Multivitamins/Minerals (Therapeutic-M Tab) 1 tab PO DAILY [facility] Last Admin: 03/16/17 10:20 Dose: 1 tab Ondansetron HCl (Zofran Inj) 4 mg IVP Q4 PRN PRN Reason: Nausea/Vomiting Last Admin: 03/15/17 17:07 Dose: 4 mg Pantoprazole Sodium (Protonix Ec Tab) 40 mg PO DAILY [facility] Last Admin: 03/16/17 10:22 Dose: 40 mg Saliva Substitute (Caphosol 15 Ml) 15 ml MM Q4 PRN PRN Reason: Dry mouth Sodium Chloride ([place] Nasal [place]) 1 sprays DIAMOND Q6 [facility] Last Admin: 03/16/17 10:19 Dose: 1 spr Zolpidem Tartrate (Ambien) 5 mg PO HS PRN PRN Reason: Insomnia Last Admin: 03/15/17 22:30 Dose: 5 mg - Labs Labs: 03/16/17 06:30 03/16/17 06:30 PT 18.8 Seconds (9.8-13.1) H 03/12/17 04:15 INR 1.7 (0.9-1.2) H 03/12/17 04:15 APTT 36.2 Seconds (25.6-37.1) 03/06/17 05:20 - Constitutional Appears: No Acute Distress - Head Exam Head Exam: NORMAL INSPECTION - Eye Exam Eye Exam: Normal appearance - ENT Exam ENT Exam: Mucous Membranes Moist - Neck Exam Neck Exam: Normal Inspection - Respiratory Exam Respiratory Exam: Rales - Cardiovascular Exam Cardiovascular Exam: REGULAR RHYTHM - GI/Abdominal Exam GI & Abdominal Exam: Soft Additional comments: no discharge - Extremities Exam Extremities Exam: Normal Inspection - Neurological Exam Neurological Exam: Alert, Oriented x3 - Skin Skin Exam: Dry, Warm Assessment and Plan - Assessment and Plan (Free Text) Assessment: 71 yr old M PMHx/o HTN, COPD, CAD, CKD3, POD # 19 s/p laparoscopic right hemicolectomy for ascending colon mass (moderately differentiated adenocarcinoma ). Plan: taper NC as tolerated, c/w IV abx, c/w IS 1) s/p Right hemicolectomy for ascending colon mass, POD # 19 -path: T2 adenocarinoma with 1/20 lymph nodes positive -Pain control: percocet prn -Hem/Onc c/s: outpt chemo, will need portcath placement 2) Emphysema/COPD - O2 NC, Duo Neb Q8 sonali, taper NC as tolerated -V/Q scan low probabilitiy PE -Pulmonology consult appreciated: no bronchoscopy 3) HAP -CT chest: right infiltrates, chronic change to b/l lungs -Pulmonology consult -ID c/s -stopped Zosyn/clindamycin -ceftaroline day 8 -sputum cx yeast -ID consult appreciated -blood cx NGTD 4) Intrabdominal abscess -CT abd: intrabdominal fluids around pancreas and right liver lobe aprox 3.9 x 5.9 cm -CT chest: ascites overlying right liver dome with small pocket of air -s/p IR draignage.removed yesterday. -CT Abd:improving -ID consult appreciated -Meropenem stopped, flagyl Day#9 5) Diastolic CHF exacerbation -Echo 01/01/17: impaired systolic function with LVEF of 45% -accounts receivable supervisor consult appreciated. -c/w lasix 6) h/o CKD stage 3 -renally dose meds, prevent ERYN by not getting contrast if possible 7) HTN -controlled -on lasix 8) DVT prophylaxis -lovenox 40 mg sc Dispo: Patient medically stable to go to [facility]. D/C by surgery team
--- NOTE | 2017-03-16 15:33 | CP.PCM.PN ---
Subjective - Date & Time of Evaluation Date of Evaluation: 03/16/17 Time of Evaluation: 15:27 - Subjective Subjective: I D NOTE WBC REMAINS AT 12 CLINICALLY CONTINUES TO IMPROVE CONTINUE TEFLARO/FLAGYL WOULD CONSIDER F/U CT SCAN OF CHEST /ABDOMEN WILL DISCUSS C SURGERY AND PULMONARY REGARDING CT SCANS Objective - Vital Signs/Intake and Output Vital Signs (last 24 hours): Temp Pulse Resp BP Pulse Ox 98.7 F 74 20 146/79 98 03/16/17 07:38 03/16/17 07:38 03/16/17 07:38 03/16/17 10:19 03/16/17 07:38 Intake and Output: 03/16/17 03/16/17 06:59 18:59 Intake Total 400 Output Total 451 Balance -51 - Medications Medications: Current Medications Acetaminophen (Tylenol 325mg Tab) 650 mg PO Q4 PRN PRN Reason: Fever >100.4 F Last Admin: 03/11/17 12:12 Dose: 650 mg Acetaminophen (Tylenol 325mg Tab) 650 mg PO Q6 PRN PRN Reason: Pain, Mild (1-3) Last Admin: 03/12/17 13:48 Dose: 650 mg Acetylcysteine (Acetylcysteine 20%) 2 ml INH RBID [facility] Last Admin: 03/16/17 07:18 Dose: 2 ml Albuterol Sulfate (Albuterol 0.083% Inhal Ny (2.5 Mg/3 Ml) Ud) 2.5 mg INH RQID [facility] Last Admin: 03/16/17 15:12 Dose: 2.5 mg Calcium Carbonate (Oscal) 500 mg PO DAILY PRN PRN Reason: indigestion Last Admin: 03/14/17 19:38 Dose: 500 mg Furosemide (Lasix) 40 mg PO DAILY [facility] Last Admin: 03/16/17 10:19 Dose: 40 mg Guaifenesin (Robitussin) 200 mg PO QID [facility] Last Admin: 03/16/17 10:22 Dose: 200 mg Metronidazole (Flagyl 500mg/100ml Ns) 100 mls @ 100 mls/hr IVPB Q8 [facility] PRN Reason: Protocol Last Admin: 03/16/17 10:18 Dose: 100 mls/hr Ceftaroline Fosamil 400 mg/ (Sodium Chloride) 100 mls @ 100 mls/hr IVPB Q12H [facility] PRN Reason: Protocol Last Admin: 03/16/17 05:01 Dose: 100 mls/hr Multivitamins/Minerals (Therapeutic-M Tab) 1 tab PO DAILY [facility] Last Admin: 03/16/17 10:20 Dose: 1 tab Ondansetron HCl (Zofran Inj) 4 mg IVP Q4 PRN PRN Reason: Nausea/Vomiting Last Admin: 03/15/17 17:07 Dose: 4 mg Pantoprazole Sodium (Protonix Ec Tab) 40 mg PO DAILY [facility] Last Admin: 03/16/17 10:22 Dose: 40 mg Saliva Substitute (Caphosol 15 Ml) 15 ml MM Q4 PRN PRN Reason: Dry mouth Sodium Chloride ([place]) 1 sprays DIAMOND Q6 [facility] Last Admin: 03/16/17 10:19 Dose: 1 spr Zolpidem Tartrate (Ambien) 5 mg PO HS PRN PRN Reason: Insomnia Last Admin: 03/15/17 22:30 Dose: 5 mg - Labs Labs: 03/16/17 06:30 03/16/17 06:30 PT 18.8 Seconds (9.8-13.1) H 03/12/17 04:15 INR 1.7 (0.9-1.2) H 03/12/17 04:15 APTT 36.2 Seconds (25.6-37.1) 03/06/17 05:20
[2017-03-16] MEDS ORDERED: Alum-Mag Hydrox-Simethicone Susp (30 mL) PO ONE (18:41)
[2017-03-16] MEDS: Lactobacillus Acidophilus 500 MU Cap PO SCH (19:26)
--- NOTE | 2017-03-16 20:15 | CP.PCM.PN ---
Subjective - Date & Time of Evaluation Date of Evaluation: 03/16/17 Time of Evaluation: 17:35 - Subjective Subjective: Feeling better Objective - Vital Signs/Intake and Output Vital Signs (last 24 hours): Temp Pulse Resp BP Pulse Ox 98.7 F 60 20 137/85 97 03/16/17 16:36 03/16/17 16:36 03/16/17 16:36 03/16/17 16:36 03/16/17 16:36 - Medications Medications: Current Medications Acetaminophen (Tylenol 325mg Tab) 650 mg PO Q4 PRN PRN Reason: Fever >100.4 F Last Admin: 03/11/17 12:12 Dose: 650 mg Acetaminophen (Tylenol 325mg Tab) 650 mg PO Q6 PRN PRN Reason: Pain, Mild (1-3) Last Admin: 03/12/17 13:48 Dose: 650 mg Acetylcysteine (Acetylcysteine 20%) 2 ml INH RBID [facility] Last Admin: 03/16/17 19:16 Dose: 2 ml Albuterol Sulfate (Albuterol 0.083% Inhal Ny (2.5 Mg/3 Ml) Ud) 2.5 mg INH RQID [facility] Last Admin: 03/16/17 19:16 Dose: 2.5 mg Calcium Carbonate (Oscal) 500 mg PO DAILY PRN PRN Reason: indigestion Last Admin: 03/14/17 19:38 Dose: 500 mg Furosemide (Lasix) 40 mg PO DAILY [facility] Last Admin: 03/16/17 10:19 Dose: 40 mg Guaifenesin (Robitussin) 200 mg PO QID [facility] Last Admin: 03/16/17 19:27 Dose: 200 mg Metronidazole (Flagyl 500mg/100ml Ns) 100 mls @ 100 mls/hr IVPB Q8 [facility] PRN Reason: Protocol Last Admin: 03/16/17 18:40 Dose: 100 mls/hr Ceftaroline Fosamil 400 mg/ (Sodium Chloride) 100 mls @ 100 mls/hr IVPB Q12H [facility] PRN Reason: Protocol Last Admin: 03/16/17 18:38 Dose: 100 mls/hr Lactobacillus Acidophilus (Bacid Acidophilus) 1 cap PO BID [facility] Last Admin: 03/16/17 19:26 Dose: 1 cap Multivitamins/Minerals (Therapeutic-M Tab) 1 tab PO DAILY [facility] Last Admin: 03/16/17 10:20 Dose: 1 tab Ondansetron HCl (Zofran Inj) 4 mg IVP Q4 PRN PRN Reason: Nausea/Vomiting Last Admin: 03/16/17 17:00 Dose: 4 mg Pantoprazole Sodium (Protonix Ec Tab) 40 mg PO DAILY [facility] Last Admin: 03/16/17 10:22 Dose: 40 mg Saliva Substitute (Caphosol 15 Ml) 15 ml MM Q4 PRN PRN Reason: Dry mouth Sodium Chloride ([place] Nasal [place]) 1 sprays DIAMOND Q6 [facility] Last Admin: 03/16/17 18:40 Dose: 1 spr - Labs Labs: 03/16/17 06:30 03/16/17 06:30 PT 18.8 Seconds (9.8-13.1) H 03/12/17 04:15 INR 1.7 (0.9-1.2) H 03/12/17 04:15 APTT 36.2 Seconds (25.6-37.1) 03/06/17 05:20 - Head Exam Head Exam: ATRAUMATIC - Eye Exam Eye Exam: Normal appearance - ENT Exam ENT Exam: Mucous Membranes Dry - Respiratory Exam Respiratory Exam: NORMAL BREATHING PATTERN - Cardiovascular Exam Cardiovascular Exam: +S1, +S2 - GI/Abdominal Exam GI & Abdominal Exam: Normal Bowel Sounds - Extremities Exam Extremities Exam: Normal Inspection Assessment and Plan (1) Anemia Assessment & Plan: chronic disease Status: Acute (2) Leukocytosis Assessment & Plan: improved with antibiotics Status: Acute (3) Adenocarcinoma of colon Assessment & Plan: stage III outpatient adjuvant chemotherapy Status: Acute
[2017-03-17] MEDS: metroNIDAZOLE 500mg/100ml NS 100 ML IVPB SCH ×2 (00:20→08:49)
[2017-03-17] MEDS ORDERED: DiphenhydrAMINE 50 mg/ml Inj IVP ONE (03:39)
[2017-03-17] MEDS: Nasal Spray(Ocean spray) NAS SCH ×4 (03:57→22:14)
[2017-03-17 06:12] LABS: BASO # 0.1 K/uL (0.0-0.2); BASO % 0.5 % (0.0-2.0); EOS # 0.1 K/uL (0.0-0.7); EOS % 0.6 % (0.0-4.0); HEMOGLOBIN 10.5 g/dL (12.0-18.0); LYMPH % 7.3 % (20.0-40.0); MEAN CELL VOLUME 82.6 fl (80.0-94.0); MEAN CORPUSCULAR HEMOGLOBIN 26.3 pg (27.0-31.0); MEAN CORPUSCULAR HGB CONC 31.9 g/dL (33.0-37.0); MEAN PLATELET VOLUME 7.8 fl (7.2-11.7); MONO # 0.8 K/uL (0.0-0.8); MONO % 6.3 % (0.0-10.0); NEUT # 11.3 K/uL (1.8-7.0); NEUT % 85.3 % (50.0-75.0); PLATELET COUNT 198 K/uL (130-400); RBC 3.98 Mil/uL (4.40-5.90); RED CELL DISTRIBUTION WIDTH 17.3 % (11.5-14.5); WHITE BLOOD COUNT 13.3 K/uL (4.8-10.8)
[2017-03-17 06:31] LABS: BLOOD UREA NITROGEN 12 mg/dl (9-20); CALCIUM 8.1 mg/dL (8.4-10.2); GFR AFRICAN-AMERICAN > 60; GFR NON-AFRICAN AMERICAN 50; MAGNESIUM 1.8 MG/DL (1.6-2.3)
[2017-03-17] MEDS: Acetylcysteine 20% Inhal Soln (4ml) INH SCH ×2 (07:30→19:30)
[2017-03-17] MEDS: Albuterol 0.083% Inhal Sol (2.5 mg/3 mL) UD INH SCH ×4 (07:31→19:30)
[2017-03-17] MEDS ORDERED: Iohexol 240 (50 ml) PO ONE (08:31)
[2017-03-17] MEDS: Lactobacillus Acidophilus 500 MU Cap PO SCH ×2 (08:50→17:21)
[2017-03-17] MEDS: Multivitamin With Minerals Tab PO SCH (08:51)
[2017-03-17] MEDS: guaiFENesin 200 mg/10 ml Syrup UD PO SCH ×4 (08:51→22:39)
[2017-03-17] MEDS: Pantoprazole 40 mg EC Tab PO SCH (08:51)
--- NOTE | 2017-03-17 09:21 | CP.PCM.PN ---
Subjective - Date & Time of Evaluation Date of Evaluation: 03/17/17 Time of Evaluation: 08:40 - Subjective Subjective: Patient was seen and examined at the bedside. Passing flatus and having bowel movements. Objective - Vital Signs/Intake and Output Vital Signs (last 24 hours): Temp Pulse Resp BP Pulse Ox 98.2 F 84 20 133/79 98 03/17/17 08:00 03/17/17 08:00 03/17/17 08:00 03/17/17 08:00 03/17/17 08:00 Intake and Output: 03/17/17 03/17/17 06:59 18:59 Intake Total 100 Balance 100 - Medications Medications: Current Medications Acetaminophen (Tylenol 325mg Tab) 650 mg PO Q4 PRN PRN Reason: Fever >100.4 F Last Admin: 03/11/17 12:12 Dose: 650 mg Acetaminophen (Tylenol 325mg Tab) 650 mg PO Q6 PRN PRN Reason: Pain, Mild (1-3) Last Admin: 03/12/17 13:48 Dose: 650 mg Acetylcysteine (Acetylcysteine 20%) 2 ml INH RBID [facility] Last Admin: 03/17/17 07:30 Dose: 2 ml Albuterol Sulfate (Albuterol 0.083% Inhal Ny (2.5 Mg/3 Ml) Ud) 2.5 mg INH RQID [facility] Last Admin: 03/17/17 07:31 Dose: 2.5 mg Calcium Carbonate (Oscal) 500 mg PO DAILY PRN PRN Reason: indigestion Last Admin: 03/14/17 19:38 Dose: 500 mg Furosemide (Lasix) 40 mg PO DAILY [facility] Last Admin: 03/17/17 08:50 Dose: Not Given Guaifenesin (Robitussin) 200 mg PO QID [facility] Last Admin: 03/17/17 08:51 Dose: Not Given Metronidazole (Flagyl 500mg/100ml Ns) 100 mls @ 100 mls/hr IVPB Q8 [facility] PRN Reason: Protocol Last Admin: 03/17/17 08:49 Dose: 100 mls/hr Ceftaroline Fosamil 400 mg/ (Sodium Chloride) 100 mls @ 100 mls/hr IVPB Q12H [facility] PRN Reason: Protocol Last Admin: 03/17/17 04:00 Dose: 100 mls/hr Lactobacillus Acidophilus (Bacid Acidophilus) 1 cap PO BID [facility] Last Admin: 03/17/17 08:50 Dose: Not Given Multivitamins/Minerals (Therapeutic-M Tab) 1 tab PO DAILY [facility] Last Admin: 03/17/17 08:51 Dose: Not Given Ondansetron HCl (Zofran Inj) 4 mg IVP Q4 PRN PRN Reason: Nausea/Vomiting Last Admin: 03/16/17 17:00 Dose: 4 mg Pantoprazole Sodium (Protonix Ec Tab) 40 mg PO DAILY [facility] Last Admin: 03/17/17 08:51 Dose: Not Given Saliva Substitute (Caphosol 15 Ml) 15 ml MM Q4 PRN PRN Reason: Dry mouth Sodium Chloride ([place] Nasal [place]) 1 sprays DIAMOND Q6 [facility] Last Admin: 03/17/17 03:57 Dose: 1 spr Zolpidem Tartrate (Ambien) 5 mg PO HS PRN PRN Reason: Insomnia Last Admin: 03/16/17 22:30 Dose: 5 mg - Labs Labs: 03/17/17 06:00 03/17/17 06:00 PT 18.8 Seconds (9.8-13.1) H 03/12/17 04:15 INR 1.7 (0.9-1.2) H 03/12/17 04:15 APTT 36.2 Seconds (25.6-37.1) 03/06/17 05:20 - Constitutional Appears: Well, Non-toxic, No Acute Distress - Head Exam Head Exam: ATRAUMATIC, NORMAL INSPECTION, NORMOCEPHALIC - Eye Exam Eye Exam: EOMI, Normal appearance, PERRL Pupil Exam: NORMAL ACCOMODATION, PERRL - ENT Exam ENT Exam: Mucous Membranes Moist, Normal Exam - Neck Exam Neck Exam: Full ROM, Normal Inspection - Respiratory Exam Respiratory Exam: Rhonchi - Cardiovascular Exam Cardiovascular Exam: +S1, +S2 - GI/Abdominal Exam GI & Abdominal Exam: Soft, Normal Bowel Sounds Additional comments: NT, ND, no rebound, no guarding, incision clean, no erythema, no drainage, well healed - Rectal Exam Rectal Exam: Deferred - Extremities Exam Extremities Exam: Full ROM, Normal Inspection - Neurological Exam Neurological Exam: Alert, Awake - Psychiatric Exam Psychiatric exam: Normal Affect, Normal Mood - Skin Skin Exam: Dry, Intact, Normal Color, Warm Assessment and Plan - Assessment and Plan (Free Text) Assessment: 71 y.o. male s/p right hemicolectomy now with pneumonia Plan: - Continue diet - Continue antibiotics - repeat CT chest/abd/pelvis today ordered buy ID - Insentive spirometry - DVT ppx - Repeat labs in am
[2017-03-17 10:56] LABS: ANISOCYTOSIS SLIGHT; BANDS 1 % (0-2); EOSINOPHIL 1 % (0-7); HYPOCHROMIC SLIGHT; LYMPHOCYTE 8 % (20-50); MONOCYTE 4 % (0-10); NEUTROPHIL 82 % (42-75); OVALOCYTES SLIGHT; PLATELET ESTIMATE NORMAL (NORMAL); REACTIVE LYMPHOCYTES 4 % (0-0); TOTAL CELLS COUNTED 100
[2017-03-17 10:57] LABS: TOXIC GRANULATION PRESENT
--- NOTE | 2017-03-17 11:02 | RAD ---
HISTORY: pneumonia COMPARISON: Chest radiographs 03/14/2017. TECHNIQUE: Chest PA and lateral FINDINGS: LUNGS: Linear atelectasis is seen the right base with no definite alveolar infiltrate appreciated bilaterally. Right PICC unchanged in position. Chain sutures again seen at the medial left apex. PLEURA: Trace right pleural effusion not excluded. None is seen the left. No pneumothorax bilaterally. CARDIOVASCULAR: Cardiomegaly appears stable. No pulmonary vascular derangement identified. OSSEOUS STRUCTURES: No significant abnormalities. VISUALIZED UPPER ABDOMEN: Prior right-sided peritoneal drainage catheters been removed as well as skin josy. Surgical clips remain in the right upper quadrant abdomen. OTHER FINDINGS: None. IMPRESSION: Stable linear atelectasis in the right base without definite infiltrate at this time bilaterally. Trace right pleural effusion is suggested. Instill note is made of removal prior right perineal drainage catheter and skin josy.
--- NOTE | 2017-03-17 11:07 | CP.PCM.PN ---
<SofíaCarito - Last Filed: 03/17/17 13:54> Subjective - Date & Time of Evaluation Date of Evaluation: 03/17/17 Time of Evaluation: 07:15 - Subjective Subjective: Patient seen and examined bedside. Patient reports feeling better and improving while in PT. Patient breathing using NC. Reports has been coughing less often. He denies chest pain, SOB, fever,n, v abd pain. Objective - Vital Signs/Intake and Output Vital Signs (last 24 hours): Temp Pulse Resp BP Pulse Ox 98.2 F 84 20 133/79 98 03/17/17 08:00 03/17/17 08:00 03/17/17 08:00 03/17/17 08:00 03/17/17 08:00 Intake and Output: 03/17/17 03/17/17 06:59 18:59 Intake Total 100 Balance 100 - Medications Medications: Current Medications Acetaminophen (Tylenol 325mg Tab) 650 mg PO Q4 PRN PRN Reason: Fever >100.4 F Last Admin: 03/11/17 12:12 Dose: 650 mg Acetaminophen (Tylenol 325mg Tab) 650 mg PO Q6 PRN PRN Reason: Pain, Mild (1-3) Last Admin: 03/12/17 13:48 Dose: 650 mg Acetylcysteine (Acetylcysteine 20%) 2 ml INH RBID [facility] Last Admin: 03/17/17 07:30 Dose: 2 ml Albuterol Sulfate (Albuterol 0.083% Inhal Ny (2.5 Mg/3 Ml) Ud) 2.5 mg INH RQID [facility] Last Admin: 03/17/17 07:31 Dose: 2.5 mg Calcium Carbonate (Oscal) 500 mg PO DAILY PRN PRN Reason: indigestion Last Admin: 03/14/17 19:38 Dose: 500 mg Furosemide (Lasix) 40 mg PO DAILY [facility] Last Admin: 03/17/17 08:50 Dose: Not Given Guaifenesin (Robitussin) 200 mg PO QID [facility] Last Admin: 03/17/17 08:51 Dose: Not Given Metronidazole (Flagyl 500mg/100ml Ns) 100 mls @ 100 mls/hr IVPB Q8 [facility] PRN Reason: Protocol Last Admin: 03/17/17 08:49 Dose: 100 mls/hr Ceftaroline Fosamil 400 mg/ (Sodium Chloride) 100 mls @ 100 mls/hr IVPB Q12H [facility] PRN Reason: Protocol Last Admin: 03/17/17 04:00 Dose: 100 mls/hr Lactobacillus Acidophilus (Bacid Acidophilus) 1 cap PO BID [facility] Last Admin: 03/17/17 08:50 Dose: Not Given Multivitamins/Minerals (Therapeutic-M Tab) 1 tab PO DAILY [facility] Last Admin: 03/17/17 08:51 Dose: Not Given Ondansetron HCl (Zofran Inj) 4 mg IVP Q4 PRN PRN Reason: Nausea/Vomiting Last Admin: 03/16/17 17:00 Dose: 4 mg Pantoprazole Sodium (Protonix Ec Tab) 40 mg PO DAILY [facility] Last Admin: 03/17/17 08:51 Dose: Not Given Saliva Substitute (Caphosol 15 Ml) 15 ml MM Q4 PRN PRN Reason: Dry mouth Sodium Chloride ([place] Nasal [place]) 1 sprays DIAMOND Q6 [facility] Last Admin: 03/17/17 03:57 Dose: 1 spr Zolpidem Tartrate (Ambien) 5 mg PO HS PRN PRN Reason: Insomnia Last Admin: 03/16/17 22:30 Dose: 5 mg - Labs Labs: 03/17/17 06:00 03/17/17 06:00 PT 18.8 Seconds (9.8-13.1) H 03/12/17 04:15 INR 1.7 (0.9-1.2) H 03/12/17 04:15 APTT 36.2 Seconds (25.6-37.1) 03/06/17 05:20 - Constitutional Appears: Non-toxic, No Acute Distress - Head Exam Head Exam: ATRAUMATIC, NORMOCEPHALIC - Eye Exam Eye Exam: Normal appearance - ENT Exam ENT Exam: Mucous Membranes Moist - Respiratory Exam Respiratory Exam: Decreased Breath Sounds. absent: Rales, Rhonchi, Wheezes Additional comments: diminished right lung base - Cardiovascular Exam Cardiovascular Exam: REGULAR RHYTHM, +S1, +S2 - GI/Abdominal Exam GI & Abdominal Exam: Soft, Normal Bowel Sounds. absent: Tenderness - Extremities Exam Extremities Exam: Normal Inspection. absent: Pedal Edema - Neurological Exam Neurological Exam: Alert, Awake - Psychiatric Exam Psychiatric exam: Normal Affect, Normal Mood Assessment and Plan - Assessment and Plan (Free Text) Plan: 71 yr old M PMHx/o HTN, COPD, CAD, CKD3, POD # 20 s/p laparoscopic right hemicolectomy for ascending colon mass (moderately differentiated adenocarcinoma ). 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 -Pain control: percocet prn -Hem/Onc c/s: outpt chemo, will need portcath placement 2) Emphysema/COPD - O2 NC, Duo Neb Q8 [facility]onal[facility], taper NC as tolerated -V/Q scan low probabilitiy PE -Pulmonology consult appreciated: no bronchoscopy 3) HAP -CT chest: right infiltrates, chronic change to b/l lungs -Pulmonology consult -ID c/s -stopped Zosyn/clindamycin -ceftaroline day 9 -sputum cx yeast -ID consult appreciated -blood cx NGTD 4) Intrabdominal abscess -CT abd: intrabdominal fluids around pancreas and right liver lobe aprox 3.9 x 5.9 cm -CT chest: ascites overlying right liver dome with small pocket of air -s/p IR draignage.removed. -CT Abd:improving -ID consult appreciated -Meropenem stopped, flagyl Day#10 -F/U CT abd/pelvis 5) Diastolic CHF exacerbation -Echo 01/01/17: impaired systolic function with LVEF of 45% -steel inspector consult appreciated. -c/w lasix 6) h/o CKD stage 3 -renally dose meds, prevent ERYN by not getting contrast if possible 7) HTN -controlled -on lasix 8) DVT prophylaxis -lovenox 40 mg sc Dispo: Patient medically stable to go to [facility]. D/C by surgery team <Santo Damon - Last Filed: 03/18/17 06:58> Objective - Vital Signs/Intake and Output Vital Signs (last 24 hours): Temp Pulse Resp BP Pulse Ox 98.5 F 81 20 124/70 99 03/17/17 23:40 03/17/17 23:40 03/17/17 23:40 03/17/17 23:40 03/17/17 23:40 - Medications Medications: Current Medications Acetaminophen (Tylenol 325mg Tab) 650 mg PO Q4 PRN PRN Reason: Fever >100.4 F Last Admin: 03/11/17 12:12 Dose: 650 mg Acetaminophen (Tylenol 325mg Tab) 650 mg PO Q6 PRN PRN Reason: Pain, Mild (1-3) Last Admin: 03/12/17 13:48 Dose: 650 mg Acetylcysteine (Acetylcysteine 20%) 2 ml INH RBID [facility] Last Admin: 03/17/17 19:30 Dose: 2 ml Albuterol Sulfate (Albuterol 0.083% Inhal Ny (2.5 Mg/3 Ml) Ud) 2.5 mg INH RQID [facility] Last Admin: 03/17/17 19:30 Dose: 2.5 mg Calcium Carbonate (Oscal) 500 mg PO DAILY PRN PRN Reason: indigestion Last Admin: 03/14/17 19:38 Dose: 500 mg Furosemide (Lasix) 40 mg PO DAILY [facility] Last Admin: 03/17/17 08:50 Dose: Not Given Guaifenesin (Robitussin) 200 mg PO QID [facility] Last Admin: 03/17/17 22:39 Dose: Not Given Metronidazole (Flagyl 500mg/100ml Ns) 100 mls @ 100 mls/hr IVPB Q8 [facility] PRN Reason: Protocol Last Admin: 03/17/17 08:49 Dose: 100 mls/hr Ceftaroline Fosamil 400 mg/ (Sodium Chloride) 100 mls @ 100 mls/hr IVPB Q12H [facility] PRN Reason: Protocol Last Admin: 03/17/17 04:00 Dose: 100 mls/hr Lactobacillus Acidophilus (Bacid Acidophilus) 1 cap PO BID [facility] Last Admin: 03/17/17 17:21 Dose: 1 cap Multivitamins/Minerals (Therapeutic-M Tab) 1 tab PO DAILY [facility] Last Admin: 03/17/17 08:51 Dose: Not Given Ondansetron HCl (Zofran Inj) 4 mg IVP Q4 PRN PRN Reason: Nausea/Vomiting Last Admin: 03/18/17 05:27 Dose: 4 mg Pantoprazole Sodium (Protonix Ec Tab) 40 mg PO DAILY [facility] Last Admin: 03/17/17 08:51 Dose: Not Given Saliva Substitute (Caphosol 15 Ml) 15 ml MM Q4 PRN PRN Reason: Dry mouth Sodium Chloride ([place] Nasal [place]) 1 sprays DIAMOND Q6 [facility] Last Admin: 03/18/17 04:12 Dose: Not Given Zolpidem Tartrate (Ambien) 5 mg PO HS PRN PRN Reason: Insomnia Last Admin: 03/17/17 23:10 Dose: 5 mg - Labs Labs: 03/18/17 06:00 03/18/17 06:00 PT 18.8 Seconds (9.8-13.1) H 03/12/17 04:15 INR 1.7 (0.9-1.2) H 03/12/17 04:15 APTT 36.2 Seconds (25.6-37.1) 03/06/17 05:20 Attending/Attestation - Attestation I have personally seen and examined this patient.: Yes I have fully participated in the care of the patient.: Yes I have reviewed all pertinent clinical information, including history, physical exam and plan: Yes
--- NOTE | 2017-03-17 11:10 | CP.PCM.PN ---
Subjective - Date & Time of Evaluation Date of Evaluation: 03/17/17 Time of Evaluation: 11:08 - Subjective Subjective: Remains afebrile. WBC has not yet reached baseline. Able to cough when coached during exam with small volume of clear mucoid sputum expectorated. Chest x-ray this morning shows residual basal atelectasis on the right with a probable small pleural effusion. On exam there is residual dullness at the right base, but this appears to be decreasing. Breath sounds are diminished bilaterally, but improving at the right base w/o egophony or bronchial breathing. No audible wheezes or rales, only a few rhonchi are present with deep breathing. He does have a CT of the abdomen scheduled for today. If this right basal atelectasis persists he may still need FFB to check for a mucous plug. Objective - Vital Signs/Intake and Output Vital Signs (last 24 hours): Temp Pulse Resp BP Pulse Ox 98.2 F 84 20 133/79 98 03/17/17 08:00 03/17/17 08:00 03/17/17 08:00 03/17/17 08:00 03/17/17 08:00 Intake and Output: 03/16/17 03/17/17 23:59 11:59 Intake Total 100 Balance 100 - Medications Medications: Current Medications Acetaminophen (Tylenol 325mg Tab) 650 mg PO Q4 PRN PRN Reason: Fever >100.4 F Last Admin: 03/11/17 12:12 Dose: 650 mg Acetaminophen (Tylenol 325mg Tab) 650 mg PO Q6 PRN PRN Reason: Pain, Mild (1-3) Last Admin: 03/12/17 13:48 Dose: 650 mg Acetylcysteine (Acetylcysteine 20%) 2 ml INH RBID [facility] Last Admin: 03/17/17 07:30 Dose: 2 ml Albuterol Sulfate (Albuterol 0.083% Inhal Ny (2.5 Mg/3 Ml) Ud) 2.5 mg INH RQID [facility] Last Admin: 03/17/17 11:07 Dose: 2.5 mg Calcium Carbonate (Oscal) 500 mg PO DAILY PRN PRN Reason: indigestion Last Admin: 03/14/17 19:38 Dose: 500 mg Furosemide (Lasix) 40 mg PO DAILY [facility] Last Admin: 03/17/17 08:50 Dose: Not Given Guaifenesin (Robitussin) 200 mg PO QID [facility] Last Admin: 03/17/17 08:51 Dose: Not Given Metronidazole (Flagyl 500mg/100ml Ns) 100 mls @ 100 mls/hr IVPB Q8 [facility] PRN Reason: Protocol Last Admin: 03/17/17 08:49 Dose: 100 mls/hr Ceftaroline Fosamil 400 mg/ (Sodium Chloride) 100 mls @ 100 mls/hr IVPB Q12H [facility] PRN Reason: Protocol Last Admin: 03/17/17 04:00 Dose: 100 mls/hr Lactobacillus Acidophilus (Bacid Acidophilus) 1 cap PO BID [facility] Last Admin: 03/17/17 08:50 Dose: Not Given Multivitamins/Minerals (Therapeutic-M Tab) 1 tab PO DAILY [facility] Last Admin: 03/17/17 08:51 Dose: Not Given Ondansetron HCl (Zofran Inj) 4 mg IVP Q4 PRN PRN Reason: Nausea/Vomiting Last Admin: 03/16/17 17:00 Dose: 4 mg Pantoprazole Sodium (Protonix Ec Tab) 40 mg PO DAILY [facility] Last Admin: 03/17/17 08:51 Dose: Not Given Saliva Substitute (Caphosol 15 Ml) 15 ml MM Q4 PRN PRN Reason: Dry mouth Sodium Chloride ([place] Nasal [place]) 1 sprays DIAMOND Q6 [facility] Last Admin: 03/17/17 03:57 Dose: 1 spr Zolpidem Tartrate (Ambien) 5 mg PO HS PRN PRN Reason: Insomnia Last Admin: 03/16/17 22:30 Dose: 5 mg - Labs Labs: 03/17/17 06:00 03/17/17 06:00 PT 18.8 Seconds (9.8-13.1) H 03/12/17 04:15 INR 1.7 (0.9-1.2) H 03/12/17 04:15 APTT 36.2 Seconds (25.6-37.1) 03/06/17 05:20 Assessment and Plan (1) Nosocomial pneumonia Status: Acute
--- NOTE | 2017-03-17 12:48 | CT ---
PROCEDURE: CT Chest, Abdomen and Pelvis without intravenous contrast HISTORY: f/U ABDOMINAL ABSCESS COMPARISON: 03/10/2017. TECHNIQUE: Radiation dose: Total exam DLP = 747.83 mGy-cm. This CT exam was performed using one or more of the following dose reduction techniques: Automated exposure control, adjustment of the mA and/or kV according to patient size, and/or use of iterative reconstruction technique. FINDINGS: CT CHEST WITHOUT CONTRAST: LUNGS: Persistent right pleural effusion and compressive atelectasis primarily affecting right lower lobe. MEDIASTINUM: Aneurysmal dilatation of the ascending aorta maximum diameter 4.1 cm.Cardiomegaly. No evidence of acute, significant cardiovascular disease. And macro PICC LYMPH NODES: Unremarkable. PLEURA: Stable right pleural effusion BONES: Unremarkable. OTHER FINDINGS: None. CT ABDOMEN AND PELVIS: LIVER: No significant interval change compared to the prior examination(s). Simple hepatic cysts again identified. GALLBLADDER AND BILE DUCTS: Status post cholecystectomy. No abnormality is seen in the gallbladder fossa. PANCREAS: Unremarkable. No gross lesion or ductal dilatation. SPLEEN: Stable splenomegaly ADRENALS: Unremarkable. No mass. KIDNEYS AND URETERS: Unremarkable. No hydronephrosis. No solid mass. Incidental finding(s): Left renal cysts. VASCULATURE: Unremarkable. No aortic aneurysm. BOWEL: Postoperative findings related to right hemicolectomy. No additional abnormal fluid collections or interval changes. APPENDIX: Normal appendix. PERITONEUM: Stable right upper quadrant fluid collection measures 5.2 x 5.6 cm. Mean Hounsfield unit values 15.8. Status post removal of pigtail catheter from the subphrenic fluid collection. The fluid collection is approximately stable, air within the collection again noted following removal of the catheter. LYMPH NODES: Unremarkable. No enlarged lymph nodes. BLADDER: Unremarkable. REPRODUCTIVE: Unremarkable. BONES: No acute fracture. OTHER FINDINGS: None. IMPRESSION: 1. Stable findings in the thorax primarily right pleural effusion and compressive atelectasis right lower lobe. 2. Stable postoperative findings related to right hemicolectomy. 3. Stable right upper quadrant fluid collection. 4. Complex subdiaphragmatic fluid collection containing air and fluid following removal of of the pigtail catheter.
--- NOTE | 2017-03-17 15:54 | CP.PCM.PN ---
Subjective - Date & Time of Evaluation Date of Evaluation: 03/17/17 Time of Evaluation: 15:45 - Subjective Subjective: I D NOTE AFEBRILE CT REVIEWED :STILL HAS ATELECTASIS AND WHAT WAS TERMED STABLE FLUID IN ABDOMEN WBC:13 ,HAS BEEN 12 X 4 DAYS REVIEWED ALL NOTES WILL HOLD IV ANTIBIOTICS ,MONITOR CLINICALLY ALONG c SERIAL CBCs Objective - Vital Signs/Intake and Output Vital Signs (last 24 hours): Temp Pulse Resp BP Pulse Ox 98.2 F 84 20 133/79 98 03/17/17 08:00 03/17/17 08:00 03/17/17 08:00 03/17/17 08:00 03/17/17 08:00 Intake and Output: 03/17/17 03/17/17 06:59 18:59 Intake Total 100 Balance 100 - Medications Medications: Current Medications Acetaminophen (Tylenol 325mg Tab) 650 mg PO Q4 PRN PRN Reason: Fever >100.4 F Last Admin: 03/11/17 12:12 Dose: 650 mg Acetaminophen (Tylenol 325mg Tab) 650 mg PO Q6 PRN PRN Reason: Pain, Mild (1-3) Last Admin: 03/12/17 13:48 Dose: 650 mg Acetylcysteine (Acetylcysteine 20%) 2 ml INH RBID [facility] Last Admin: 03/17/17 07:30 Dose: 2 ml Albuterol Sulfate (Albuterol 0.083% Inhal Ny (2.5 Mg/3 Ml) Ud) 2.5 mg INH RQID [facility] Last Admin: 03/17/17 15:10 Dose: 2.5 mg Calcium Carbonate (Oscal) 500 mg PO DAILY PRN PRN Reason: indigestion Last Admin: 03/14/17 19:38 Dose: 500 mg Furosemide (Lasix) 40 mg PO DAILY [facility] Last Admin: 03/17/17 08:50 Dose: Not Given Guaifenesin (Robitussin) 200 mg PO QID [facility] Last Admin: 03/17/17 13:08 Dose: Not Given Metronidazole (Flagyl 500mg/100ml Ns) 100 mls @ 100 mls/hr IVPB Q8 [facility] PRN Reason: Protocol Last Admin: 03/17/17 08:49 Dose: 100 mls/hr Ceftaroline Fosamil 400 mg/ (Sodium Chloride) 100 mls @ 100 mls/hr IVPB Q12H [facility] PRN Reason: Protocol Last Admin: 03/17/17 04:00 Dose: 100 mls/hr Lactobacillus Acidophilus (Bacid Acidophilus) 1 cap PO BID [facility] Last Admin: 03/17/17 08:50 Dose: Not Given Multivitamins/Minerals (Therapeutic-M Tab) 1 tab PO DAILY [facility] Last Admin: 03/17/17 08:51 Dose: Not Given Ondansetron HCl (Zofran Inj) 4 mg IVP Q4 PRN PRN Reason: Nausea/Vomiting Last Admin: 03/17/17 15:10 Dose: 4 mg Pantoprazole Sodium (Protonix Ec Tab) 40 mg PO DAILY [facility] Last Admin: 03/17/17 08:51 Dose: Not Given Saliva Substitute (Caphosol 15 Ml) 15 ml MM Q4 PRN PRN Reason: Dry mouth Sodium Chloride ([place] Nasal [place]) 1 sprays DIAMOND Q6 [facility] Last Admin: 03/17/17 13:04 Dose: 1 spr Zolpidem Tartrate (Ambien) 5 mg PO HS PRN PRN Reason: Insomnia Last Admin: 03/16/17 22:30 Dose: 5 mg - Labs Labs: 03/17/17 06:00 03/17/17 06:00 PT 18.8 Seconds (9.8-13.1) H 03/12/17 04:15 INR 1.7 (0.9-1.2) H 03/12/17 04:15 APTT 36.2 Seconds (25.6-37.1) 03/06/17 05:20
[2017-03-18] MEDS: Nasal Spray(Ocean spray) NAS SCH ×4 (04:12→22:05)
[2017-03-18 06:18] LABS: BASO % 0.3 % (0.0-2.0); EOS # 0.1 K/uL (0.0-0.7); EOS % 0.8 % (0.0-4.0); HEMOGLOBIN 10.4 g/dL (12.0-18.0); MEAN CELL VOLUME 83.1 fl (80.0-94.0); MEAN CORPUSCULAR HEMOGLOBIN 26.4 pg (27.0-31.0); MEAN CORPUSCULAR HGB CONC 31.7 g/dL (33.0-37.0); MONO # 0.9 K/uL (0.0-0.8); MONO % 7.4 % (0.0-10.0); NEUT # 9.9 K/uL (1.8-7.0); NEUT % 83.5 % (50.0-75.0); RBC 3.93 Mil/uL (4.40-5.90); RED CELL DISTRIBUTION WIDTH 16.7 % (11.5-14.5); WHITE BLOOD COUNT 11.9 K/uL (4.8-10.8)
[2017-03-18 06:28] LABS: CALCIUM 8.2 mg/dL (8.4-10.2)
[2017-03-18 07:57] LABS: SQUAMOUS EPITHIAL < 1 /hpf (0-5); URINE BILIRUBIN NEGATIVE (NEGATIVE); URINE BLOOD NEGATIVE (NEGATIVE); URINE CLARITY SLIGHTY-CLOUDY (Clear); URINE COLOR AMBER (YELLOW); URINE GLUCOSE (UA) NEG (Normal); URINE LEUKOCYTE ESTERASE TRACE Leu/uL (Negative); URINE NITRATE NEGATIVE (NEGATIVE); URINE PROTEIN 30 mg/dL (NEGATIVE); URINE UROBILINOGEN 0.2-1.0 mg/dL (0.2-1.0)
[2017-03-18] MEDS: Albuterol 0.083% Inhal Sol (2.5 mg/3 mL) UD INH SCH (07:57)
[2017-03-18] MEDS: Acetylcysteine 20% Inhal Soln (4ml) INH SCH (07:57)
[2017-03-18] MEDS: Pantoprazole 40 mg EC Tab PO SCH (08:44)
[2017-03-18] MEDS: Multivitamin With Minerals Tab PO SCH (08:44)
[2017-03-18] MEDS: Lactobacillus Acidophilus 500 MU Cap PO SCH ×2 (08:48→16:31)
[2017-03-18] MEDS: guaiFENesin 200 mg/10 ml Syrup UD PO SCH ×4 (08:54→22:05)
--- NOTE | 2017-03-18 08:54 | CP.PCM.PN ---
<Carito Gore - Last Filed: 03/18/17 12:10> Subjective - Date & Time of Evaluation Date of Evaluation: 03/18/17 Time of Evaluation: 07:20 - Subjective Subjective: PAtient seen and examined bedside. Afebrile, reports feeling better. Bienvenido chest pain, SOB, n,v,abd pain.Reports bad taste for food. no overnight events. WBC improving Objective - Vital Signs/Intake and Output Vital Signs (last 24 hours): Temp Pulse Resp BP Pulse Ox 98.1 F 76 20 143/83 99 03/18/17 08:32 03/18/17 08:32 03/18/17 08:32 03/18/17 08:43 03/18/17 08:32 - Medications Medications: Current Medications Acetaminophen (Tylenol 325mg Tab) 650 mg PO Q4 PRN PRN Reason: Fever >100.4 F Last Admin: 03/11/17 12:12 Dose: 650 mg Acetaminophen (Tylenol 325mg Tab) 650 mg PO Q6 PRN PRN Reason: Pain, Mild (1-3) Last Admin: 03/12/17 13:48 Dose: 650 mg Acetylcysteine (Acetylcysteine 20%) 2 ml INH RBID [facility] Last Admin: 03/18/17 07:57 Dose: 2 ml Albuterol Sulfate (Albuterol 0.083% Inhal Ny (2.5 Mg/3 Ml) Ud) 2.5 mg INH RQID [facility] Last Admin: 03/18/17 07:57 Dose: 2.5 mg Calcium Carbonate (Oscal) 500 mg PO DAILY PRN PRN Reason: indigestion Last Admin: 03/14/17 19:38 Dose: 500 mg Enoxaparin Sodium (Lovenox) 40 mg SC DAILY [facility] PRN Reason: Protocol Furosemide (Lasix) 40 mg PO DAILY [facility] Last Admin: 03/18/17 08:43 Dose: 40 mg Guaifenesin (Robitussin) 200 mg PO QID [facility] Last Admin: 03/18/17 08:54 Dose: Not Given Metronidazole (Flagyl 500mg/100ml Ns) 100 mls @ 100 mls/hr IVPB Q8 [facility] PRN Reason: Protocol Last Admin: 03/17/17 08:49 Dose: 100 mls/hr Ceftaroline Fosamil 400 mg/ (Sodium Chloride) 100 mls @ 100 mls/hr IVPB Q12H [facility] PRN Reason: Protocol Last Admin: 03/17/17 04:00 Dose: 100 mls/hr Lactobacillus Acidophilus (Bacid Acidophilus) 1 cap PO BID [facility] [place] Last Admin: 03/18/17 08:48 Dose: 1 cap Multivitamins/Minerals (Therapeutic-M Tab) 1 tab PO DAILY [facility] Last Admin: 03/18/17 08:44 Dose: 1 tab Ondansetron HCl (Zofran Inj) 4 mg IVP Q4 PRN PRN Reason: Nausea/Vomiting Last Admin: 03/18/17 05:27 Dose: 4 mg Pantoprazole Sodium (Protonix Ec Tab) 40 mg PO DAILY [facility] Last Admin: 03/18/17 08:44 Dose: 40 mg Saliva Substitute (Caphosol 15 Ml) 15 ml MM Q4 PRN PRN Reason: Dry mouth Sodium Chloride ([place] Nasal [place]) 1 sprays DIAMOND Q6 [facility] Last Admin: 03/18/17 04:12 Dose: Not Given Zolpidem Tartrate (Ambien) 5 mg PO HS PRN PRN Reason: Insomnia Last Admin: 03/17/17 23:10 Dose: 5 mg - Labs Labs: 03/18/17 06:00 03/18/17 06:00 PT 18.8 Seconds (9.8-13.1) H 03/12/17 04:15 INR 1.7 (0.9-1.2) H 03/12/17 04:15 APTT 36.2 Seconds (25.6-37.1) 03/06/17 05:20 - Constitutional Appears: No Acute Distress - Head Exam Head Exam: ATRAUMATIC, NORMOCEPHALIC - Eye Exam Eye Exam: Normal appearance - ENT Exam ENT Exam: Mucous Membranes Moist - Respiratory Exam Respiratory Exam: Decreased Breath Sounds. absent: Rales, Rhonchi, Wheezes - Cardiovascular Exam Cardiovascular Exam: REGULAR RHYTHM, +S1, +S2 - GI/Abdominal Exam GI & Abdominal Exam: Soft, Normal Bowel Sounds. absent: Tenderness - Extremities Exam Extremities Exam: Normal Inspection. absent: Pedal Edema - Neurological Exam Neurological Exam: Alert, Awake, Oriented x3 - Psychiatric Exam Psychiatric exam: Normal Mood - Skin Skin Exam: absent: Petechiae Assessment and Plan - Assessment and Plan (Free Text) Plan: 71 yr old M PMHx/o HTN, COPD, CAD, CKD3, POD # 21 s/p laparoscopic right hemicolectomy for ascending colon mass (moderately differentiated adenocarcinoma ). 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 -Pain control: percocet prn -Hem/Onc c/s: outpt chemo, will need portcath placement 2) Emphysema/COPD - O2 NC, Duo Neb Q8 sonali, taper NC as tolerated -V/Q scan low probabilitiy PE -Pulmonology consult appreciated: no bronchoscopy.stable to DC 3) HAP -CT chest: right infiltrates, chronic change to b/l lungs -Pulmonology consult -ID c/s -stopped Zosyn/clindamycin -ceftaroline stopped -sputum cx yeast -ID consult appreciated -blood cx NGTD 4) Intrabdominal abscess -CT abd: intrabdominal fluids around pancreas and right liver lobe aprox 3.9 x 5.9 cm -CT chest: ascites overlying right liver dome with small pocket of air -s/p IR draignage.removed. -CT Abd:improving -ID consult appreciated -Meropenem stopped, flagyl stopped -F/U CT abd/pelvis 5) Diastolic CHF exacerbation -Echo 01/01/17: impaired systolic function with LVEF of 45% -blood coordinator consult appreciated. -c/w lasix 6) h/o CKD stage 3 -renally dose meds, prevent ERYN by not getting contrast if possible 7) HTN -controlled -on lasix PO 8) DVT prophylaxis -lovenox 40 mg sc Dispo: Patient medically stable to go to [facility]. 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 <Rob Kovacs - Last Filed: 03/20/17 06:54> Objective - Vital Signs/Intake and Output Vital Signs (last 24 hours): Temp Pulse Resp BP Pulse Ox 98.2 F 79 20 123/73 95 03/19/17 23:43 03/19/17 23:43 03/19/17 23:43 03/19/17 23:43 03/19/17 23:43 - Medications Medications: Current Medications Acetaminophen (Tylenol 325mg Tab) 650 mg PO Q4 PRN PRN Reason: Fever >100.4 F Last Admin: 03/11/17 12:12 Dose: 650 mg Acetaminophen (Tylenol 325mg Tab) 650 mg PO Q6 PRN PRN Reason: Pain, Mild (1-3) Last Admin: 03/12/17 13:48 Dose: 650 mg Albuterol Sulfate (Albuterol 0.083% Inhal Ny (2.5 Mg/3 Ml) Ud) 2.5 mg INH RQ4 PRN PRN Reason: Shortness of Breath Calcium Carbonate (Oscal) 500 mg PO DAILY PRN PRN Reason: indigestion Last Admin: 03/14/17 19:38 Dose: 500 mg Diphenhydramine HCl (Benadryl) 25 mg IVP Q8 PRN PRN Reason: Anxiety Last Admin: 03/19/17 13:54 Dose: 25 mg Enoxaparin Sodium (Lovenox) 40 mg SC DAILY [facility] PRN Reason: Protocol Last Admin: 03/19/17 09:15 Dose: 40 mg Furosemide (Lasix) 40 mg PO DAILY [facility] Last Admin: 03/19/17 09:17 Dose: 40 mg Guaifenesin (Robitussin) 200 mg PO QID [facility] Last Admin: 03/19/17 21:06 Dose: 200 mg Metronidazole (Flagyl 500mg/100ml Ns) 100 mls @ 100 mls/hr IVPB Q8 [facility] PRN Reason: Protocol Last Admin: 03/17/17 08:49 Dose: 100 mls/hr Ceftaroline Fosamil 400 mg/ (Sodium Chloride) 100 mls @ 100 mls/hr IVPB Q12H [facility] PRN Reason: Protocol Last Admin: 03/17/17 04:00 Dose: 100 mls/hr Lactobacillus Acidophilus (Bacid Acidophilus) 1 cap PO BID [facility] Last Admin: 03/19/17 16:23 Dose: 1 cap Multivitamins/Minerals (Therapeutic-M Tab) 1 tab PO DAILY [facility] Last Admin: 03/19/17 09:16 Dose: 1 tab Ondansetron HCl (Zofran Inj) 4 mg IVP Q4 PRN PRN Reason: Nausea/Vomiting Last Admin: 03/19/17 19:45 Dose: 4 mg Pantoprazole Sodium (Protonix Ec Tab) 40 mg PO DAILY [facility] Last Admin: 03/19/17 09:17 Dose: 40 mg Saliva Substitute (Caphosol 15 Ml) 15 ml MM Q4 PRN PRN Reason: Dry mouth Sodium Chloride ([place] Nasal [place]) 1 sprays DIAMOND Q6 [facility] Last Admin: 03/20/17 03:59 Dose: Not Given Zolpidem Tartrate (Ambien) 5 mg PO HS PRN PRN Reason: Insomnia Last Admin: 03/19/17 22:47 Dose: 5 mg - Labs Labs: 03/19/17 07:58 03/19/17 05:15 PT 16.3 Seconds (9.8-13.1) H 03/19/17 12:54 INR 1.5 (0.9-1.2) H 03/19/17 12:54 APTT 43.1 Seconds (25.6-37.1) H 03/19/17 12:54 Attending/Attestation - Attestation I have personally seen and examined this patient.: Yes I have fully participated in the care of the patient.: Yes I have reviewed all pertinent clinical information, including history, physical exam and plan: Yes
--- NOTE | 2017-03-18 09:28 | CP.PCM.PN ---
<Christina Spicer - Last Filed: 03/18/17 09:29> Subjective - Date & Time of Evaluation Date of Evaluation: 03/18/17 Time of Evaluation: 08:00 - Subjective Subjective: General surgery progress note for Dr. Ramon-Christina Spicer, PGY-1 Pt S & E at bedside. Pt reports continued poor taste from certain foods. Is using ensure supplements. Admits to occasional nausea. Denies F & C. Otherwise, stable. Objective - Vital Signs/Intake and Output Vital Signs (last 24 hours): Temp Pulse Resp BP Pulse Ox 98.1 F 76 20 143/83 99 03/18/17 08:32 03/18/17 08:32 03/18/17 08:32 03/18/17 08:43 03/18/17 08:32 - Medications Medications: Current Medications Acetaminophen (Tylenol 325mg Tab) 650 mg PO Q4 PRN PRN Reason: Fever >100.4 F Last Admin: 03/11/17 12:12 Dose: 650 mg Acetaminophen (Tylenol 325mg Tab) 650 mg PO Q6 PRN PRN Reason: Pain, Mild (1-3) Last Admin: 03/12/17 13:48 Dose: 650 mg Acetylcysteine (Acetylcysteine 20%) 2 ml INH RBID [facility] Last Admin: 03/18/17 07:57 Dose: 2 ml Albuterol Sulfate (Albuterol 0.083% Inhal Ny (2.5 Mg/3 Ml) Ud) 2.5 mg INH RQID [facility] Last Admin: 03/18/17 07:57 Dose: 2.5 mg Calcium Carbonate (Oscal) 500 mg PO DAILY PRN PRN Reason: indigestion Last Admin: 03/14/17 19:38 Dose: 500 mg Enoxaparin Sodium (Lovenox) 40 mg SC DAILY [facility] PRN Reason: Protocol Furosemide (Lasix) 40 mg PO DAILY [facility] Last Admin: 03/18/17 08:43 Dose: 40 mg Guaifenesin (Robitussin) 200 mg PO QID [facility] Last Admin: 03/18/17 08:54 Dose: Not Given Metronidazole (Flagyl 500mg/100ml Ns) 100 mls @ 100 mls/hr IVPB Q8 [facility] PRN Reason: Protocol Last Admin: 03/17/17 08:49 Dose: 100 mls/hr Ceftaroline Fosamil 400 mg/ (Sodium Chloride) 100 mls @ 100 mls/hr IVPB Q12H [facility] PRN Reason: Protocol Last Admin: 03/17/17 04:00 Dose: 100 mls/hr Lactobacillus Acidophilus (Bacid Acidophilus) 1 cap PO BID [facility] Last Admin: 03/18/17 08:48 Dose: 1 cap Multivitamins/Minerals (Therapeutic-M Tab) 1 tab PO DAILY [facility] Last Admin: 03/18/17 08:44 Dose: 1 tab Ondansetron HCl (Zofran Inj) 4 mg IVP Q4 PRN PRN Reason: Nausea/Vomiting Last Admin: 03/18/17 05:27 Dose: 4 mg Pantoprazole Sodium (Protonix Ec Tab) 40 mg PO DAILY [facility] Last Admin: 03/18/17 08:44 Dose: 40 mg Saliva Substitute (Caphosol 15 Ml) 15 ml MM Q4 PRN PRN Reason: Dry mouth Sodium Chloride ([place] Nasal [place]) 1 sprays DIAMOND Q6 [facility] Last Admin: 03/18/17 04:12 Dose: Not Given Zolpidem Tartrate (Ambien) 5 mg PO HS PRN PRN Reason: Insomnia Last Admin: 03/17/17 23:10 Dose: 5 mg - Labs Labs: 03/18/17 06:00 03/18/17 06:00 PT 18.8 Seconds (9.8-13.1) H 03/12/17 04:15 INR 1.7 (0.9-1.2) H 03/12/17 04:15 APTT 36.2 Seconds (25.6-37.1) 03/06/17 05:20 - Constitutional Appears: Non-toxic, No Acute Distress - Head Exam Head Exam: ATRAUMATIC, NORMAL INSPECTION, NORMOCEPHALIC - Eye Exam Eye Exam: EOMI, Normal appearance - ENT Exam ENT Exam: Mucous Membranes Moist, Normal Exam - Neck Exam Neck Exam: Full ROM, Normal Inspection - Respiratory Exam Respiratory Exam: NORMAL BREATHING PATTERN - Cardiovascular Exam Cardiovascular Exam: REGULAR RHYTHM, +S1, +S2 - GI/Abdominal Exam GI & Abdominal Exam: Soft. absent: Distended, Firm, Guarding, Rigid, Tenderness Additional comments: Surgical site well approximated, healing, no drainage, josy removed - Extremities Exam Extremities Exam: Normal Inspection - Neurological Exam Neurological Exam: Alert, Awake, CN II-XII Intact, Oriented x3 - Psychiatric Exam Psychiatric exam: Normal Affect, Normal Mood - Skin Skin Exam: Dry, Intact, Normal Color, Warm Assessment and Plan - Assessment and Plan (Free Text) Assessment: 71M s/p R hemicolectomy now with pneumonia- resolving Plan: Cont diet Pain control Anti-emetic Abx as per ID OOBTC Ambulate DVT/GI ppx Discharge planning as per SW- spoke to SW today, will see if pt can access out of network benefit for TCU DW attending Dannielle, PGY-1 <Vaughn Ramon - Last Filed: 03/18/17 15:29> Subjective - Date & Time of Evaluation Time of Evaluation: 15:20 - Subjective Subjective: Patient was seen and examined at the bedside. Agree with resident's note above. Objective - Vital Signs/Intake and Output Vital Signs (last 24 hours): Temp Pulse Resp BP Pulse Ox 98.1 F 76 20 143/83 99 03/18/17 08:32 03/18/17 08:32 03/18/17 08:32 03/18/17 08:43 03/18/17 08:32 - Medications Medications: Current Medications Acetaminophen (Tylenol 325mg Tab) 650 mg PO Q4 PRN PRN Reason: Fever >100.4 F Last Admin: 03/11/17 12:12 Dose: 650 mg Acetaminophen (Tylenol 325mg Tab) 650 mg PO Q6 PRN PRN Reason: Pain, Mild (1-3) Last Admin: 03/12/17 13:48 Dose: 650 mg Albuterol Sulfate (Albuterol 0.083% Inhal Ny (2.5 Mg/3 Ml) Ud) 2.5 mg INH RQ4 PRN PRN Reason: Shortness of Breath Calcium Carbonate (Oscal) 500 mg PO DAILY PRN PRN Reason: indigestion Last Admin: 03/14/17 19:38 Dose: 500 mg Enoxaparin Sodium (Lovenox) 40 mg SC DAILY [facility] PRN Reason: Protocol Last Admin: 03/18/17 12:28 Dose: 40 mg Furosemide (Lasix) 40 mg PO DAILY [facility] Last Admin: 03/18/17 08:43 Dose: 40 mg Guaifenesin (Robitussin) 200 mg PO QID [facility] Last Admin: 03/18/17 12:50 Dose: Not Given Metronidazole (Flagyl 500mg/100ml Ns) 100 mls @ 100 mls/hr IVPB Q8 [facility] PRN Reason: Protocol Last Admin: 03/17/17 08:49 Dose: 100 mls/hr Ceftaroline Fosamil 400 mg/ (Sodium Chloride) 100 mls @ 100 mls/hr IVPB Q12H [facility] PRN Reason: Protocol Last Admin: 03/17/17 04:00 Dose: 100 mls/hr Lactobacillus Acidophilus (Bacid Acidophilus) 1 cap PO BID [facility] Last Admin: 03/18/17 08:48 Dose: 1 cap Multivitamins/Minerals (Therapeutic-M Tab) 1 tab PO DAILY [facility] Last Admin: 03/18/17 08:44 Dose: 1 tab Ondansetron HCl (Zofran Inj) 4 mg IVP Q4 PRN PRN Reason: Nausea/Vomiting Last Admin: 03/18/17 05:27 Dose: 4 mg Pantoprazole Sodium (Protonix Ec Tab) 40 mg PO DAILY [facility] Last Admin: 03/18/17 08:44 Dose: 40 mg Saliva Substitute (Caphosol 15 Ml) 15 ml MM Q4 PRN PRN Reason: Dry mouth Sodium Chloride ([place] Nasal [place]) 1 sprays DIAMODN Q6 [facility] Last Admin: 03/18/17 09:56 Dose: 1 spr Zolpidem Tartrate (Ambien) 5 mg PO HS PRN PRN Reason: Insomnia Last Admin: 03/17/17 23:10 Dose: 5 mg - Labs Labs: 03/18/17 06:00 03/18/17 06:00 PT 18.8 Seconds (9.8-13.1) H 03/12/17 04:15 INR 1.7 (0.9-1.2) H 03/12/17 04:15 APTT 36.2 Seconds (25.6-37.1) 03/06/17 05:20
[2017-03-18] MEDS ORDERED: Albuterol 0.083% Inhal Sol (2.5 mg/3 mL) UD INH PRN (10:26)
--- NOTE | 2017-03-18 11:26 | CP.PCM.PN ---
Subjective - Date & Time of Evaluation Date of Evaluation: 03/18/17 Time of Evaluation: 11:19 - Subjective Subjective: Seated in the bedside chair. Appears stronger and more interactive. Still complains of altered taste. Discussed with ID yesterday and antibiotics have been discontinued. He has remained afebrile and the WBC has decreased to 11.9. He had chest x-ray as well as CT chest/abdomen/pelvis; reviewed. There is a little residual chest congestion when he is asked to cough. Some dullness to chest percussion is still present in the right base posteriorly. Breath sounds are still diminished in the right base, but much better. Few rhonchi and rare medium rales can be heard in the bases, R>L, but also much improved. Continue present medical regimen. Ambulate with PT as tolerated. Followup CBC and CXR in the morning. From a pulmonary standpoint, if he remains stable there is potential for discharge. Follow up CXR as an outpatient in 5-6 days. Follow up CBC in 2-3 days. Objective - Vital Signs/Intake and Output Vital Signs (last 24 hours): Temp Pulse Resp BP Pulse Ox 98.1 F 76 20 143/83 99 03/18/17 08:32 03/18/17 08:32 03/18/17 08:32 03/18/17 08:43 03/18/17 08:32 - Medications Medications: Current Medications Acetaminophen (Tylenol 325mg Tab) 650 mg PO Q4 PRN PRN Reason: Fever >100.4 F Last Admin: 03/11/17 12:12 Dose: 650 mg Acetaminophen (Tylenol 325mg Tab) 650 mg PO Q6 PRN PRN Reason: Pain, Mild (1-3) Last Admin: 03/12/17 13:48 Dose: 650 mg Albuterol Sulfate (Albuterol 0.083% Inhal Ny (2.5 Mg/3 Ml) Ud) 2.5 mg INH RQ4 PRN PRN Reason: Shortness of Breath Calcium Carbonate (Oscal) 500 mg PO DAILY PRN PRN Reason: indigestion Last Admin: 03/14/17 19:38 Dose: 500 mg Enoxaparin Sodium (Lovenox) 40 mg SC DAILY [facility] PRN Reason: Protocol Furosemide (Lasix) 40 mg PO DAILY [facility] Last Admin: 03/18/17 08:43 Dose: 40 mg Guaifenesin (Robitussin) 200 mg PO QID [facility] Last Admin: 03/18/17 08:54 Dose: Not Given Metronidazole (Flagyl 500mg/100ml Ns) 100 mls @ 100 mls/hr IVPB Q8 [facility] PRN Reason: Protocol Last Admin: 03/17/17 08:49 Dose: 100 mls/hr Ceftaroline Fosamil 400 mg/ (Sodium Chloride) 100 mls @ 100 mls/hr IVPB Q12H [facility] PRN Reason: Protocol Last Admin: 03/17/17 04:00 Dose: 100 mls/hr Lactobacillus Acidophilus (Bacid Acidophilus) 1 cap PO BID [facility] Last Admin: 03/18/17 08:48 Dose: 1 cap Multivitamins/Minerals (Therapeutic-M Tab) 1 tab PO DAILY [facility] Last Admin: 03/18/17 08:44 Dose: 1 tab Ondansetron HCl (Zofran Inj) 4 mg IVP Q4 PRN PRN Reason: Nausea/Vomiting Last Admin: 03/18/17 05:27 Dose: 4 mg Pantoprazole Sodium (Protonix Ec Tab) 40 mg PO DAILY [facility] Last Admin: 03/18/17 08:44 Dose: 40 mg Saliva Substitute (Caphosol 15 Ml) 15 ml MM Q4 PRN PRN Reason: Dry mouth Sodium Chloride ([place] Nasal [place]) 1 sprays DIAMOND Q6 [facility] Last Admin: 03/18/17 09:56 Dose: 1 spr Zolpidem Tartrate (Ambien) 5 mg PO HS PRN PRN Reason: Insomnia Last Admin: 03/17/17 23:10 Dose: 5 mg - Labs Labs: 03/18/17 06:00 03/18/17 06:00 PT 18.8 Seconds (9.8-13.1) H 03/12/17 04:15 INR 1.7 (0.9-1.2) H 03/12/17 04:15 APTT 36.2 Seconds (25.6-37.1) 03/06/17 05:20 Assessment and Plan (1) Nosocomial pneumonia Status: Acute
[2017-03-18] MEDS: Enoxaparin 40 mg Syringe SC SCH (12:28)
--- NOTE | 2017-03-18 14:41 | CP.PCM.PN ---
Subjective - Date & Time of Evaluation Date of Evaluation: 03/18/17 Time of Evaluation: 11:00 - Subjective Subjective: Tolerated PT today, seen waling Objective - Vital Signs/Intake and Output Vital Signs (last 24 hours): Temp Pulse Resp BP Pulse Ox 98.1 F 76 20 143/83 99 03/18/17 08:32 03/18/17 08:32 03/18/17 08:32 03/18/17 08:43 03/18/17 08:32 - Medications Medications: Current Medications Acetaminophen (Tylenol 325mg Tab) 650 mg PO Q4 PRN PRN Reason: Fever >100.4 F Last Admin: 03/11/17 12:12 Dose: 650 mg Acetaminophen (Tylenol 325mg Tab) 650 mg PO Q6 PRN PRN Reason: Pain, Mild (1-3) Last Admin: 03/12/17 13:48 Dose: 650 mg Albuterol Sulfate (Albuterol 0.083% Inhal Ny (2.5 Mg/3 Ml) Ud) 2.5 mg INH RQ4 PRN PRN Reason: Shortness of Breath Calcium Carbonate (Oscal) 500 mg PO DAILY PRN PRN Reason: indigestion Last Admin: 03/14/17 19:38 Dose: 500 mg Enoxaparin Sodium (Lovenox) 40 mg SC DAILY [facility] PRN Reason: Protocol Last Admin: 03/18/17 12:28 Dose: 40 mg Furosemide (Lasix) 40 mg PO DAILY [facility] Last Admin: 03/18/17 08:43 Dose: 40 mg Guaifenesin (Robitussin) 200 mg PO QID [facility] Last Admin: 03/18/17 12:50 Dose: Not Given Metronidazole (Flagyl 500mg/100ml Ns) 100 mls @ 100 mls/hr IVPB Q8 [facility] PRN Reason: Protocol Last Admin: 03/17/17 08:49 Dose: 100 mls/hr Ceftaroline Fosamil 400 mg/ (Sodium Chloride) 100 mls @ 100 mls/hr IVPB Q12H [facility] PRN Reason: Protocol Last Admin: 03/17/17 04:00 Dose: 100 mls/hr Lactobacillus Acidophilus (Bacid Acidophilus) 1 cap PO BID [facility] Last Admin: 03/18/17 08:48 Dose: 1 cap Multivitamins/Minerals (Therapeutic-M Tab) 1 tab PO DAILY [facility] Last Admin: 03/18/17 08:44 Dose: 1 tab Ondansetron HCl (Zofran Inj) 4 mg IVP Q4 PRN PRN Reason: Nausea/Vomiting Last Admin: 03/18/17 05:27 Dose: 4 mg Pantoprazole Sodium (Protonix Ec Tab) 40 mg PO DAILY [facility] Last Admin: 03/18/17 08:44 Dose: 40 mg Saliva Substitute (Caphosol 15 Ml) 15 ml MM Q4 PRN PRN Reason: Dry mouth Sodium Chloride ([place] Nasal [place]) 1 sprays DIAMOND Q6 [facility] Last Admin: 03/18/17 09:56 Dose: 1 spr Zolpidem Tartrate (Ambien) 5 mg PO HS PRN PRN Reason: Insomnia Last Admin: 03/17/17 23:10 Dose: 5 mg - Labs Labs: 03/18/17 06:00 03/18/17 06:00 PT 18.8 Seconds (9.8-13.1) H 03/12/17 04:15 INR 1.7 (0.9-1.2) H 03/12/17 04:15 APTT 36.2 Seconds (25.6-37.1) 03/06/17 05:20 - Head Exam Head Exam: ATRAUMATIC - Eye Exam Eye Exam: Normal appearance - ENT Exam ENT Exam: Mucous Membranes Dry - Respiratory Exam Respiratory Exam: NORMAL BREATHING PATTERN - Cardiovascular Exam Cardiovascular Exam: +S1, +S2 - GI/Abdominal Exam GI & Abdominal Exam: Normal Bowel Sounds Assessment and Plan (1) Anemia Assessment & Plan: chronic disease Status: Acute (2) Leukocytosis Assessment & Plan: improved s/p antibiotics Status: Acute (3) Adenocarcinoma of colon Assessment & Plan: stage III outpatient chemotherapy Status: Acute
[2017-03-18] MEDS ORDERED: DiphenhydrAMINE 50 mg/ml Inj IVP STA (16:21)
[2017-03-18] MEDS ORDERED: DiphenhydrAMINE 50 mg/ml Inj ONE (16:23)
[2017-03-19] MEDS: Nasal Spray(Ocean spray) NAS SCH ×4 (03:47→21:06)
[2017-03-19 06:31] LABS: ALB/GLOB RATIO 1.1 (1.0-2.1); ALBUMIN 2.5 g/dL (3.5-5.0); CALCIUM 8.3 mg/dL (8.4-10.2)
[2017-03-19 08:08] LABS: BASO # 0.1 K/uL (0.0-0.2); BASO % 0.6 % (0.0-2.0); EOS # 0.1 K/uL (0.0-0.7); LYMPH % 9.3 % (20.0-40.0); MEAN CELL VOLUME 82.6 fl (80.0-94.0); MEAN CORPUSCULAR HEMOGLOBIN 26.8 pg (27.0-31.0); MEAN CORPUSCULAR HGB CONC 32.5 g/dL (33.0-37.0); MEAN PLATELET VOLUME 8.4 fl (7.2-11.7); MONO # 0.8 K/uL (0.0-0.8); MONO % 7.3 % (0.0-10.0); NEUT # 8.4 K/uL (1.8-7.0); NEUT % 81.8 % (50.0-75.0); NRBC % 0.1 % (0.0-0.0); RBC 4.11 Mil/uL (4.40-5.90); WHITE BLOOD COUNT 10.3 K/uL (4.8-10.8)
[2017-03-19] MEDS: Lactobacillus Acidophilus 500 MU Cap PO SCH ×2 (09:14→16:23)
[2017-03-19] MEDS: Enoxaparin 40 mg Syringe SC SCH (09:15)
[2017-03-19] MEDS: Multivitamin With Minerals Tab PO SCH (09:16)
[2017-03-19] MEDS: Pantoprazole 40 mg EC Tab PO SCH (09:17)
[2017-03-19] MEDS: guaiFENesin 200 mg/10 ml Syrup UD PO SCH ×4 (09:27→21:06)
--- NOTE | 2017-03-19 10:47 | CP.PCM.PN ---
Subjective - Date & Time of Evaluation Date of Evaluation: 03/19/17 Time of Evaluation: 10:47 - Subjective Subjective: Remains afebrile and WBC has normalized. 6 minute walk done yesterday and reviewed. Chest x-ray today shows persistent atelectasis at the right base. Cough is productive of thick yellowish sputum. On exam there is still dullness at the right base and breath sounds are absent. Rhonchi are heard with deep breath and cough. No audible wheezes and only rare medium rales. While he clinically appears improved he fails to clear the atelectatic right lung base. Explained that despite deep breathing and coughing he has been unable to expand that segment of the RLL. Plan for flexible bronchoscopy in the morning tomorrow to remove any plug that may be present. Objective - Vital Signs/Intake and Output Vital Signs (last 24 hours): Temp Pulse Resp BP Pulse Ox 98.6 F 76 18 130/79 93 L 03/19/17 08:44 03/19/17 08:44 03/19/17 08:44 03/19/17 09:17 03/19/17 08:44 - Medications Medications: Current Medications Acetaminophen (Tylenol 325mg Tab) 650 mg PO Q4 PRN PRN Reason: Fever >100.4 F Last Admin: 03/11/17 12:12 Dose: 650 mg Acetaminophen (Tylenol 325mg Tab) 650 mg PO Q6 PRN PRN Reason: Pain, Mild (1-3) Last Admin: 03/12/17 13:48 Dose: 650 mg Albuterol Sulfate (Albuterol 0.083% Inhal Ny (2.5 Mg/3 Ml) Ud) 2.5 mg INH RQ4 PRN PRN Reason: Shortness of Breath Calcium Carbonate (Oscal) 500 mg PO DAILY PRN PRN Reason: indigestion Last Admin: 03/14/17 19:38 Dose: 500 mg Enoxaparin Sodium (Lovenox) 40 mg SC DAILY [facility] PRN Reason: Protocol Last Admin: 03/19/17 09:15 Dose: 40 mg Furosemide (Lasix) 40 mg PO DAILY [facility] Last Admin: 03/19/17 09:17 Dose: 40 mg Guaifenesin (Robitussin) 200 mg PO QID [facility] Last Admin: 03/19/17 09:27 Dose: Not Given Metronidazole (Flagyl 500mg/100ml Ns) 100 mls @ 100 mls/hr IVPB Q8 [facility] PRN Reason: Protocol Last Admin: 03/17/17 08:49 Dose: 100 mls/hr Ceftaroline Fosamil 400 mg/ (Sodium Chloride) 100 mls @ 100 mls/hr IVPB Q12H [facility] PRN Reason: Protocol Last Admin: 03/17/17 04:00 Dose: 100 mls/hr Lactobacillus Acidophilus (Bacid Acidophilus) 1 cap PO BID [facility] Last Admin: 03/19/17 09:14 Dose: 1 cap Multivitamins/Minerals (Therapeutic-M Tab) 1 tab PO DAILY [facility] Last Admin: 03/19/17 09:16 Dose: 1 tab Ondansetron HCl (Zofran Inj) 4 mg IVP Q4 PRN PRN Reason: Nausea/Vomiting Last Admin: 03/18/17 05:27 Dose: 4 mg Pantoprazole Sodium (Protonix Ec Tab) 40 mg PO DAILY [facility] Last Admin: 03/19/17 09:17 Dose: 40 mg Saliva Substitute (Caphosol 15 Ml) 15 ml MM Q4 PRN PRN Reason: Dry mouth Sodium Chloride ([place] Nasal [place]) 1 sprays DIAMOND Q6 [facility] Last Admin: 03/19/17 09:15 Dose: 1 spr Zolpidem Tartrate (Ambien) 5 mg PO HS PRN PRN Reason: Insomnia Last Admin: 03/18/17 22:55 Dose: 5 mg - Labs Labs: 03/19/17 07:58 03/19/17 05:15 PT 18.8 Seconds (9.8-13.1) H 03/12/17 04:15 INR 1.7 (0.9-1.2) H 03/12/17 04:15 APTT 36.2 Seconds (25.6-37.1) 03/06/17 05:20 Assessment and Plan (1) Nosocomial pneumonia Status: Acute
--- NOTE | 2017-03-19 12:40 | RAD ---
HISTORY: cough COMPARISON: 03/17/2017 TECHNIQUE: Chest PA and lateral FINDINGS: LUNGS: No active pulmonary disease. PLEURA: Small right pleural effusion, grossly unchanged. No left pleural effusion. No pneumothorax. CARDIOVASCULAR: Normal heart size. Right PICC catheter, unchanged. OSSEOUS STRUCTURES: No significant abnormalities. VISUALIZED UPPER ABDOMEN: Normal. OTHER FINDINGS: None. IMPRESSION: Small right pleural effusion.
[2017-03-19 13:15] LABS: INR 1.5 (0.9-1.2); PARTIAL THROMBOPLASTIN TIME 43.1 Seconds (25.6-37.1); PROTHROMBIN TIME 16.3 Seconds (9.8-13.1)
[2017-03-19] MEDS ORDERED: DiphenhydrAMINE 50 mg/ml Inj IVP PRN (13:31)
--- NOTE | 2017-03-19 14:50 | CP.PCM.PN ---
Subjective - Date & Time of Evaluation Date of Evaluation: 03/19/17 Time of Evaluation: 07:20 - Subjective Subjective: Patient seen and examined bedside. Patient reports feeling better. Reports occs productive cough and denies SOB, chest pain, f,n,v,abd pain. Reports food taste is not good. walking test done yesterday normal. Improving on PT. WBC trending down 10.3 Objective - Vital Signs/Intake and Output Vital Signs (last 24 hours): Temp Pulse Resp BP Pulse Ox 98.6 F 76 18 130/79 93 L 03/19/17 08:44 03/19/17 08:44 03/19/17 08:44 03/19/17 09:17 03/19/17 08:44 - Medications Medications: Current Medications Acetaminophen (Tylenol 325mg Tab) 650 mg PO Q4 PRN PRN Reason: Fever >100.4 F Last Admin: 03/11/17 12:12 Dose: 650 mg Acetaminophen (Tylenol 325mg Tab) 650 mg PO Q6 PRN PRN Reason: Pain, Mild (1-3) Last Admin: 03/12/17 13:48 Dose: 650 mg Albuterol Sulfate (Albuterol 0.083% Inhal Ny (2.5 Mg/3 Ml) Ud) 2.5 mg INH RQ4 PRN PRN Reason: Shortness of Breath Calcium Carbonate (Oscal) 500 mg PO DAILY PRN PRN Reason: indigestion Last Admin: 03/14/17 19:38 Dose: 500 mg Diphenhydramine HCl (Benadryl) 25 mg IVP Q8 PRN PRN Reason: Anxiety Last Admin: 03/19/17 13:54 Dose: 25 mg Enoxaparin Sodium (Lovenox) 40 mg SC DAILY [facility] PRN Reason: Protocol Last Admin: 03/19/17 09:15 Dose: 40 mg Furosemide (Lasix) 40 mg PO DAILY [facility] Last Admin: 03/19/17 09:17 Dose: 40 mg Guaifenesin (Robitussin) 200 mg PO QID [facility] Last Admin: 03/19/17 12:07 Dose: Not Given Metronidazole (Flagyl 500mg/100ml Ns) 100 mls @ 100 mls/hr IVPB Q8 [facility] PRN Reason: Protocol Last Admin: 03/17/17 08:49 Dose: 100 mls/hr Ceftaroline Fosamil 400 mg/ (Sodium Chloride) 100 mls @ 100 mls/hr IVPB Q12H [facility] PRN Reason: Protocol Last Admin: 03/17/17 04:00 Dose: 100 mls/hr Lactobacillus Acidophilus (Bacid Acidophilus) 1 cap PO BID [facility] Last Admin: 03/19/17 09:14 Dose: 1 cap Multivitamins/Minerals (Therapeutic-M Tab) 1 tab PO DAILY [facility] Last Admin: 03/19/17 09:16 Dose: 1 tab Ondansetron HCl (Zofran Inj) 4 mg IVP Q4 PRN PRN Reason: Nausea/Vomiting Last Admin: 03/18/17 05:27 Dose: 4 mg Pantoprazole Sodium (Protonix Ec Tab) 40 mg PO DAILY [facility] Last Admin: 03/19/17 09:17 Dose: 40 mg Saliva Substitute (Caphosol 15 Ml) 15 ml MM Q4 PRN PRN Reason: Dry mouth Sodium Chloride ([place] Nasal [place]) 1 sprays DIAMOND Q6 [facility] Last Admin: 03/19/17 09:15 Dose: 1 spr Zolpidem Tartrate (Ambien) 5 mg PO HS PRN PRN Reason: Insomnia Last Admin: 03/18/17 22:55 Dose: 5 mg - Labs Labs: 03/19/17 07:58 03/19/17 05:15 PT 16.3 Seconds (9.8-13.1) H 03/19/17 12:54 INR 1.5 (0.9-1.2) H 03/19/17 12:54 APTT 43.1 Seconds (25.6-37.1) H 03/19/17 12:54 - Constitutional Appears: Non-toxic, No Acute Distress - Head Exam Head Exam: ATRAUMATIC, NORMOCEPHALIC - Eye Exam Eye Exam: Normal appearance - Neck Exam Neck Exam: Normal Inspection - Respiratory Exam Respiratory Exam: Decreased Breath Sounds. absent: Rales, Rhonchi, Wheezes Additional comments: mild decreased right lung base - Cardiovascular Exam Cardiovascular Exam: REGULAR RHYTHM, +S1, +S2 - GI/Abdominal Exam GI & Abdominal Exam: Soft, Normal Bowel Sounds. absent: Tenderness - Extremities Exam Extremities Exam: Normal Inspection. absent: Pedal Edema - Back Exam Back Exam: NORMAL INSPECTION - Neurological Exam Neurological Exam: Alert, Awake, Oriented x3 - Psychiatric Exam Psychiatric exam: Normal Mood - Skin Skin Exam: Intact Assessment and Plan - Assessment and Plan (Free Text) Plan: 71 yr old M PMHx/o HTN, COPD, CAD, CKD3, POD # 22 s/p laparoscopic right hemicolectomy for ascending colon mass (moderately differentiated adenocarcinoma ). 1) s/p Right hemicolectomy for ascending colon mass, POD # 22 -path: T2 adenocarinoma with 1/20 lymph nodes positive -Pain control: percocet prn -Hem/Onc c/s: outpt chemo, will need portcath placement 2) Emphysema/COPD - O2 NC, Duo Neb Q8 sonali, taper NC as tolerated -V/Q scan low probabilitiy PE -Pulmonology consult appreciated: for bronchoscopy tomorrow -XCR: persist atelectasia righ mariela base 3) HAP -resolving -CT chest: right infiltrates, chronic change to b/l lungs -Pulmonology consult appreciated -ID c/s -stopped Zosyn/clindamycin -ceftaroline stopped -sputum cx yeast -ID consult appreciated 4) Intrabdominal abscess -resolving -CT abd: intrabdominal fluids around pancreas and right liver lobe aprox 3.9 x 5.9 cm -CT chest: ascites overlying right liver dome with small pocket of air -s/p IR draignage.removed. -CT Abd:improving -ID consult appreciated -Meropenem stopped, flagyl stopped -F/U CT abd/pelvis 5) Diastolic CHF exacerbation -Echo 01/01/17: impaired systolic function with LVEF of 45% -mechanical test technician consult appreciated. -c/w lasix 6) h/o CKD stage 3 -renally dose meds, prevent ERYN by not getting contrast if possible 7) HTN -controlled -on lasix PO 8) DVT prophylaxis -lovenox 40 mg sc Dispo: will habe bronchoscopy tomorrow. if stable may be discharged home a day after procedure . As susana geriatric social worker Christie
--- NOTE | 2017-03-19 16:08 | CP.PCM.PN ---
Subjective - Date & Time of Evaluation Date of Evaluation: 03/19/17 Time of Evaluation: 16:06 - Subjective Subjective: Gen Surg: Dr Kapoor Pt S&E. NAEO. Denies any pain at this time. Tolerating diet. Having BMs. Still with cough. Plan for bronch tomorrow Objective - Vital Signs/Intake and Output Vital Signs (last 24 hours): Temp Pulse Resp BP Pulse Ox 98.6 F 76 18 130/79 93 L 03/19/17 08:44 03/19/17 08:44 03/19/17 08:44 03/19/17 09:17 03/19/17 08:44 - Medications Medications: Current Medications Acetaminophen (Tylenol 325mg Tab) 650 mg PO Q4 PRN PRN Reason: Fever >100.4 F Last Admin: 03/11/17 12:12 Dose: 650 mg Acetaminophen (Tylenol 325mg Tab) 650 mg PO Q6 PRN PRN Reason: Pain, Mild (1-3) Last Admin: 03/12/17 13:48 Dose: 650 mg Albuterol Sulfate (Albuterol 0.083% Inhal Ny (2.5 Mg/3 Ml) Ud) 2.5 mg INH RQ4 PRN PRN Reason: Shortness of Breath Calcium Carbonate (Oscal) 500 mg PO DAILY PRN PRN Reason: indigestion Last Admin: 03/14/17 19:38 Dose: 500 mg Diphenhydramine HCl (Benadryl) 25 mg IVP Q8 PRN PRN Reason: Anxiety Last Admin: 03/19/17 13:54 Dose: 25 mg Enoxaparin Sodium (Lovenox) 40 mg SC DAILY [facility] PRN Reason: Protocol Last Admin: 03/19/17 09:15 Dose: 40 mg Furosemide (Lasix) 40 mg PO DAILY [facility] Last Admin: 03/19/17 09:17 Dose: 40 mg Guaifenesin (Robitussin) 200 mg PO QID [facility] Last Admin: 03/19/17 12:07 Dose: Not Given Metronidazole (Flagyl 500mg/100ml Ns) 100 mls @ 100 mls/hr IVPB Q8 [facility] PRN Reason: Protocol Last Admin: 03/17/17 08:49 Dose: 100 mls/hr Ceftaroline Fosamil 400 mg/ (Sodium Chloride) 100 mls @ 100 mls/hr IVPB Q12H [facility] PRN Reason: Protocol Last Admin: 03/17/17 04:00 Dose: 100 mls/hr Lactobacillus Acidophilus (Bacid Acidophilus) 1 cap PO BID [facility] Last Admin: 03/19/17 09:14 Dose: 1 cap Multivitamins/Minerals (Therapeutic-M Tab) 1 tab PO DAILY [facility] Last Admin: 03/19/17 09:16 Dose: 1 tab Ondansetron HCl (Zofran Inj) 4 mg IVP Q4 PRN PRN Reason: Nausea/Vomiting Last Admin: 03/18/17 05:27 Dose: 4 mg Pantoprazole Sodium (Protonix Ec Tab) 40 mg PO DAILY [facility] Last Admin: 03/19/17 09:17 Dose: 40 mg Saliva Substitute (Caphosol 15 Ml) 15 ml MM Q4 PRN PRN Reason: Dry mouth Sodium Chloride ([place] Nasal [place]) 1 sprays DIAMOND Q6 [facility] Last Admin: 03/19/17 09:15 Dose: 1 spr Zolpidem Tartrate (Ambien) 5 mg PO HS PRN PRN Reason: Insomnia Last Admin: 03/18/17 22:55 Dose: 5 mg - Labs Labs: 03/19/17 07:58 03/19/17 05:15 PT 16.3 Seconds (9.8-13.1) H 03/19/17 12:54 INR 1.5 (0.9-1.2) H 03/19/17 12:54 APTT 43.1 Seconds (25.6-37.1) H 03/19/17 12:54 - Constitutional Appears: Non-toxic, No Acute Distress - ENT Exam ENT Exam: Mucous Membranes Moist - Respiratory Exam Respiratory Exam: Decreased Breath Sounds (right lower lobe). absent: Accessory Muscle Use, Respiratory Distress - Cardiovascular Exam Cardiovascular Exam: REGULAR RHYTHM - GI/Abdominal Exam GI & Abdominal Exam: Soft. absent: Distended, Firm, Tenderness Assessment and Plan - Assessment and Plan (Free Text) Assessment: 71M s/p colectomy complicated by post-op pneumonia Plan: pt doing well for bronch tomorrow plan for d/c friday with home health visiting d/w Dr Antwon Cooper, PGY3
[2017-03-20] MEDS: Nasal Spray(Ocean spray) NAS SCH ×4 (03:59→21:02)
[2017-03-20 06:57] LABS: BASO # 0.1 K/uL (0.0-0.2); BASO % 0.7 % (0.0-2.0); EOS # 0.1 K/uL (0.0-0.7); EOS % 1.1 % (0.0-4.0); HEMOGLOBIN 11.2 g/dL (12.0-18.0); LYMPH # 1.1 K/uL (1.0-4.3); LYMPH % 11.8 % (20.0-40.0); MEAN CELL VOLUME 82.3 fl (80.0-94.0); MEAN CORPUSCULAR HEMOGLOBIN 27.1 pg (27.0-31.0); MEAN CORPUSCULAR HGB CONC 32.9 g/dL (33.0-37.0); MEAN PLATELET VOLUME 8.3 fl (7.2-11.7); MONO # 0.7 K/uL (0.0-0.8); MONO % 7.6 % (0.0-10.0); NEUT # 7.6 K/uL (1.8-7.0); NEUT % 78.8 % (50.0-75.0); RBC 4.14 Mil/uL (4.40-5.90); WHITE BLOOD COUNT 9.7 K/uL (4.8-10.8)
[2017-03-20 06:59] LABS: ALBUMIN 2.6 g/dL (3.5-5.0); CALCIUM 8.4 mg/dL (8.4-10.2)
[2017-03-20] MEDS ORDERED: Phenylephrine 10 mg/ml Inj ONE (07:12)
[2017-03-20 07:36] LABS: ALB/GLOB RATIO 1.1 (1.0-2.1)
[2017-03-20] MEDS ORDERED: Propofol 10 mg/ml Inj (20 ML) ONE (07:40)
[2017-03-20] MEDS ORDERED: Succinylcholine 200 mg/10 ml Inj IV ONE (07:41)
[2017-03-20] MEDS ORDERED: Lidocaine 4% (Laryng-O-Jet) Kit MM ONE (07:41)
[2017-03-20] MEDS ORDERED: Midazolam 2 MG/2 ML VIAL ONE (07:41)
[2017-03-20] MEDS ORDERED: ePHEDrine 50 mg/ml Inj ONE (07:41)
[2017-03-20] MEDS ORDERED: Lactated Ringer's 1,000 ML IV ONE (07:50)
[2017-03-20] MEDS ORDERED: Lidocaine 1% Inj (20ml) TP ONE (07:50)
--- NOTE | 2017-03-20 08:03 | CP.PCM.PN ---
<Adam Cooper - Last Filed: 03/20/17 08:02> Objective - Vital Signs/Intake and Output Vital Signs (last 24 hours): Temp Pulse Resp BP Pulse Ox 98.9 F 70 20 131/74 94 L 03/20/17 07:48 03/20/17 07:48 03/20/17 07:48 03/20/17 07:48 03/20/17 07:48 - Medications Medications: Current Medications Acetaminophen (Tylenol 325mg Tab) 650 mg PO Q4 PRN PRN Reason: Fever >100.4 F Last Admin: 03/11/17 12:12 Dose: 650 mg Acetaminophen (Tylenol 325mg Tab) 650 mg PO Q6 PRN PRN Reason: Pain, Mild (1-3) Last Admin: 03/12/17 13:48 Dose: 650 mg Albuterol Sulfate (Albuterol 0.083% Inhal Ny (2.5 Mg/3 Ml) Ud) 2.5 mg INH RQ4 PRN PRN Reason: Shortness of Breath Calcium Carbonate (Oscal) 500 mg PO DAILY PRN PRN Reason: indigestion Last Admin: 03/14/17 19:38 Dose: 500 mg Diphenhydramine HCl (Benadryl) 25 mg IVP Q8 PRN PRN Reason: Anxiety Last Admin: 03/19/17 13:54 Dose: 25 mg Enoxaparin Sodium (Lovenox) 40 mg SC DAILY [facility] PRN Reason: Protocol Last Admin: 03/19/17 09:15 Dose: 40 mg Furosemide (Lasix) 40 mg PO DAILY [facility] Last Admin: 03/19/17 09:17 Dose: 40 mg Guaifenesin (Robitussin) 200 mg PO QID [facility] Last Admin: 03/19/17 21:06 Dose: 200 mg Metronidazole (Flagyl 500mg/100ml Ns) 100 mls @ 100 mls/hr IVPB Q8 [facility] PRN Reason: Protocol Last Admin: 03/17/17 08:49 Dose: 100 mls/hr Ceftaroline Fosamil 400 mg/ (Sodium Chloride) 100 mls @ 100 mls/hr IVPB Q12H [facility] PRN Reason: Protocol Last Admin: 03/17/17 04:00 Dose: 100 mls/hr Lactobacillus Acidophilus (Bacid Acidophilus) 1 cap PO BID [facility] Last Admin: 03/19/17 16:23 Dose: 1 cap Multivitamins/Minerals (Therapeutic-M Tab) 1 tab PO DAILY [facility] Last Admin: 03/19/17 09:16 Dose: 1 tab Ondansetron HCl (Zofran Inj) 4 mg IVP Q4 PRN PRN Reason: Nausea/Vomiting Last Admin: 03/19/17 19:45 Dose: 4 mg Pantoprazole Sodium (Protonix Ec Tab) 40 mg PO DAILY [facility] Last Admin: 03/19/17 09:17 Dose: 40 mg Saliva Substitute (Caphosol 15 Ml) 15 ml MM Q4 PRN PRN Reason: Dry mouth Sodium Chloride ([place] Nasal [place]) 1 sprays DIAMOND Q6 [facility] Last Admin: 03/20/17 03:59 Dose: Not Given Zolpidem Tartrate (Ambien) 5 mg PO HS PRN PRN Reason: Insomnia Last Admin: 03/19/17 22:47 Dose: 5 mg - Labs Labs: 03/20/17 06:25 03/20/17 06:25 PT 16.3 Seconds (9.8-13.1) H 03/19/17 12:54 INR 1.5 (0.9-1.2) H 03/19/17 12:54 APTT 43.1 Seconds (25.6-37.1) H 03/19/17 12:54 <Vaughn Ramon - Last Filed: 03/20/17 14:07> Subjective - Date & Time of Evaluation Date of Evaluation: 03/20/17 Time of Evaluation: 13:30 - Subjective Subjective: Patient was seen and examined at the bedside. No abdominal pain, no nausea, no vomiting, passing flatus and having bowel movements, tolerating diet. Objective - Vital Signs/Intake and Output Vital Signs (last 24 hours): Temp Pulse Resp BP Pulse Ox 97.7 F 64 18 120/69 98 03/20/17 12:35 03/20/17 12:35 03/20/17 12:35 03/20/17 12:35 03/20/17 12:35 Intake and Output: 03/20/17 03/20/17 06:59 18:59 Intake Total 250 Balance 250 - Medications Medications: Current Medications Acetaminophen (Tylenol 325mg Tab) 650 mg PO Q6 PRN PRN Reason: Pain, Mild (1-3) Last Admin: 03/12/17 13:48 Dose: 650 mg Albuterol Sulfate (Albuterol 0.083% Inhal Ny (2.5 Mg/3 Ml) Ud) 2.5 mg INH RQ4 PRN PRN Reason: Shortness of Breath Cefdinir (Omnicef) 300 mg PO BID [facility] Enoxaparin Sodium (Lovenox) 40 mg SC DAILY [facility] PRN Reason: Protocol Last Admin: 03/20/17 12:34 Dose: 40 mg Furosemide (Lasix) 40 mg PO DAILY [facility] Last Admin: 03/20/17 08:47 Dose: Not Given Guaifenesin (Robitussin) 200 mg PO QID [facility] Last Admin: 03/20/17 12:36 Dose: 200 mg Lactated Ringer's (Lactated Ringer's) 1,000 mls @ 40 mls/hr IV .Q24H PRN PRN Reason: Hypotension Lactobacillus Acidophilus (Bacid Acidophilus) 1 cap PO BID [facility] Last Admin: 03/20/17 09:00 Dose: Not Given Multivitamins/Minerals (Therapeutic-M Tab) 1 tab PO DAILY [facility] Last Admin: 03/20/17 08:47 Dose: Not Given Ondansetron HCl (Zofran Inj) 4 mg IVP Q4 PRN PRN Reason: Nausea/Vomiting Last Admin: 03/19/17 19:45 Dose: 4 mg Pantoprazole Sodium (Protonix Ec Tab) 40 mg PO DAILY [facility] Last Admin: 03/20/17 08:47 Dose: Not Given Sodium Chloride ([place] Nasal [place]) 1 sprays DIAMOND Q6 [facility] Last Admin: 03/20/17 11:47 Dose: Not Given Zolpidem Tartrate (Ambien) 5 mg PO HS PRN PRN Reason: Insomnia Last Admin: 03/19/17 22:47 Dose: 5 mg - Labs Labs: 03/20/17 12:10 03/20/17 06:25 PT 16.3 Seconds (9.8-13.1) H 03/19/17 12:54 INR 1.5 (0.9-1.2) H 03/19/17 12:54 APTT 43.1 Seconds (25.6-37.1) H 03/19/17 12:54 - Constitutional Appears: Well, Non-toxic, No Acute Distress - Head Exam Head Exam: ATRAUMATIC, NORMAL INSPECTION, NORMOCEPHALIC - Eye Exam Eye Exam: EOMI, Normal appearance, PERRL Pupil Exam: NORMAL ACCOMODATION, PERRL - ENT Exam ENT Exam: Mucous Membranes Moist, Normal Exam - Neck Exam Neck Exam: Full ROM, Normal Inspection - Respiratory Exam Respiratory Exam: Rhonchi - Cardiovascular Exam Cardiovascular Exam: REGULAR RHYTHM, +S1, +S2 - GI/Abdominal Exam GI & Abdominal Exam: Soft, Normal Bowel Sounds Additional comments: minimal darren-incisional tenderness, ND, no rebound, no guarding, incision clean , no erythema, no drainage - Rectal Exam Rectal Exam: Deferred - Extremities Exam Extremities Exam: Full ROM, Normal Inspection - Neurological Exam Neurological Exam: Alert, Awake, Oriented x3 - Psychiatric Exam Psychiatric exam: Normal Affect, Normal Mood - Skin Skin Exam: Dry, Intact, Normal Color, Warm Assessment and Plan - Assessment and Plan (Free Text) Assessment: 71 y.o. male s/p right hemicolectomy Plan: - Continue diet - continue antibiotics - Pain control - Care per Pulmonary team - Insentive spirometry - DVT ppx - Out of bed and ambulate - Discharge planning
[2017-03-20] MEDS ORDERED: Lactated Ringer's 1,000 ML IV PRN (08:22)
[2017-03-20] MEDS: Enoxaparin 40 mg Syringe SC SCH ×2 (08:47→12:34)
[2017-03-20] MEDS: Pantoprazole 40 mg EC Tab PO SCH (08:47)
[2017-03-20] MEDS: Multivitamin With Minerals Tab PO SCH (08:47)
[2017-03-20] MEDS: guaiFENesin 200 mg/10 ml Syrup UD PO SCH ×5 (08:47→22:42)
[2017-03-20] MEDS: Lactobacillus Acidophilus 500 MU Cap PO SCH ×2 (09:00→16:41)
--- NOTE | 2017-03-20 09:40 | RAD ---
HISTORY: post-bronchoscopy for atelectasis COMPARISON: No prior. FINDINGS: LUNGS: No active pulmonary disease. PLEURA: Small right pleural effusion, unchanged. No left pleural effusion. There is a new small right pneumothorax seen medially. Apical pneumothorax is not definitely identified at this time. CARDIOVASCULAR: Normal heart size. Right PICC catheter unchanged in position. No congestive change. OSSEOUS STRUCTURES: No significant abnormalities. VISUALIZED UPPER ABDOMEN: Normal. OTHER FINDINGS: None. IMPRESSION: New small right pneumothorax status post bronchoscopy. Small right pleural effusion. These findings were discussed by telephone with the recovery nurseMichael, at 9:30 a.m. on 03/20/2017.
--- NOTE | 2017-03-20 10:21 | CP.PCM.PN ---
<Carito Gore - Last Filed: 03/20/17 14:14> Subjective - Date & Time of Evaluation Date of Evaluation: 03/20/17 Time of Evaluation: 07:15 - Subjective Subjective: Patient seen and examined bedside with Dr Kovacs. Patient AAOx3 and reports he is aware will have bronchoscopy today. He denies SOB, chest pain, fever, n,v, abd pain. Pt on NPO since midnight. For Bronchoscopy today by Dr Gonzalez in the morning. Objective - Vital Signs/Intake and Output Vital Signs (last 24 hours): Temp Pulse Resp BP Pulse Ox 97.9 F 65 18 133/79 99 03/20/17 09:45 03/20/17 09:45 03/20/17 09:45 03/20/17 09:45 03/20/17 09:45 Intake and Output: 03/20/17 03/20/17 06:59 18:59 Intake Total 100 Balance 100 - Medications Medications: Current Medications Acetaminophen (Tylenol 325mg Tab) 650 mg PO Q6 PRN PRN Reason: Pain, Mild (1-3) Last Admin: 03/12/17 13:48 Dose: 650 mg Albuterol Sulfate (Albuterol 0.083% Inhal Ny (2.5 Mg/3 Ml) Ud) 2.5 mg INH RQ4 PRN PRN Reason: Shortness of Breath Enoxaparin Sodium (Lovenox) 40 mg SC DAILY SONALI PRN Reason: Protocol Last Admin: 03/20/17 08:47 Dose: Not Given Furosemide (Lasix) 40 mg PO DAILY [facility] Last Admin: 03/20/17 08:47 Dose: Not Given Guaifenesin (Robitussin) 200 mg PO QID [facility] Last Admin: 03/20/17 08:47 Dose: Not Given Metronidazole (Flagyl 500mg/100ml Ns) 100 mls @ 100 mls/hr IVPB Q8 SONALI PRN Reason: Protocol Last Admin: 03/17/17 08:49 Dose: 100 mls/hr Ceftaroline Fosamil 400 mg/ (Sodium Chloride) 100 mls @ 100 mls/hr IVPB Q12H [facility]ON[facility]I PRN Reason: Protocol Last Admin: 03/17/17 04:00 Dose: 100 mls/hr Lactated Ringer's (Lactated Ringer's) 1,000 mls @ 40 mls/hr IV .Q24H PRN PRN Reason: Hypotension Lactobacillus Acidophilus (Bacid Acidophilus) 1 cap PO BID [facility] Last Admin: 03/19/17 16:23 Dose: 1 cap Multivitamins/Minerals (Therapeutic-M Tab) 1 tab PO DAILY [facility] Last Admin: 03/20/17 08:47 Dose: Not Given Ondansetron HCl (Zofran Inj) 4 mg IVP Q4 PRN PRN Reason: Nausea/Vomiting Last Admin: 03/19/17 19:45 Dose: 4 mg Pantoprazole Sodium (Protonix Ec Tab) 40 mg PO DAILY [facility] Last Admin: 03/20/17 08:47 Dose: Not Given Sodium Chloride ([place] Nasal [place]) 1 sprays DIAMOND Q6 [facility] Last Admin: 03/20/17 03:59 Dose: Not Given Zolpidem Tartrate (Ambien) 5 mg PO HS PRN PRN Reason: Insomnia Last Admin: 03/19/17 22:47 Dose: 5 mg - Labs Labs: 03/20/17 06:25 03/20/17 06:25 PT 16.3 Seconds (9.8-13.1) H 03/19/17 12:54 INR 1.5 (0.9-1.2) H 03/19/17 12:54 APTT 43.1 Seconds (25.6-37.1) H 03/19/17 12:54 - Constitutional Appears: Non-toxic, No Acute Distress - Head Exam Head Exam: ATRAUMATIC, NORMOCEPHALIC - Eye Exam Eye Exam: Normal appearance - Neck Exam Neck Exam: Normal Inspection - Respiratory Exam Respiratory Exam: Decreased Breath Sounds. absent: Rales, Rhonchi, Wheezes Additional comments: B/l bibasal - Cardiovascular Exam Cardiovascular Exam: REGULAR RHYTHM, +S1, +S2 - GI/Abdominal Exam GI & Abdominal Exam: Soft, Normal Bowel Sounds. absent: Tenderness - Extremities Exam Extremities Exam: Normal Inspection. absent: Pedal Edema - Neurological Exam Neurological Exam: Alert, Awake, Oriented x3 - Psychiatric Exam Psychiatric exam: Normal Affect, Normal Mood - Skin Skin Exam: Intact Assessment and Plan - Assessment and Plan (Free Text) Plan: 71 yr old M PMHx/o HTN, COPD, CAD, CKD3, POD # 22 s/p laparoscopic right hemicolectomy for ascending colon mass (moderately differentiated adenocarcinoma ). 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 Specimen has been sent to the micro lab for gram stain and culture. will cover with Omnicef -CXR s/p Broncho: possible small pneumothorax. F/u CXR this afternoon. 3) HAP -resolving -CT chest: right infiltrates, chronic change to b/l lungs -Pulmonology consult appreciated -ID c/s -stopped Zosyn/clindamycin -ceftaroline stopped -sputum cx yeast -ID consult appreciated 4) Intrabdominal abscess -resolving -CT abd: intrabdominal fluids around pancreas and right liver lobe aprox 3.9 x 5.9 cm -CT chest: ascites overlying right liver dome with small pocket of air -s/p IR draignage.removed. -CT Abd:improving -ID consult appreciated -Meropenem stopped, flagyl stopped -F/U CT abd/pelvis 5) Diastolic CHF exacerbation -Echo 01/01/17: impaired systolic function with LVEF of 45% -manager knowledge consult appreciated. -c/w lasix 6) h/o CKD stage 3 -renally dose meds, prevent ERYN by not getting contrast if possible 7) HTN -controlled -on lasix PO 8) DVT prophylaxis -lovenox 40 mg sc Dispo: Patient medically cleared by Dr Damon/Fermín and waiting for consultants to be cleared (Dr Gonzalez) after bronchoscopy done today . Will be discharged home by Surgery team when patient is cleared. Surgery Team aware. <Rob Kovacs - Last Filed: 03/21/17 06:51> Objective - Vital Signs/Intake and Output Vital Signs (last 24 hours): Temp Pulse Resp BP Pulse Ox 98.3 F 78 20 126/73 96 03/20/17 23:55 03/20/17 23:55 03/20/17 23:55 03/20/17 23:55 03/20/17 23:55 Intake and Output: 03/20/17 03/21/17 18:59 06:59 Intake Total 250 Balance 250 - Medications Medications: Current Medications Acetaminophen (Tylenol 325mg Tab) 650 mg PO Q6 PRN PRN Reason: Pain, Mild (1-3) Last Admin: 03/12/17 13:48 Dose: 650 mg Albuterol Sulfate (Albuterol 0.083% Inhal Ny (2.5 Mg/3 Ml) Ud) 2.5 mg INH RQ4 PRN PRN Reason: Shortness of Breath Cefdinir (Omnicef) 300 mg PO BID [facility] Last Admin: 03/20/17 16:35 Dose: 300 mg Enoxaparin Sodium (Lovenox) 40 mg SC DAILY [facility] PRN Reason: Protocol Last Admin: 03/20/17 12:34 Dose: 40 mg Furosemide (Lasix) 40 mg PO DAILY [facility] Last Admin: 03/20/17 08:47 Dose: Not Given Guaifenesin (Robitussin) 200 mg PO QID [facility] Last Admin: 03/20/17 22:42 Dose: 200 mg Lactated Ringer's (Lactated Ringer's) 1,000 mls @ 40 mls/hr IV .Q24H PRN PRN Reason: Hypotension Lactobacillus Acidophilus (Bacid Acidophilus) 1 cap PO BID [facility] Last Admin: 03/20/17 16:41 Dose: 1 cap Multivitamins/Minerals (Therapeutic-M Tab) 1 tab PO DAILY [facility] Last Admin: 03/20/17 08:47 Dose: Not Given Ondansetron HCl (Zofran Inj) 4 mg IVP Q4 PRN PRN Reason: Nausea/Vomiting Last Admin: 03/19/17 19:45 Dose: 4 mg Pantoprazole Sodium (Protonix Ec Tab) 40 mg PO DAILY [facility] Last Admin: 03/20/17 08:47 Dose: Not Given Sodium Chloride ([place] Nasal [place]) 1 sprays DIAMOND Q6 [facility] Last Admin: 03/21/17 04:17 Dose: Not Given Zolpidem Tartrate (Ambien) 5 mg PO HS PRN PRN Reason: Insomnia Last Admin: 03/20/17 22:42 Dose: 5 mg - Labs Labs: 03/20/17 12:10 03/20/17 06:25 PT 16.3 Seconds (9.8-13.1) H 03/19/17 12:54 INR 1.5 (0.9-1.2) H 03/19/17 12:54 APTT 43.1 Seconds (25.6-37.1) H 03/19/17 12:54 Attending/Attestation - Attestation I have personally seen and examined this patient.: Yes I have fully participated in the care of the patient.: Yes I have reviewed all pertinent clinical information, including history, physical exam and plan: Yes
--- NOTE | 2017-03-20 11:31 | CP.PCM.PN ---
Subjective - Date & Time of Evaluation Date of Evaluation: 03/20/17 Time of Evaluation: 11:24 - Subjective Subjective: Post bronchoscopy chest x-rays (portable) suggest that there is a small pneumothorax present on the right. He is presently asymptomatic and has been returned to his room on the medical floor. A followup chest film PA/lateral in the department has been requested for 4PM today. A significant amount of thick purulent secretions were seen on the bronchoscopy present in both lungs, more R>L. Specimen has been sent to the micro lab for gram stain and culture, but in the meantime he should be placed on an antibiotic empirically. Discuss with infectious disease and will use Omnicef 300MG PO BID.. If there is a stable small pneumothorax he can still be discharged tomorrow if he remains stable. Objective - Vital Signs/Intake and Output Vital Signs (last 24 hours): Temp Pulse Resp BP Pulse Ox 97.3 F L 70 20 137/80 99 03/20/17 10:35 03/20/17 10:35 03/20/17 10:35 03/20/17 10:35 03/20/17 10:35 Intake and Output: 03/19/17 03/20/17 23:59 11:59 Intake Total 250 Balance 250 - Medications Medications: Current Medications Acetaminophen (Tylenol 325mg Tab) 650 mg PO Q6 PRN PRN Reason: Pain, Mild (1-3) Last Admin: 03/12/17 13:48 Dose: 650 mg Albuterol Sulfate (Albuterol 0.083% Inhal Ny (2.5 Mg/3 Ml) Ud) 2.5 mg INH RQ4 PRN PRN Reason: Shortness of Breath Enoxaparin Sodium (Lovenox) 40 mg SC DAILY [facility] PRN Reason: Protocol Last Admin: 03/20/17 08:47 Dose: Not Given Furosemide (Lasix) 40 mg PO DAILY [facility] Last Admin: 03/20/17 08:47 Dose: Not Given Guaifenesin (Robitussin) 200 mg PO QID [facility] Last Admin: 03/20/17 08:47 Dose: Not Given Metronidazole (Flagyl 500mg/100ml Ns) 100 mls @ 100 mls/hr IVPB Q8 LU[facility] PRN Reason: Protocol Last Admin: 03/17/17 08:49 Dose: 100 mls/hr Ceftaroline Fosamil 400 mg/ (Sodium Chloride) 100 mls @ 100 mls/hr IVPB Q12H [facility] PRN Reason: Protocol Last Admin: 03/17/17 04:00 Dose: 100 mls/hr Lactated Ringer's (Lactated Ringer's) 1,000 mls @ 40 mls/hr IV .Q24H PRN PRN Reason: Hypotension Lactobacillus Acidophilus (Bacid Acidophilus) 1 cap PO BID [facility] Last Admin: 03/19/17 16:23 Dose: 1 cap Multivitamins/Minerals (Therapeutic-M Tab) 1 tab PO DAILY [facility] Last Admin: 03/20/17 08:47 Dose: Not Given Ondansetron HCl (Zofran Inj) 4 mg IVP Q4 PRN PRN Reason: Nausea/Vomiting Last Admin: 03/19/17 19:45 Dose: 4 mg Pantoprazole Sodium (Protonix Ec Tab) 40 mg PO DAILY [facility] Last Admin: 03/20/17 08:47 Dose: Not Given Sodium Chloride ([place] Nasal [place]) 1 sprays DIAMOND Q6 [facility] Last Admin: 03/20/17 03:59 Dose: Not Given Zolpidem Tartrate (Ambien) 5 mg PO HS PRN PRN Reason: Insomnia Last Admin: 03/19/17 22:47 Dose: 5 mg - Labs Labs: 03/20/17 06:25 03/20/17 06:25 PT 16.3 Seconds (9.8-13.1) H 03/19/17 12:54 INR 1.5 (0.9-1.2) H 03/19/17 12:54 APTT 43.1 Seconds (25.6-37.1) H 03/19/17 12:54 Assessment and Plan (1) Nosocomial pneumonia Status: Acute
[2017-03-20 12:21] LABS: BASO # 0.1 K/uL (0.0-0.2); BASO % 0.6 % (0.0-2.0); EOS # 0.1 K/uL (0.0-0.7); EOS % 0.6 % (0.0-4.0); HEMOGLOBIN 11.3 g/dL (12.0-18.0); LYMPH # 1.2 K/uL (1.0-4.3); MEAN CELL VOLUME 83.1 fl (80.0-94.0); MEAN CORPUSCULAR HEMOGLOBIN 26.4 pg (27.0-31.0); MEAN CORPUSCULAR HGB CONC 31.8 g/dL (33.0-37.0); MEAN PLATELET VOLUME 8.2 fl (7.2-11.7); MONO # 0.7 K/uL (0.0-0.8); MONO % 7.7 % (0.0-10.0); NEUT # 7.7 K/uL (1.8-7.0); NEUT % 79.1 % (50.0-75.0); RBC 4.26 Mil/uL (4.40-5.90); RED CELL DISTRIBUTION WIDTH 17.2 % (11.5-14.5); WHITE BLOOD COUNT 9.7 K/uL (4.8-10.8)
--- NOTE | 2017-03-20 14:58 | RAD ---
HISTORY: possible pneumothorax COMPARISON: 03/20/2017 at 8 a.m. FINDINGS: LUNGS: No active pulmonary disease. PLEURA: Small right pleural effusion, unchanged. No evidence of left pleural effusion. No pneumothorax. Pneumothorax reported previously was likely artifact. CARDIOVASCULAR: Normal heart size. Right PICC catheter unchanged, terminating in the region of the superior vena cava, proximal to the cavoatrial junction. OSSEOUS STRUCTURES: No significant abnormalities. VISUALIZED UPPER ABDOMEN: Normal. OTHER FINDINGS: None. IMPRESSION: Small right pleural effusion. No evidence of pneumothorax.
[2017-03-20] MEDS: Cefdinir 300 MG CAP PO SCH (16:35)
--- NOTE | 2017-03-20 17:10 | RAD ---
HISTORY: possible pneumothorax COMPARISON: 03/20/2017 year 902 hours TECHNIQUE: Chest PA and lateral FINDINGS: LUNGS: Asymmetrically elevated right hemidiaphragm with concomitant right pleural effusion inferred. Similar-appearing PLEURA: Right pleural effusion as above. No pneumothorax appreciated CARDIOVASCULAR: Cardiomegaly as before central pulmonary venous mild congestion OSSEOUS STRUCTURES: Thoracic spondylosis VISUALIZED UPPER ABDOMEN: Normal. OTHER FINDINGS: PICC line tip at cavoatrial junction-unchanged. IMPRESSION: No right pleural effusion -elevated right hemidiaphragm - some concomitant Pap patchy infiltrate here not excluded. Overall in appearance not changed Cardiomegaly as before. Mild pulmonary venous congestion
--- NOTE | 2017-03-20 17:43 | CP.PCM.PN ---
Subjective - Date & Time of Evaluation Date of Evaluation: 03/19/17 Time of Evaluation: 11:00 - Subjective Subjective: Frustrated with slow clinical improvement Objective - Vital Signs/Intake and Output Vital Signs (last 24 hours): Temp Pulse Resp BP Pulse Ox 98.4 F 76 14 137/92 H 98 03/20/17 17:00 03/20/17 17:00 03/20/17 17:00 03/20/17 17:00 03/20/17 17:00 Intake and Output: 03/20/17 03/20/17 06:59 18:59 Intake Total 250 Balance 250 - Medications Medications: Current Medications Acetaminophen (Tylenol 325mg Tab) 650 mg PO Q6 PRN PRN Reason: Pain, Mild (1-3) Last Admin: 03/12/17 13:48 Dose: 650 mg Albuterol Sulfate (Albuterol 0.083% Inhal Ny (2.5 Mg/3 Ml) Ud) 2.5 mg INH RQ4 PRN PRN Reason: Shortness of Breath Cefdinir (Omnicef) 300 mg PO BID [facility] Last Admin: 03/20/17 16:35 Dose: 300 mg Enoxaparin Sodium (Lovenox) 40 mg SC DAILY [facility] PRN Reason: Protocol Last Admin: 03/20/17 12:34 Dose: 40 mg Furosemide (Lasix) 40 mg PO DAILY [facility] Last Admin: 03/20/17 08:47 Dose: Not Given Guaifenesin (Robitussin) 200 mg PO QID [facility] Last Admin: 03/20/17 16:35 Dose: 200 mg Lactated Ringer's (Lactated Ringer's) 1,000 mls @ 40 mls/hr IV .Q24H PRN PRN Reason: Hypotension Lactobacillus Acidophilus (Bacid Acidophilus) 1 cap PO BID [facility] Last Admin: 03/20/17 16:41 Dose: 1 cap Multivitamins/Minerals (Therapeutic-M Tab) 1 tab PO DAILY [facility] Last Admin: 03/20/17 08:47 Dose: Not Given Ondansetron HCl (Zofran Inj) 4 mg IVP Q4 PRN PRN Reason: Nausea/Vomiting Last Admin: 03/19/17 19:45 Dose: 4 mg Pantoprazole Sodium (Protonix Ec Tab) 40 mg PO DAILY [facility] Last Admin: 03/20/17 08:47 Dose: Not Given Sodium Chloride ([place] Nasal [place]) 1 sprays DIAMOND Q6 [facility] Last Admin: 03/20/17 16:48 Dose: 1 spr Zolpidem Tartrate (Ambien) 5 mg PO HS PRN PRN Reason: Insomnia Last Admin: 03/19/17 22:47 Dose: 5 mg - Labs Labs: 03/20/17 12:10 03/20/17 06:25 PT 16.3 Seconds (9.8-13.1) H 03/19/17 12:54 INR 1.5 (0.9-1.2) H 03/19/17 12:54 APTT 43.1 Seconds (25.6-37.1) H 03/19/17 12:54 - Head Exam Head Exam: ATRAUMATIC - Eye Exam Eye Exam: Normal appearance - ENT Exam ENT Exam: Mucous Membranes Dry - Respiratory Exam Respiratory Exam: NORMAL BREATHING PATTERN - Cardiovascular Exam Cardiovascular Exam: +S1, +S2 - GI/Abdominal Exam GI & Abdominal Exam: Normal Bowel Sounds - Extremities Exam Extremities Exam: Normal Inspection Assessment and Plan (1) Anemia Assessment & Plan: chronic disease Status: Acute (2) Adenocarcinoma of colon Assessment & Plan: stage III outpatient adjuvant chemotherapy Status: Acute
--- NOTE | 2017-03-20 19:53 | CP.PCM.PN ---
Subjective - Date & Time of Evaluation Date of Evaluation: 03/20/17 Time of Evaluation: 19:52 - Subjective Subjective: I D NOTE BRONCHOSCOPY DONE BY ANA WHATLEY REVIEWED CASE c HIM ONOMNICEF started Objective - Vital Signs/Intake and Output Vital Signs (last 24 hours): Temp Pulse Resp BP Pulse Ox 98.4 F 76 14 137/92 H 98 03/20/17 17:00 03/20/17 17:00 03/20/17 17:00 03/20/17 17:00 03/20/17 17:00 Intake and Output: 03/20/17 03/21/17 18:59 06:59 Intake Total 250 Balance 250 - Medications Medications: Current Medications Acetaminophen (Tylenol 325mg Tab) 650 mg PO Q6 PRN PRN Reason: Pain, Mild (1-3) Last Admin: 03/12/17 13:48 Dose: 650 mg Albuterol Sulfate (Albuterol 0.083% Inhal Ny (2.5 Mg/3 Ml) Ud) 2.5 mg INH RQ4 PRN PRN Reason: Shortness of Breath Cefdinir (Omnicef) 300 mg PO BID [facility] Last Admin: 03/20/17 16:35 Dose: 300 mg Enoxaparin Sodium (Lovenox) 40 mg SC DAILY [facility] PRN Reason: Protocol Last Admin: 03/20/17 12:34 Dose: 40 mg Furosemide (Lasix) 40 mg PO DAILY [facility] Last Admin: 03/20/17 08:47 Dose: Not Given Guaifenesin (Robitussin) 200 mg PO QID [facility] Last Admin: 03/20/17 16:35 Dose: 200 mg Lactated Ringer's (Lactated Ringer's) 1,000 mls @ 40 mls/hr IV .Q24H PRN PRN Reason: Hypotension Lactobacillus Acidophilus (Bacid Acidophilus) 1 cap PO BID [facility] Last Admin: 03/20/17 16:41 Dose: 1 cap Multivitamins/Minerals (Therapeutic-M Tab) 1 tab PO DAILY [facility] Last Admin: 03/20/17 08:47 Dose: Not Given Ondansetron HCl (Zofran Inj) 4 mg IVP Q4 PRN PRN Reason: Nausea/Vomiting Last Admin: 03/19/17 19:45 Dose: 4 mg Pantoprazole Sodium (Protonix Ec Tab) 40 mg PO DAILY [facility] Last Admin: 03/20/17 08:47 Dose: Not Given Sodium Chloride ([place] Nasal [place]) 1 sprays DIAMOND Q6 [facility] Last Admin: 03/20/17 16:48 Dose: 1 spr Zolpidem Tartrate (Ambien) 5 mg PO HS PRN PRN Reason: Insomnia Last Admin: 03/19/17 22:47 Dose: 5 mg - Labs Labs: 03/20/17 12:10 03/20/17 06:25 PT 16.3 Seconds (9.8-13.1) H 03/19/17 12:54 INR 1.5 (0.9-1.2) H 03/19/17 12:54 APTT 43.1 Seconds (25.6-37.1) H 03/19/17 12:54
[2017-03-20 23:56] VITALS: RESP 20; TEMP 98.3
[2017-03-21] MEDS: Nasal Spray(Ocean spray) NAS SCH ×2 (04:17→10:59)
--- NOTE | 2017-03-21 07:32 | CP.PCM.DIS ---
<Christina Spicer - Last Filed: 03/21/17 07:53> Provider - Provider Date of Admission: 02/25/17 13:38 Attending physician: Ventura Kapoor MD Primary care physician: Rob Kovacs MD Consults: cardiology primary care pulmonology Time Spent in preparation of Discharge (in minutes): 40 Diagnosis - Discharge Diagnosis (1) Status post right hemicolectomy Status: Acute Hospital Course - Lab Results Lab Results: Micro Results 03/09/17 17:20 Blood Blood Culture - Final NO GROWTH AFTER 5 DAYS 03/09/17 17:20 Blood Gram Stain - Final TEST NOT PERFORMED 03/09/17 16:45 Blood Blood Culture - Final NO GROWTH AFTER 5 DAYS 03/09/17 16:45 Blood Gram Stain - Final TEST NOT PERFORMED 03/09/17 17:30 Abdomen Gram Stain - Final 03/09/17 17:30 Abdomen Wound Culture - Final No growth. 03/09/17 07:04 Urine,Clean Catch Urine Culture - Final No Growth (<1,000 CFU/ML) 03/06/17 13:54 Abdominal Fluid Gram Stain - Final 03/06/17 13:54 Abdominal Fluid Body Fluid Culture - Final No growth. 03/04/17 12:59 Blood-Venous Blood Culture - Final NO GROWTH AFTER 5 DAYS 03/04/17 12:59 Blood-Venous Gram Stain - Final TEST NOT PERFORMED 03/04/17 12:45 Blood-Venous Blood Culture - Final NO GROWTH AFTER 5 DAYS 03/04/17 12:45 Blood-Venous Gram Stain - Final TEST NOT PERFORMED 03/05/17 19:20 Sputum Gram Stain - Final 03/05/17 19:20 Sputum Sputum Culture - Final Yeast Species 03/01/17 09:00 Naris MRSA Culture (Admit) - Final MRSA NOT DETECTED 02/25/17 18:00 Nose MRSA Culture (Admit) - Final MRSA NOT DETECTED Most Recent Lab Values WBC 9.7 K/uL (4.8-10.8) 03/20/17 12:10 RBC 4.26 Mil/uL (4.40-5.90) L 03/20/17 12:10 Hgb 11.3 g/dL (12.0-18.0) L 03/20/17 12:10 Hct 35.4 % (35.0-51.0) 03/20/17 12:10 MCV 83.1 fl (80.0-94.0) 03/20/17 12:10 MCH 26.4 pg (27.0-31.0) L 03/20/17 12:10 MCHC 31.8 g/dL (33.0-37.0) L 03/20/17 12:10 RDW 17.2 % (11.5-14.5) H 03/20/17 12:10 Plt Count 181 K/uL (130-400) 03/20/17 12:10 MPV 8.2 fl (7.2-11.7) 03/20/17 12:10 Neut % (Auto) 79.1 % (50.0-75.0) H 03/20/17 12:10 Lymph % (Auto) 12.0 % (20.0-40.0) L 03/20/17 12:10 [place] % (Auto) 7.7 % (0.0-10.0) 03/20/17 12:10 Eos % (Auto) 0.6 % (0.0-4.0) 03/20/17 12:10 Baso % (Auto) 0.6 % (0.0-2.0) 03/20/17 12:10 Neut # 7.7 K/uL (1.8-7.0) H 03/20/17 12:10 Lymph # 1.2 K/uL (1.0-4.3) 03/20/17 12:10 [place] # 0.7 K/uL (0.0-0.8) 03/20/17 12:10 Eos # 0.1 K/uL (0.0-0.7) 03/20/17 12:10 Baso # 0.1 K/uL (0.0-0.2) 03/20/17 12:10 Neutrophils % (Manual) 82 % (42-75) H 03/17/17 06:00 Band Neutrophils % 1 % (0-2) 03/17/17 06:00 Lymphocytes % (Manual) 8 % (20-50) L 03/17/17 06:00 Reactive Lymphs % 4 % (0-0) H 03/17/17 06:00 Monocytes % (Manual) 4 % (0-10) 03/17/17 06:00 Eosinophils % (Manual) 1 % (0-7) 03/17/17 06:00 Toxic Granulation Present 03/17/17 06:00 Platelet Estimate Normal (NORMAL) 03/17/17 06:00 Large Platelets Present 03/14/17 05:30 Hypochromasia (manual) Slight 03/17/17 06:00 Poikilocytosis (manual Slight 03/14/17 05:30 Anisocytosis (manual) Slight 03/17/17 06:00 Microcytosis (manual) Slight 02/25/17 18:30 Tear Drop Cells Slight 03/14/17 05:30 Ovalocytes Slight 03/17/17 06:00 Priscila Cells Slight 03/09/17 07:20 Schistocytes Slight 03/09/17 07:20 ESR 44 mm/hr (0-20) H 03/09/17 07:20 PT 16.3 Seconds (9.8-13.1) H 03/19/17 12:54 INR 1.5 (0.9-1.2) H 03/19/17 12:54 APTT 43.1 Seconds (25.6-37.1) H 03/19/17 12:54 Sodium 139 mmol/l (132-148) 03/20/17 06:25 Potassium 4.4 MMOL/L (3.6-5.0) 03/20/17 06:25 Chloride 105 mmol/L (98-107) 03/20/17 06:25 Carbon Dioxide 30 mmol/L (22-30) 03/20/17 06:25 Anion Gap 8 (10-20) L 03/20/17 06:25 BUN 13 mg/dl (9-20) 03/20/17 06:25 Creatinine 1.7 mg/dl (0.8-1.5) H 03/20/17 06:25 Est GFR ( Amer) 49 03/20/17 06:25 Est GFR (Non-Af Amer) 40 03/20/17 06:25 POC Glucose (mg/dL) 93 mg/dL (65-110) 03/21/17 06:05 Random Glucose 96 mg/dL (75-110) 03/20/17 06:25 Lactic Acid 1.1 MMOL/L (0.7-2.1) 03/08/17 16:39 Calcium 8.4 mg/dL (8.4-10.2) 03/20/17 06:25 Phosphorus 3.2 mg/dl (2.5-4.5) 03/17/17 06:00 Magnesium 1.8 MG/DL (1.6-2.3) 03/17/17 06:00 Total Bilirubin 0.4 mg/dl (0.2-1.3) 03/20/17 06:25 AST 22 U/L (17-59) 03/20/17 06:25 ALT 30 U/L (21-72) 03/20/17 06:25 Alkaline Phosphatase 65 U/L (38-126) 03/20/17 06:25 Troponin I 1.5700 ng/mL (0.00-0.120) H* 03/01/17 10:30 NT-Pro-B Natriuret Pep 2400 pg/ml (0-900) H 03/13/17 05:35 Total Protein 4.9 G/DL (6.3-8.2) L 03/20/17 06:25 Albumin 2.6 g/dL (3.5-5.0) L 03/20/17 06:25 Globulin 2.3 gm/dL (2.2-3.9) 03/20/17 06:25 Albumin/Globulin Ratio 1.1 (1.0-2.1) 03/20/17 06:25 Procalcitonin 0.41 NG/ML (0.19-0.49) 03/12/17 04:15 TSH 3rd Generation 1.44 mIU/ML (0.46-4.68) 02/25/17 18:30 Plasma Cortisol PM 283 ug/dL (1.7-14.1) H 02/25/17 18:30 Urine Color Julissa (YELLOW) 03/17/17 07:37 Urine Clarity Slighty-cloudy (Clear) 03/17/17 07:37 Urine pH 6.0 (5.0-8.0) 03/17/17 07:37 Ur Specific [place] 1.020 (1.003-1.030) 03/17/17 07:37 Urine Protein 30 mg/dL (NEGATIVE) 03/17/17 07:37 Urine Glucose (UA) Neg mg/dL (Normal) 03/17/17 07:37 Urine Ketones Negative mg/dL (NEGATIVE) 03/17/17 07:37 Urine Blood Negative (NEGATIVE) 03/17/17 07:37 Urine Nitrate Negative (NEGATIVE) 03/17/17 07:37 Urine Bilirubin Negative (NEGATIVE) 03/17/17 07:37 Urine Urobilinogen 0.2-1.0 mg/dL (0.2-1.0) 03/17/17 07:37 Ur Leukocyte Esterase Trace Ryland/uL (Negative) 03/17/17 07:37 Urine RBC (Auto) 1 /hpf (0-3) 03/17/17 07:37 Urine Microscopic WBC 3 /hpf (0-5) 03/17/17 07:37 Ur Squamous Epith Cells < 1 /hpf (0-5) 03/17/17 07:37 Urine Bacteria Rare (<OCC) 03/10/17 00:30 Hyaline Casts 0-2 /hpf (0-2) 03/10/17 00:30 Hepatitis C Antibody Negative (NEGATIVE) 03/08/17 16:39 Blood Type O POSITIVE 02/25/17 09:45 Antibody Screen Positive 02/25/17 09:45 Antibody Identification Anti Fya 02/25/17 09:45 Crossmatch See Detail 02/25/17 09:45 BBK History Checked Patient has bt 02/25/17 09:45 - Hospital Course Hospital Course: 71M w/PMH sig for admitted s/p R laparoscopic Right hemicolectomy with hand assistance converted to open right hemicolectomy due to ascending colon moderately differentiated adenocarcinoma. Pt admitted to ICU post op for intra- operative blood loss, monitoring of kidney function. Cardiology, pulmology, and primary care teams were consulted and followed patient throughout the duration of hospitalization. Pt down graded to med-surg on POD#4. Pt with prolonged hospitalization due to development of pneumonia, acute on chronic kidney injury , de-conditioning, need for IV antibiotics, drainage of post op fluid collection with IR. Pt with return of bowel function, diet tolerance, and improved mobility over duration of hospitalization. Pt stable and ready for discharge home on antibiotics. Diagnoses: S/p R hemicolectomy 2/2 moderately differentiated adenocarcinoma CHF COPD iron deficiency anemia HTN CAD CKD orthostatic hypotension Discharge Exam - Head Exam Head Exam: ATRAUMATIC, NORMAL INSPECTION, NORMOCEPHALIC - Eye Exam Eye Exam: EOMI, Normal appearance - ENT Exam ENT Exam: Mucous Membranes Moist, Normal Exam - Neck Exam Neck exam: Full Rom, Normal Inspection - Respiratory Exam Respiratory Exam: NORMAL BREATHING PATTERN, UNREMARKABLE - Cardiovascular Exam Cardiovascular Exam: REGULAR RHYTHM - GI/Abdominal Exam GI & Abdominal Exam: Normal Bowel Sounds, Unremarkable. absent: Tenderness Additional comments: Midline surgical scar well healed - Extremities Exam Extremities exam: normal inspection - Neurological Exam Neurological exam: Alert, CN II-XII Intact, Oriented x3 - Psychiatric Exam Psychiatric exam: Normal Affect, Normal Mood - Skin Skin Exam: Dry, Intact, Normal Color, Warm Discharge Plan - Discharge Medications Prescriptions: Cefdinir [Omnicef] 300 mg PO BID #20 cap Cefdinir [Omnicef] 300 mg PO BID #10 cap - Follow Up Plan Condition: GOOD Disposition: HOME/ ROUTINE Instructions: Colorectal Cancer (DC), Colectomy (DC), COPD (Chronic Obstructive Pulmonary Disease) (DC), Flexible Bronchoscopy (DC) Additional Instructions: Please avoid heavy lifting for 4 weeks. Please take antibiotics as directed. Please follow up with Dr. Kapoor in 1 week. Ok to shower and resume regular diet. Please return to hospital if you have fevers or chills. Please call Dr. Miller's office in regards to re-starting Hydrochlorothiazide at home. Please follow up with your primary care provider in 1 week and get a chest x-ray. Based upon the chest x-ray you may need to see Dr. Gonzalez. Referrals: Ryan Miller MD [Staff Provider] - Ventura Kapoor MD [Staff Provider] - Gabino Gonzalez MD [Staff Provider] - Rob Kovacs MD [Primary Care Provider] - <Vaughn Ramon - Last Filed: 03/21/17 11:53> Provider - Provider Date of Admission: 02/25/17 13:38 Attending physician: Ventura Kapoor MD Primary care physician: Rob Kovacs MD Hospital Course - Lab Results Lab Results: Micro Results 03/20/17 11:20 Bronchial Washings Bronchial Culture - Preliminary Gram Positive Cocci 03/09/17 17:20 Blood Blood Culture - Final NO GROWTH AFTER 5 DAYS 03/09/17 17:20 Blood Gram Stain - Final TEST NOT PERFORMED 03/09/17 16:45 Blood Blood Culture - Final NO GROWTH AFTER 5 DAYS 03/09/17 16:45 Blood Gram Stain - Final TEST NOT PERFORMED 03/09/17 17:30 Abdomen Gram Stain - Final 03/09/17 17:30 Abdomen Wound Culture - Final No growth. 03/09/17 07:04 Urine,Clean Catch Urine Culture - Final No Growth (<1,000 CFU/ML) 03/06/17 13:54 Abdominal Fluid Gram Stain - Final 03/06/17 13:54 Abdominal Fluid Body Fluid Culture - Final No growth. 03/04/17 12:59 Blood-Venous Blood Culture - Final NO GROWTH AFTER 5 DAYS 03/04/17 12:59 Blood-Venous Gram Stain - Final TEST NOT PERFORMED 03/04/17 12:45 Blood-Venous Blood Culture - Final NO GROWTH AFTER 5 DAYS 03/04/17 12:45 Blood-Venous Gram Stain - Final TEST NOT PERFORMED 03/05/17 19:20 Sputum Gram Stain - Final 03/05/17 19:20 Sputum Sputum Culture - Final Yeast Species 03/01/17 09:00 Naris MRSA Culture (Admit) - Final MRSA NOT DETECTED 02/25/17 18:00 Nose MRSA Culture (Admit) - Final MRSA NOT DETECTED Most Recent Lab Values WBC 11.5 K/uL (4.8-10.8) H 03/21/17 06:50 RBC 4.11 Mil/uL (4.40-5.90) L 03/21/17 06:50 Hgb 11.0 g/dL (12.0-18.0) L 03/21/17 06:50 Hct 33.8 % (35.0-51.0) L 03/21/17 06:50 MCV 82.3 fl (80.0-94.0) 03/21/17 06:50 MCH 26.8 pg (27.0-31.0) L 03/21/17 06:50 MCHC 32.6 g/dL (33.0-37.0) L 03/21/17 06:50 RDW 16.8 % (11.5-14.5) H 03/21/17 06:50 Plt Count 164 K/uL (130-400) 03/21/17 06:50 MPV 8.4 fl (7.2-11.7) 03/21/17 06:50 Neut % (Auto) 82.2 % (50.0-75.0) H 03/21/17 06:50 Lymph % (Auto) 9.4 % (20.0-40.0) L 03/21/17 06:50 [place] % (Auto) 7.2 % (0.0-10.0) 03/21/17 06:50 Eos % (Auto) 0.7 % (0.0-4.0) 03/21/17 06:50 Baso % (Auto) 0.5 % (0.0-2.0) 03/21/17 06:50 Neut # 9.4 K/uL (1.8-7.0) H 03/21/17 06:50 Lymph # 1.1 K/uL (1.0-4.3) 03/21/17 06:50 [place] # 0.8 K/uL (0.0-0.8) 03/21/17 06:50 Eos # 0.1 K/uL (0.0-0.7) 03/21/17 06:50 Baso # 0.1 K/uL (0.0-0.2) 03/21/17 06:50 Neutrophils % (Manual) 84 % (42-75) H 03/21/17 06:50 Band Neutrophils % 1 % (0-2) 03/17/17 06:00 Lymphocytes % (Manual) 6 % (20-50) L 03/21/17 06:50 Reactive Lymphs % 4 % (0-0) H 03/17/17 06:00 Monocytes % (Manual) 7 % (0-10) 03/21/17 06:50 Eosinophils % (Manual) 1 % (0-7) 03/21/17 06:50 Basophils % (Manual) 2 % (0-2) 03/21/17 06:50 Toxic Granulation Present 03/17/17 06:00 Platelet Estimate Normal (NORMAL) 03/21/17 06:50 Large Platelets Present 03/21/17 06:50 Hypochromasia (manual) Slight 03/17/17 06:00 Poikilocytosis (manual Slight 03/21/17 06:50 Anisocytosis (manual) Moderate 03/21/17 06:50 Microcytosis (manual) Slight 03/21/17 06:50 Macrocytosis (manual) Slight 03/21/17 06:50 Tear Drop Cells Slight 03/14/17 05:30 Ovalocytes Slight 03/21/17 06:50 [place] Cells Slight 03/09/17 07:20 Schistocytes Slight 03/21/17 06:50 ESR 44 mm/hr (0-20) H 03/09/17 07:20 PT 16.3 Seconds (9.8-13.1) H 03/19/17 12:54 INR 1.5 (0.9-1.2) H 03/19/17 12:54 APTT 43.1 Seconds (25.6-37.1) H 03/19/17 12:54 Sodium 142 mmol/l (132-148) 03/21/17 06:50 Potassium 4.7 MMOL/L (3.6-5.0) 03/21/17 06:50 Chloride 106 mmol/L (98-107) 03/21/17 06:50 Carbon Dioxide 30 mmol/L (22-30) 03/21/17 06:50 Anion Gap 11 (10-20) 03/21/17 06:50 BUN 13 mg/dl (9-20) 03/21/17 06:50 Creatinine 1.7 mg/dl (0.8-1.5) H 03/21/17 06:50 Est GFR ( Amer) 49 03/21/17 06:50 Est GFR (Non-Af Amer) 40 03/21/17 06:50 POC Glucose (mg/dL) 93 mg/dL (65-110) 03/21/17 06:05 Random Glucose 99 mg/dL (75-110) 03/21/17 06:50 Lactic Acid 1.1 MMOL/L (0.7-2.1) 03/08/17 16:39 Calcium 8.6 mg/dL (8.4-10.2) 03/21/17 06:50 Phosphorus 3.2 mg/dl (2.5-4.5) 03/17/17 06:00 Magnesium 1.8 MG/DL (1.6-2.3) 03/17/17 06:00 Total Bilirubin 0.4 mg/dl (0.2-1.3) 03/21/17 06:50 AST 24 U/L (17-59) 03/21/17 06:50 ALT 32 U/L (21-72) 03/21/17 06:50 Alkaline Phosphatase 64 U/L (38-126) 03/21/17 06:50 Troponin I 1.5700 ng/mL (0.00-0.120) H* 03/01/17 10:30 NT-Pro-B Natriuret Pep 2400 pg/ml (0-900) H 03/13/17 05:35 Total Protein 4.9 G/DL (6.3-8.2) L 03/21/17 06:50 Albumin 2.6 g/dL (3.5-5.0) L 03/21/17 06:50 Globulin 2.3 gm/dL (2.2-3.9) 03/21/17 06:50 Albumin/Globulin Ratio 1.1 (1.0-2.1) 03/21/17 06:50 Procalcitonin 0.41 NG/ML (0.19-0.49) 03/12/17 04:15 TSH 3rd Generation 1.44 mIU/ML (0.46-4.68) 02/25/17 18:30 Plasma Cortisol PM 283 ug/dL (1.7-14.1) H 02/25/17 18:30 Urine Color Julissa (YELLOW) 03/17/17 07:37 Urine Clarity Slighty-cloudy (Clear) 03/17/17 07:37 Urine pH 6.0 (5.0-8.0) 03/17/17 07:37 Ur Specific [place] 1.020 (1.003-1.030) 03/17/17 07:37 Urine Protein 30 mg/dL (NEGATIVE) 03/17/17 07:37 Urine Glucose (UA) Neg mg/dL (Normal) 03/17/17 07:37 Urine Ketones Negative mg/dL (NEGATIVE) 03/17/17 07:37 Urine Blood Negative (NEGATIVE) 03/17/17 07:37 Urine Nitrate Negative (NEGATIVE) 03/17/17 07:37 Urine Bilirubin Negative (NEGATIVE) 03/17/17 07:37 Urine Urobilinogen 0.2-1.0 mg/dL (0.2-1.0) 03/17/17 07:37 Ur Leukocyte Esterase Trace Ryland/uL (Negative) 03/17/17 07:37 Urine RBC (Auto) 1 /hpf (0-3) 03/17/17 07:37 Urine Microscopic WBC 3 /hpf (0-5) 03/17/17 07:37 Ur Squamous Epith Cells < 1 /hpf (0-5) 03/17/17 07:37 Urine Bacteria Rare (<OCC) 03/10/17 00:30 Hyaline Casts 0-2 /hpf (0-2) 03/10/17 00:30 Hepatitis C Antibody Negative (NEGATIVE) 03/08/17 16:39 Blood Type O POSITIVE 02/25/17 09:45 Antibody Screen Positive 02/25/17 09:45 Antibody Identification Anti Fya 02/25/17 09:45 Crossmatch See Detail 02/25/17 09:45 BBK History Checked Patient has bt 02/25/17 09:45
[2017-03-21 07:45] LABS: BASO # 0.1 K/uL (0.0-0.2); BASO % 0.5 % (0.0-2.0); EOS # 0.1 K/uL (0.0-0.7); EOS % 0.7 % (0.0-4.0); LYMPH # 1.1 K/uL (1.0-4.3); LYMPH % 9.4 % (20.0-40.0); MEAN CELL VOLUME 82.3 fl (80.0-94.0); MEAN CORPUSCULAR HEMOGLOBIN 26.8 pg (27.0-31.0); MEAN CORPUSCULAR HGB CONC 32.6 g/dL (33.0-37.0); MEAN PLATELET VOLUME 8.4 fl (7.2-11.7); MONO # 0.8 K/uL (0.0-0.8); MONO % 7.2 % (0.0-10.0); NEUT # 9.4 K/uL (1.8-7.0); NEUT % 82.2 % (50.0-75.0); NRBC % 0.1 % (0.0-0.0); PLATELET COUNT 164 K/uL (130-400); RBC 4.11 Mil/uL (4.40-5.90); RED CELL DISTRIBUTION WIDTH 16.8 % (11.5-14.5); WHITE BLOOD COUNT 11.5 K/uL (4.8-10.8)
[2017-03-21 07:51] LABS: ALBUMIN 2.6 g/dL (3.5-5.0); CALCIUM 8.6 mg/dL (8.4-10.2)
[2017-03-21 07:59] LABS: ALB/GLOB RATIO 1.1 (1.0-2.1)
[2017-03-21 08:17] VITALS: BP 138/83; PULSE 65; O2SAT 97
[2017-03-21] MEDS: Lactobacillus Acidophilus 500 MU Cap PO SCH (09:24)
[2017-03-21] MEDS: Cefdinir 300 MG CAP PO SCH (09:24)
[2017-03-21] MEDS: guaiFENesin 200 mg/10 ml Syrup UD PO SCH (09:25)
[2017-03-21] MEDS: Multivitamin With Minerals Tab PO SCH (09:25)
[2017-03-21] MEDS: Pantoprazole 40 mg EC Tab PO SCH (09:25)
[2017-03-21] MEDS: Enoxaparin 40 mg Syringe SC SCH (09:25)
--- NOTE | 2017-03-21 09:35 | CP.PCM.PN ---
<JessujustinCoreyariella - Last Filed: 03/21/17 12:21> Subjective - Date & Time of Evaluation Date of Evaluation: 03/21/17 Time of Evaluation: 07:10 - Subjective Subjective: Patient seen and examined bedside with Dr Kovacs, reports feeling better today. He denies SOB, but using O2 by NC. Reports better appetite and taste this morning. He denies chest pain, palpitation, n,v,abd pain. Patient had bronchoscopy last night, covered with omnicef and will be discharged today by Surgery team. Pt medically cleared by Dr Kovacs. will have follow up with Dr Kovacs Objective - Vital Signs/Intake and Output Vital Signs (last 24 hours): Temp Pulse Resp BP Pulse Ox 98.3 F 65 20 138/83 97 03/21/17 08:17 03/21/17 08:17 03/21/17 08:17 03/21/17 09:24 03/21/17 08:17 - Medications Medications: Current Medications Acetaminophen (Tylenol 325mg Tab) 650 mg PO Q6 PRN PRN Reason: Pain, Mild (1-3) Last Admin: 03/12/17 13:48 Dose: 650 mg Albuterol Sulfate (Albuterol 0.083% Inhal Ny (2.5 Mg/3 Ml) Ud) 2.5 mg INH RQ4 PRN PRN Reason: Shortness of Breath Cefdinir (Omnicef) 300 mg PO BID [facility] Last Admin: 03/21/17 09:24 Dose: 300 mg Enoxaparin Sodium (Lovenox) 40 mg SC DAILY [facility] PRN Reason: Protocol Last Admin: 03/21/17 09:25 Dose: 40 mg Furosemide (Lasix) 40 mg PO DAILY [facility] Last Admin: 03/21/17 09:24 Dose: 40 mg Guaifenesin (Robitussin) 200 mg PO QID [facility] Last Admin: 03/21/17 09:25 Dose: 200 mg Lactated Ringer's (Lactated Ringer's) 1,000 mls @ 40 mls/hr IV .Q24H PRN PRN Reason: Hypotension Lactobacillus Acidophilus (Bacid Acidophilus) 1 cap PO BID [facility] Last Admin: 03/21/17 09:24 Dose: 1 cap Multivitamins/Minerals (Therapeutic-M Tab) 1 tab PO DAILY [facility] Last Admin: 03/21/17 09:25 Dose: 1 tab Ondansetron HCl (Zofran Inj) 4 mg IVP Q4 PRN PRN Reason: Nausea/Vomiting Last Admin: 03/19/17 19:45 Dose: 4 mg Pantoprazole Sodium (Protonix Ec Tab) 40 mg PO DAILY [facility] Last Admin: 03/21/17 09:25 Dose: 40 mg Sodium Chloride (Dale Nasal [place]) 1 sprays DIAMOND Q6 [facility] Last Admin: 03/21/17 04:17 Dose: Not Given Zolpidem Tartrate (Ambien) 5 mg PO HS PRN PRN Reason: Insomnia Last Admin: 03/20/17 22:42 Dose: 5 mg - Labs Labs: 03/21/17 06:50 03/21/17 06:50 PT 16.3 Seconds (9.8-13.1) H 03/19/17 12:54 INR 1.5 (0.9-1.2) H 03/19/17 12:54 APTT 43.1 Seconds (25.6-37.1) H 03/19/17 12:54 - Constitutional Appears: No Acute Distress - Head Exam Head Exam: ATRAUMATIC, NORMOCEPHALIC - Eye Exam Eye Exam: Normal appearance - Neck Exam Neck Exam: Normal Inspection - Respiratory Exam Respiratory Exam: Decreased Breath Sounds. absent: Rales, Rhonchi, Wheezes Additional comments: bibasal - Cardiovascular Exam Cardiovascular Exam: REGULAR RHYTHM, +S1, +S2 - GI/Abdominal Exam GI & Abdominal Exam: Soft, Normal Bowel Sounds. absent: Tenderness - Extremities Exam Extremities Exam: Normal Inspection. absent: Pedal Edema - Neurological Exam Neurological Exam: Alert, Awake, Oriented x3 - Psychiatric Exam Psychiatric exam: Normal Mood - Skin Skin Exam: Intact Assessment and Plan - Assessment and Plan (Free Text) Plan: 71 yr old M PMHx/o HTN, COPD, CAD, CKD3, POD # 22 s/p laparoscopic right hemicolectomy for ascending colon mass (moderately differentiated adenocarcinoma ). 1) s/p Right hemicolectomy for ascending colon mass, POD # 24 -path: T2 adenocarinoma with 1/20 lymph nodes positive -Pain control: percocet prn -Hem/Onc c/s: outpt chemo, will need portcath placement 2) Emphysema/COPD - O2 NC, Duo Neb Q8 sonali, taper NC as tolerated -V/Q scan low probabilitiy PE -Pulmonology consult appreciated: bronchoscopy today:significant amount of thick purulent secretions were seen on the bronchoscopy present in both lungs, more R>L. Specimen has been sent to the micro lab for gram stain and culture. will cover with Omnicef -CXR s/p Broncho: possible small pneumothorax. F/u CXR this afternoon. 3) HAP -resolved -CT chest: right infiltrates, chronic change to b/l lungs -s/p Bronchoscopy yesterday -Pulmonology consult appreciated: patient may be discharged today with Omnicef and f/u CXR 7 days -ID consult appreciated 4) Intrabdominal abscess -resolving -CT abd: intrabdominal fluids around pancreas and right liver lobe aprox 3.9 x 5.9 cm -CT chest: ascites overlying right liver dome with small pocket of air -s/p IR draignage.removed. -CT Abd:improving -ID consult appreciated -Meropenem stopped, flagyl stopped -F/U CT abd/pelvis 5) Diastolic CHF exacerbation -Echo 01/01/17: impaired systolic function with LVEF of 45% -product marketing executive consult appreciated. -c/w lasix 6) h/o CKD stage 3 -renally dose meds, prevent ERYN by not getting contrast if possible 7) HTN -controlled -on lasix PO 8) DVT prophylaxis -lovenox 40 mg sc Dispo: Patient medically cleared by Dr Damon/Fermín and all consultants . Will be discharged home today by Surgery team. <Rob Kovacs - Last Filed: 03/24/17 06:45> Objective - Vital Signs/Intake and Output Vital Signs (last 24 hours): Temp Pulse Resp BP Pulse Ox 98.3 F 65 20 138/83 97 03/21/17 08:17 03/21/17 08:17 03/21/17 08:17 03/21/17 09:24 03/21/17 08:17 - Labs Labs: 03/21/17 06:50 03/21/17 06:50 PT 16.3 Seconds (9.8-13.1) H 03/19/17 12:54 INR 1.5 (0.9-1.2) H 03/19/17 12:54 APTT 43.1 Seconds (25.6-37.1) H 03/19/17 12:54 Attending/Attestation - Attestation I have personally seen and examined this patient.: Yes I have fully participated in the care of the patient.: Yes I have reviewed all pertinent clinical information, including history, physical exam and plan: Yes
--- NOTE | 2017-03-21 10:38 | CP.PCM.PN ---
Subjective - Date & Time of Evaluation Date of Evaluation: 03/21/17 Time of Evaluation: 10:30 - Subjective Subjective: Appears to have done well overnight. He has remained afebrile, although his WBC did elevate to 11.5 this morning. This bump in leukocytosis likely is a secondary effect of the bronchoscopy. He feels well this morning. His cough is essentially dry at the present time. There is still some dullness at the right base posteriorly w/o rhonchi or rales. He has started to eat a little more since his sense of taste has begun to return. The bronchoscopy specimen gram stain and culture will be available in another 24 -48 hrs. In the interim he has been started on Omnicef 300MG BID which he has been instructed to continue at [facility] for 10 days. He will followup with his PMD as well as oncology and surgery. A chest x-ray should be done in a week, and if clear there is no reason for him to follow up with me. If the x-ray has not yet cleared he can be referred to my office at that time. Thanks, Objective - Vital Signs/Intake and Output Vital Signs (last 24 hours): Temp Pulse Resp BP Pulse Ox 98.3 F 65 20 138/83 97 03/21/17 08:17 03/21/17 08:17 03/21/17 08:17 03/21/17 09:24 03/21/17 08:17 - Medications Medications: Current Medications Acetaminophen (Tylenol 325mg Tab) 650 mg PO Q6 PRN PRN Reason: Pain, Mild (1-3) Last Admin: 03/12/17 13:48 Dose: 650 mg Albuterol Sulfate (Albuterol 0.083% Inhal Ny (2.5 Mg/3 Ml) Ud) 2.5 mg INH RQ4 PRN PRN Reason: Shortness of Breath Cefdinir (Omnicef) 300 mg PO BID [facility] Last Admin: 03/21/17 09:24 Dose: 300 mg Enoxaparin Sodium (Lovenox) 40 mg SC DAILY [facility] PRN Reason: Protocol Last Admin: 03/21/17 09:25 Dose: 40 mg Furosemide (Lasix) 40 mg PO DAILY [facility] Last Admin: 03/21/17 09:24 Dose: 40 mg Guaifenesin (Robitussin) 200 mg PO QID [facility] Last Admin: 03/21/17 09:25 Dose: 200 mg Lactated Ringer's (Lactated Ringer's) 1,000 mls @ 40 mls/hr IV .Q24H PRN PRN Reason: Hypotension Lactobacillus Acidophilus (Bacid Acidophilus) 1 cap PO BID [facility] Last Admin: 03/21/17 09:24 Dose: 1 cap Multivitamins/Minerals (Therapeutic-M Tab) 1 tab PO DAILY [facility] Last Admin: 03/21/17 09:25 Dose: 1 tab Ondansetron HCl (Zofran Inj) 4 mg IVP Q4 PRN PRN Reason: Nausea/Vomiting Last Admin: 03/19/17 19:45 Dose: 4 mg Pantoprazole Sodium (Protonix Ec Tab) 40 mg PO DAILY [facility] Last Admin: 03/21/17 09:25 Dose: 40 mg Sodium Chloride (Early Nasal [place]) 1 sprays DIAMOND Q6 [facility] Last Admin: 03/21/17 04:17 Dose: Not Given Zolpidem Tartrate (Ambien) 5 mg PO HS PRN PRN Reason: Insomnia Last Admin: 03/20/17 22:42 Dose: 5 mg - Labs Labs: 03/21/17 06:50 03/21/17 06:50 PT 16.3 Seconds (9.8-13.1) H 03/19/17 12:54 INR 1.5 (0.9-1.2) H 03/19/17 12:54 APTT 43.1 Seconds (25.6-37.1) H 03/19/17 12:54 Assessment and Plan (1) Nosocomial pneumonia Status: Acute
[2017-03-21 10:47] LABS: ANISOCYTOSIS MODERATE; BASOPHIL 2 % (0-2); EOSINOPHIL 1 % (0-7); LYMPHOCYTE 6 % (20-50); MONOCYTE 7 % (0-10); NEUTROPHIL 84 % (42-75); PLATELET ESTIMATE NORMAL (NORMAL); TOTAL CELLS COUNTED 100
[2017-03-21 10:48] LABS: LARGE PLATELETS PRESENT; MICROCYTOSIS SLIGHT; OVALOCYTES SLIGHT; POIKILOCYTOSIS SLIGHT; SCHISTOCYTES SLIGHT
--- NOTE | 2017-03-28 01:17 | OP ---
PROCEDURE DATE: 02/25/2017 PREOPERATIVE DIAGNOSIS: Ascending colon mass. POSTOPERATIVE DIAGNOSIS: Ascending colon carcinoma. PROCEDURES: Laparoscopy, lysis of adhesions, open right hemicolectomy. SURGEON: Ventura Kapoor MD. ASSISTANTS: Dr. Lundy, Dr. Chen, and Dr. Spicer. TYPE OF ANESTHESIA: General endotracheal. ANESTHESIA ADMINISTERED BY: Guy Pérez MD. OPERATIVE FINDINGS: Adenocarcinoma of the ascending colon. DESCRIPTION OF PROCEDURE: After obtaining informed consent, the patient was taken to the operating room. After a time-out obtained and induction of general endotracheal anesthesia was obtained, the abdomen was prepped and draped in the usual manner. An incision was made in the supraumbilical region in the midline. This was carried down through subcutaneous tissue, approximately 6 cm long. Upon entering the abdominal cavity, a suture was placed at the side of the fascia for retraction and identification purposes. A dextrous port was inserted and the left hand was inserted for the assisting. A 5-mm bladeless port was inserted in the midline epigastric region and one in the left quadrant. At this point, using the harmonic scalpel, the right colon was totally mobilized all the way down, including the ileocecal attachments to the pelvis. Turning around, in the hepatic flexure, the mesocolon itself and the omentum was cardboard-like, extremely indurated. Through mobilizing the hepatic flexure, we got into bleeding, which was unable to be stopped using the harmonic. So, at this point, I elected to convert to an open right hemicolectomy. This was opened. The retroperitoneum was moderately fibrosed and multiple fine sutures of silk were used to obtain hemostasis. Once this was done, the whole transverse colon had been mobilized. A DORI was used to divide the colon in mid-transverse and the distal ileum approximately 6 to 8 cm from the ileocecal valve. At this point, the mesocolon was divided using the harmonic scalpel and multiple suture ligations of heavy Vicryl. The specimen was removed. At this point, an ileotransverse colostomy was constructed and [id number] functional end-to-end anastomosis. The ileocolostomy was reinforced with fine chromic. At this point, making sure that the hemostasis was excellent, a Surgicel was placed at the area of the previous bleeding. The abdomen was then closed using heavy PDS and the skin with josy. The estimated blood loss was 1000 mL. The blood given was 1 unit of packed rbc's. There was no drain. The postoperative condition was guarded. The patient tolerated the procedure very well and was transferred to recovery room in guarded condition. Ventura Kapoor MD
== END 2017-03-21 13:36 | disposition home health service (06) | DRG 329 ==
LOC: H.OPSURG 08:07 → H.ICU/CCU 13:38 → H.MEDSURG1 03-01 15:48 → H.TEL 03-09 17:58 → H.MEDSURG1 03-12 18:22
PROVIDERS: ADMIT Surgery; ATTEND Surgery
PROC: 30233N1 Transfusion of Nonautologous Red Blood Cells into Peripheral Vein, Percutaneous Approach (ICD-10-PCS; 2017-02-25)
PROC: 0DTF0ZZ Resection of Right Large Intestine, Open Approach (ICD-10-PCS; 2017-02-25)
PROC: 0F9130Z Drainage of Right Lobe Liver with Drainage Device, Percutaneous Approach (ICD-10-PCS; principal; 2017-03-06 11:30)
PROC: 02HV33Z Insertion of Infusion Device into Superior Vena Cava, Percutaneous Approach (ICD-10-PCS; 2017-03-10)
PROC: B518YZA Fluoroscopy of Superior Vena Cava using Other Contrast, Guidance (ICD-10-PCS; 2017-03-10)
PROC: 3E04329 Introduction of Other Anti-infective into Central Vein, Percutaneous Approach (ICD-10-PCS; 2017-03-10)
PROC: 0BDF8ZX Extraction of Right Lower Lung Lobe, Via Natural or Artificial Opening Endoscopic, Diagnostic (ICD-10-PCS; 2017-03-20)
DX: C18.2 Malignant neoplasm of ascending colon (principal); I50.23 Acute on chronic systolic (congestive) heart failure; K75.0 Abscess of liver; J18.9 Pneumonia, unspecified organism; C77.2 Secondary and unspecified malignant neoplasm of intra-abdominal lymph nodes; I42.0 Dilated cardiomyopathy; R18.8 Other ascites; J43.9 Emphysema, unspecified; I13.0 Hypertensive heart and chronic kidney disease with heart failure and stage 1 through stage 4 chronic kidney disease, or unspecified chronic kidney disease; L02.211 Cutaneous abscess of abdominal wall; J98.11 Atelectasis; N18.3 Chronic kidney disease, stage 3 (moderate); D50.0 Iron deficiency anemia secondary to blood loss (chronic); I95.1 Orthostatic hypotension; I25.10 Atherosclerotic heart disease of native coronary artery without angina pectoris; Y95 Nosocomial condition; D72.828 Other elevated white blood cell count; I25.2 Old myocardial infarction; K29.70 Gastritis, unspecified, without bleeding; F41.9 Anxiety disorder, unspecified; Z87.01 Personal history of pneumonia (recurrent)